=== PATIENT | male | born 1940 | race Caucasian/White ===

== ENCOUNTER 2019-10-23 18:20 | Emergency (ER) | payer MEDICARE, SELFPAY ==
--- NOTE | ~2019-10-23 | CT_ITS ---
EXAMINATION: CTA chest abdomen pelvis DATE: 10/23/2019 19:39 CDT INDICATION: Back pain. History of aortic graft. TECHNIQUE: Computed tomographic angiography (CTA) of the chest, abdomen, and pelvis was performed wit h 100 mL Omnipaque-350 intravenous contrast. The dose-length product was 916.64 mGy-cm. Maximum inten sity projection 3D-reconstructions of the aorta and other arteries were constructed by the [employer] on a separate workstation. Automated exposure control and iterative reconstruction technique were employed. COMPARISON: CT dated 10/16/2018. FINDINGS: CHEST CTA: There is a right subclavian bifemoral bypass graft. No thoracic lymphadenopathy. No significant pleur al or pericardial effusion. Heart size is normal. No evidence for aortic aneurysm or dissection. Ther e is stenosis of the distal abdominal aorta secondary to atherosclerosis. Calcified granuloma right u pper lobe. No focal airspace consolidation. No pneumothorax. No suspicious pulmonary nodules or arin s. No focal airspace consolidation. ABDOMEN AND PELVIS CTA: Status post cholecystectomy. The liver, spleen, pancreas, adrenal glands and left kidney are unremark able. No significant change to 3.4 cm septated cyst lower pole of the right kidney. Bowel pattern is nonobstructive. Normal appendix. Colonic diverticulosis without evidence for diverticulitis. No free air or free fluid. Severe osteoarthritis right hip. Mild lumbar spondylosis. IMPRESSION: 1. No evidence for aortic aneurysm or dissection. Moderate stenosis of the inferior abdominal aorta s econdary to atherosclerotic change. Right subclavian bifemoral bypass graft is patent. 2: No acute abnormality of the chest, abdomen or pelvis. Reviewed, dictated and finalized at location A. IMPRESSION: 1. No evidence for aortic aneurysm or dissection. Moderate stenosis of the infe rior abdominal aorta secondary to atherosclerotic change. Right subclavian bife moral bypass graft is patent. 2: No acute abnormality of the chest, abdomen or pelvis.
[2019-10-23 18:23] VITALS: BP 157/64; PULSE 102; RESP 22; O2SAT 100
--- NOTE | 2019-10-23 18:27 | ED.BACK ---
HPI - Back Pain/Injury General Chief Complaint: Back Pain/Injury Stated Complaint: lower back pain Time Seen by Provider: 10/23/19 18:26 Source: patient and RN notes reviewed Mode of arrival: EMS Limitations: no limitations History of Present Illness HPI Narrative: A 78 y/o male, with a hx of kidney stones, presents to the ED with severe, constant, rt lower back pain for the past 2 days. He states that he awoke with this pain 2 days ago and that when he was bending over to put his socks on his pain aggravated. He also states that walking and movement aggravates his pain. He reports that he has tried using ice, heat, and Biofreeze with no relief. He denies any radiation of the pain. He also denies any hematuria, dysuria, CP, SOB, N/V/D, urinary frequency, constipation, fevers, chills, sweats, rashes, weakness, or numbness. MD elicited complaint: back pain Pertinent past history: kidney stones and cancer Onset (ago): day(s) (2) Timing: constant Severity: severe Location: right lower back Radiation: none Exacerbating factors: movement, walking and other (bending over) Relieving factors: none Context: other (awoke with) Associated symptoms: denies other symptoms Treatments prior to arrival: cold therapy, heat therapy and other (Biofreeze) Related Data Home Medications Medication Instructions Recorded Confirmed apixaban 2.5 mg tablet 2.5 mg PO BID 07/24/19 finasteride 5 mg tablet 5 mg PO DAILY 07/24/19 levothyroxine 75 mcg tablet 75 mcg PO DAILY 07/24/19 spironolactone 25 mg tablet 25 mg PO DAILY 07/24/19 Allergies Allergy/AdvReac Type Severity Reaction Status Date / Time fish oil Allergy Mild RASH Verified 10/23/19 18:51 diazepam AdvReac Mild CONFUSION Verified 10/23/19 18:51 Review of Systems Review of Systems: All systems reviewed & are unremarkable except as noted in HPI and below Constitutional: Constitutional: Denies chills, Denies fever(s) and Denies other (sweats) Cardiovascular: Cardiovascular: Denies chest pain Respiratory: Respiratory: Denies dyspnea Gastrointestinal: Gastrointestinal: Denies constipation, Denies diarrhea, Denies nausea and Denies vomiting Genitourinary: Genitourinary: Denies hematuria, Denies dysuria and Denies urinary frequency Musculoskeletal: Musculoskeletal: Reports back pain (lower rt) Integumentary/Breasts: Skin/Breast: Denies rash Neurologic: Denies numbness and Denies weakness [facility] Past Medical History Medical History (Updated 10/23/19 @ 23:08 by Kelsey Husain MD) Anemia Arterial insufficiency of lower extremity Bradycardia Cardiomyopathy CVA (cerebral vascular accident) DM (diabetes mellitus) Essential (primary) hypertension H/O: HTN (hypertension) History of kidney stones HLD (hyperlipidemia) Hx of melanoma of skin Hypothyroidism Idiopathic gout of multiple sites Other hyperlipidemia Peptic ulcer disease Rheumatoid arthritis Superior mesenteric artery atherosclerosis Type 2 diabetes mellitus without complications Venous insufficiency (chronic) (peripheral) Surgical History Surgical History History of cholecystectomy History of permanent cardiac pacemaker placement Hx of melanoma excision Status post aortic bifurcation bypass graft Family History Family History Grandparent Hypertension Cerebrovascular accident Father Family history of malignant neoplasm Family history of coronary artery disease Mother Family history of malignant neoplasm Family history of coronary artery disease Sibling Family history of diabetes mellitus in first degree relative Social History Social History Smoking status: Former smoker Tobacco type: cigarettes Alcohol intake: current Gender identity (if verbalized by the patient): Male Exam Const: General: cooperative, no acute distress, alert and other (periodically wi
--- NOTE | 2019-10-23 18:38 | ECG_ITS ---
Measurements Intervals [place] Rate: 73 P: 2 MI: 212 QRS: 80 QRSD: 169 T: 107 QT: 426 QTc: 472 Interpretive Statements ELECTRONIC ATRIAL PACEMAKER ELECTRONIC VENTRICULAR PACEMAKER VENTRICULAR PREMATURE COMPLEX BASELINE ARTIFACT- I, II, AVR, AVF NO FURTHER INTERPRETATION IS POSSIBLE ATYPICAL ECG Electronically Signed On 10-24-2019 7:53:19 CDT by Layo Mcfarland D.O.
[2019-10-23 18:58] LABS: Basophils Percent Auto 0.6 % (0.2-1.2); Eosinophils Absolute Auto 0.1 K/mm3 (0-0.3); Hematocrit 45.7 % (42.0-52.0); Hemoglobin 14.8 g/dL (14.0-18.0); Immature Granulocyte Absolute 0.07 K/mm3 (0.00-0.031); Immature Granulocyte Percent A 1.4 % (0-0.5); Lymphocytes Absolute Auto 1.09 K/mm3 (0.9-3.2); Lymphocytes Percent Auto 22.3 % (18.3-44.2); Mean Corpuscular HGB Conc 32.4 g/dl (32-36); Mean Corpuscular Hemoglobin 30.8 pg (26-34); Mean Corpuscular Volume 95.2 fl (80-100); Mean Platelet Volume 9.2 fl (7.4-10.4); Monocytes Absolute Auto 0.7 K/mm3 (0.1-0.6); Monocytes Percent Auto 13.9 % (2.6-8.5); Neutrophils Percent Auto 60.8 % (45.5-73.1); Platelet Count Result 167 k/mm3 (150-375); Red Cell Distribution Width 13.5 % (11.5-14.5); White Blood Count 4.9 K/mm3 (4.5-10.0)
[2019-10-23 19:10] LABS: Alanine Aminotransferase 18 U/L (4-50); Albumin Level 4.6 g/dL (3.5-5.1); Alkaline Phosphatase 80 U/L (38-126); Aspartate Amino Transferase 24 U/L (17-59); Bilirubin,Total 0.7 mg/dL (0.2-1.3); Blood Urea Nitrogen 20 mg/dL (9-20); Calcium 10.6 mg/dL (8.4-10.2); Carbon Dioxide 25 mmol/L (22-30); Chloride 102 mmol/L (98-107); Estimated CRCL calculation 81 ml/min; Estimated Glomerular Filt Rate > 60; Glucose 135 mg/dL (75-110); Lipase 100 U/L (23-300); Potassium 4.7 mmol/L (3.4-5.0); Sodium 137 mmol/L (137-145)
[2019-10-23 19:12] LABS: INR 1.1; Prothrombin Time 13.7 Seconds (11.1-14.7)
[2019-10-23 19:13] LABS: Partial Thromboplastin Time 27.5 SECONDS (22.3-36.8)
[2019-10-23] MEDS: KETOROLAC 15 MG/ML VIAL (*BKC) IV PUSH (21:01)
[2019-10-23] MEDS: MORPHINE SULFATE 4 MG/ML INJ IV PUSH (21:01)
[2019-10-23 21:04] VITALS: BP 158/98; PULSE 71; RESP 18; O2SAT 97
[2019-10-23 21:46] LABS: Add Urine Microscopic? NO; Appearance Urine Clear (Clear); Bilirubin Urine Negative (Negative); Blood Urine Negative (Negative); Color Urine Straw (Yellow); Glucose Urine UA Negative (Negative); Ketones Urine Negative (Negative); Leukocyte Esterase Ur Negative LEU/UL (Negative); Nitrate Urine Negative (Negative); Protein Urine Negative (Negative); Urobilinogen Urine Negative mg/dL (<2.0)
[2019-10-23 22:03] LABS: Specific Grav Ur 1.038 (1.001-1.035)
[2019-10-23 23:46] VITALS: BP 149/88; PULSE 77; RESP 20; O2SAT 100
== END 2019-10-23 23:46 | disposition home or self-care (01) ==
PROVIDERS: Emergency Provider Emergency Medicine; PCP Family Medicine
DX: M54.5 Low back pain (principal); Z86.73 Personal history of transient ischemic attack (TIA), and cerebral infarction without residual deficits; E11.9 Type 2 diabetes mellitus without complications; I10 Essential (primary) hypertension; Z87.442 Personal history of urinary calculi; E78.5 Hyperlipidemia, unspecified; Z85.820 Personal history of malignant melanoma of skin; E03.9 Hypothyroidism, unspecified; M10.00 Idiopathic gout, unspecified site; Z87.11 Personal history of peptic ulcer disease; I87.2 Venous insufficiency (chronic) (peripheral); Z95.0 Presence of cardiac pacemaker; I49.3 Ventricular premature depolarization; I77.1 Stricture of artery; I35.0 Nonrheumatic aortic (valve) stenosis; Z79.01 Long term (current) use of anticoagulants
CPT/HCPCS: 36415; 71275; 74174; 80053; 81003; 83690; 85025; 85610; 85730; 93005; 96365; 96375; 99284; J0131; J1885; J2270; J3010; Q9967

== ENCOUNTER 2019-11-20 12:34 | Emergency (ER) | payer MEDICARE, SELFPAY ==
--- NOTE | ~2019-11-20 | XR_ITS ---
EXAMINATION: XR ribs RT 2V w CXR 2V DATE: 11/20/2019 13:47 INDICATION: Right lower rib pain. TECHNIQUE: Frontal and lateral views of the chest and 3 views of the right ribs were obtained. COMPARISON: Chest 2 views 12/06/2018 FINDINGS: CHEST TWO VIEWS: A calcified right lung nodule is consistent with old granulomatous disease. There is mild scarring at the lung apices. No pleural effusion or pneumothorax. The heart size is normal. The re is a left chest wall pacer with leads in the right atrium and right ventricle. There is an old hea led fracture of left fifth rib. Surgical clips in the right upper quadrant are likely from cholecyste ctomy. There is a right shoulder arthroplasty. RIGHT RIBS: There is no acute rib fracture. IMPRESSION: 1. No acute rib fracture. Reviewed, dictated and finalized at location A. IMPRESSION: 1. No acute rib fracture.
--- NOTE | ~2019-11-20 | CT_ITS ---
EXAMINATION: CT brain wo con DATE: 11/20/2019 13:40 INDICATION: Head injury. TECHNIQUE: Computed tomography (CT) of the head was performed without intravenous contrast. The mA wa s adjusted according to patient size. Iterative reconstruction technique was employed. The dose-lengt h product was 605.33 mGy-cm. COMPARISON: Head CT 12/06/2018 FINDINGS: There is an old infarct in posterior right frontal lobe. There are scattered areas of low a ttenuation in the cerebral white matter, which is within normal limits for the patient's age. There i s no intracranial hemorrhage, acute infarction, or abnormal intracranial mass lesion. The ventricles are normal in size. There are likely changes of ocular lens replacement surgeries. IMPRESSION: 1. Old infarct in posterior right frontal lobe. Reviewed, dictated and finalized at location A.
--- NOTE | ~2019-11-20 | XR_ITS ---
EXAMINATION: XR hand RT min 3V INDICATION: Right hand pain TECHNIQUE: Three views of the right hand are obtained. COMPARISON: 10/24/2012 FINDINGS: There is soft tissue swelling and laceration near the fifth metacarpal without underlying o sseous abnormality. There is advanced triscaphe and first carpometacarpal joint osteoarthritis. Moder ate osteoarthritis is seen in several interphalangeal joints. IMPRESSION: 1. No acute osseous abnormality. 2. Polyarticular osteoarthritis. Reviewed, dictated and finalized at location B.
[2019-11-20 12:37] VITALS: BP 122/55; PULSE 56; RESP 20; TEMP 36.7; O2SAT 99
--- NOTE | 2019-11-20 13:22 | ED.FALL ---
HPI - Fall General Chief Complaint: Fall <Nunu Roy PA-C - Last Filed: 11/20/19 15:30> Stated Complaint: fall down 8 stairs, everything hurts <AGUILAR Jarquin Last Filed: 11/20/19 15:30> Time Seen by Provider: 11/20/19 13:05 <AGUILAR Jarquin Last Filed: 11/20/19 15:30> Source: patient <AGUILAR Jarquin Last Filed: 11/20/19 15:30> Mode of arrival: ambulatory <AGUILAR Jarquin Last Filed: 11/20/19 15:30> Limitations: no limitations <AGUILRA Jarquin Last Filed: 11/20/19 15:30> History of Present Illness HPI Narrative: This is a 79 year old male that presents to the ER for a fall today with back pain. Reports he lost his balance and fell down about 8 stairs. Reports history of balance problems and that he uses a cane to ambulate. Reports he fell backwards onto his bottom. Does report hitting his head. Denies loss of consciousness. Reports pain in the right side of his mid back. Also reports a laceration to the right hand. Reports some skin tears to the right arm and forehead. Reports he went to the urgent care and was told to come here for further evaluation. Denies shortness of breath, abdominal pain, vision changes, vomiting, numbness or weakness. <AGUILAR Jarquin Last Filed: 11/20/19 15:30> Related Data Home Medications: Home Medications Medication Instructions Recorded Confirmed apixaban 2.5 mg tablet 2.5 mg PO BID 07/24/19 11/17/19 finasteride 5 mg tablet 5 mg PO DAILY 07/24/19 11/17/19 levothyroxine 75 mcg tablet 75 mcg PO DAILY 07/24/19 11/17/19 spironolactone 25 mg tablet 25 mg PO DAILY 07/24/19 11/17/19 carvedilol 11/20/19 clopidogrel 11/20/19 losartan 11/20/19 tizanidine mg 11/20/19 11/20/19 <Nunu Roy PA-C - Last Filed: 11/20/19 15:30> Allergies/Adverse Reactions: Allergies Allergy/AdvReac Type Severity Reaction Status Date / Time fish oil Allergy Mild RASH Verified 11/20/19 13:32 diazepam AdvReac Mild CONFUSION Verified 11/20/19 13:32 <Nunu Roy PA-C - Last Filed: 11/20/19 15:30> Review of Systems Review of Systems: Narrative: CONSTITUTIONAL: Denies fever EYES: Denies visual changes CARDIOVASCULAR: Reports chest pain RESPIRATORY: Denies cough or dyspnea. GASTROINTESTINAL: Denies abdominal pain, nausea, vomiting MUSCULOSKELETAL: Reports back pain, joint pain, and myalgia. NEUROLOGIC: Denies headache, numbness, or weakness. <Nunu Roy PA-C - Last Filed: 11/20/19 15:30> All systems reviewed & are unremarkable except as noted in HPI and below <Nunu Roy PA-C - Last Filed: 11/20/19 15:30> [facility] Social History Social History: Social History Smoking status: Former smoker Tobacco type: cigarettes Alcohol intake: current Gender identity (if verbalized by the patient): Male <Nunu Roy PA-C - Last Filed: 11/20/19 15:30> Exam Narrative: Exam Narrative: GENERAL: Elderly, well-nourished, and in no acute distress. HEAD: Normocephalic. Skin tears to the forehead EYES: PERRLA and EOMI. ENT: Nares clear, no rhinorrhea or epistaxis. Mucous membranes moist. Oropharynx without tonsillar hypertrophy exudate or other lesions. Bilateral TMs pearly arango non-bulging NECK: Supple. No adenopathy or masses. No midline spinal tenderness CHEST: Clear to auscultation. No respiratory distress. No wheezes rales or rhonchi HEART: Regular rate and rhythm. No murmur heard. Normal peripheral pulses. ABDOMEN: Soft, nontender, nondistended, normal active bowel sounds. BACK: No midline spinal tenderness EXTREMITIES: Normal range of motion. No edema. Strength equal in bilateral upper and lower extremities SKIN: Warm, dry, no rash. 3cm flap laceration to the right hand palmar surface into subcutaneous tissue over the thenar eminence. Superficial abrasions to the left and right upper extremities NEURO: No focal deficits. Alert and oriented x3.
[2019-11-20 14:15] VITALS: BP 111/59; PULSE 70; RESP 16; TEMP 36.1; O2SAT 100
[2019-11-20] MEDS: TETANUS,DIPHTHERIA,AC PERTUSSIS ADULT (0.5 ML) BOOSTRIX IM (15:36)
[2019-11-20 15:45] VITALS: BP 148/78; PULSE 78; RESP 18; O2SAT 100
== END 2019-11-20 15:46 | disposition home or self-care (01) ==
PROVIDERS: Emergency Provider Emergency Medicine; PCP Family Medicine
DX: S61.411A Laceration without foreign body of right hand, initial encounter (principal); R07.81 Pleurodynia; Z87.891 Personal history of nicotine dependence; Z23 Encounter for immunization; W10.8XXA Fall (on) (from) other stairs and steps, initial encounter
CPT/HCPCS: 12002; 70450; 71045; 71101; 73130; 90471; 90715; 99284; A9270

== ENCOUNTER 2019-11-25 10:29 | Outpatient (CLI) | payer MEDICARE, SELFPAY ==
--- NOTE | ~2019-11-25 | XR_ITS ---
EXAMINATION: XR forearm RT 2V DATE: 11/25/2019 11:26 INDICATION: Right wrist pain. Fall. TECHNIQUE: 2 views of right forearm on 3 radiographs were obtained. COMPARISON: Right hand radiographs 11/20/2019 FINDINGS: Bone alignment is normal. There is no fracture. There is severe osteoarthritis at the trisc aphe joint and first carpometacarpal joint. There are dystrophic calcifications in the wrist. No elbo w joint effusion. IMPRESSION: 1. Polyarticular osteoarthritis. Reviewed, dictated and finalized at location A.
== END 2019-11-25 10:30 | disposition home or self-care (01) ==
PROVIDERS: PCP Family Medicine; Visit Provider Nurse Practitioner Family
DX: I87.2 Venous insufficiency (chronic) (peripheral) (principal); M79.603 Pain in arm, unspecified; Z86.718 Personal history of other venous thrombosis and embolism; M19.031 Primary osteoarthritis, right wrist
CPT/HCPCS: 73090

== ENCOUNTER 2019-11-26 10:03 | Outpatient (CLI) | payer MEDICARE, SELFPAY ==
--- NOTE | ~2019-11-26 | US_ITS ---
EXAMINATION: US venous doppler UE RT DATE: 11/26/2019 10:56 INDICATION: Right upper limb pain. TECHNIQUE: Grayscale ultrasound images without and with compression and Doppler ultrasound images of the right upper extremity veins were obtained. COMPARISON: None. FINDINGS: The visualized portions of the right internal jugular vein, subclavian vein, axillary vein, brachial veins, basilic vein, cephalic vein, radial vein, and ulnar vein are patent. IMPRESSION: 1. No deep venous thrombosis. Reviewed, dictated and finalized at location A.
== END 2019-11-26 10:04 | disposition home or self-care (01) ==
LOC: ANHIMG 10:08
PROVIDERS: PCP Family Medicine; Visit Provider Nurse Practitioner Family
DX: I87.2 Venous insufficiency (chronic) (peripheral) (principal); Z86.718 Personal history of other venous thrombosis and embolism; M79.603 Pain in arm, unspecified
CPT/HCPCS: 93971

== ENCOUNTER 2020-04-29 10:02 | Inpatient (IN) | payer MEDICARE, SELFPAY ==
[2020-04-29] VITALS (8 sets, daily range): BP systolic 111–147; BP diastolic 39–85; PULSE 69–90; RESP 18–22; TEMP 36.4–37.3; O2SAT 90–96
--- NOTE | ~2020-04-29 | XR_ITS ---
XR chest 1V portable 04/29/2020 10:55 Indication: Shortness of breath Procedure: AP portable chest Comparison: Comparison to multiple prior studies sequentially, with oldest reviewed study dated 09/2014. Findings: Cardiomegaly. Pacemaker leads in expected position. Patchy left-sided airspace disease. No pleural effusion or pneumothorax. There is a right shoulder arthroplasty. Severe osteoarthritis of th e left shoulder. Impression: 1: Patchy left-sided airspace disease, suspicious for pneumonia. Reviewed, dictated and finalized at location B. Impression: 1: Patchy left-sided airspace disease, suspicious for pneumonia.
--- NOTE | 2020-04-29 10:17 | ECG_ITS ---
Measurements Intervals [place] Rate: 71 P: 187 CO: 223 QRS: 89 QRSD: 166 T: 70 QT: 407 QTc: 445 Interpretive Statements ELECTRONIC ATRIAL PACEMAKER ELECTRONIC VENTRICULAR PACEMAKER BASELINE ARTIFACT- I, II, III, AVR, AVL, AVF, V1-V6 NO FURTHER INTERPRETATION IS POSSIBLE ATYPICAL ECG Electronically Signed On 04-29-2020 10:47:27 CDT by Layo Mcfarland D.O.
[2020-04-29 10:45] LABS: Eosinophils Percent Auto 0.4 % (0-4.4); Hematocrit 37.6 % (42.0-52.0); Hemoglobin 12.3 g/dL (14.0-18.0); Immature Granulocyte Absolute 0.07 K/mm3 (0.00-0.031); Lymphocytes Absolute Auto 0.39 K/mm3 (0.9-3.2); Lymphocytes Percent Auto 16.5 % (18.3-44.2); Mean Corpuscular HGB Conc 32.7 g/dl (32-36); Mean Corpuscular Hemoglobin 29.9 pg (26-34); Mean Corpuscular Volume 91.5 fl (80-100); Mean Platelet Volume 9.2 fl (7.4-10.4); Monocytes Absolute Auto 0.4 K/mm3 (0.1-0.6); Neutrophils Absolute Auto 1.5 K/mm3 (1.3-6.7); Neutrophils Percent Auto 64.1 % (45.5-73.1); Platelet Count Result 189 k/mm3 (150-375); Red Blood Count 4.11 M/mm3 (4.6-6.20); Red Cell Distribution Width 14.6 % (11.5-14.5); White Blood Count 2.4 K/mm3 (4.5-10.0)
[2020-04-29] MEDS: SODIUM CHLORIDE 0.9% IV 1,000 ML 999 ML IV CONT (10:45)
[2020-04-29] MEDS: FAMOTIDINE 20 MG/2 ML VIAL IV PUSH ×2 (10:45→20:31)
--- NOTE | 2020-04-29 10:49 | PC.NURSE ---
PT ATTEMPT TO VOID X1, UNSUCCESSFUL. PT REFUSES CATH AT THIS TIME.
--- NOTE | 2020-04-29 10:51 | ED.GENADULT ---
HPI - General Adult General Chief complaint: Weakness Stated complaint: covid + weakness Time Seen by Provider: 04/29/20 10:07 Source: patient Mode of arrival: ambulatory Limitations: no limitations History of Present Illness HPI narrative: Patient is an 79-year-old male who presents to emergency department for evaluation of COVID positive associated symptoms with weakness fatigue dizziness unsteady gait and dyspnea with exertion patient is 1 week into his COVID symptoms was diagnosed +1-week ago. Patient with significant comorbidities. Patient notes his balance has been off but he has not fallen. Patient lives at home with his and presents per EMS. Patient was reportedly hypoxic on scene at 88 placed on oxygen resting in the emergency department with the oxygen off he is maintaining a saturation of 95 patient is also being accompanied by his who is a patient with similar symptoms Related Data Home Medications Medication Instructions Recorded Confirmed apixaban 2.5 mg tablet 2.5 mg PO BID 07/24/19 11/30/19 finasteride 5 mg tablet 5 mg PO DAILY 07/24/19 11/30/19 spironolactone 25 mg tablet 25 mg PO DAILY 07/24/19 11/30/19 carvedilol 11/20/19 11/30/19 losartan 11/20/19 11/30/19 clopidogrel 75 mg PO DAILY 04/29/20 04/29/20 Allergies Allergy/AdvReac Type Severity Reaction Status Date / Time fish oil Allergy Mild RASH Verified 04/29/20 10:22 diazepam AdvReac Mild CONFUSION Verified 04/29/20 10:22 Review of Systems Review of Systems: All systems reviewed & are unremarkable except as noted in HPI and below PMFSH Past Medical History Medical History Anemia Arterial insufficiency of lower extremity Bradycardia Cardiomyopathy CVA (cerebral vascular accident) DM (diabetes mellitus) Essential (primary) hypertension H/O: HTN (hypertension) History of kidney stones HLD (hyperlipidemia) Hx of melanoma of skin Hypothyroidism Idiopathic gout of multiple sites Other hyperlipidemia Peptic ulcer disease Rheumatoid arthritis Superior mesenteric artery atherosclerosis Type 2 diabetes mellitus without complications Venous insufficiency (chronic) (peripheral) Surgical History Surgical History History of cholecystectomy History of permanent cardiac pacemaker placement Hx of melanoma excision Status post aortic bifurcation bypass graft Family History Family History Grandparent Hypertension Cerebrovascular accident Father Family history of malignant neoplasm Family history of coronary artery disease Mother Family history of malignant neoplasm Family history of coronary artery disease Sibling Family history of diabetes mellitus in first degree relative Social History Social History Smoking status: Former smoker Tobacco type: cigarettes Alcohol intake: current Gender identity (if verbalized by the patient): Male Exam Narrative: Exam Narrative: GENERAL: Illl-appearing, well-nourished, and in no acute distress. HEAD: Normocephalic, atraumatic. EYES: PERRLA and EOMI. ENT: Nares clear, no rhinorrhea or epistaxis. Mucous membranes moist. Oropharynx without tonsillar hypertrophy exudate or other lesions. NECK: Supple. No adenopathy or masses. CHEST: Clear to auscultation. No respiratory distress. Crackles throughout the lung field HEART: Regular rate and rhythm. No murmur heard. Normal peripheral pulses. ABDOMEN: Soft, nontender, nondistended EXTREMITIES: Normal range of motion. No edema. SKIN: Warm, dry, no rash. NEURO: No focal deficits. Alert and oriented x3. Cranial nerves II through XII grossly intact other PSYCH: Normal mood and affect. Course Course Emergency Course: Patient in the room at this time resting comfortably patient has been hydrated will be placed i
[2020-04-29 10:54] LABS: INR 1.5; Prothrombin Time 18.1 Seconds (11.1-14.7)
[2020-04-29 10:55] LABS: Partial Thromboplastin Time 35.2 SECONDS (22.3-36.8)
[2020-04-29 10:56] LABS: Lactic Acid Reflex 2.5 mmol/L (0.7-2.1); Magnesium 1.7 mg/dL (1.6-2.3)
[2020-04-29 11:00] LABS: Alanine Aminotransferase 16 U/L (4-50); Albumin Level 3.7 g/dL (3.5-5.1); Alkaline Phosphatase 60 U/L (38-126); Anion Gap 9 mmol/L (8-16); Aspartate Amino Transferase 27 U/L (17-59); Bilirubin,Total 0.7 mg/dL (0.2-1.3); Blood Urea Nitrogen 26 mg/dL (9-20); Carbon Dioxide 23 mmol/L (22-30); Chloride 102 mmol/L (98-107); Estimated Glomerular Filt Rate > 60; Glucose 180 mg/dL (75-110); Sodium 134 mmol/L (137-145)
[2020-04-29 11:10] LABS: Troponin I < 0.012 ng/mL (0.000-0.034)
[2020-04-29 11:12] LABS: Alveolar/Arterial O2 Gradient 42.1 mmHg; Base Excess ABG -7.4 mEq/l (+/-2.0); Carboxyhemoglobin 0.3 % THb (0-2.0); Fractional Inspired Oxygen 21 %; HCO3 ABG 16.1 mEq/l (22.0-26.0); Methemoglobin ABG 0.2 %THb (0-1.5); Oxygen Content ABG 16.1 %vol (16.0-22.0); Oxygen Saturation ABG 95.3 % (95.0-100.0); Oxyhemoglobin 93.6 % THb (90.0-100.0); PCO2 ABG 27.1 mmHg (35.0-45.0); PO2 ABG 75.2 mmHg (80.0-100.0); PO2 FiO2 Ratio Arterial Blood 3.58 %; Reduced Hemoglobin 5.9 %THb (0-5.0); Total Hemoglobin 12.2 g/dL (12.0-18.0); pH ABG 7.391 (7.350-7.450)
[2020-04-29 11:13] LABS: Site Drawn LEFT BRACHIAL
[2020-04-29 11:14] LABS: Device ROOM AIR
[2020-04-29 11:56] LABS: Add Urine Microscopic? NO; Appearance Urine Clear (Clear); Bilirubin Urine Negative (Negative); Blood Urine Negative (Negative); Color Urine Yellow (Yellow); Glucose Urine UA Negative (Negative); Ketones Urine Negative (Negative); Leukocyte Esterase Ur Negative LEU/UL (Negative); Nitrate Urine Negative (Negative); Protein Urine Negative (Negative); Specific Grav Ur 1.025 (1.001-1.035); Urobilinogen Urine Negative mg/dL (<2.0)
[2020-04-29 13:43] LABS: Reflex Lactic Acid Yes or No Add Lactic
--- NOTE | 2020-04-29 13:47 | PM.IMHP ---
H&P: HPI History of Present Illness Date/Time: 04/29/20 13:47 Chief complaint: Pneumonia/Covid 19/dehydration/generalized weaknes Narrative: Zhang Alexis is a 79 year old male for the past medical history of no diabetes, arterial disease, and hypertension who presented to the emergency room for significant weakness. The patient states that he was diagnosed with COVID-19 on 04/21/20 after being tested due to his family members being positive. He did not have symptoms until 04/22/20 then he started having a dry cough and weakness. Three days ago, he started having diarrhea and nausea and did not have much of an appetite. He has not been able to eat and drink very much. He continues to have a dry cough but he does not think he has had any fevers at home. He has diabetes and his blood sugar usually runs around 110 and his A1c was 6.8. He recently had an excision in his left hand for squamous cell cancer that he thinks is infected but has not been back to the pricing associate. He has been putting peroxide on it but it keeps getting more red and having discharge. He has not been on any antibiotics recently. He says he feels lightheaded and dizzy when he 1st stands up which is chronic but worsened in the last few days. His main complaint is being weak and tired. He denies headache, chest pain, vomiting, rashes, falls, shortness of breath at rest or with movement, or shortness of breath laying flat. Review of Systems Review of Systems: All systems reviewed & are unremarkable except as noted in HPI and below PMFSH Past Medical History Medical History (Updated 04/29/20 @ 14:09 by Millie Griffith PA-C) Anemia Arterial insufficiency of lower extremity Bradycardia Status post pacemaker Cardiomyopathy CVA (cerebral vascular accident) And 2006, no deficits DM (diabetes mellitus) Essential (primary) hypertension FH: carotid endarterectomy H/O: HTN (hypertension) History of kidney stones History of squamous cell carcinoma of skin HLD (hyperlipidemia) Hx of melanoma of skin No recurrence. Hypothyroidism Other hyperlipidemia Superior mesenteric artery atherosclerosis Type 2 diabetes mellitus without complications Venous insufficiency (chronic) (peripheral) Surgical History Surgical History (Updated 04/29/20 @ 14:22 by Millie Griffith PA-C) History of cholecystectomy History of endarterectomy History of permanent cardiac pacemaker placement Hx of melanoma excision Status post aortic bifurcation bypass graft Family History Family History Grandparent Hypertension Cerebrovascular accident Father Family history of malignant neoplasm Family history of coronary artery disease Mother Family history of malignant neoplasm Family history of coronary artery disease Sibling Family history of diabetes mellitus in first degree relative Social History Social History (Updated 04/29/20 @ 14:21 by Millie Griffith PA-C) Social History: Patient quit smoking cigarettes 25 years ago but did smoke 3 packs per day at that time. He does not drink alcohol or do drugs. He lives with his Susannah at home and does not utilize any ambulatory device and has no falls. He would like to be a DNR. He designates his , Susannah, as his surrogate decision maker Smoking status: Former smoker Tobacco type: cigarettes Additional smoking assessment comments: Quit over 30 years ago Alcohol intake: never Substance use: never Substance use type: does not use Gender identity (if verbalized by the patient): Male Spiritual care concerns: No Meds Home Medications and Allergies Home Medications Medication Instructions Recorded Confirmed Type apixaban 2.5 mg tablet 2.5 mg PO BID 07/24/19 04/29/20 History finasteride 5 mg tablet 5 mg PO DAILY 07/24/19 04/29/20 History spironolactone 25 mg tablet 25 mg PO DAILY 07/24/19 04/29/20 History furosemide 20 mg tablet 20 mg PO QAM #9
[2020-04-29 14:26] LABS: Lactic Acid 3.2 mmol/L (0.7-2.1)
--- NOTE | 2020-04-29 14:33 | PC.NURSE ---
This patient, Zhang Alexis, was admitted to [facility] Room 328-01 on 04/29/20 @ 1325. Patient/family oriented to hospital policies and general routines including ID bracelet, bed and alarms, visiting hours, pain management, procedures, bathroom and other care routines, personal items, smoking policy, room service/diet, and visiting hours. Valuables list has been completed. Information on how to activate the Rapid Response Team has been discussed. Patient/Family are encouraged to report perceived risks to care and to ask questions if they do not understand what they are told or what they should do.
[2020-04-29] MEDS: LACTATED RINGERS 1,000 ML 100 ML IV CONT (15:02)
--- NOTE | 2020-04-29 15:08 | PCPTNOTE ---
Attempted PT evaluation this date. Pt fatigued and requesting to work with therapy tomorrow. Will try again tomorrow.
--- NOTE | 2020-04-29 15:09 | PCOTNOTE ---
OT evaluation attempted pt. fatigued and requesting therapy attempt tomorrow.
[2020-04-29] MEDS: ALBUTEROL SULFATE (*SP) AEROSOL 1 PUFF 2 PUFF INHALATION ×2 (16:54→21:15)
[2020-04-29] MEDS: APIXABAN 2.5 MG TABLET PO (17:03)
[2020-04-29 17:29] LABS: Glucose Point of Care 160 (65-105)
[2020-04-29 17:39] LABS: Lactic Acid Reflex 1.9 mmol/L (0.7-2.1)
[2020-04-29] MEDS: MUPIROCIN 2% OINT 22 GM TUBE 1 APPLIC TOPICAL (20:31)
[2020-04-29] MEDS: carvediloL 25 MG TABLET PO (20:37)
[2020-04-29 21:39] LABS: Glucose Point of Care 157 (65-105)
[2020-04-30] VITALS (9 sets, daily range): BP systolic 121–161; BP diastolic 51–67; PULSE 69–92; RESP 18–20; TEMP 36.7–37; O2SAT 90–94
[2020-04-30] MEDS: LEVOTHYROXINE SODIUM 75 MCG TABLET PO (06:08)
[2020-04-30 06:22] LABS: Hematocrit 35.8 % (42.0-52.0); Hemoglobin 11.8 g/dL (14.0-18.0); Mean Corpuscular Hemoglobin 29.9 pg (26-34); Mean Corpuscular Volume 90.9 fl (80-100); Platelet Count Result 186 k/mm3 (150-375); Red Blood Count 3.94 M/mm3 (4.6-6.20); Red Cell Distribution Width 14.2 % (11.5-14.5); White Blood Count 3.2 K/mm3 (4.5-10.0)
[2020-04-30] MEDS: ACETAMINOPHEN 325 MG TABLET 650 MG PO (06:40)
[2020-04-30 06:55] LABS: Alanine Aminotransferase 13 U/L (4-50); Albumin Level 3.2 g/dL (3.5-5.1); Alkaline Phosphatase 55 U/L (38-126); Anion Gap 7 mmol/L (8-16); Aspartate Amino Transferase 28 U/L (17-59); Bilirubin,Total 0.5 mg/dL (0.2-1.3); Blood Urea Nitrogen 15 mg/dL (9-20); CRP 14.2 mg/dL (<1.0); Calcium 9.2 mg/dL (8.4-10.2); Carbon Dioxide 23 mmol/L (22-30); Chloride 105 mmol/L (98-107); Estimated Glomerular Filt Rate > 60; Glucose 133 mg/dL (75-110); Magnesium 1.7 mg/dL (1.6-2.3); Potassium 4.1 mmol/L (3.4-5.0); Sodium 135 mmol/L (137-145)
[2020-04-30] MEDS: ALBUTEROL SULFATE (*SP) AEROSOL 1 PUFF 2 PUFF INHALATION ×4 (08:31→20:11)
[2020-04-30] MEDS: CLOPIDOGREL BISULFATE 75 MG TABLET PO (08:53)
[2020-04-30] MEDS: FINASTERIDE 5 MG TABLET PO (08:53)
[2020-04-30] MEDS: LOSARTAN POTASSIUM 100 MG TABLET PO (08:54)
[2020-04-30] MEDS: APIXABAN 2.5 MG TABLET PO ×2 (08:54→17:34)
[2020-04-30] MEDS: BENZONATATE 100 MG CAPSULE PO (08:54)
[2020-04-30] MEDS: carvediloL 25 MG TABLET PO ×2 (08:54→20:53)
[2020-04-30] MEDS: FAMOTIDINE 20 MG/2 ML VIAL IV PUSH ×2 (08:55→20:53)
[2020-04-30] MEDS: MUPIROCIN 2% OINT 22 GM TUBE 1 APPLIC TOPICAL ×2 (08:55→20:54)
[2020-04-30 09:45] LABS: Glucose Point of Care 187 (65-105)
[2020-04-30 12:42] LABS: Glucose Point of Care 164 (65-105)
--- NOTE | 2020-04-30 15:33 | PM.IMPN ---
Progress Note: A&P Assessment and Plan (1) COVID-19: Code(s): U07.1 - COVID-19 Status: Acute Assessment and Plan: -----patient was diagnosed with COVID-19 on 04/21/20 after family members were positive. He did not have symptoms until 04/22/20 and started having a cough and feeling run down. He has not required any oxygen. At this time we will continue with supportive treatment with his home Eliquis, oxygen as needed for sats less than 90, and acetaminophen for fevers. He does not qualify for Remdesivir or Decadron at this time. He was reportedly 80% on room air according to EMS but has been greater than 90 since here. I will do albuterol inhaler as well although he does not feel like this is helping. The patient states he would like to be a DNR and understands what this means since he worked at the fire department for 30 years (2) Pneumonia: Code(s): J18.9 - Pneumonia, unspecified organism Status: Acute Assessment and Plan: -----likely viral pneumonia, no signs of secondary bacterial infection. Monitor (3) Generalized weakness: Code(s): R53.1 - Weakness Status: Acute Assessment and Plan: -----likely due to acute dehydration and viral illness. Continue PT and OT (4) Acute dehydration: Code(s): E86.0 - Dehydration Status: Acute Assessment and Plan: -----patient has had nausea and diarrhea for the last 3 days and has not been eating very much. This has improved and his lactic acid has normalized. I will stop the fluids. Continue to advance diet (5) Type 2 diabetes mellitus without complications: Code(s): E11.9 - Type 2 diabetes mellitus without complications Status: Acute Assessment and Plan: -----last glucose 164. Will hold oral hypoglycemics and continue sliding scale insulin. He states his last A1c was 6.8 (6) Hypothyroidism: Code(s): E03.9 - Hypothyroidism, unspecified Status: Acute Assessment and Plan: -----continue levothyroxine, TSH within normal limits (7) Essential (primary) hypertension: Code(s): I10 - Essential (primary) hypertension Status: Acute Assessment and Plan: -----last blood pressure 135/51. Continue losartan and carvedilol. Due to dehydration I will hold spironolactone and Lasix but watch closely for fluid overload. These could be added back once he is more euvolemic. (8) Leukopenia: Code(s): D72.819 - Decreased white blood cell count, unspecified Status: Acute Assessment and Plan: -----likely due to viral infection. Monitor (9) Chronic anticoagulation: Code(s): Z79.01 - intermediate (current) use of anticoagulants Status: Acute Assessment and Plan: -----patient is on Eliquis and we will continue with that. He is on this since 2016 when it sounds like he had a bypass procedure for PA D. (10) History of squamous cell carcinoma of skin: Code(s): Z85.828 - Personal history of other malignant neoplasm of skin Status: Acute Assessment and Plan: -----patient had an excision and states that he was told it was infected and was prescribed some kind of cream that he hadn't picked up yet. I called his pharmacy and they have no record of this. I called his cis coordinator Dr. Mahajan [phone] and spoke to 1 her colleagues who recommended wound culture, doxycycline, and Bactroban. Wound culture showing Gram-positive cocci in clusters. Continue doxycycline at this time. Blood cultures were drawn and have no growth to date. I do not think this is the source of the fever or infection but since it has been 8 days since his COVID-19 test being positive, we will make sure this is not bacterial in nature. Time Spent With Patient Time with patient: 25 - 35 minutes Subjective Date/time seen: 04/30/20 15:33 Interval history: Pt is a 79-year-old male here for COVID-19. Patient was s
[2020-04-30 17:18] LABS: Glucose Point of Care 146 (65-105)
[2020-04-30 21:16] LABS: Glucose Point of Care 150 (65-105)
[2020-05-01] VITALS: BP 131/59; PULSE 69; PULSE 70; RESP 20; TEMP 37.3; O2SAT 90
[2020-05-01 04:00] VITALS: BP 137/60; PULSE 70; RESP 20; TEMP 37.1; O2SAT 90
[2020-05-01] MEDS: LEVOTHYROXINE SODIUM 75 MCG TABLET PO (05:40)
[2020-05-01 06:06] LABS: Hematocrit 38.3 % (42.0-52.0); Hemoglobin 12.7 g/dL (14.0-18.0); Mean Corpuscular HGB Conc 33.2 g/dl (32-36); Mean Corpuscular Hemoglobin 30.5 pg (26-34); Mean Corpuscular Volume 92.1 fl (80-100); Mean Platelet Volume 9.3 fl (7.4-10.4); Platelet Count Result 184 k/mm3 (150-375); Red Blood Count 4.16 M/mm3 (4.6-6.20); Red Cell Distribution Width 14.3 % (11.5-14.5)
[2020-05-01 06:55] LABS: CRP 13.8 mg/dL (<1.0)
[2020-05-01 08:00] VITALS: BP 126/52; PULSE 55; PULSE 70; RESP 18; TEMP 36.9; O2SAT 96
[2020-05-01 08:52] LABS: Glucose Point of Care 176 (65-105)
[2020-05-01] MEDS: BENZONATATE 100 MG CAPSULE PO (09:01)
[2020-05-01] MEDS: LOSARTAN POTASSIUM 100 MG TABLET PO (09:01)
[2020-05-01] MEDS: FAMOTIDINE 20 MG/2 ML VIAL IV PUSH (09:01)
[2020-05-01 09:02] VITALS: PULSE 70
[2020-05-01] MEDS: carvediloL 25 MG TABLET PO (09:02)
[2020-05-01] MEDS: APIXABAN 2.5 MG TABLET PO (09:02)
[2020-05-01] MEDS: MUPIROCIN 2% OINT 22 GM TUBE 1 APPLIC TOPICAL (09:02)
[2020-05-01] MEDS: FINASTERIDE 5 MG TABLET PO (09:02)
[2020-05-01] MEDS: ALBUTEROL SULFATE (*SP) AEROSOL 1 PUFF 2 PUFF INHALATION (09:53)
--- NOTE | 2020-05-01 11:48 | PM.DS ---
DS: Admitting Diagnosis Admitting Diagnosis Admitting Diagnosis: Pneumonia/Covid 19/dehydration/generalized weaknes DS: Discharge Diagnosis Discharge Diagnosis (1) COVID-19: Code(s): U07.1 - COVID-19 Status: Acute Assessment and Plan: -----patient was diagnosed with COVID-19 on 04/21/20 after family members were positive. He did not have symptoms until 04/22/20 and started having a cough and feeling run down. He did not require any oxygen throughout his stay therefore did not receive any Decadron or Remdesivir. He is educated on quarantine guidelines (2) Pneumonia: Code(s): J18.9 - Pneumonia, unspecified organism Status: Acute Assessment and Plan: -----likely viral pneumonia, no signs of secondary bacterial lung infection. (3) Generalized weakness: Code(s): R53.1 - Weakness Status: Acute Assessment and Plan: -----improved. He did well with PT and OT (4) Acute dehydration: Code(s): E86.0 - Dehydration Status: Acute Assessment and Plan: -----patient has had nausea and diarrhea for the last 3 days and has not been eating very much. This has improved and his lactic acid has normalized after fluids (5) Type 2 diabetes mellitus without complications: Code(s): E11.9 - Type 2 diabetes mellitus without complications Status: Acute Assessment and Plan: -----last glucose 163. Continue home diabetic regimen (6) Hypothyroidism: Code(s): E03.9 - Hypothyroidism, unspecified Status: Acute Assessment and Plan: -----continue levothyroxine, TSH within normal limits (7) Essential (primary) hypertension: Code(s): I10 - Essential (primary) hypertension Status: Acute Assessment and Plan: -----last blood pressure 137/61. Continue losartan and carvedilol. I have asked him to hold his diuretic therapy while he is undergoing this acute sickness since he is not eating and drinking very well. If he starts to have swelling, he can start taking the diuretics again. (8) Leukopenia: Code(s): D72.819 - Decreased white blood cell count, unspecified Status: Acute Assessment and Plan: -----likely due to viral infection. (9) Chronic anticoagulation: Code(s): Z79.01 - intermodal dispatcher (current) use of anticoagulants Status: Acute Assessment and Plan: -----patient is on Eliquis and we will continue with that. He is on this since 2016 when it sounds like he had a bypass procedure for OLESYA Kenny (10) History of squamous cell carcinoma of skin: Code(s): Z85.828 - Personal history of other malignant neoplasm of skin Status: Acute Assessment and Plan: -----patient had an excision and states that he was told it was infected and was prescribed some kind of cream that he hadn't picked up yet. I called his pharmacy and they have no record of this. I called his cigarette vendor Dr. Mahajan [phone] and spoke to 1 her colleagues who recommended wound culture, doxycycline, and Bactroban. Wound culture showing Staph aureus and I am awaiting sensitivities. I will change antibiotics as needed but the area seemed to be healing well with current therapy. Continue doxycycline at this time. Blood cultures were drawn and have no growth to date and will be monitored until finalized. I do not think this is the source of the fever and does not appear to be the etiology of the systemic response. DS: Summary Hospital Course Reason for hospitalization: COVID-19 Hospital Course: Patient is an 79-year-old male who has known COVID-19 who presented emergency room for dehydration, weakness, and cough. Reportedly the patient was 80% on room air in the field but did not require any oxygen during his stay. He did have a recent skin cancer removal which appeared infected and was given doxycycline and Bactroban. Please see above for further details. The da
[2020-05-01 12:00] VITALS: BP 137/61; PULSE 64; RESP 18; TEMP 36.8; O2SAT 93
[2020-05-01 13:07] LABS: Glucose Point of Care 163 (65-105)
--- NOTE | 2020-05-03 13:25 | PC.NURSE ---
wound cx sensitivities emailed to Edwin Griffith PA-C.
--- NOTE | 2020-05-09 15:08 | PC.NURSE ---
Blood cx are negative.
== END 2020-05-01 14:00 | disposition home or self-care (01) | DRG 177 ==
LOC: ANHED 12:12 → ANH3MEDSUR 12:36
PROVIDERS: Emergency Medicine Emergency Medical Services; Admitting Provider Internal Medicine; Emergency Provider Emergency Medicine; PCP Family Medicine; Visit Provider Physician Assistant
DX: U07.1 COVID-19 (principal); J12.89 Other viral pneumonia; E86.0 Dehydration; D64.9 Anemia, unspecified; E11.9 Type 2 diabetes mellitus without complications; I10 Essential (primary) hypertension; Z86.73 Personal history of transient ischemic attack (TIA), and cerebral infarction without residual deficits; Z66 Do not resuscitate; E03.9 Hypothyroidism, unspecified; Z79.01 Long term (current) use of anticoagulants
CPT/HCPCS: 36415; 36600; 71045; 80048; 80053; 80076; 81003; 82375; 82805; 83050; 83605; 83735; 84100; 84443; 84484; 85025; 85027; 85610; 85730; 86140; 87040; 87070; 87077; 87147; 87186; 87205; 93005; 94640; 96361; 96374; 97161; 97166; 99285; A9270; G0378; J7030; J7120

== ENCOUNTER 2020-06-01 10:39 | Outpatient (CLI) | payer MEDICARE, SELFPAY ==
--- NOTE | ~2020-06-01 | XR_ITS ---
XR chest 2V 06/01/2020 11:15 Indication: Pneumonia Procedure: PA and lateral views of the chest Comparison: Comparison to multiple prior studies sequentially, with oldest reviewed study dated 08/27. Findings: Heart size is normal. Pacemaker leads are in expected position. Bibasilar infiltrates, cons istent with emphysema. There are surgical changes in the right upper thorax. The lungs are hyperinfla george which is consistent with, but not diagnostic of chronic obstructive pulmonary disease. Impression: 1: Bibasilar infiltrates, consistent with pneumonia. Reviewed, dictated and finalized at location B. Impression: 1: Bibasilar infiltrates, consistent with pneumonia.
[2020-06-01 11:40] LABS: Basophils Percent Auto 0.4 % (0.2-1.2); Eosinophils Absolute Auto 0.1 K/mm3 (0-0.3); Eosinophils Percent Auto 1.1 % (0-4.4); Hematocrit 39.5 % (42.0-52.0); Hemoglobin 12.3 g/dL (14.0-18.0); Immature Granulocyte Absolute 0.07 K/mm3 (0.00-0.031); Immature Granulocyte Percent A 1.3 % (0-0.5); Lymphocytes Absolute Auto 0.91 K/mm3 (0.9-3.2); Lymphocytes Percent Auto 17.4 % (18.3-44.2); Mean Corpuscular HGB Conc 31.1 g/dl (32-36); Mean Corpuscular Hemoglobin 29.6 pg (26-34); Mean Platelet Volume 8.9 fl (7.4-10.4); Monocytes Absolute Auto 0.7 K/mm3 (0.1-0.6); Monocytes Percent Auto 12.8 % (2.6-8.5); Neutrophils Absolute Auto 3.5 K/mm3 (1.3-6.7); Platelet Count Result 268 k/mm3 (150-375); Red Blood Count 4.16 M/mm3 (4.6-6.20); Red Cell Distribution Width 15.3 % (11.5-14.5); White Blood Count 5.2 K/mm3 (4.5-10.0)
[2020-06-01 11:51] LABS: Anion Gap 8 mmol/L (8-16); Blood Urea Nitrogen 17 mg/dL (9-20); Calcium 10.3 mg/dL (8.4-10.2); Carbon Dioxide 28 mmol/L (22-30); Chloride 103 mmol/L (98-107); Estimated Glomerular Filt Rate > 60; Glucose 157 mg/dL (75-110); Potassium 4.9 mmol/L (3.4-5.0); Sodium 139 mmol/L (137-145)
== END 2020-06-01 10:40 | disposition home or self-care (01) ==
PROVIDERS: PCP Family Medicine; Visit Provider Physician Assistant Medical
DX: J18.9 Pneumonia, unspecified organism (principal); U07.1 COVID-19; D72.819 Decreased white blood cell count, unspecified; R91.8 Other nonspecific abnormal finding of lung field
CPT/HCPCS: 36415; 71046; 80048; 85025

== ENCOUNTER 2020-06-15 18:18 | Emergency (ER) | payer MEDICARE, SELFPAY ==
--- NOTE | ~2020-06-15 | CT_ITS ---
EXAMINATION: CT brain wo con DATE: 06/15/2020 19:07 INDICATION: Head injury. TECHNIQUE: Computed tomography (CT) of the head was performed without intravenous contrast. The mA wa s adjusted according to patient size. Iterative reconstruction technique was employed. The dose-lengt h product was 605.33 mGy-cm. COMPARISON: Head CT 11/20/19 FINDINGS: There is an old infarct in posterior right frontal lobe. There are scattered areas of low a ttenuation in the cerebral white matter, which is within normal limits for the patient's age. There i s no intracranial hemorrhage, acute infarction, or abnormal intracranial mass lesion. The ventricles are normal in size. There is mucosal thickening in the paranasal sinuses. The mastoid air cells are n ormal. There are likely changes of ocular lens replacement surgeries. There is a laceration of the le ft superior scalp. IMPRESSION: 1. Old infarct in posterior right frontal lobe. Reviewed, dictated and finalized at location A. ATIONAL ADMINISTRATION TEACHER
--- NOTE | ~2020-06-15 | XR_ITS ---
EXAMINATION: XR ribs RT 2V DATE: 06/15/2020 19:15 INDICATION: Right chest pain. Fall. TECHNIQUE: 3 views of the right ribs were obtained. COMPARISON: Chest 2 views 06/01/2020, right shoulder radiographs 12/22/2009, right rib radiographs 11/10 FINDINGS: Calcified right lung nodules are consistent with old granulomatous disease. There is mild a telectasis at right lung base. There is no right-sided pleural effusion or pneumothorax. The heart si ze is normal. There is a left chest wall pacer with leads in the right atrium and right ventricle. Th ere are old healed fractures of right ninth and 10th rib fractures. There is a total right shoulder a rthroplasty with failure and displacement of the glenoid component. Surgical clips in the right upper quadrant are likely from cholecystectomy. IMPRESSION: 1. No acute rib fracture. 2. 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 Reviewed, dictated and finalized at location A. MAKER IMPRESSION: 1. No acute rib fracture. 2. Total right shoulder arthroplasty with chronic failure and displacement of t he glenoid component.
[2020-06-15 18:28] VITALS: BP 115/92; PULSE 91; RESP 20; TEMP 36.9; O2SAT 97
--- NOTE | 2020-06-15 18:39 | ED.GENADULT ---
HPI - General Adult General Chief complaint: Fall Stated complaint: fall Time Seen by Provider: 06/15/20 18:38 Source: patient and family Mode of arrival: ambulatory Limitations: no limitations History of Present Illness HPI narrative: Patient was out shopping with his and walking to the car when he began to stumble. He fell onto his right arm and ribs and has an abrasion above his right eye. He denies any loss of consciousness or dizziness. He states that he did feel a little off just prior to falling and he has fallen several times in the last few months. He denies any pain in his arm and has full range of motion. He is complaining of pain in his right ribs. Onset (ago): hour(s) Severity: mild Quality: aching Pain Consistency: constant Treatments prior to arrival: none Related Data Home Medications Medication Instructions Recorded Confirmed apixaban 2.5 mg tablet 2.5 mg PO BID 07/24/19 04/29/20 finasteride 5 mg tablet 5 mg PO DAILY 07/24/19 04/29/20 spironolactone 25 mg tablet 25 mg PO DAILY 07/24/19 04/29/20 carvedilol 25 mg PO BID 11/20/19 04/29/20 losartan 100 mg PO DAILY 11/20/19 04/29/20 clopidogrel 75 mg PO DAILY 04/29/20 04/29/20 metformin 500 mg PO BID 04/29/20 04/29/20 tizanidine 4 mg PO HS 04/29/20 04/29/20 Allergies Allergy/AdvReac Type Severity Reaction Status Date / Time fish oil Allergy Mild RASH Verified 06/15/20 19:14 diazepam AdvReac Mild CONFUSION Verified 06/15/20 19:14 [facility] Past Medical History Medical History (Updated 06/15/20 @ 20:44 by Mounika Aaron PA-C) Anemia Arterial insufficiency of lower extremity Bradycardia Status post pacemaker Cardiomyopathy CVA (cerebral vascular accident) And 2007, no deficits DM (diabetes mellitus) Essential (primary) hypertension FH: carotid endarterectomy H/O: HTN (hypertension) History of kidney stones History of squamous cell carcinoma of skin HLD (hyperlipidemia) Hx of melanoma of skin No recurrence. Hypothyroidism Other hyperlipidemia Superior mesenteric artery atherosclerosis Type 2 diabetes mellitus without complications Venous insufficiency (chronic) (peripheral) Surgical History Surgical History History of cholecystectomy History of endarterectomy History of permanent cardiac pacemaker placement Hx of melanoma excision Status post aortic bifurcation bypass graft Family History Family History Grandparent Hypertension Cerebrovascular accident Father Family history of malignant neoplasm Family history of coronary artery disease Mother Family history of malignant neoplasm Family history of coronary artery disease Sibling Family history of diabetes mellitus in first degree relative Social History Social History Social History: Patient quit smoking cigarettes 25 years ago but did smoke 3 packs per day at that time. He does not drink alcohol or do drugs. He lives with his Susannah at home and does not utilize any ambulatory device and has no falls. He would like to be a DNR. He designates his , Susannah, as his surrogate decision maker Smoking status: Former smoker Tobacco type: cigarettes Additional smoking assessment comments: Quit over 30 years ago Alcohol intake: never Substance use: never Substance use type: does not use Gender identity (if verbalized by the patient): Male Spiritual care concerns: No Exam Const: General: no acute distress and alert Orientation/consciousness: patient oriented x3 HENMT: Head: abrasion right frontal (just above eyebrow, no crepitus) 2 cm Eyes: Pupils: Equal, round and reactive pupils present Chest: Chest palpation & inspection: normal inspection of the chest and tenderness rib (right ant,ribs4-5) Resp: Effort & Inspection: normal respiratory effort Auscultation: clear to auscultation b
== END 2020-06-15 21:15 | disposition home or self-care (01) ==
PROVIDERS: Emergency Provider Emergency Medicine; PCP Family Medicine
DX: S20.211A Contusion of right front wall of thorax, initial encounter (principal); S00.83XA Contusion of other part of head, initial encounter; Z86.2 Personal history of diseases of the blood and blood-forming organs and certain disorders involving the immune mechanism; I77.1 Stricture of artery; I10 Essential (primary) hypertension; Z87.442 Personal history of urinary calculi; E78.5 Hyperlipidemia, unspecified; I87.2 Venous insufficiency (chronic) (peripheral); Z85.820 Personal history of malignant melanoma of skin; Z86.73 Personal history of transient ischemic attack (TIA), and cerebral infarction without residual deficits; Z87.891 Personal history of nicotine dependence; Z66 Do not resuscitate; W10.1XXA Fall (on)(from) sidewalk curb, initial encounter
CPT/HCPCS: 70450; 71100; 99284

== ENCOUNTER 2020-06-22 10:36 | Outpatient (CLI) | payer MEDICARE, SELFPAY ==
--- NOTE | ~2020-06-22 | XR_ITS ---
EXAMINATION: XR chest 2V EXAM DATE: 06/22/2020 11:05 INDICATION: Pneumonia, unspec organism FOLLOW UP J18.9 - Pneumonia, unspecified organism. TECHNIQUE: Frontal and lateral projections of the chest obtained and reviewed. Comparison is made to prior examination from 06/15/2020. FINDINGS: Linear bibasilar opacities most likely regions of atelectasis or scarring. Several right l cyndi granulomata. No confluent consolidation, pneumothorax or pleural effusion suspected. Cardiomedias tinal silhouette is normal. There is a dual lead pacemaker/AICD seen with leads projecting over the e xpected locations of the right atrial appendage and right ventricle. There is aortic arteriosclerosis . Right shoulder replacement. Right axillary surgical clips. IMPRESSION: Some linear basilar opacities likely postinfectious residua. No confluent consolidation. Reviewed, dictated and finalized at location A. HYSICAL OBSERVER IMPRESSION: Some linear basilar opacities likely postinfectious residua. No co nfluent consolidation.
[2020-06-22 11:42] LABS: Anion Gap 8 mmol/L (8-16); Blood Urea Nitrogen 18 mg/dL (9-20); Carbon Dioxide 23 mmol/L (22-30); Chloride 107 mmol/L (98-107); Estimated Glomerular Filt Rate > 60; Glucose 158 mg/dL (75-110); Potassium 5.3 mmol/L (3.4-5.0); Sodium 138 mmol/L (137-145)
== END 2020-06-22 10:37 | disposition home or self-care (01) ==
PROVIDERS: PCP Family Medicine; Visit Provider Physician Assistant Medical
DX: E83.52 Hypercalcemia (principal); J18.9 Pneumonia, unspecified organism; R91.8 Other nonspecific abnormal finding of lung field
CPT/HCPCS: 36415; 71046; 80048

== ENCOUNTER 2020-07-01 09:55 | Outpatient (CLI) | payer MEDICARE, SELFPAY ==
--- NOTE | ~2020-07-01 | XR_ITS ---
EXAMINATION: XR shoulder RT min 2V EXAM DATE: 07/01/2020 10:23 INDICATION: M25.511 -chronic pain in right shoulder, also recent fall. Limited range of motion. TECHNIQUE: The following right shoulder projections obtained: frontal projection with internal rotati on, frontal projection with external rotation, Grashey, and scapular Y view (4+ views). Comparison is made to prior examination from 12/22/2009. FINDINGS: There is a dual lead pacemaker/AICD seen with leads projecting over the expected locations of the right atrial appendage and right ventricle. Right axillary surgical clips. Total right shoulder arthroplasty, with irregularity along the inferior aspect of the glenoid, could be chronic given the high riding humeral component, but difficult to exclude fracture along the infer ior aspect of the glenoid. CT scan would be limited by the hardware but might be able to evaluate t his. No other suspicious findings. IMPRESSION: As above. Reviewed, dictated and finalized at location A. NSED AND CERTIFIED MIDWIFE IMPRESSION: As above.
== END 2020-07-01 09:56 | disposition home or self-care (01) ==
LOC: ANHIMG 09:56
PROVIDERS: PCP Family Medicine; Visit Provider Physician Assistant Medical
DX: M25.511 Pain in right shoulder (principal)
CPT/HCPCS: 73030

== ENCOUNTER 2020-07-11 10:20 | Outpatient (CLI) | payer MEDICARE, SELFPAY ==
--- NOTE | ~2020-07-11 | CT_ITS ---
EXAMINATION: CT shoulder RT wo con DATE: 07/11/2020 10:48 INDICATION: Right shoulder pain. TECHNIQUE: Computed tomography (CT) of the right shoulder was performed without intravenous contrast. Automated exposure control and iterative reconstruction technique were employed. The dose-length pro duct was 247.29 mGy-cm. COMPARISON: Right shoulder radiographs 07/01/2020, 12/22/2009, chest two views 07/13/15, 12/06/18 FINDINGS: There is a right-sided axial-femoral bypass graft. A calcified right lung nodule and calcif ied right hilar lymph nodes are consistent with old granulomatous disease. There is mild scarring at right lung apex. There is a total right shoulder arthroplasty with chronic fracture and displacement of the glenoid component. The humeral component abuts the bone of the superior glenoid. There is credit card clerk hilda bone loss of proximal humerus medially adjacent to the head of the humeral component. No lucency along the more distal stem of the humeral component. There are changes of distal clavicle resection. IMPRESSION: 1. Failed total right shoulder arthroplasty. Reviewed, dictated and finalized at location A. INCT COMMANDING OFFICER
== END 2020-07-11 10:21 | disposition home or self-care (01) ==
LOC: ANHIMG 10:23
PROVIDERS: PCP Family Medicine; Visit Provider Physician Assistant Medical
DX: M25.511 Pain in right shoulder (principal); T85.9XXA Unspecified complication of internal prosthetic device, implant and graft, initial encounter; Z96.611 Presence of right artificial shoulder joint
CPT/HCPCS: 73200

== ENCOUNTER 2020-07-22 10:15 | Outpatient (CLI) | payer MEDICARE, SELFPAY ==
--- NOTE | ~2020-07-22 | XR_ITS ---
EXAMINATION: XR chest 2V DATE: 07/22/2020 10:45 INDICATION: Cough. COVID-19 positive on 04/21/2020. TECHNIQUE: Frontal and lateral views of the chest were obtained. COMPARISON: Chest 2 views 06/22/2020, 11/20/2019, 06/01/20 FINDINGS: Calcified right lung nodules are consistent with old granulomatous disease. There are perip heral reticular opacities in right lower lung zone and all left lung zones. No pleural effusion or pn eumothorax. The heart size is normal. There is a left chest wall pacer with leads in the right atrium and right ventricle. There is a total right shoulder arthroplasty with chronic failure of the glenoi d component. Surgical clips overlie right upper chest. There is a right-sided axial-femoral bypass gr aft. There is an old healed left rib fracture. IMPRESSION: 1. 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 Reviewed, dictated and finalized at location B. GRADER IMPRESSION: 1. 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
== END 2020-07-22 10:16 | disposition home or self-care (01) ==
LOC: ANHIMG 10:18
PROVIDERS: PCP Family Medicine; Visit Provider Nurse Practitioner Family
DX: Z09 Encounter for follow-up examination after completed treatment for conditions other than malignant neoplasm (principal); U07.1 COVID-19; J18.9 Pneumonia, unspecified organism
CPT/HCPCS: 71046

== ENCOUNTER 2020-09-02 11:40 | Outpatient (CLI) | payer MEDICARE, SELFPAY ==
--- NOTE | ~2020-09-02 | XR_ITS ---
EXAMINATION: XR chest 2V DATE: 09/02/2020 12:20 INDICATION: Cough. TECHNIQUE: Frontal and lateral views of the chest were obtained. COMPARISON: Chest 2 views 07/22/2020 FINDINGS: Calcified bilateral lung nodules are consistent with old granulomatous disease. There is mi ld scarring at the lung apices. There is stable mild scarring at the lung bases. No pleural effusion or pneumothorax. The heart size is normal. There is a left chest wall pacer with leads in the right a trium and right ventricle. There are old healed left rib fractures. Surgical clips overlie right ches t. There is a total right shoulder arthroplasty. IMPRESSION: 1. Stable mild scarring at the lung apices and lung bases. Reviewed, dictated and finalized at location B. FRINGE MACHINE OPERATOR
[2020-09-02 13:07] LABS: Hemoglobin A1C 7.1 % (<5.7)
== END 2020-09-02 11:41 | disposition home or self-care (01) ==
LOC: ANHIMG 11:46
PROVIDERS: Family Provider Family Medicine; PCP Family Medicine; Visit Provider Nurse Practitioner Family
DX: E11.9 Type 2 diabetes mellitus without complications (principal); E03.9 Hypothyroidism, unspecified; R05 Cough; J18.9 Pneumonia, unspecified organism; R91.8 Other nonspecific abnormal finding of lung field
CPT/HCPCS: 36415; 71046; 83036; 84436; 84443

== ENCOUNTER 2021-03-20 12:19 | Outpatient (CLI) | payer MEDICARE, SELFPAY ==
--- NOTE | ~2021-03-20 | US_ITS ---
EXAMINATION: US venous doppler UE DATE: 03/20/2021 13:12 INDICATION: Right upper limb pain. TECHNIQUE: Grayscale ultrasound images without and with compression and Doppler ultrasound images of the bilateral upper extremity veins were obtained. COMPARISON: Ultrasound 11/26/2019 FINDINGS: The visualized portions of the right internal jugular vein, subclavian vein, axillary vein, brachial veins, basilic vein, cephalic vein, radial vein, and ulnar vein are patent. The visualized portions of the left internal jugular vein, subclavian vein, axillary vein, brachial v eins, basilic vein, cephalic vein, radial vein, and ulnar vein are patent. IMPRESSION: 1. No deep venous thrombosis. Reviewed, dictated and finalized at location A.
== END 2021-03-20 12:20 | disposition home or self-care (01) ==
PROVIDERS: PCP Family Medicine; Visit Provider Physician Assistant Medical
DX: M79.601 Pain in right arm (principal); Z86.718 Personal history of other venous thrombosis and embolism
CPT/HCPCS: 93970

== ENCOUNTER 2021-05-11 10:34 | Outpatient (CLI) | payer MEDICARE, SELFPAY ==
--- NOTE | ~2021-05-11 | US_ITS ---
EXAMINATION: US venous doppler LE EXAM DATE: 05/11/2021 11:20 INDICATION: R60.0 - Localized edema. TECHNIQUE: Multiple grayscale, color flow and Doppler images of the lower extremity deep venous syste ms bilaterally were obtained and reviewed. There is no prior study for comparison. FINDINGS: Right side: The right common femoral, femoral and profunda veins demonstrate normal color flow, respi ratory variation, augmentation and compressibility. Compressibility, color flow confirmed within the right popliteal, posterior tibial, peroneal, and greater saphenous veins. Left side: The left common femoral, femoral and profunda veins demonstrate normal color flow, respira tory variation, augmentation and compressibility. Compressibility, color flow confirmed within the l eft popliteal, posterior tibial, peroneal, and greater saphenous veins. IMPRESSION: No lower extremity deep venous thrombosis bilaterally. Reviewed, dictated and finalized at location A.
--- NOTE | ~2021-05-11 | XR_ITS ---
XR foot RT 2V DATE: 05/11/2021 11:22 INDICATION: Localized edema. No injury. TECHNIQUE: AP and lateral views COMPARISON: None FINDINGS: There is soft tissue swelling of the foot, particularly along the dorsum of the forefoot. 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 There is hallux valgus and bunion deformity. There is diffuse osteopenia. Slight plantar calcaneal enthesopathy. No fracture or dislocation, periosteal reaction or bone destruction. Anterior and posterior tibial and dorsalis pedis artery calcification. IMPRESSION: Dorsal soft tissue swelling Hallux valgus and bunion deformity Severe osteophyte is at first metatarsophalangeal joint Slight plantar calcaneal enthesopathy Osteopenia Reviewed, dictated and finalized at location B.
[2021-05-11 12:12] LABS: Anion Gap 10 mmol/L (8-16); Blood Urea Nitrogen 21 mg/dL (9-20); Calcium 10.3 mg/dL (8.4-10.2); Carbon Dioxide 24 mmol/L (22-30); Chloride 104 mmol/L (98-107); Estimated Glomerular Filt Rate > 60; Glucose 176 mg/dL (65-110); Potassium 4.4 mmol/L (3.4-5.0); Sodium 138 mmol/L (137-145)
[2021-05-11 12:13] LABS: Uric Acid 7.7 mg/dL (3.5-8.5)
== END 2021-05-11 10:35 | disposition home or self-care (01) ==
LOC: ANHIMG 10:42
PROVIDERS: Physician Assistant Medical; PCP Family Medicine; Visit Provider Nurse Practitioner Family
DX: L53.9 Erythematous condition, unspecified (principal); R60.0 Localized edema; M79.673 Pain in unspecified foot; E78.5 Hyperlipidemia, unspecified; M79.89 Other specified soft tissue disorders; M20.11 Hallux valgus (acquired), right foot; M21.611 Bunion of right foot; M77.31 Calcaneal spur, right foot; M85.89 Other specified disorders of bone density and structure, multiple sites
CPT/HCPCS: 36415; 73620; 80048; 84550; 93970

== ENCOUNTER 2021-06-25 16:01 | Emergency (ER) | payer MEDICARE, SELFPAY ==
--- NOTE | 2021-06-25 16:39 | PC.NURSE ---
pt up to desk upset that 2 people have been taken in front of him. made aware that people are triaged according to severity pt states im not dealing with this shit and then left with
== END 2021-06-25 19:32 | disposition left against medical advice (07) ==
DX: R31.9 Hematuria, unspecified (principal)
CPT/HCPCS: 93005; 99199

== ENCOUNTER 2021-06-28 10:42 | Outpatient (CLI) | payer MEDICARE, SELFPAY ==
--- NOTE | ~2021-06-28 | XR_ITS ---
EXAMINATION: XR abdomen/kub 1V EXAM DATE: 06/28/2021 11:07 INDICATION: Kidney stone. TECHNIQUE: Frontal projection of the upper abdomen, frontal projection lower abdomen/pelvis for inter pretation. Comparison is made to prior examination from 10/10/2016. FINDINGS: There is moderate amount of colonic stool and gas. No small bowel dilation, nonobstructiv e bowel gas pattern. Renal contours are obscured by bowel gas, but no suspicious calcifications. Pel stacie left-sided phleboliths unchanged. Previously seen right proximal ureteral stone no longer present . There is no organomegaly suspected. Upper abdominal arterial stents, could be renal origin locati on. Mild lumbar levoscoliosis. Severe right-sided osteoarthritis with subchondral cyst formation and mild flattening of the femoral head. IMPRESSION: No suspicious calcifications. Reviewed, dictated and finalized at location B. CIL MAKER
== END 2021-06-28 10:43 | disposition home or self-care (01) ==
LOC: ANHIMG 10:48
PROVIDERS: PCP Family Medicine; Visit Provider Urology
DX: N20.0 Calculus of kidney (principal); M41.9 Scoliosis, unspecified; M19.09 Primary osteoarthritis, other specified site
CPT/HCPCS: 74018

== ENCOUNTER 2021-07-01 10:25 | Outpatient (CLI) | payer MEDICARE, SELFPAY ==
--- NOTE | ~2021-07-01 | XR_ITS ---
EXAMINATION: XR abdomen/kub 1V EXAM DATE: 07/01/2021 10:57 INDICATION: Left-sided kidney stone. TECHNIQUE: Frontal projection of the upper abdomen, frontal projection lower abdomen/pelvis for inter pretation. Comparison is made to prior examination from 06/28/2021. FINDINGS: Moderate amount of bowel gas and stool, no obstruction. There is severe right hip osteoart hritis, could be primary osteoarthritis or secondary to femoral head avascular necrosis. There is mil d to moderate lumbar levoscoliosis. Renal artery stents. Cholecystectomy clips. Pelvic calcifications consistent with phleboliths. Cardiac pacemaker leads. IMPRESSION: Chronic findings as above. Reviewed, dictated and finalized at location A. S BUFFER IMPRESSION: Chronic findings as above.
== END 2021-07-01 10:26 | disposition home or self-care (01) ==
LOC: ANHIMG 10:31
PROVIDERS: PCP Family Medicine; Visit Provider Urology
DX: N20.0 Calculus of kidney (principal)
CPT/HCPCS: 74018

== ENCOUNTER 2021-07-24 17:13 | Inpatient (IN) | payer MEDICARE, SELFPAY ==
--- NOTE | ~2021-07-24 | CT_ITS ---
EXAMINATION: CT abdomen pelvis wo con DATE: 07/26/2021 08:02 INDICATION: Left ureteral stone. TECHNIQUE: Computed tomography (CT) of the abdomen and pelvis was performed without intravenous contr ast. Automated exposure control and iterative reconstruction technique were employed. The dose-length product was 229.50 mGy-cm. COMPARISON: CT abdomen and pelvis 07/25/2021 FINDINGS: The visualized portions of the lung bases demonstrate mild atelectasis and mild chronic gracie g disease. There is a 4 mm nodule in right middle lobe, likely benign. No pleural effusion. The heart size is normal. There are pacer wires in right atrium and right ventricle. No pericardial effusion. There is diffuse hepatic steatosis. Calcifications in the spleen are consistent with old granulomatou s disease. There are changes of cholecystectomy. The pancreas and adrenal glands are normal. There is cortical thinning of the kidneys. There is a 3.8 cm cyst in right kidney with thin septa with thin c alcifications, likely benign. There is a left internal ureteral stent in expected position. There is a 10 mm stone in left renal pelvis. The bladder is decompressed by Agudelo catheter. There are scattere d diverticula in the colon. There is fat stranding in the left retroperitoneum with trace ascites. Th ere is a femorofemoral bypass graft. There is a right ax-fem bypass graft. There are no pathologicall y enlarged lymph nodes. There is no free intraperitoneal fluid. Prominent fat in left inguinal canal may be a hernia. There is lumbar levoscoliosis and severe lower lumbar spondylosis. There is severe o steoarthritis of the hips. IMPRESSION: 1. 10 mm stone in left renal pelvis. Left internal ureteral stent in expected position. Reviewed, dictated and finalized at location A. ER IMPRESSION: 1. 10 mm stone in left renal pelvis. Left internal ureteral stent in expected p osition.
--- NOTE | ~2021-07-24 | XR_ITS ---
EXAMINATION: XR retrograde pyelo w/stent LT EXAM DATE: 07/25/2021 15:19 INDICATION: Left-sided retrograde. TECHNIQUE: Fluoroscopy used during XR retrograde pyelo w/stent LT performed by Dr. Chinedu bradley MD, urologist. The radiologist Nahun Hendrix M.D. dictating this report of the image(s) availabl e was not present for the procedure. Total fluoroscopic time of 46 seconds. The DAP for this proced ure was 0.50 mGym2. A total of 12 images sent to PACS from the exam. FINDINGS: Difficult identify the sizable left proximal ureteral stone seen on CT. Left ureter was can nulated and injected. There is mild to moderate left-sided hydronephrosis. A double-J ureteral stent was positioned. Correlate with procedure note. IMPRESSION: Fluoroscopy used during XR retrograde pyelo w/stent LT. Reviewed, dictated and finalized at location B. ICAL LABORATORY AIDE
--- NOTE | ~2021-07-24 | XR_ITS ---
EXAMINATION: XR chest 1V portable INDICATION: Elevated white blood cell count. TECHNIQUE: Portable AP chest at 0608 hours COMPARISON: 09/02/2020 FINDINGS: The lungs are free of acute opacities. There is no pleural effusion or pneumothorax. The he art size is normal. A dual-lead cardiac pacemaker of the left chest wall ends with leads in expected locations. Surgical clips project near the right lung apex. There are changes of right total shoulder arthroplasty. There is advanced osteoarthritis of the left glenohumeral joint. IMPRESSION: 1. No acute cardiopulmonary abnormality. Reviewed, dictated and finalized at location A. ER DOOR ASSEMBLER
--- NOTE | ~2021-07-24 | XR_ITS ---
EXAMINATION: XR abdomen/kub 1V DATE: 07/26/2021 08:09 INDICATION: Left ureteral stone. TECHNIQUE: A supine view of the abdomen on 2 radiographs was obtained. COMPARISON: CT abdomen and pelvis 07/26/2021 FINDINGS: There are no dilated loops of bowel. There is a left internal ureteral stent in expected po sition. There is a 10 mm stone in left renal pelvis. There is a phlebolith in left pelvis. There are stents in the renal arteries. Surgical clips in the right upper quadrant are likely from cholecystect karla. A Agudelo catheter is noted. Surgical clips overlie the inguinal regions. IMPRESSION: 1. Faintly visible 10 mm stone in left renal pelvis with left internal ureteral stent in expected pos ition. Reviewed, dictated and finalized at location A. ER OFF BEARER IMPRESSION: 1. Faintly visible 10 mm stone in left renal pelvis with left internal ureteral stent in expected position.
--- NOTE | ~2021-07-24 | US_ITS ---
EXAMINATION:US venous doppler LE BI INDICATION:Leg swelling TECHNIQUE: Multiple grayscale, color flow and Doppler images of the right and left lower extremity de ep venous systems were obtained and reviewed. COMPARISON:05/11/2021 FINDINGS: The common femoral, superficial femoral and popliteal veins demonstrate normal respiratory variation, augmentation and compressibility. Color flow is also seen within the posterior tibial, pe roneal, greater saphenous and profunda veins. IMPRESSION: 1: No lower extremity deep venous thrombosis. Reviewed, dictated and finalized at location A. GATION SYSTEM INSTALLER
--- NOTE | ~2021-07-24 | CT_ITS ---
EXAMINATION: CT abdomen pelvis wo con EXAM DATE: 07/25/2021 03:06 INDICATION: Left stone with acute kidney insufficiency, N/V/D. TECHNIQUE: Spiral CT of the abdomen and pelvis was performed without contrast. Axial, coronal and sag ittal images were reviewed. The dose-length product (DLP) for this examination was 496.16 mGy-cm. T he exposure was tailored according to patient size (auto mA exposure control), and iterative reconstr uction (ASIR) was used as additional dose reduction technique. Comparison is made to prior examinatio n from 10/23/2019. FINDINGS: There is a 1 cm stone in the proximal aspect of the left ureter, mild to moderate left-side d obstructive nephropathy. No other ureteral stones. There is punctate right nephrolithiasis. There i s lesion at the lower pole of the right kidney measuring about 4 cm, with several septations. This wa s about 3 cm on prior study, likely a cyst. The prostate is unremarkable. Small left inguinal fat-con taining hernia. The bladder is unremarkable. There is hepatic steatosis without suspicious focal le nichelle identified. Spleen, adrenal glands, pancreas are unremarkable. There are cholecystectomy clips. There is no retroperitoneal or pelvic lymphadenopathy. Severe aortic arterial sclerotic disease a nd likely stenosis, severe arterial sclerosis at the origins of the renal arteries and superior mesen teric artery. There is a femoral-femoral bypass graft. The appendix is normal. There is moderate scattered colonic diverticulosis. There is no adjacent inf lammatory change to suggest diverticulitis. The stomach and small bowel are unremarkable. There is e xpected amount of colonic stool. No free intraperitoneal gas. The heart is normal in size. There are no pericardial or pleural effusions. The lung bases are unremarkable. Severe right hip osteoar thritis. Mild lumbar levoscoliosis. There are no osteoblastic or osteolytic lesions identified. IMPRESSION: 1. Left proximal ureteral 1 cm stone, mild to moderate obstructive nephropathy. 2. Moderate colonic diverticulosis. 3. Extensive arterial sclerosis. Reviewed, dictated and finalized at location D. ICIAN ANESTHESIOLOGIST IMPRESSION: 1. Left proximal ureteral 1 cm stone, mild to moderate obstructive nephropathy . 2. Moderate colonic diverticulosis. 3. Extensive arterial sclerosis.
[2021-07-24 17:49] VITALS: BP 132/53; PULSE 71; RESP 18; TEMP 36.1; O2SAT 100
[2021-07-24 20:09] VITALS: BP 150/63; PULSE 70; RESP 16; TEMP 36.9; O2SAT 99
[2021-07-24 23:02] VITALS: BP 135/52; PULSE 70; RESP 15; O2SAT 100
--- NOTE | 2021-07-24 23:05 | ED.GENADULT ---
HPI - General Adult General Chief complaint: Unspecified <Edin Waggoner MD - Last Filed: 07/26/21 00:30> Stated complaint: Body Pain x 1 week <Edin Waggoner MD - Last Filed: 07/26/21 00:30> Time Seen by Provider: 07/24/21 22:45 <Edin Waggoner MD - Last Filed: 07/26/21 00:30> History of Present Illness HPI narrative: 80-year-old male with a osteoarthritis and current kidney stone with scheduled lithotripsy on 08/01/2021 presents emerged department for evaluation of nausea vomiting and poorly controlled pain. Patient states that he does take oxycodone for pain control at home but due to his increased nausea vomiting secondary to his kidney stone pain he has had difficulty keeping foods down and has had difficulty taking his medications. Patient did have contact with his urologist and the patient was referred to the emergency department for evaluation. <Edin Waggoner MD - Last Filed: 07/26/21 00:30> Related Data Home medications: Home Medications Medication Instructions Recorded Confirmed finasteride 5 mg tablet 5 mg PO DAILY 07/24/19 07/25/21 carvedilol 25 mg PO BID 11/20/19 07/25/21 losartan 100 mg PO DAILY 11/20/19 07/25/21 acetaminophen 325 mg capsule 325 mg PO Q6H PRN 07/20/20 07/25/21 <Edin Waggoner MD - Last Filed: 07/26/21 00:30> Allergies/adverse reactions: Allergies Allergy/AdvReac Type Severity Reaction Status Date / Time fish oil Allergy Mild RASH Verified 07/24/21 17:53 diazepam AdvReac Mild CONFUSION Verified 07/24/21 17:53 <Edin Waggoner MD - Last Filed: 07/26/21 00:30> Review of Systems Review of Systems: CONSTITUTIONAL: Denies fever, chills, or sweats. CARDIOVASCULAR: Denies chest pain, palpitations, or edema. RESPIRATORY: Denies cough or dyspnea. GASTROINTESTINAL: Denies abdominal pain, nausea, vomiting, or diarrhea. GENITOURINARY: Denies dysuria or hematuria. SKIN: Denies rash or itching. MUSCULOSKELETAL: Uncontrolled chronic pain NEUROLOGIC: Denies headache, numbness, or weakness. PSYCHIATRIC: Denies anxiety or depression. <Edin Waggoner MD - Last Filed: 07/26/21 00:30> [facility] Past Medical History Medical History: Medical History Anemia Arterial insufficiency of lower extremity Arthritis of left knee BMI 23.0-23.9, adult Bradycardia Status post pacemaker Cardiomyopathy Cervical spine arthritis Chronic pain CVA (cerebral vascular accident) And 2007, no deficits DM (diabetes mellitus) Essential (primary) hypertension FH: carotid endarterectomy H/O: HTN (hypertension) History of kidney stones History of squamous cell carcinoma of skin HLD (hyperlipidemia) Hx of melanoma of skin No recurrence. Hypothyroidism Melanoma Osteoarthritis of right hip Other hyperlipidemia Right hip pain Right shoulder pain Superior mesenteric artery atherosclerosis Type 2 diabetes mellitus without complications Venous insufficiency (chronic) (peripheral) <Edin Waggoner MD - Last Filed: 07/26/21 00:30> Surgical History Surgical History: Surgical History H/O shoulder surgery 12/23/19, replacement 2004, shoulder manipulation, Dr John History of cholecystectomy History of endarterectomy History of permanent cardiac pacemaker placement History of renal stent Hx of melanoma excision Previous back surgery 1989 Spurs on spine Status post aortic bifurcation bypass graft <Edin Waggoner MD - Last Filed: 07/26/21 00:30> Family History Family History: Family History Grandparent Hypertension Cerebrovascular accident Father Family history of malignant neoplasm Family history of coronary artery disease Mother Family history of malignant neoplasm Family history of coronary artery disease Carcinoma of colon Sibling Family h
[2021-07-24 23:20] LABS: Basophils Percent Auto 0.3 % (0.2-1.2); Eosinophils Percent Auto 0.3 % (0-4.4); Hematocrit 38.9 % (42.0-52.0); Hemoglobin 12.5 g/dL (14.0-18.0); Immature Granulocyte Percent A 2.9 % (0-0.5); Lymphocytes Absolute Auto 0.92 K/mm3 (0.9-3.2); Lymphocytes Percent Auto 6.6 % (18.3-44.2); Mean Corpuscular HGB Conc 32.1 g/dl (32-36); Mean Corpuscular Hemoglobin 30.2 pg (26-34); Mean Platelet Volume 8.7 fl (7.4-10.4); Monocytes Absolute Auto 1.3 K/mm3 (0.1-0.6); Monocytes Percent Auto 9.6 % (2.6-8.5); Neutrophils Absolute Auto 11.2 K/mm3 (1.3-6.7); Neutrophils Percent Auto 80.3 % (45.5-73.1); Platelet Count Result 293 k/mm3 (150-375); Red Blood Count 4.14 M/mm3 (4.6-6.20)
[2021-07-24 23:31] LABS: Alanine Aminotransferase 24 U/L (4-50); Albumin Level 3.9 g/dL (3.5-5.1); Alkaline Phosphatase 73 U/L (38-126); Anion Gap 11 mmol/L (8-16); Aspartate Amino Transferase 30 U/L (17-59); Blood Urea Nitrogen 87 mg/dL (9-20); Calcium 10.6 mg/dL (8.4-10.2); Carbon Dioxide 25 mmol/L (22-30); Chloride 95 mmol/L (98-107); Estimated CRCL calculation 17 ml/min; Estimated Glomerular Filt Rate 19; Glucose 222 mg/dL (65-110); Potassium 5.8 mmol/L (3.4-5.0); Sodium 131 mmol/L (137-145)
[2021-07-24] MEDS: fentaNYL CITRATE INJ (*CRX) 100 MCG/2 ML VIAL 50 MCG IV PUSH (23:39)
[2021-07-24] MEDS: LACTATED RINGERS 1,000 ML 999 ML IV CONT (23:42)
[2021-07-24 23:43] VITALS: PULSE 84
[2021-07-24] MEDS: ONDANSETRON INJ 4 MG/2 ML VIAL IV PUSH (23:43)
[2021-07-24 23:46] VITALS: BP 138/49; PULSE 69; RESP 15; O2SAT 92
[2021-07-24 23:48] LABS: Add Urine Microscopic? YES; Appearance Urine Clear (Clear); Bilirubin Urine Negative (Negative); Blood Urine 1+ (Negative); Color Urine Yellow (Yellow); Glucose Urine UA Negative (Negative); Ketones Urine Negative (Negative); Leukocyte Esterase Ur Negative LEU/UL (Negative); Mucus Urine Rare /lpf; Nitrate Urine Negative (Negative); Protein Urine Negative (Negative); Specific Grav Ur 1.015 (1.001-1.035); Squamous Epithelial Cell Urine Rare /hpf (Few); Urobilinogen Urine Negative mg/dL (<2.0); WBC Urine 0-3 /hpf
[2021-07-25] VITALS (13 sets, daily range): BP systolic 111–157; BP diastolic 37–65; PULSE 70–81; RESP 10–20; TEMP 36.4–37.1; O2SAT 96–100; BMI 21.2
[2021-07-25] MEDS: LACTATED RINGERS 1,000 ML 999 ML IV CONT (00:26)
[2021-07-25] MEDS: HYDROcodone/acetaminophen (*CRX) 5-325 MG TABLET 1 TAB PO ×2 (00:26→20:42)
[2021-07-25] MEDS: fentaNYL CITRATE INJ (*CRX) 100 MCG/2 ML VIAL 50 MCG IV PUSH (02:13)
[2021-07-25 02:27] LABS: Anion Gap 10 mmol/L (8-16); Blood Urea Nitrogen 79 mg/dL (9-20); Calcium 10.1 mg/dL (8.4-10.2); Carbon Dioxide 26 mmol/L (22-30); Chloride 95 mmol/L (98-107); Estimated CRCL calculation 19 ml/min; Estimated Glomerular Filt Rate 22; Glucose 186 mg/dL (65-110); Potassium 5.6 mmol/L (3.4-5.0); Sodium 131 mmol/L (137-145)
--- NOTE | 2021-07-25 02:50 | PC.NURSE ---
Pt to CT at this time.
[2021-07-25] MEDS: SODIUM CHLORIDE 0.9% IV 1,000 ML 125 ML IV CONT ×2 (05:34→17:39)
[2021-07-25] MEDS: MORPHINE SULFATE (*CRX) 4 MG/ML INJ IV PUSH (08:03)
[2021-07-25 08:17] LABS: Glucose Point of Care 175 mg/dl (65-105)
--- NOTE | 2021-07-25 08:20 | PM.IMHP ---
H&P: HPI History of Present Illness Date/Time: 07/25/21 0820 Chief Complaint: Left flank pain Narrative: patient is a 80-year-old male with a past medical history of hypertension, CHF, hypothyroidism, diabetes who presented to the ED for severe left flank pain. Patient stated that he has had diarrhea for last couple days and he has had problems keeping food down. Patient stated that he has vomited multiple times over the last couple of days. Patient stated that in April he was diagnosed with a kidney stone and has been following Urology outpatient. Patient was supposed to have the procedure done later this month however the pain was bad and he could not handle it any further. Patient stated that his pain is 8/10 and that ice does help with relieving the pain. Patient denies drinking soda or Tums at this time. Patient's last bowel movement was on 07/23. Patient also stated that the right leg is always more swollen than left leg. He also stated that he has a right ulcer on his foot close to the big toe. He does state that he has trouble walking at home because of osteoarthritis which he stated he uses a walker or cane to get around. patient denies chest pain, shortness of breath, sweats, fevers, chills, constipation, dizziness, lightheadedness, urinary dysfunction, or falls. Patient is being admitted to our services in observation status for management of ROSA and wound control. Review of Systems Review of Systems: All systems reviewed & are unremarkable except as noted in HPI and below PMFSH Past Medical History Medical History Anemia Arterial insufficiency of lower extremity Arthritis of left knee BMI 23.0-23.9, adult Bradycardia Status post pacemaker Cardiomyopathy Cervical spine arthritis Chronic pain CVA (cerebral vascular accident) And 2006, no deficits DM (diabetes mellitus) Essential (primary) hypertension FH: carotid endarterectomy H/O: HTN (hypertension) History of kidney stones History of squamous cell carcinoma of skin HLD (hyperlipidemia) Hx of melanoma of skin No recurrence. Hypothyroidism Melanoma Osteoarthritis of right hip Other hyperlipidemia Right hip pain Right shoulder pain Superior mesenteric artery atherosclerosis Type 2 diabetes mellitus without complications Venous insufficiency (chronic) (peripheral) Surgical History Surgical History H/O shoulder surgery 12/23/19, replacement 2005, shoulder manipulation, Dr John History of cholecystectomy History of endarterectomy History of permanent cardiac pacemaker placement History of renal stent Hx of melanoma excision Previous back surgery 1989 Spurs on spine Status post aortic bifurcation bypass graft Family History Family History Grandparent Hypertension Cerebrovascular accident Father Family history of malignant neoplasm Family history of coronary artery disease Mother Family history of malignant neoplasm Family history of coronary artery disease Carcinoma of colon Sibling Family history of diabetes mellitus in first degree relative Heart disease Social History Social History Social History: Patient quit smoking cigarettes 25 years ago but did smoke 3 packs per day at that time. He does not drink alcohol or do drugs. He lives with his Susannah at home and uses a walker or cane to get around the house. He would like to be a full code at this time. He designates his , Susannah, as his surrogate decision maker Smoking packs per day: 3 Smoking cigarettes per day: 60.0 Years smoked: 40 Smoking pack-years: 120.00 Smoking status: Former smoker Tobacco type: cigarettes Second hand tobacco smoke exposure: Yes Smoking end date: 08/12/94 Additional tammy
[2021-07-25] MEDS: ONDANSETRON INJ 4 MG/2 ML VIAL IV PUSH (10:27)
[2021-07-25] MEDS: LEVOTHYROXINE SODIUM 75 MCG TABLET PO (11:36)
[2021-07-25] MEDS: LOSARTAN POTASSIUM 100 MG TABLET PO (11:37)
[2021-07-25] MEDS: carvediloL 25 MG TABLET PO ×2 (11:37→17:38)
[2021-07-25] MEDS: FINASTERIDE 5 MG TABLET PO (11:37)
--- NOTE | 2021-07-25 11:46 | WPDURCON ---
Assessment and Plan Assessment and plan (1) Calculus, ureteral: Code(s): N20.1 - Calculus of ureter Status: Acute Assessment and Plan: Plan to proceed with Cystoscopy, left ureteroscopy with stone extraction, possible left stent placement, holmium laser, left retrograde pyelogram today in the OR with Dr. Mauricio. Obtain consent. Keep NPO. (2) ROSA (acute kidney injury): Code(s): N17.9 - Acute kidney failure, unspecified Status: Acute Assessment and Plan: Secondary to obstructive stone, will improve s/p stent placement and stone removal, will continue to monitor to baseline. (3) Edema of right foot: Code(s): R60.0 - Localized edema Status: Acute Assessment and Plan: Patient has notable edema in the RLE. He was supposed to have a doppler US done yesterday ordered by his Biscuit Packer but he ended up here. I spoke with the hospitalist Ezra who will order one while he is in house. Urology Consult Note HPI Date Seen: 07/25/21 Requesting Physician: Linda Washburn MD Primary Care Provider: Noah Butts MD Consult Narrative Narrative: Zhang Alexis is a 80 year old male who is known to our practice and is a patient of Dr. Mauricio'. He was seen in the ER last night for uncontrolled pain, nausea and vomiting, secondary to his known left proximal ureteral stone. He was scheduled for a ureteroscopy next Saturday with Dr. Mauricio. A CT was done to confirm stone placement and resulted in a 1cm left proximal ureteral stone with mild to moderate obstructive nephropathy and right punctate stones. His UA is negative, showing only traces of blood but no signs of infection. He has an elevated creatinine of 2.80 today which is slightly better than in the ER when it was 3.10, his baseline is 0.93 on 07/12/2021. His WBC is slightly elevated at 14.0, he is afebrile at this time and NPO. He is in moderate to severe pain today with nausea and vomiting. Review of Systems Respiratory: Respiratory: Denies no additional respiratory complaints Gastrointestinal: Gastrointestinal: Reports abdominal pain, Reports nausea and Reports vomiting Genitourinary: Genitourinary: Denies hematuria, Denies genital pain, Denies dysuria, Denies flank pain, Denies urinary frequency, Denies urinary hesitancy and Denies urinary urgency [facility] Past Medical History Medical History Anemia Arterial insufficiency of lower extremity Arthritis of left knee BMI 23.0-23.9, adult Bradycardia Status post pacemaker Cardiomyopathy Cervical spine arthritis Chronic pain CVA (cerebral vascular accident) And 2007, no deficits DM (diabetes mellitus) Essential (primary) hypertension FH: carotid endarterectomy H/O: HTN (hypertension) History of kidney stones History of squamous cell carcinoma of skin HLD (hyperlipidemia) Hx of melanoma of skin No recurrence. Hypothyroidism Melanoma Osteoarthritis of right hip Other hyperlipidemia Right hip pain Right shoulder pain Superior mesenteric artery atherosclerosis Type 2 diabetes mellitus without complications Venous insufficiency (chronic) (peripheral) Surgical History Surgical History H/O shoulder surgery 12/23/19, replacement 2004, shoulder manipulation, Dr Jonh History of cholecystectomy History of endarterectomy History of permanent cardiac pacemaker placement History of renal stent Hx of melanoma excision Previous back surgery 1989 Spurs on spine Status post aortic bifurcation bypass graft Family History Family History Grandparent Hypertension Cerebrovascular accident Father Family history of malignant neoplasm Family history of coronary artery disease Mother Family history of malignant neoplasm Family history of coronary artery disease Carcinoma of colon S
[2021-07-25 12:07] LABS: Glucose Point of Care 180 mg/dl (65-105)
[2021-07-25] MEDS: LACTATED RINGERS 1,000 ML 30 ML IV CONT (13:00)
--- NOTE | 2021-07-25 13:30 | WPDHPUPDATE1 ---
History and Physical Update Update Date/Time: 07/25/21 13:30 History and Physical has been reviewed, including an updated exam of the patient. There are NO changes in the patient's condition. Risks, benefits, and alternatives have been discussed and questions answered. Patient agrees to proceed with procedure. Proceed with cysto, left retrograde, left ureteroscopy with stone extraction, laser, stent placement.
[2021-07-25] MEDS: MUPIROCIN 2% OINT 22 GM TUBE 1 APPLIC TOPICAL (13:43)
--- NOTE | 2021-07-25 13:54 | WPDANESEPPF ---
Anes - Initial Pre Proc Eval Procedure: Operation Date: 07/25/21 14:15 Proposed Procedures p Cystoscopy, Left Ureteral Stent Placement, Possible Left Retrograde Pyelogram, Possible Left Ureteroscopy, Possible Holmium Laser Lithotripsy - Chinedu Mauricio MD Date/Time: 07/25/21 13:55 Surgeon: Linda Washburn MD Pre Op Diagnosis: Body Pain x 1 week Patient Data Age: 80 Gender: M Height: 1.83 m Weight: 71.1 kg Last Vital Signs Temp 98.7 F 07/25/21 05:00 Pulse 80 07/25/21 11:37 Resp 14 07/25/21 05:00 BP 156/60 H 07/25/21 05:00 Pulse Ox 96 07/25/21 05:00 Allergies Allergy/AdvReac Type Severity Reaction Status Date / Time fish oil Allergy Mild RASH Verified 07/24/21 17:53 diazepam AdvReac Mild CONFUSION Verified 07/24/21 17:53 Home Medications Medication Instructions Recorded Confirmed Type finasteride 5 mg tablet 5 mg PO DAILY 07/24/19 07/25/21 History carvedilol 25 mg PO BID 11/20/19 07/25/21 History losartan 100 mg PO DAILY 11/20/19 07/25/21 History acetaminophen 325 mg capsule 325 mg PO Q6H PRN 07/20/20 07/25/21 History levothyroxine 75 mcg tablet 75 mcg PO DAILY #90 tablet 05/03/21 07/25/21 Rx tizanidine 4 mg capsule 4 mg PO HS #30 cap 05/30/21 07/25/21 Rx furosemide 20 mg tablet See Rx Instructions .ROUTE 07/05/21 07/25/21 Rx .COMPLEX #90 tablet metformin 500 mg tablet,extended 500 mg PO BID #60 tablet 07/11/21 07/25/21 Rx release 24 hr apixaban 5 mg tablet 5 mg PO BID #60 tablet 07/18/21 07/25/21 Rx hydrocodone 5 mg-acetaminophen 325 1 tablet PO Q6H PRN #30 tablet 07/21/21 07/25/21 Rx mg tablet Laboratory Tests 07/24/21 07/24/21 07/24/21 23:16 23:16 23:35 WBC 14.0 K/mm3 H K/mm3 (4.5-10.0) RBC 4.14 M/mm3 L M/mm3 (4.6-6.20) Hgb 12.5 g/dL L g/dL (14.0-18.0) Hct 38.9 % L % (42.0-52.0) MCV 94.0 fl fl (80-100) MCH 30.2 pg pg (26-34) MCHC 32.1 g/dl g/dl (32-36) RDW 15.0 % H % (11.5-14.5) Plt Count 293 k/mm3 k/mm3 (150-375) MPV 8.7 fl fl (7.4-10.4) Immature Gran % (Auto) 2.9 % H % (0-0.5) Neut % (Auto) 80.3 % H % (45.5-73.1) Lymph % (Auto) 6.6 % L % (18.3-44.2) [place] % (Auto) 9.6 % H % (2.6-8.5) Eos % (Auto) 0.3 % % (0-4.4) Baso % (Auto) 0.3 % % (0.2-1.2) Lymph # (Auto) 0.92 K/mm3 K/mm3 (0.9-3.2) [place] # (Auto) 1.3 K/mm3 H K/mm3 (0.1-0.6) Eos # (Auto) 0.0 K/mm3 K/mm3 (0-0.3) Baso # (Auto) 0.0 K/mm3 K/mm3 (0.0-0.1) Abs Immat Gran (auto) 0.40 K/mm3 H K/mm3 (0.00-0.031) Absolute Neuts (auto) 11.2 K/mm3 H K/mm3 (1.3-6.7) Absolute Nucleated RBC 0.0 K/mm3 K/mm3 (0.0-0.012) Nucleated RBC % 0.0 % % (0.0-0.2) Sodium 131 mmol/L L mmol/L (137-145) Potassium 5.8 mmol/L H mmol/L (3.4-5.0) Chloride 95 mmol/L L mmol/L (98-107) Carbon Dioxide 25 mmol/L mmol/L (22-30) Anion Gap 11 mmol/L mmol/L (8-16) BUN 87 mg/dL H D mg/dL (9-20) Creatinine 3.10 mg/dL H mg/dL (0.7-1.3) Estim Creat Clear Calc 17 ml/min ml/min Estimated GFR 19 L (59 - ) Glucose 222 mg/dL H mg/dL (65-110) POC Capillary Glucose Calcium 10.6 mg/dL H mg/dL (8.4-10.2) Total Bilirubin 1.0 mg/dL mg/dL (0.2-1.3) AST 30 U/L U/L (17-59) ALT 24 U/L U/L (4-50) Alkaline Phosphatase 73 U/L U/L (38-126) Total Protein 7.0 g/dL g/dL (6.3-8.2) Albumin 3.9 g/dL g/dL (3.5-5.1) Urine Color Yellow (Yellow) Urine Appearance Clear (Clear) Urine pH 5.0 (5.0-9.0) Ur Specific [place] 1.015 (1.001-1.035) Urine Protein Negative mg/dL mg/dL (Negative) Urine Glucose (UA) Negative mg/dL mg/dL
[2021-07-25] MEDS: diphenhydrAMINE HCl INJ 50 MG/ML VIAL 6.25 MG IV PUSH (14:02)
[2021-07-25] MEDS: ceFAZolin 2 GM/D5W 50 ML 2 GM/50 ML BAG IVPB (14:33)
[2021-07-25] MEDS: LIDOCAINE HCL 2% GEL UROJET 10 ML PKG MUCOUS MEM (14:56)
--- NOTE | 2021-07-25 15:14 | P.OP_ITS ---
Procedure Note - Detailed Date of Procedure 07/25/21 Pre-op Diagnosis Body Pain x 1 week Left ureteral calculus with hydronephrosis Post-op Diagnosis same Procedure Performed Cystoscopy, left retrograde pyelogram, left ureteroscopy, left ureteral stent placement 6 Algerian contour Surgeon Chinedu Mauricio MD Anesthesia general Description of Procedure Patient is taken the operative suite correctly identified. Once anesthesia was obtained was placed in the dorsal lithotomy position and prepped draped usual sterile fashion. Twenty-two Algerian scope was placed in the bladder there is no tumors noted. The left orifice was cannulated with a guidewire wire. It was noted that there was immediate return of some mild debris but very dark cola colored urine. We did place a ureteral access sheath gently and placed a mini flexible ureteral scope. We were unable to get any adequate visualization due to the dark blood. We did a pyelogram. Appears stone may have been pushed back to the kidney. At this point we decided to simply place a 6 Algerian contour stent with proximal end coiled in the renal pelvis and the distal bladder. Bladder was drained. 2% viscous lidocaine was inserted urethra to 16 Algerian coude was placed with 10 cc in the balloon. Patient will be 10 Sharon back to the floor. Will obtain a CT scan tomorrow morning. Will see how his renal function does. The stone is visible and in the kidney will make a decision regarding repeat ureteroscopy in a week's time once he is over his acute episode Drains Yes Packing No Pathology none sent Complications No immediate complications Condition stable Disposition PACU
[2021-07-25] MEDS: TIZANIDINE HCL 4 MG TABLET PO (20:40)
[2021-07-25 20:52] LABS: Glucose Point of Care 282 mg/dl (65-105)
[2021-07-26] VITALS (7 sets, daily range): BP systolic 116–152; BP diastolic 47–57; PULSE 69–76; RESP 14–18; TEMP 36.4–37; O2SAT 95–99
[2021-07-26] MEDS: SODIUM CHLORIDE 0.9% IV 1,000 ML 125 ML IV CONT ×2 (04:55→18:23)
[2021-07-26] MEDS: LEVOTHYROXINE SODIUM 75 MCG TABLET PO (04:55)
[2021-07-26] MEDS: carvediloL 25 MG TABLET PO ×2 (09:17→17:08)
[2021-07-26] MEDS: LOSARTAN POTASSIUM 100 MG TABLET PO (09:17)
[2021-07-26 09:18] LABS: Glucose Point of Care 250 mg/dl (65-105)
[2021-07-26] MEDS: FINASTERIDE 5 MG TABLET PO (09:18)
--- NOTE | 2021-07-26 09:30 | WPDUROPN2 ---
Progress Note: A&P Assessment and Plan (1) Calculus, ureteral: Code(s): N20.1 - Calculus of ureter Status: Acute Assessment and Plan: Stent will remain in place. He is scheduled for surgery with Dr. Mauricio to remove his stone next Saturday, the . We will plan to have him follow up then. He is doing much better today and tolerating his stent well. (2) ROSA (acute kidney injury): Code(s): N17.9 - Acute kidney failure, unspecified Status: Acute Assessment and Plan: Will get a CBC and BMP to check kidney function and WBC. Creatinine was elevated yesterday. (3) Gross hematuria: Code(s): R31.0 - Gross hematuria Status: Acute Assessment and Plan: Irrigate catheter, expected finding with stent in place. He understands that this will continue with stent in place. Subjective Subjective Date/Time Seen: 07/26/21 09:30 POD #1 cystoscopy left stent placement with left retrograde pyelogram. Patient is doing much better today, he is sitting up, tolerating his diet and has minimal to no pain. He is tolerating his stent well. Review of Systems Cardiovascular: Cardiovascular: Denies chest pain Respiratory: Respiratory: Reports no additional respiratory complaints Gastrointestinal: Gastrointestinal: Denies abdominal pain, Denies nausea and Denies vomiting Genitourinary: Genitourinary: Reports hematuria and Denies flank pain Exam Resp: Effort & Inspection: normal respiratory effort Cardio: Rate: regular rate GI: GI Palp: No Tenderness to palpation present (GI) : General: Yes no CVA tenderness Urinary Catheter: Urinary Catheter: patent and draining and urine red Extrem: General: no edema Objective Data Vital Signs Vital Signs: Vital Signs - 24 hr 07/25/21 11:37 07/25/21 14:17 07/25/21 15:18 Temperature 98.5 F 97.5 F L Pulse Rate 80 70 70 Respiratory Rate 10 L Blood Pressure 135/37 L 111/47 L Pulse Oximetry 98 100 07/25/21 15:30 07/25/21 15:45 07/25/21 16:00 Temperature Pulse Rate 70 70 70 Respiratory Rate 18 20 15 Blood Pressure 146/59 H 157/62 H 143/45 H Pulse Oximetry 100 100 97 07/25/21 16:06 07/25/21 17:38 07/25/21 20:00 Temperature Pulse Rate 70 72 72 Respiratory Rate 12 12 Blood Pressure 149/49 H Pulse Oximetry 98 98 07/26/21 00:00 07/26/21 00:15 07/26/21 05:00 Temperature 98.6 F 97.6 F Pulse Rate 70 70 Respiratory Rate 14 16 Blood Pressure 144/55 H 116/55 L Pulse Oximetry 99 98 95 07/26/21 09:17 Temperature Pulse Rate 76 Respiratory Rate Blood Pressure Pulse Oximetry Intake/Output Intake/Output: Intake & Output 07/23/21 07/24/21 07/25/21 07/26/21 23:59 23:59 23:59 23:59 Intake Total 3765 1660 Output Total 905 1500 Balance 2860 160 Meds/Results Medications: Active Medications Generic Name Dose Route Start Last Admin Trade Name Freq PRN Reason Stop Dose Admin Acetaminophen 650 mg 07/25/21 08:57 Acetaminophen 325 Mg Tablet PO Q6H PRN Mild Pain (1-3) or Fever Hydrocodone Bitart/Acetaminophen 1 tab 07/25/21 08:43 07/25/21 20:42 Hydrocodone/Acetaminophen (*Crx) 5-325 Mg Tablet PO 1 tab Q6H PRN Administration pain 4-6 Carvedilol 25 mg 07/25/21 09:00 07/26/21 09:17 Carvedilol 25 Mg Tablet PO 25 mg BID GARTH Administration Finasteride 5 mg 07/25/21 09:00 07/26/21 09:18 Finasteride 5 Mg Tablet PO 5 mg DAILY GARTH Administration Sodium Chloride 1,000 mls @ 125 mls/hr 07/25/21 03:35 07/26/21 04:55 Normal Saline Iv IV CONT 125 mls/hr .Q8H GARTH Administration Levothyroxine Sodium 75 mcg 07/25/21 08:55 07/26/21 04:55 Levothyroxine Sodium 75 Mcg Tablet PO 75 mcg DAILY@0630 GARTH Administration Losartan Potassium 100 mg 07/25/21 09:00 07/26/21 09:17 Losartan Potassium 100 Mg Tablet PO 100 mg DAILY GARTH Administration Morphine Sulfate 4 mg 07/25/21 03:34 07/25/21 08:03 Morphine Sulfate (*Crx
--- NOTE | 2021-07-26 10:24 | WPDANESPN ---
Anes - Prog Note Post-Op Date/Time: 07/26/21 10:24 Cardiovascular status: normal Respiratory status: normal Airway patency: baseline Mental status: baseline Post-Op hydration status: normal Vital Signs: Last Vital Signs Temp 36.4 C 07/26/21 05:00 Pulse 76 07/26/21 09:17 Resp 16 07/26/21 05:00 BP 116/55 L 07/26/21 05:00 Pulse Ox 95 07/26/21 05:00 Pain Score (VAS): 0 I/O: Intake & Output 07/25/21 07/26/21 07/26/21 23:59 07:59 15:59 Intake Total 765 1420 240 Output Total 825 1500 Balance -60 -80 240 Laboratory Tests 07/24/21 23:16 07/25/21 02:12 07/25/21 07/25/21 07/26/21 12:05 20:39 09:15 POC Capillary Glucose 180 H 282 H 250 H Post-procedural complaints: none Patient Feedback: Patient satisfied with anesthetic care.
[2021-07-26 10:40] LABS: Hematocrit 33.8 % (42.0-52.0); Hemoglobin 10.5 g/dL (14.0-18.0); Mean Corpuscular HGB Conc 31.1 g/dl (32-36); Mean Corpuscular Hemoglobin 30.4 pg (26-34); Platelet Count Result 267 k/mm3 (150-375); Red Blood Count 3.45 M/mm3 (4.6-6.20); Red Cell Distribution Width 15.2 % (11.5-14.5); White Blood Count 15.2 K/mm3 (4.5-10.0)
[2021-07-26 11:10] LABS: Anion Gap 11 mmol/L (8-16); Blood Urea Nitrogen 44 mg/dL (9-20); Calcium 9.1 mg/dL (8.4-10.2); Carbon Dioxide 23 mmol/L (22-30); Chloride 99 mmol/L (98-107); Estimated CRCL calculation 34 ml/min; Estimated Glomerular Filt Rate 45; Glucose 211 mg/dL (65-110); Potassium 4.6 mmol/L (3.4-5.0); Sodium 133 mmol/L (137-145)
--- NOTE | 2021-07-26 11:30 | P.PNIM_ITS ---
Progress Note: A&P Assessment and Plan (1) Calculus, ureteral: Code(s): N20.1 - Calculus of ureter Status: Acute Assessment and Plan: * Abdominal CT shows a 10 mm stone in the left renal pelvis. * Urology consulted * uroscopy With stent placement 07/25/2021 * IV fluids continued * regular diet * Morphine and norco for pain control * Zofran for nausea * Finasteride continued * Urinary catheter removed (2) ROSA (acute kidney injury): Code(s): N17.9 - Acute kidney failure, unspecified Status: Acute Assessment and Plan: * BUN/Cr trending down 44/1.50 * IV fluids for hydration * Trend labs * Probably from obstructive stone * urology consulted thank you (3) Hyperkalemia: Code(s): E87.5 - Hyperkalemia Status: Acute Assessment and Plan: * K 4.6 * Probably from retention * trend labs * Consider Kayexalate if continues to rise (4) Edema of right foot: Code(s): R60.0 - Localized edema Status: Acute Assessment and Plan: * Right foot and leg swelling * Highly unlikely to be a DVT * 3+ pitting edema * Venous doppler shows patent no DVT * Patient stated this is something that is normal for him (5) Chronic anticoagulation: Code(s): Z79.01 - [facility] (current) use of anticoagulants Status: Acute Assessment and Plan: * On eliquis at home * On hold for now * Restart when ok'd by Urology * Hx of stroke and could be from arrhythmia (6) Type 2 diabetes mellitus without complications: Code(s): E11.9 - Type 2 diabetes mellitus without complications Status: Acute Assessment and Plan: * A1c 6.8 back in May * Accu checks AC/HS * Recheck A1c * Hypoglycemia protocol * initiate sliding scale * Metformin on hold for now (7) Hypertension: Code(s): I10 - Essential (primary) hypertension Status: Acute Assessment and Plan: * BP is 138/47 * Continue carvedilol * Trend BP * adjust therapy as indicated Time Spent With Patient Time with patient: Greater than 35 minutes Subjective Date/time seen: 07/26/21 1130 Interval history: Date/Time: 07/25/21 0820 Narrative: patient is a 80-year-old male with a past medical history of hypertension, CHF, hypothyroidism, diabetes who presented to the ED for severe left flank pain. Patient stated that he has had diarrhea for last couple days and he has had problems keeping food down. Patient stated that he has vomited multiple times over the last couple of days. Patient stated that in April he was diagnosed with a kidney stone and has been following Urology outpatient. Patient was supposed to have the procedure done later this month however the pa in was bad and he could not handle it any further. Patient stated that his pain is 8/10 and that ice does help with relieving the pain. Patient denies drinking soda or Tums at this time. Patient's last bowel movement was on 07/23. Patient also stated that the right leg is always more swollen than left leg. He also stated that he has a right ulcer on his foot close to the big toe. He does state that he has trouble walking at home because of osteoarthritis which he stated he uses a walker or cane to get around. patient denies chest pain, shortness of breath, sweats, fevers, chills, constipation, dizziness, lightheadedness, urinary dysfunction, or falls. Da
--- NOTE | 2021-07-26 11:30 | PM.IMPN ---
Progress Note: A&P Assessment and Plan (1) Calculus, ureteral: Code(s): N20.1 - Calculus of ureter Status: Acute Assessment and Plan: Abdominal CT shows a 10 mm stone in the left renal pelvis. Urology consulted uroscopy With stent placement 07/25/2021 IV fluids continued regular diet Morphine and norco for pain control Zofran for nausea Finasteride continued Urinary catheter removed (2) ROSA (acute kidney injury): Code(s): N17.9 - Acute kidney failure, unspecified Status: Acute Assessment and Plan: BUN/Cr trending down 44/1.50 IV fluids for hydration Trend labs Probably from obstructive stone urology consulted thank you (3) Hyperkalemia: Code(s): E87.5 - Hyperkalemia Status: Acute Assessment and Plan: K 4.6 Probably from retention trend labs Consider Kayexalate if continues to rise (4) Edema of right foot: Code(s): R60.0 - Localized edema Status: Acute Assessment and Plan: Right foot and leg swelling Highly unlikely to be a DVT 3+ pitting edema Venous doppler shows patent no DVT Patient stated this is something that is normal for him (5) Chronic anticoagulation: Code(s): Z79.01 - group home (current) use of anticoagulants Status: Acute Assessment and Plan: On eliquis at home On hold for now Restart when ok'd by Urology Hx of stroke and could be from arrhythmia (6) Type 2 diabetes mellitus without complications: Code(s): E11.9 - Type 2 diabetes mellitus without complications Status: Acute Assessment and Plan: A1c 6.8 back in May Accu checks AC/HS Recheck A1c Hypoglycemia protocol initiate sliding scale Metformin on hold for now (7) Hypertension: Code(s): I10 - Essential (primary) hypertension Status: Acute Assessment and Plan: BP is 138/47 Continue carvedilol Trend BP adjust therapy as indicated Time Spent With Patient Time with patient: Greater than 35 minutes Subjective Date/time seen: 07/26/21 1130 Interval history: Date/Time: 07/25/2120 Narrative: patient is a 80-year-old male with a past medical history of hypertension, CHF, hypothyroidism, diabetes who presented to the ED for severe left flank pain. Patient stated that he has had diarrhea for last couple days and he has had problems keeping food down. Patient stated that he has vomited multiple times over the last couple of days. Patient stated that in April he was diagnosed with a kidney stone and has been following Urology outpatient. Patient was supposed to have the procedure done later this month however the pain was bad and he could not handle it any further. Patient stated that his pain is 8/10 and that ice does help with relieving the pain. Patient denies drinking soda or Tums at this time. Patient's last bowel movement was on 07/23. Patient also stated that the right leg is always more swollen than left leg. He also stated that he has a right ulcer on his foot close to the big toe. He does state that he has trouble walking at home because of osteoarthritis which he stated he uses a walker or cane to get around. patient denies chest pain, shortness of breath, sweats, fevers, chills, constipation, dizziness, lightheadedness, urinary dysfunction, or falls. Date/Time 07/26/21 1130 patient is lying in bed on his left side. Patient stated his whole lot better today and he feels we were comfortable. Patient states that his pain is a 2/10. He has also been out of bed x3. Patient denies chest pain shortness of breath. Patient has been having a few episodes of diarrhea. he is also eating okay however he does say that he has a soreness of mouth from his dentures. His oquendo has been draining a red cloty urine, but is now draining a yellow clear urine. Spoke to Ashley from Urology about [place]
[2021-07-26 11:58] LABS: Glucose Point of Care 175 mg/dl (65-105)
[2021-07-26] MEDS: MUPIROCIN 2% OINT 22 GM TUBE 1 APPLIC TOPICAL (13:09)
[2021-07-26 16:37] LABS: Glucose Point of Care 152 mg/dl (65-105)
[2021-07-26] MEDS: TIZANIDINE HCL 4 MG TABLET PO (20:10)
[2021-07-26] MEDS: ONDANSETRON INJ 4 MG/2 ML VIAL IV PUSH (20:10)
[2021-07-26 20:14] LABS: Glucose Point of Care 163 mg/dl (65-105)
[2021-07-26] MEDS: MORPHINE SULFATE (*CRX) 4 MG/ML INJ IV PUSH (23:23)
[2021-07-27 00:58] VITALS: O2SAT 98
[2021-07-27] MEDS: SODIUM CHLORIDE 0.9% IV 1,000 ML 125 ML IV CONT ×2 (02:49→09:03)
[2021-07-27 04:50] VITALS: BP 143/45; PULSE 70; RESP 18; TEMP 36.9; O2SAT 98
[2021-07-27] MEDS: LEVOTHYROXINE SODIUM 75 MCG TABLET PO (05:49)
[2021-07-27] MEDS: MORPHINE SULFATE (*CRX) 4 MG/ML INJ IV PUSH (05:51)
[2021-07-27 06:37] LABS: Basophils Percent Auto 0.3 % (0.2-1.2); Eosinophils Percent Auto 0.4 % (0-4.4); Hematocrit 28.7 % (42.0-52.0); Hemoglobin 9.2 g/dL (14.0-18.0); Immature Granulocyte Absolute 0.23 K/mm3 (0.00-0.031); Immature Granulocyte Percent A 2.5 % (0-0.5); Lymphocytes Percent Auto 10.9 % (18.3-44.2); Mean Corpuscular HGB Conc 32.1 g/dl (32-36); Mean Corpuscular Hemoglobin 30.6 pg (26-34); Mean Corpuscular Volume 95.3 fl (80-100); Mean Platelet Volume 9.1 fl (7.4-10.4); Monocytes Absolute Auto 0.7 K/mm3 (0.1-0.6); Monocytes Percent Auto 7.5 % (2.6-8.5); Neutrophils Absolute Auto 7.2 K/mm3 (1.3-6.7); Neutrophils Percent Auto 78.4 % (45.5-73.1); Platelet Count Result 227 k/mm3 (150-375); Red Blood Count 3.01 M/mm3 (4.6-6.20); Red Cell Distribution Width 15.2 % (11.5-14.5); White Blood Count 9.2 K/mm3 (4.5-10.0)
[2021-07-27 06:48] LABS: Alanine Aminotransferase 19 U/L (4-50); Albumin Level 2.8 g/dL (3.5-5.1); Alkaline Phosphatase 44 U/L (38-126); Anion Gap 3 mmol/L (8-16); Aspartate Amino Transferase 30 U/L (17-59); Bilirubin,Total 0.3 mg/dL (0.2-1.3); Blood Urea Nitrogen 26 mg/dL (9-20); Carbon Dioxide 24 mmol/L (22-30); Chloride 107 mmol/L (98-107); Estimated CRCL calculation 46 ml/min; Estimated Glomerular Filt Rate > 60; Glucose 144 mg/dL (65-110); Magnesium 1.4 mg/dL (1.6-2.3); Potassium 3.9 mmol/L (3.4-5.0); Sodium 134 mmol/L (137-145)
[2021-07-27 07:26] LABS: Hemoglobin A1C 7.4 % (<5.7)
[2021-07-27 08:06] LABS: Glucose Point of Care 111 mg/dl (65-105)
[2021-07-27 09:02] VITALS: PULSE 70
[2021-07-27] MEDS: carvediloL 25 MG TABLET PO (09:02)
[2021-07-27] MEDS: LOSARTAN POTASSIUM 100 MG TABLET PO (09:03)
[2021-07-27] MEDS: MAGNESIUM SULF 4 GM/WATER100ML 4 GM/100 ML BAG IVPB (09:03)
[2021-07-27] MEDS: FINASTERIDE 5 MG TABLET PO (09:03)
[2021-07-27] MEDS: HYDROcodone/acetaminophen (*CRX) 5-325 MG TABLET 1 TAB PO (09:03)
--- NOTE | 2021-07-27 10:15 | P.DS_ITS ---
DS: Admitting Diagnosis Discharge Date Date of service 07/27/2021 at 10:15 a.m. Admitting Diagnosis left ureteral stone DS: Discharge Diagnosis Discharge Diagnosis (1) Calculus, ureteral: Code(s): N20.1 - Calculus of ureter Status: Acute Assessment and Plan: * Abdominal CT shows a 10 mm stone in the left renal pelvis. * Urology consulted * uroscopy With stent placement 07/25/2021 * IV fluids continued * regular diet * Morphine and norco for pain control * Zofran for nausea * Finasteride continued * Urinary catheter removed (2) ROSA (acute kidney injury): Code(s): N17.9 - Acute kidney failure, unspecified Status: Acute Assessment and Plan: * BUN/Cr trending down 44/1.50 * IV fluids for hydration * Trend labs * Probably from obstructive stone * urology consulted thank you (3) Hyperkalemia: Code(s): E87.5 - Hyperkalemia Status: Acute Assessment and Plan: * K 4.6 * Probably from retention * trend labs * Consider Kayexalate if continues to rise (4) Edema of right foot: Code(s): R60.0 - Localized edema Status: Acute Assessment and Plan: * Right foot and leg swelling * Highly unlikely to be a DVT * 3+ pitting edema * Venous doppler shows patent no DVT * Patient stated this is something that is normal for him (5) Chronic anticoagulation: Code(s): Z79.01 - [facility] (current) use of anticoagulants Status: Acute Assessment and Plan: * On eliquis at home * On hold for now * Restart when ok'd by Urology * Hx of stroke and could be from arrhythmia (6) Type 2 diabetes mellitus without complications: Code(s): E11.9 - Type 2 diabetes mellitus without complications Status: Acute Assessment and Plan: * A1c 6.8 back in May * Accu checks AC/HS * Recheck A1c * Hypoglycemia protocol * initiate sliding scale * Metformin on hold for now (7) Hypertension: Code(s): I10 - Essential (primary) hypertension Status: Acute Assessment and Plan: * BP is 138/47 * Continue carvedilol * Trend BP * adjust therapy as indicated DS: Summary Hospital Course Hospital Course: patient is an 80-year-old male with past medical history BPH, hypertension, hypothyroidism, diabetes who presented to the ED with severe left flank pain. Patient was diagnosed with a kidney stone on left side last April and has been following Urology outpatient. Patient was scheduled for surgical procedure however the pain was so severe and uncontrolled the patient had to come to the ED for further management. Urology has been consulted and took the patient and put in a ureteral stent. Patient is scheduled in the next week to come back for surgical procedure to get the stent removed. Patient did have a Agudelo catheter postop however that was removed and he has passed a voiding trial at this time. Abdominal CT still shows a 10 mm stone in the left renal pelvis. Patient was also noted to have an acute kidney injury with a BUN creatinine of 87/3.10 which has been treated with IV fluids and is currently back to baseline 26/1.10. Patient was also experiencing hematuria postop however it is turned yellow clear urine at this time. Patient has been getting IV fluids which is making him urinate more.. PT and OT have been ordered and has been working with the patient. Patient will
--- NOTE | 2021-07-27 10:15 | PM.DS ---
DS: Admitting Diagnosis Discharge Date Date of service 07/27/2021 at 10:15 a.m. Admitting Diagnosis left ureteral stone DS: Discharge Diagnosis Discharge Diagnosis (1) Calculus, ureteral: Code(s): N20.1 - Calculus of ureter Status: Acute Assessment and Plan: Abdominal CT shows a 10 mm stone in the left renal pelvis. Urology consulted uroscopy With stent placement 07/25/2021 IV fluids continued regular diet Morphine and norco for pain control Zofran for nausea Finasteride continued Urinary catheter removed (2) ROSA (acute kidney injury): Code(s): N17.9 - Acute kidney failure, unspecified Status: Acute Assessment and Plan: BUN/Cr trending down 44/1.50 IV fluids for hydration Trend labs Probably from obstructive stone urology consulted thank you (3) Hyperkalemia: Code(s): E87.5 - Hyperkalemia Status: Acute Assessment and Plan: K 4.6 Probably from retention trend labs Consider Kayexalate if continues to rise (4) Edema of right foot: Code(s): R60.0 - Localized edema Status: Acute Assessment and Plan: Right foot and leg swelling Highly unlikely to be a DVT 3+ pitting edema Venous doppler shows patent no DVT Patient stated this is something that is normal for him (5) Chronic anticoagulation: Code(s): Z79.01 - assisted (current) use of anticoagulants Status: Acute Assessment and Plan: On eliquis at home On hold for now Restart when ok'd by Urology Hx of stroke and could be from arrhythmia (6) Type 2 diabetes mellitus without complications: Code(s): E11.9 - Type 2 diabetes mellitus without complications Status: Acute Assessment and Plan: A1c 6.8 back in May Accu checks AC/HS Recheck A1c Hypoglycemia protocol initiate sliding scale Metformin on hold for now (7) Hypertension: Code(s): I10 - Essential (primary) hypertension Status: Acute Assessment and Plan: BP is 138/47 Continue carvedilol Trend BP adjust therapy as indicated DS: Summary Hospital Course Hospital Course: patient is an 80-year-old male with past medical history BPH, hypertension, hypothyroidism, diabetes who presented to the ED with severe left flank pain. Patient was diagnosed with a kidney stone on left side last April and has been following Urology outpatient. Patient was scheduled for surgical procedure however the pain was so severe and uncontrolled the patient had to come to the ED for further management. Urology has been consulted and took the patient and put in a ureteral stent. Patient is scheduled in the next week to come back for surgical procedure to get the stent removed. Patient did have a Agudelo catheter postop however that was removed and he has passed a voiding trial at this time. Abdominal CT still shows a 10 mm stone in the left renal pelvis. Patient was also noted to have an acute kidney injury with a BUN creatinine of 87/3.10 which has been treated with IV fluids and is currently back to baseline 26/1.10. Patient was also experiencing hematuria postop however it is turned yellow clear urine at this time. Patient has been getting IV fluids which is making him urinate more.. PT and OT have been ordered and has been working with the patient. Patient will go home with outpatient PT OT. patient also had a venous Doppler performed on the right foot due to the edema that was present. Current labs are stable and vital signs were stable as well. Patient feels okay and is ready to go home. Patient denies chest pain, shortness of breath, nausea, vomiting, diarrhea, constipation, weakness, fatigue. Patient's is present through discharge instructions and both parties agree and understand discharge instructions this time however patient's was a little concerned that he has not had an
[2021-07-27] MEDS: MUPIROCIN 2% OINT 22 GM TUBE 1 APPLIC TOPICAL (11:26)
[2021-07-27 11:38] LABS: Glucose Point of Care 133 mg/dl (65-105)
--- NOTE | 2021-07-27 13:04 | WPDUROPN2 ---
Progress Note: A&P Assessment and Plan (1) Gross hematuria: Code(s): R31.0 - Gross hematuria Status: Acute Assessment and Plan: Improved s/p oquendo removal. He will have continued hematuria d/t stent placement. No further evaluation necessary. (2) Calculus, ureteral: Code(s): N20.1 - Calculus of ureter Status: Acute Assessment and Plan: Patient will f/u outpatient as planned next Saturday with Dr. Mauricio for definitive stone management. Creatinine has improved to baseline, ok to discharge from a urologic standpoint at any time. Subjective Subjective Date/Time Seen: 07/27/21 13:04 POD #2 cystoscopy left stent placement with left retrograde pyelogram. Patient is doing better, oquendo is out, he is experiencing urge incontinence, tolerating his diet and has minimal to no pain. He is tolerating his stent well. No discomfort with urination or difficulty. Review of Systems Respiratory: Respiratory: Denies no additional respiratory complaints Gastrointestinal: Gastrointestinal: Denies abdominal pain, Reports nausea and Denies vomiting Genitourinary: Genitourinary: Denies dysuria, Denies flank pain, Denies urinary frequency, Denies urinary hesitancy, Reports urinary incontinence and Reports urinary urgency Exam Resp: Effort & Inspection: normal respiratory effort Cardio: Rate: regular rate GI: GI Palp: Yes Soft to palpation and No Tenderness to palpation present (GI) : General: Yes no CVA tenderness Extrem: General: no edema Objective Data Vital Signs Vital Signs: Vital Signs - 24 hr 07/26/21 14:52 07/26/21 17:08 07/26/21 20:05 Temperature 97.8 F 98.6 F Pulse Rate 69 76 71 Respiratory Rate 16 18 Blood Pressure 138/47 L 152/57 H Pulse Oximetry 97 98 07/27/21 00:58 07/27/21 04:50 07/27/21 09:02 Temperature 98.5 F Pulse Rate 70 70 Respiratory Rate 18 Blood Pressure 143/45 H Pulse Oximetry 98 98 Intake/Output Intake/Output: Intake & Output 07/24/21 07/25/21 07/26/21 07/27/21 23:59 23:59 23:59 23:59 Intake Total 3765 3580 2580 Output Total 905 2150 750 Balance 2860 1430 1830 Meds/Results Medications: Active Medications Generic Name Dose Route Start Last Admin Trade Name Aide PRN Reason Stop Dose Admin Acetaminophen 650 mg 07/25/21 08:57 Acetaminophen 325 Mg Tablet PO Q6H PRN Mild Pain (1-3) or Fever Hydrocodone Bitart/Acetaminophen 1 tab 07/25/21 08:43 07/27/21 09:03 Hydrocodone/Acetaminophen (*Crx) 5-325 Mg Tablet PO 1 tab Q6H PRN Administration pain 4-6 Carvedilol 25 mg 07/25/21 09:00 07/27/21 09:02 Carvedilol 25 Mg Tablet PO 25 mg BID GARTH Administration Dextrose 12.5 gm 07/26/21 17:54 Dextrose 50% 25 Gm/50 Ml Syringe IV PUSH PRN PRN Hypoglycemia Protocol Finasteride 5 mg 07/25/21 09:00 07/27/21 09:03 Finasteride 5 Mg Tablet PO 5 mg DAILY GARTH Administration Glucagon 1 mg 07/26/21 17:54 Glucagon For Inj 1 Mg Vial IM PRN PRN Hypoglycemia Protocol Glucose 15 gm 07/26/21 17:54 Glucose Oral Gel 15 Gm Of Glucse In 37.5 Gm Tube PO PRN PRN Hypoglycemia Protocol Sodium Chloride 1,000 mls @ 125 mls/hr 07/25/21 03:35 07/27/21 09:03 Normal Saline Iv IV CONT 125 mls/hr .Q8H GARTH Administration Ceftriaxone Sodium/Dextrose 1 gm in 50 mls @ 100 mls/hr 07/26/21 16:00 07/26/21 17:08 Rocephin 1 Gm/D5w 50 Ml IVPB 100 mls/hr Q24H GARTH Administration Dextrose 1,000 mls @ 100 mls/hr 07/26/21 17:54 Dextrose 5% 1,000 Ml IVPB PRN PRN Hypoglycemia Protocol Insulin Aspart 3 - 6 units 07/27/21 08:00 07/27/21 11:43 Insulin Aspart (*Bkc) 100 Units/Ml SUB-Q Not Given TIDWM GARTH Protocol Levothyroxine Sodium 75 mcg 07/25/21 08:55 07/27/21 05:49 Levothyroxine Sodium 75 Mcg Tablet PO 75 mcg DAILY@0630 GARTH Administration Losartan Potassium 100 mg 07/25/21 09:00
[2021-07-27 14:18] VITALS: BP 132/56; PULSE 70; RESP 16; TEMP 36.8; O2SAT 97
--- NOTE | 2021-07-27 15:34 | PCOTNOTE ---
On 07/27/21, the student, Elizabeth Obrien, provided care and completed [facility] documentation on this patient. I have reviewed the student's documentation and agree with the findings.
== END 2021-07-27 15:46 | disposition home health service (06) | DRG 660 ==
LOC: ANHED 07-25 04:53 → ANH3MED 07-25 04:53
PROVIDERS: Emergency Medicine; Nurse Practitioner Adult Health; Urology; Admitting Provider Internal Medicine; Emergency Provider Emergency Medicine; PCP Family Medicine; Visit Provider Nurse Practitioner
PROC: 0T778DZ Dilation of Left Ureter with Intraluminal Device, Via Natural or Artificial Opening Endoscopic (ICD-10-PCS; CPT 52352; principal; 2021-07-25 14:15)
DX: N20.1 Calculus of ureter (principal); N17.9 Acute kidney failure, unspecified; N13.8 Other obstructive and reflux uropathy; R31.0 Gross hematuria; E87.5 Hyperkalemia; R60.0 Localized edema; E11.9 Type 2 diabetes mellitus without complications; I10 Essential (primary) hypertension; N40.0 Benign prostatic hyperplasia without lower urinary tract symptoms; E03.9 Hypothyroidism, unspecified; D64.9 Anemia, unspecified; E78.5 Hyperlipidemia, unspecified; M17.12 Unilateral primary osteoarthritis, left knee; M16.11 Unilateral primary osteoarthritis, right hip; I87.2 Venous insufficiency (chronic) (peripheral); Z79.01 Long term (current) use of anticoagulants; Z86.73 Personal history of transient ischemic attack (TIA), and cerebral infarction without residual deficits; Z85.820 Personal history of malignant melanoma of skin; Z85.828 Personal history of other malignant neoplasm of skin; Z90.49 Acquired absence of other specified parts of digestive tract; Z95.0 Presence of cardiac pacemaker; Z87.891 Personal history of nicotine dependence
CPT/HCPCS: 36415; 71045; 74018; 74176; 74420; 80048; 80053; 81001; 82948; 83036; 83735; 85025; 85027; 93970; 96361; 96374; 96375; 96376; 97110; 97161; 97165; 97530; 97535; 99285; A9270; C1758; C1769; C1894; C2617; G0378; J0690; J0696; J1100; J1200; J2270; J2405; J2704; J3010; J3475; J7030; J7120; Q9966

== ENCOUNTER 2021-08-15 00:38 | Day surgery (SDC) | payer MEDICARE, SELFPAY ==
[2021-07-24 13:27] VITALS: BMI 21.7
--- NOTE | 2021-07-24 13:36 | PC.NURSE ---
Report to the Outpatient Waiting Room, entrance under the green pavilion located off [facility], at time _0700 on date __08/01/21 . OR Time:09 . - You and your visitor will be asked a series of questions to screen for COVID 19 for your protection. - A mask is required within the hospital. - Only one visitor is allowed at this time. Patient visitors will be guided where to wait when not with patient. Preoperative COVID Testing Requirements: No COVID Test needed if: (proof is required; if not received patient will have Rapid Test prior to entry) - Patient has received COVID Vaccine at least 14 days prior to procedure date or - Patient has positive COVID test result within last 90 days of surgery date. COVID Test needed if above criteria is not met If not COVID vaccinated a COVID test must be conducted within 72 hours of surgery and patient is asked to isolate self from time of testing until procedure. You will go to the [facility] for your COVID testing. The [facility] site is located at the corner of [address] [facility]. You will only be called if COVID results are positive and your surgeon may reschedule your elective surgery date. Patients may have clear liquids (water, carbonated beverages, clear teas, apple juice) until 3 hours prior to surgery with a maximum of 20 ounces. - No food from midnight until time of surgery - Infants may have breast milk until 4 hours before surgery, infant formula 6 hours prior to surgery. - Children will be allowed to drink immediately following surgery. If applicable, please bring a bottle or sippy cup to assist with drinking. Juice, water, soda, and popsicles are readily available. For infants on formula, please bring formula the day of surgery. Pacifiers are allowed. Take the following medications with a SIP of water the morning of surgery: __CARVEDILOL,LEVOTHYROXINE,INHALER IF NEEDED Medications to discontinue per physician ELIQUIS PER DR SPAULDING Date to take last dose Please no make-up, nail ghanaian, hairspray, perfume, deodorant, or body powder the day of surgery. No jewelry (including any body piercings) or valuables the day of surgery, leave them at home. Please take a shower or bath the night before, or the morning of, surgery with an antibacterial soap. Wear comfortable, loose fitting clothing. Children are encouraged to wear pajamas. - Jewelry must be removed prior to entering the operating room. Rings and piercings that are not removed may be cut off. - The hospital will not accept responsibility for valuables. - Please leave all valuables, including medications, at home the day of surgery. If you are going home after surgery, a licensed lifter/driver must drive you home. - NO public transportation without another adult. - We recommend that an adult stay with you for 24 hours following discharge. - We also recommend that you do not drive, make important decision, drink alcoholic beverages, or take any drugs that were not prescribed by your health care provider for at least 24 hours after your discharge time. For Pediatric surgeries, we recommend two adults accompany the child home (only one inside the building at this time). Follow any additional instructions given to you from your surgeon. Telephone instructions given to _PATIENT AND JUVENTINO and asked if any additional questions and then verbalized understanding. Patient advised to call surgeon office or pre surgery nurse liaison [phone] if any additional questions.
--- NOTE | 2021-08-02 10:03 | PC.NURSE ---
Report to the Outpatient Waiting Room, entrance under the green pavilion located off [facility], at time __0915 on date ____08/15/21___. OR Time: __111 . - You and your visitor will be asked a series of questions to screen for COVID 19 for your protection. - A mask is required within the hospital. - Only one visitor is allowed at this time. Patient visitors will be guided where to wait when not with patient. Preoperative COVID Testing Requirements: No COVID Test needed if: (proof is required; if not received patient will have Rapid Test prior to entry) - Patient has received COVID Vaccine at least 14 days prior to procedure date or - Patient has positive COVID test result within last 90 days of surgery date. COVID Test needed if above criteria is not met If not COVID vaccinated a COVID test must be conducted within 72 hours of surgery and patient is asked to isolate self from time of testing until procedure. You will go to the [facility] for your COVID testing. The [facility] is located at the corner of [address] [facility]. You will only be called if COVID results are positive and your surgeon may reschedule your elective surgery date. Patients may have clear liquids (water, carbonated beverages, clear teas, apple juice) until 3 hours prior to surgery with a maximum of 20 ounces. - No food from midnight until time of surgery - Infants may have breast milk until 4 hours before surgery, infant formula 6 hours prior to surgery. - Children will be allowed to drink immediately following surgery. If applicable, please bring a bottle or sippy cup to assist with drinking. Juice, water, soda, and popsicles are readily available. For infants on formula, please bring formula the day of surgery. Pacifiers are allowed. Take the following medications with a SIP of water the morning of surgery: __CARVEDILOL, LEVOTHYROXINE, & INHALER IF NEEDED Medications to discontinue per physician ___PT STATES TO STOP ELIQUIS [address] DA[address] BEFORE PER DR[address] SPAULDING Date to take last dose__08/12/21 Please no make-up, nail ethiopian, hairspray, perfume, deodorant, or body powder the day of surgery. No jewelry (including any body piercings) or valuables the day of surgery, leave them at home. Please take a shower or bath the night before, or the morning of, surgery with an antibacterial soap. Wear comfortable, loose fitting clothing. Children are encouraged to wear pajamas. - Jewelry must be removed prior to entering the operating room. Rings and piercings that are not removed may be cut off. - The hospital will not accept responsibility for valuables. - Please leave all valuables, including medications, at home the day of surgery. If you are going home after surgery, a licensed entry driver operator must drive you home. - NO public transportation without another adult. - We recommend that an adult stay with you for 24 hours following discharge. - We also recommend that you do not drive, make important decision, drink alcoholic beverages, or take any drugs that were not prescribed by your health care provider for at least 24 hours after your discharge time. For Pediatric surgeries, we recommend two adults accompany the child home (only one inside the building at this time). Follow any additional instructions given to you from your surgeon. Telephone instructions given to ____PT and asked if any additional questions and then verbalized understanding. Patient advised to call surgeon office or pre surgery nurse liaison [phone] if any additional questions.
[2021-08-15] VITALS (8 sets, daily range): BP systolic 132–153; BP diastolic 54–76; PULSE 68–79; RESP 15–16; TEMP 36.3–36.8; O2SAT 97–100
--- NOTE | ~2021-08-15 | XR_ITS ---
EXAMINATION: XR retrograde pyelo w/stent LT DATE: 08/15/2021 11:23 INDICATION: Left renal stone. TECHNIQUE: 6 intraoperative fluoroscopic views of the abdomen and pelvis were obtained. I was not pre sent. Fluoroscopy exposure time was 32 seconds. COMPARISON: CT abdomen and pelvis 07/26/2021 FINDINGS: There is a left internal ureteral stent in expected position. Images demonstrate removal of the stent. The final images demonstrate a new left internal ureteral stent in expected position. IMPRESSION: 1. New left internal ureteral stent in expected position. Reviewed, dictated and finalized at location A. ATTACHING MACHINE TENDER
--- NOTE | 2021-08-15 07:13 | WPDANESEPPF ---
Anes - Initial Pre Proc Eval Procedure: Operation Date: 08/15/21 11:15 Proposed Procedures p Cystoscopy, Left Retrograde Pyelogram, Left Ureteroscopy, Stone Extraction, Possible Stent Placement, - Chinedu Mauricio MD s Possible Holmium Laser Procedure - Chinedu Mauricio MD Date/Time: 08/15/21 07:13 Surgeon: Chinedu Mauricio MD Pre Op Diagnosis: left ureteral kidney stone Patient Data Age: 80 Gender: M Height: 1.83 m Weight: 72.6 kg Allergies Allergy/AdvReac Type Severity Reaction Status Date / Time fish oil Allergy Mild RASH Verified 08/15/21 09:30 diazepam AdvReac Mild CONFUSION Verified 08/15/21 09:30 Home Medications Medication Instructions Recorded Confirmed Type finasteride 5 mg tablet 5 mg PO DAILY 07/24/19 08/15/21 History carvedilol 25 mg PO BID 11/20/19 08/15/21 History losartan 100 mg PO DAILY 11/20/19 08/15/21 History acetaminophen 325 mg capsule 325 mg PO Q6H PRN 07/20/20 08/15/21 History tizanidine 4 mg capsule 4 mg PO HS #30 cap 05/30/21 08/15/21 Rx furosemide 20 mg tablet See Rx Instructions .ROUTE 07/05/21 08/15/21 Rx .COMPLEX #90 tablet metformin 500 mg tablet,extended 500 mg PO BID #60 tablet 07/11/21 08/15/21 Rx release 24 hr apixaban 5 mg tablet 5 mg PO BID #60 tablet 07/18/21 08/15/21 Rx hydrocodone 5 mg-acetaminophen 325 1 tablet PO Q6H PRN #30 tablet 07/21/21 08/01/21 Rx mg tablet levothyroxine 75 mcg tablet 75 mcg PO DAILY #90 tablet 08/01/21 08/15/21 Rx ondansetron 4 mg disintegrating 4 mg PO Q6H PRN #14 tablet 08/01/21 08/01/21 Rx tablet spironolactone 25 mg tablet 25 mg PO DAILY 08/01/21 08/15/21 History Patient hx anesthesia problems: none Family hx anesthesia problems: none Results Review: All pre-operative results and documents have been reviewed as part of the pre-operative evaluation. [facility] Past Medical History Medical History Anemia Arterial insufficiency of lower extremity Arthritis of left knee BMI 23.0-23.9, adult Bradycardia Status post pacemaker Cardiomyopathy Cervical spine arthritis Chronic pain CVA (cerebral vascular accident) And 2006, no deficits DM (diabetes mellitus) Essential (primary) hypertension FH: carotid endarterectomy H/O: HTN (hypertension) History of kidney stones History of squamous cell carcinoma of skin HLD (hyperlipidemia) Hx of melanoma of skin No recurrence. Hypothyroidism Melanoma Osteoarthritis of right hip Other hyperlipidemia Right hip pain Right shoulder pain Superior mesenteric artery atherosclerosis Type 2 diabetes mellitus without complications Venous insufficiency (chronic) (peripheral) Surgical History Surgical History H/O shoulder surgery 12/23/19, replacement 2004, shoulder manipulation, Dr John History of cholecystectomy History of endarterectomy History of permanent cardiac pacemaker placement History of renal stent Hx of melanoma excision Previous back surgery 1989 Spurs on spine Status post aortic bifurcation bypass graft Family History Family History Grandparent Hypertension Cerebrovascular accident Father Family history of malignant neoplasm Family history of coronary artery disease Mother Family history of malignant neoplasm Family history of coronary artery disease Carcinoma of colon Sibling Family history of diabetes mellitus in first degree relative Heart disease Social History Social History Social History: Patient quit smoking cigarettes 25 years ago but did smoke 3 packs per day at that time. He does not drink alcohol or do drugs. He lives with his Susannah at home and uses a walker or cane to get around the house. He would like to be a full code at this time. He designates his , Susannah, as
--- NOTE | 2021-08-15 09:13 | WPDHPUPDATE1 ---
History and Physical Update Update Date/Time: 08/15/21 09:13 History and Physical has been reviewed, including an updated exam of the patient. There are NO changes in the patient's condition. Risks, benefits, and alternatives have been discussed and questions answered. Patient agrees to proceed with procedure. Proceed with cysto, left retrograde, left ureteroscopy with possible laser, stone extraction, stent exchange.
[2021-08-15 09:53] LABS: Add Urine Microscopic? YES; Appearance Urine Cloudy (Clear); Bilirubin Urine Negative (Negative); Blood Urine 3+ (Negative); Color Urine Yellow (Yellow); Glucose Urine UA Negative (Negative); Ketones Urine Negative (Negative); Leukocyte Esterase Ur 1+ LEU/UL (Negative); Mucus Urine Rare /lpf; Nitrate Urine Negative (Negative); Protein Urine 2+ mg/dL (Negative); RBC Urine >75 /hpf (0-2); Specific Grav Ur 1.021 (1.001-1.035); Squamous Epithelial Cell Urine Few /hpf (Few); Urobilinogen Urine Negative mg/dL (<2.0); WBC Urine 21-30 /hpf
[2021-08-15] MEDS: LACTATED RINGERS 1,000 ML 30 ML IV CONT (10:20)
[2021-08-15 10:21] LABS: Glucose Point of Care 129 mg/dl (65-105)
[2021-08-15] MEDS: ceFAZolin 2 GM/D5W 50 ML 2 GM/50 ML BAG IVPB (10:27)
[2021-08-15] MEDS: LIDOCAINE HCL 2% GEL UROJET 10 ML PKG MUCOUS MEM (10:42)
--- NOTE | 2021-08-15 11:18 | P.OP_ITS ---
Procedure Note - Detailed Date of Procedure 08/15/21 Pre-op Diagnosis left ureteral kidney stone Post-op Diagnosis same Procedure Performed Cystoscopy, left retrograde pyelogram, left ureteroscopy with holmium laser of 1 cm stone, left stent exchange 4.8 South African contour Surgeon Chinedu Mauricio MD Anesthesia general Description of Procedure Patient is taken to the operative suite and correctly identified. Once anesthesia was obtained was placed in dorsal lithotomy position and prepped and draped usual sterile fashion. Twenty-two South African scope inserted in the bladder. The prior stent was grasped brought out the meatus. A guidewire was placed alongside the stent. The ureteral access sheath was then placed. Mini flexible ureteroscope was inserted. The kidney was inspected its entirety. The stone was localized in the lower pole calyx. Using 273 micron fiber we dusted the stone to multiple small fragments. They were too small to retrieve at this time. Reinspection revealed no large fragments. Pyelogram was then performed of confirm placement of the stent. A 4.8 South African contour stent stent was then placed with the proximal end coiled in the renal pelvis and the distal end in the bladder. Bladder was drained. 2% viscous lidocaine was inserted urethra. Patient was taken recovery stable condition. Will follow up in a week's time for stent removal. Drains Yes Packing No Pathology yes Complications No immediate complications Condition stable Disposition PACU
[2021-08-15 11:59] LABS: Glucose Point of Care 144 mg/dl (65-105)
== END 2021-08-15 13:05 | disposition home or self-care (01) ==
PROVIDERS: PCP Family Medicine; Visit Provider Urology
PROC: (CPT 52352; principal; 2021-08-15 11:15)
PROC: (CPT 52356; 2021-08-15 11:15)
DX: N20.1 Calculus of ureter (principal); I42.9 Cardiomyopathy, unspecified; E78.5 Hyperlipidemia, unspecified; D64.9 Anemia, unspecified; Z86.73 Personal history of transient ischemic attack (TIA), and cerebral infarction without residual deficits; E11.9 Type 2 diabetes mellitus without complications; I10 Essential (primary) hypertension; E03.9 Hypothyroidism, unspecified; I87.2 Venous insufficiency (chronic) (peripheral); Z95.0 Presence of cardiac pacemaker; Z87.891 Personal history of nicotine dependence; Z79.01 Long term (current) use of anticoagulants; Z79.84 Long term (current) use of oral hypoglycemic drugs; Z79.891 Long term (current) use of opiate analgesic
CPT/HCPCS: 52356; 74420; 81001; 82948; 87086; 87088; C1769; C1894; C2617; J0690; J1100; J2405; J2704; J3010; J7120; Q9966

== ENCOUNTER 2021-08-29 15:20 | Inpatient (IN) | payer MEDICARE, SELFPAY ==
[2021-08-29] VITALS (7 sets, daily range): BP systolic 103–159; BP diastolic 48–73; PULSE 66–87; RESP 14–31; TEMP 36.6–36.7; O2SAT 99–100
--- NOTE | ~2021-08-29 | XR_ITS ---
EXAMINATION: XR chest 1V portable DATE: 08/29/2021 22:54 INDICATION: Productive cough. Sore throat. TECHNIQUE: A single frontal view of the chest was obtained on 2 radiographs. COMPARISON: Chest single view 07/27/2021 FINDINGS: Calcified right lung nodules and calcified right hilar lymph nodes are consistent with old granulomatous disease. No pleural effusion or pneumothorax. The heart size is normal. There is a left chest wall pacer with leads in the right atrium and right ventricle. Surgical clips in the right upp er quadrant are likely from cholecystectomy. There is a right shoulder arthroplasty. IMPRESSION: 1. No acute cardiopulmonary disease. Reviewed, dictated and finalized at location A. CTOR OF MARK[employer]ING [employer]
--- NOTE | ~2021-08-29 | US_ITS ---
EXAMINATION: US venous doppler [facility] DATE: 08/30/2021 16:14 INDICATION: Lower limb pain and swelling TECHNIQUE: Grayscale ultrasound images without and with compression and Doppler ultrasound images of the bilateral lower extremity veins were obtained. COMPARISON: None. FINDINGS: The visualized portions of right common femoral vein, profunda (deep) femoral vein, femoral vein, pop liteal vein, posterior tibial veins, peroneal veins, gastrocnemius vein and greater saphenous vein ou tflow are patent. The visualized portions of left common femoral vein, profunda femoral vein, femoral vein, popliteal v ein, posterior tibial veins, peroneal veins and greater saphenous vein outflow are patent. IMPRESSION: 1. No deep venous thrombosis in either lower limb. Reviewed, dictated and finalized at location A. ARCH GEOLOGIST
--- NOTE | 2021-08-29 21:42 | ED.GENADULT ---
HPI - General Adult General Chief complaint: Weakness Stated complaint: weakness Time Seen by Provider: 08/29/21 21:32 Source: patient and RN notes reviewed History of Present Illness HPI narrative: Patient is a 80 y/o female complaining of severe generalized weakness for 1 month. There is no alleviating or exacerbating factor. He has no fever, chills, chest pain or SOB. He has some cough, vomiting and diarrhea for 2 week. He has been vaccinated against COVID. Related Data Home Medications Medication Instructions Recorded Confirmed finasteride 5 mg tablet 5 mg PO DAILY 07/24/19 08/30/21 losartan 100 mg PO DAILY 11/20/19 08/30/21 acetaminophen [Tylenol Arthritis 650 mg PO Q12H 08/30/21 08/30/21 Pain] carvedilol 25 mg PO QAM 08/30/21 08/30/21 spironolactone 25 mg PO QAM 08/30/21 08/30/21 Allergies Allergy/AdvReac Type Severity Reaction Status Date / Time fish oil Allergy Mild RASH Verified 08/30/21 01:49 diazepam AdvReac Mild CONFUSION Verified 08/30/21 01:49 Review of Systems Constitutional: Constitutional: Denies chills, Denies fever(s), Denies headache(s) and Reports weakness Eyes: Eyes: Denies blurry vision ENT: Denies headache(s) and Denies neck pain Cardiovascular: Cardiovascular: Denies chest pain and Denies dyspnea Respiratory: Respiratory: Reports cough and Denies dyspnea Gastrointestinal: Gastrointestinal: Denies abdominal pain, Reports diarrhea, Reports nausea and Reports vomiting Genitourinary: Genitourinary: Denies hematuria and Denies dysuria Musculoskeletal: Musculoskeletal: Denies back pain and Denies neck pain Neurologic: Denies headache(s) and Reports weakness [facility] Past Medical History Medical History Anemia Arterial insufficiency of lower extremity Arthritis of left knee BMI 23.0-23.9, adult BMI between 19-24,adult Bradycardia Status post pacemaker Cardiomyopathy Cervical spine arthritis Chronic pain CVA (cerebral vascular accident) And 2006, no deficits DM (diabetes mellitus) Essential (primary) hypertension FH: carotid endarterectomy H/O: HTN (hypertension) History of kidney stones History of squamous cell carcinoma of skin HLD (hyperlipidemia) Hx of melanoma of skin No recurrence. Hypothyroidism Melanoma Osteoarthritis of right hip Other hyperlipidemia Right hip pain Right shoulder pain Superior mesenteric artery atherosclerosis Type 2 diabetes mellitus without complications Venous insufficiency (chronic) (peripheral) Surgical History Surgical History H/O shoulder surgery 12/23/19, replacement 2005, shoulder manipulation, Dr Jonh History of cholecystectomy History of endarterectomy History of permanent cardiac pacemaker placement History of renal stent History of renal stent Hx of melanoma excision Previous back surgery 1989 Spurs on spine Status post aortic bifurcation bypass graft Family History Family History Grandparent Hypertension Cerebrovascular accident Father Family history of malignant neoplasm Family history of coronary artery disease Mother Family history of malignant neoplasm Family history of coronary artery disease Carcinoma of colon Sibling Family history of diabetes mellitus in first degree relative Heart disease Social History Social History Social History: Patient quit smoking cigarettes 25 years ago but did smoke 3 packs per day at that time. He does not drink alcohol or do drugs. He lives with his Susannah at home and uses a walker or cane to get around the house. He would like to be a full code at this time. He designates his , Susannah, as his surrogate decision maker Tobacco type: cigarettes Second hand tobacco smoke exposure: Yes Additional smoking assessment comments:
[2021-08-29] MEDS: SODIUM CHLORIDE 0.9% IV 1,000 ML 999 ML IV CONT (22:59)
[2021-08-29 23:09] LABS: Basophils Percent Auto 0.1 % (0.2-1.2); Eosinophils Absolute Auto 0.1 K/mm3 (0-0.3); Eosinophils Percent Auto 0.4 % (0-4.4); Hematocrit 24.1 % (42.0-52.0); Hemoglobin 7.7 g/dL (14.0-18.0); Immature Granulocyte Absolute 0.27 K/mm3 (0.00-0.031); Immature Granulocyte Percent A 1.8 % (0-0.5); Lymphocytes Absolute Auto 1.18 K/mm3 (0.9-3.2); Mean Corpuscular Hemoglobin 29.1 pg (26-34); Mean Corpuscular Volume 90.9 fl (80-100); Mean Platelet Volume 9.6 fl (7.4-10.4); Monocytes Absolute Auto 1.2 K/mm3 (0.1-0.6); Monocytes Percent Auto 8.1 % (2.6-8.5); Neutrophils Percent Auto 81.6 % (45.5-73.1); Platelet Count Result 324 k/mm3 (150-375); Red Blood Count 2.65 M/mm3 (4.6-6.20); Red Cell Distribution Width 17.9 % (11.5-14.5); White Blood Count 14.7 K/mm3 (4.5-10.0)
[2021-08-29 23:18] LABS: Add Urine Microscopic? YES; Appearance Urine Clear (Clear); Bacteria Urine Trace /hpf; Bilirubin Urine Negative (Negative); Blood Urine Negative (Negative); Color Urine Yellow (Yellow); Glucose Urine UA Negative (Negative); Ketones Urine Negative (Negative); Leukocyte Esterase Ur 1+ LEU/UL (Negative); Mucus Urine Rare /lpf; Nitrate Urine Positive (Negative); Protein Urine Negative (Negative); RBC Urine 0-2 /hpf (0-2); Specific Grav Ur 1.013 (1.001-1.035); Squamous Epithelial Cell Urine Rare /hpf (Few); Urobilinogen Urine Negative mg/dL (<2.0); WBC Urine 16-20 /hpf
[2021-08-29 23:19] LABS: Alanine Aminotransferase 25 U/L (4-50); Alkaline Phosphatase 111 U/L (38-126); Anion Gap 9 mmol/L (8-16); Aspartate Amino Transferase 22 U/L (17-59); Bilirubin,Total 0.7 mg/dL (0.2-1.3); Blood Urea Nitrogen 29 mg/dL (9-20); Calcium 9.5 mg/dL (8.4-10.2); Carbon Dioxide 22 mmol/L (22-30); Chloride 100 mmol/L (98-107); Estimated CRCL calculation 48 ml/min; Estimated Glomerular Filt Rate > 60; Glucose 175 mg/dL (65-110); Sodium 131 mmol/L (137-145)
--- NOTE | 2021-08-29 23:41 | PM.IMHP ---
H&P: HPI History of Present Illness Date/Time: 08/29/21 23:41 Chief Complaint: Weakness. Narrative: This is an 80-year-old male with past medical history significant for hypertension, hypothyroidism, type 2 diabetes mellitus, congestive heart failure, cerebrovascular accident, melanoma, superior mesenteric artery atherosclerosis, osteoarthritis of the right hip. Patient had a recent surgical procedure performed by Urology for left-sided renal calculus patient underwent retrograde pyelogram cystoscopy stent exchange. According to patient had hematuria for several days after the procedure for for 4-5 days before it cleared. Patient presented to the emergency room due to generalized weakness according to patient this has been worsening over the last month or so, denies any fevers, rigors ,chills ,nausea, vomiting, diarrhea, no hematuria, no dysuria, no back pain, no cough, no sputum production. Preliminary workup was significant for a hemoglobin of 7.7, hematocrit of 24, WBC 14 cells,Urine was significant for wbc's present. Review of Systems Review of Systems: Generalized weakness, weight loss, hematuria. Constitutional: Constitutional: Denies chills, Reports fatigue, Denies fever(s), Denies malaise, Reports poor appetite, Reports weakness and Reports weight loss Comments: Roughly 20 lb weight loss Eyes: Eyes: Denies change in vision ENT: Denies dysphagia, Denies vertigo, Denies dizziness, Denies nasal congestion, Denies nasal discharge, Denies nasal obstruction and Denies odynophagia Cardiovascular: Cardiovascular: Denies syncope, Denies pedal edema, Denies leg edema, Denies radiating jaw, neck or arm pain, Denies palpitations, Denies dyspnea on exertion and Denies orthopnea Respiratory: Respiratory: Denies chest congestion, Denies cough, Denies excessive phlegm production, Denies dyspnea and Denies wheezing Gastrointestinal: Gastrointestinal: Denies abdominal pain, Denies melena, Denies hematochezia, Denies dyspepsia, Denies heartburn, Denies diarrhea, Denies nausea and Denies vomiting Genitourinary: Genitourinary: Reports hematuria, Denies dysuria and Denies flank pain Musculoskeletal: Musculoskeletal: Reports arthralgias (Right hip) Integumentary/Breasts: Skin/Breast: Denies rash Neurologic: Denies focal weakness and Denies Sensory deficit (Neuro) Psychiatric: Psychiatric: Reports no additional psychiatric complaints and Reports as per HPI Endocrine: Endocrine: Denies cold intolerance, Denies excessive sweating, Denies heat intolerance, Denies polyphagia, Denies polydipsia, Denies polyuria and Denies palpitations Hematologic/Lymphatic: Hematologic/Lymphatic: Reports no additional hematologic/lymphatic complaints and Reports as per HPI Allergic/Immunologic: Allergic/Immunologic: Reports no additional allergic/immunologic complaints and Reports as per HPI [facility] Past Medical History Medical History Anemia Arterial insufficiency of lower extremity Arthritis of left knee BMI 23.0-23.9, adult BMI between 19-24,adult Bradycardia Status post pacemaker Cardiomyopathy Cervical spine arthritis Chronic pain CVA (cerebral vascular accident) And 2006, no deficits DM (diabetes mellitus) Essential (primary) hypertension FH: carotid endarterectomy H/O: HTN (hypertension) History of kidney stones History of squamous cell carcinoma of skin HLD (hyperlipidemia) Hx of melanoma of skin No recurrence. Hypothyroidism Melanoma Osteoarthritis of right hip Other hyperlipidemia Right hip pain Right shoulder pain Superior mesenteric artery atherosclerosis Type 2 diabetes mellitus without complications Venous insufficiency (chronic) (peripheral) Surgical History Surgical History H/O shoulder surgery 12/23/19, replacement 2004, shoulder manipulation, Dr John History of cholecystectomy History of endarterectomy History of permanent card
[2021-08-30] VITALS (12 sets, daily range): BP systolic 131–164; BP diastolic 48–73; PULSE 70–110; RESP 14–20; TEMP 36.1–36.8; O2SAT 95–100
[2021-08-30 00:37] LABS: EDCOVIDSCREEN Negative (Negative)
--- NOTE | 2021-08-30 01:46 | ADMGEN ---
This patient, Zhang Alexis, was admitted to Medical Room 345-01. Patient/family oriented to hospital policies and general routines including ID bracelet, bed and alarms, visiting hours, pain management, procedures, bathroom and other care routines, personal items, smoking policy, room service/diet, and visiting hours. Information on how to activate the Rapid Response Team has been discussed. Patient/Family are encouraged to report perceived risks to care and to ask questions if they do not understand what they are told or what they should do.
[2021-08-30] MEDS: BENZOCAINE/MENTHOL (*BKC) 18 EA LOZENGE 1 LOZENGE PO (02:52)
[2021-08-30 05:14] LABS: Basophils Percent Auto 0.2 % (0.2-1.2); Eosinophils Absolute Auto 0.1 K/mm3 (0-0.3); Eosinophils Percent Auto 0.4 % (0-4.4); Hematocrit 24.5 % (42.0-52.0); Hemoglobin 7.8 g/dL (14.0-18.0); Immature Granulocyte Absolute 0.35 K/mm3 (0.00-0.031); Immature Granulocyte Percent A 2.6 % (0-0.5); Lymphocytes Absolute Auto 0.91 K/mm3 (0.9-3.2); Lymphocytes Percent Auto 6.7 % (18.3-44.2); Mean Corpuscular HGB Conc 31.8 g/dl (32-36); Mean Corpuscular Hemoglobin 28.8 pg (26-34); Mean Corpuscular Volume 90.4 fl (80-100); Mean Platelet Volume 9.4 fl (7.4-10.4); Monocytes Absolute Auto 1.2 K/mm3 (0.1-0.6); Monocytes Percent Auto 8.5 % (2.6-8.5); Neutrophils Absolute Auto 11.1 K/mm3 (1.3-6.7); Neutrophils Percent Auto 81.6 % (45.5-73.1); Platelet Count Result 355 k/mm3 (150-375); Red Blood Count 2.71 M/mm3 (4.6-6.20); White Blood Count 13.6 K/mm3 (4.5-10.0)
[2021-08-30] MEDS: LEVOTHYROXINE SODIUM 75 MCG TABLET PO (06:25)
[2021-08-30] MEDS: FINASTERIDE 5 MG TABLET PO (08:11)
[2021-08-30] MEDS: ACETAMINOPHEN 325 MG TABLET 650 MG PO ×2 (08:11→21:11)
[2021-08-30] MEDS: SODIUM CHLORIDE 0.9% IV 250 ML 30 ML IV CONT (08:14)
--- NOTE | 2021-08-30 08:45 | PCOTNOTE ---
Pt. currently unable to be evaluated, as he is receiving blood. Nurse requests return this afternoon for OT/PT evaluation
[2021-08-30 08:59] LABS: Anion Gap 5 mmol/L (8-16); Blood Urea Nitrogen 27 mg/dL (9-20); Calcium 9.2 mg/dL (8.4-10.2); Carbon Dioxide 26 mmol/L (22-30); Chloride 102 mmol/L (98-107); Estimated CRCL calculation 53 ml/min; Estimated Glomerular Filt Rate > 60; Glucose 205 mg/dL (65-110); Potassium 5.1 mmol/L (3.4-5.0); Sodium 133 mmol/L (137-145)
--- NOTE | 2021-08-30 11:19 | P.PNIM_ITS ---
Progress Note: A&P Assessment and Plan (1) Urinary tract infection: Code(s): N39.0 - Urinary tract infection, site not specified Status: Acute Assessment and Plan: UA was abnormal on presentation. * Abnormal UA could be related to presence of stent. He is currently asymptomatic * Started on IV vancomycin and Zosyn on presentation but I have switched him today to IV Rocephin while awaiting cultures. No history of prior MDR infections * He is afebrile. Mild leukocytosis is improving (2) Acute blood loss anemia: Code(s): D62 - Acute posthemorrhagic anemia Status: Acute Assessment and Plan: Baseline hemoglobin around 12.5. Patient presented with several days of gross hematuria secondary to ureteral stent exchange and hemoglobin decreased to 7.7 * He received 1 unit pRBC on admission * H&H remaining stable * Will check stool for occult blood * Check iron panel, B12, folate * Continue to monitor * Hematuria has resolved (3) Generalized weakness: Code(s): R53.1 - Weakness Status: Acute Assessment and Plan: Likely multifactorial related to anemia, possible acute urinary tract infection, poor appetite and oral intake, overall physical deconditioning * Appreciate PT/OT evals * Encourage appropriate p.o. intake. Dietary supplementation * Check TSH, B12, folate, vitamin-D (4) S/P ureteral stent placement: Code(s): Z96.0 - Presence of urogenital implants Status: Acute Assessment and Plan: 08/15/2021 patient underwent cystoscopy, left retrograde pyelogram, left ureteroscopy with holmium laser of 1 cm stone, and left stent exchange. * Patient developed subsequent gross hematuria which has resolved. * No acute issues at this time. * Proceed with Urology consultation if hematuria recurs or if any other issues (5) Essential (primary) hypertension: Code(s): I10 - Essential (primary) hypertension Status: Acute Assessment and Plan: Noted to be orthostatic on presentation, though I cannot find these results. * Repeat orthostatics. Initiate fall precautions * His last blood pressure was 154/66. I will resume his home carvedilol and losartan * Monitor blood pressure trends (6) Cardiomyopathy: Code(s): I42.9 - Cardiomyopathy, unspecified Status: Acute Assessment and Plan: He is clinically compensated. 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 Patient reports that since early July he has been feeling extremely fatigued and worn down. He has had very poor appetite and has eaten very little. He estimates he has lost 15 lb. He occasionally feels lightheaded with standing. He had a stent placed on July 23, 2021 and felt that after this he became even more weak. One week ago, he had a stent exchange and following that he developed hematuri
--- NOTE | 2021-08-30 11:19 | PM.IMPN ---
Progress Note: A&P Assessment and Plan (1) Urinary tract infection: Code(s): N39.0 - Urinary tract infection, site not specified Status: Acute Assessment and Plan: UA was abnormal on presentation. Abnormal UA could be related to presence of stent. He is currently asymptomatic Started on IV vancomycin and Zosyn on presentation but I have switched him today to IV Rocephin while awaiting cultures. No history of prior MDR infections He is afebrile. Mild leukocytosis is improving (2) Acute blood loss anemia: Code(s): D62 - Acute posthemorrhagic anemia Status: Acute Assessment and Plan: Baseline hemoglobin around 12.5. Patient presented with several days of gross hematuria secondary to ureteral stent exchange and hemoglobin decreased to 7.7 He received 1 unit pRBC on admission H&H remaining stable Will check stool for occult blood Check iron panel, B12, folate Continue to monitor Hematuria has resolved (3) Generalized weakness: Code(s): R53.1 - Weakness Status: Acute Assessment and Plan: Likely multifactorial related to anemia, possible acute urinary tract infection, poor appetite and oral intake, overall physical deconditioning Appreciate PT/OT evals Encourage appropriate p.o. intake. Dietary supplementation Check TSH, B12, folate, vitamin-D (4) S/P ureteral stent placement: Code(s): Z96.0 - Presence of urogenital implants Status: Acute Assessment and Plan: 08/15/2021 patient underwent cystoscopy, left retrograde pyelogram, left ureteroscopy with holmium laser of 1 cm stone, and left stent exchange. Patient developed subsequent gross hematuria which has resolved. No acute issues at this time. Proceed with Urology consultation if hematuria recurs or if any other issues (5) Essential (primary) hypertension: Code(s): I10 - Essential (primary) hypertension Status: Acute Assessment and Plan: Noted to be orthostatic on presentation, though I cannot find these results. Repeat orthostatics. Initiate fall precautions His last blood pressure was 154/66. I will resume his home carvedilol and losartan Monitor blood pressure trends (6) Cardiomyopathy: Code(s): I42.9 - Cardiomyopathy, unspecified Status: Acute Assessment and Plan: He is clinically compensated. 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 Patient reports that since early July he has been feeling extremely fatigued and worn down. He has had very poor appetite and has eaten very little. He estimates he has lost 15 lb. He occasionally feels lightheaded with standing. He had a stent placed on July 23, 2021 and felt that after this he became even more weak. One week ago, he had a stent exchange and following that he developed hematuria which he described as a small amount of blood with clots. States hematuria resolved 3 days ago and he has not had any further episodes. He has been having looser stools for couple of days but denies watery diarrhea and denies blood in his stools. Denies shortness of breath, palpitations, dizziness, lightheadedness. No nausea or vomiting. Denies fever or chills. He denies weakness in his extremities. He does endo
[2021-08-30 12:59] LABS: Glucose Point of Care 233 mg/dl (65-105)
[2021-08-30] MEDS: INSULIN ASPART (*BKC) 100 UNITS/ML SUB-Q (13:00)
[2021-08-30 16:48] LABS: Glucose Point of Care 195 mg/dl (65-105)
[2021-08-30] MEDS: ONDANSETRON INJ 4 MG/2 ML VIAL IV PUSH (18:19)
[2021-08-30 20:45] LABS: Glucose Point of Care 183 mg/dl (65-105)
[2021-08-30] MEDS: TIZANIDINE HCL 4 MG TABLET PO (21:07)
[2021-08-31] VITALS (9 sets, daily range): BP systolic 96–147; BP diastolic 51–82; PULSE 64–91; RESP 16–18; TEMP 36.6; O2SAT 83–100
[2021-08-31] MEDS: LEVOTHYROXINE SODIUM 75 MCG TABLET PO (06:33)
[2021-08-31 06:42] LABS: Hematocrit 27.9 % (42.0-52.0); Hemoglobin 9.1 g/dL (14.0-18.0); Mean Corpuscular HGB Conc 32.6 g/dl (32-36); Mean Corpuscular Hemoglobin 28.9 pg (26-34); Mean Corpuscular Volume 88.6 fl (80-100); Mean Platelet Volume 9.2 fl (7.4-10.4); Platelet Count Result 297 k/mm3 (150-375); Red Blood Count 3.15 M/mm3 (4.6-6.20); Red Cell Distribution Width 16.9 % (11.5-14.5); White Blood Count 12.2 K/mm3 (4.5-10.0)
[2021-08-31 07:01] LABS: Anion Gap 5 mmol/L (8-16); Blood Urea Nitrogen 22 mg/dL (9-20); Calcium 9.6 mg/dL (8.4-10.2); Carbon Dioxide 28 mmol/L (22-30); Chloride 103 mmol/L (98-107); Estimated CRCL calculation 53 ml/min; Estimated Glomerular Filt Rate > 60; Glucose 185 mg/dL (65-110); Magnesium 1.7 mg/dL (1.6-2.3); Potassium 4.7 mmol/L (3.4-5.0); Sodium 136 mmol/L (137-145)
[2021-08-31 07:12] LABS: Iron 15 ug/dL (49-181)
[2021-08-31 07:18] LABS: Vitamin D 25 Hydroxy 13.6 ng/mL
[2021-08-31 07:21] LABS: Percent Iron Saturation 9 % (20-50)
[2021-08-31 07:57] LABS: Folic Acid 4.7 ng/mL (2.76->20)
[2021-08-31 08:04] LABS: Glucose Point of Care 178 mg/dl (65-105)
[2021-08-31] MEDS: ACETAMINOPHEN 325 MG TABLET 650 MG PO ×2 (09:04→20:19)
[2021-08-31] MEDS: carvediloL 25 MG TABLET PO (09:05)
[2021-08-31] MEDS: LOSARTAN POTASSIUM 100 MG TABLET PO (09:05)
[2021-08-31] MEDS: SPIRONOLACTONE 25 MG TABLET PO (09:06)
[2021-08-31] MEDS: FINASTERIDE 5 MG TABLET PO (09:06)
[2021-08-31] MEDS: ONDANSETRON INJ 4 MG/2 ML VIAL IV PUSH (09:12)
[2021-08-31 11:29] LABS: Glucose Point of Care 294 mg/dl (65-105)
[2021-08-31] MEDS: INSULIN ASPART (*BKC) 100 UNITS/ML SUB-Q ×2 (12:09→18:27)
--- NOTE | 2021-08-31 13:20 | P.PNIM_ITS ---
Progress Note: A&P Assessment and Plan (1) Urinary tract infection: Code(s): N39.0 - Urinary tract infection, site not specified Status: Acute Assessment and Plan: UA was abnormal on presentation. * Preliminary urine culture with growth of >100k Klebsiella oxytoca * Continue IV Rocephin while awaiting susceptibility report * He is afebrile. Mild leukocytosis is improving (2) Acute blood loss anemia: Code(s): D62 - Acute posthemorrhagic anemia Status: Acute Assessment and Plan: Baseline hemoglobin around 12.5. Patient presented with several days of gross hematuria secondary to ureteral stent exchange and hemoglobin decreased to 7.7 * He received 1 unit pRBC on admission * H&H improved following transfusion and is remaining stable * Stool occult blood test is pending * Iron panel reviewed and is consistent with anemia of chronic disease. Iron supplementation initiated given severely decreased iron stores * Continue to monitor * Hematuria has resolved (3) Generalized weakness: Code(s): R53.1 - Weakness Status: Acute Assessment and Plan: Likely multifactorial related to anemia, acute urinary tract infection, poor appetite and oral intake, overall physical deconditioning * Appreciate PT/OT evals * Encourage appropriate p.o. intake. Dietary supplementation * C TSH, B12 and folate within normal limits. Vitamin-D deficient and will supplement (4) Orthostatic hypotension: Code(s): I95.1 - Orthostatic hypotension Status: Acute Assessment and Plan: Noted to have 38 point drop in systolic BP from supine to sitting position. * Fall precautions implemented * Initiate Rodri hose * IV fluid bolus. Encourage oral fluid intake * Hold losartan * Repeat orthostatics this evening (5) S/P ureteral stent placement: Code(s): Z96.0 - Presence of urogenital implants Status: Acute Assessment and Plan: 08/15/2021 patient underwent cystoscopy, left retrograde pyelogram, left ureteroscopy with holmium laser of 1 cm stone, and left stent exchange. * Patient developed subsequent gross hematuria which has resolved. * No acute issues at this time. * Proceed with Urology consultation if hematuria recurs or if any other issues (6) Essential (primary) hypertension: Code(s): I10 - Essential (primary) hypertension Status: Acute Assessment and Plan: Blood pressures have been reasonably controlled. Patient is orthostatic as above. * Continue carvedilol * Will hold losartan * Monitor blood pressure trends (7) Cardiomyopathy: Code(s): I42.9 - Cardiomyopathy, unspecified Status: Acute Assessment and Plan: He is clinically compensated. * Continue carvedilol and spironolactone * Caution with IV fluid rehydration. 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
--- NOTE | 2021-08-31 13:20 | PM.IMPN ---
Progress Note: A&P Assessment and Plan (1) Urinary tract infection: Code(s): N39.0 - Urinary tract infection, site not specified Status: Acute Assessment and Plan: UA was abnormal on presentation. Preliminary urine culture with growth of >100k Klebsiella oxytoca Continue IV Rocephin while awaiting susceptibility report He is afebrile. Mild leukocytosis is improving (2) Acute blood loss anemia: Code(s): D62 - Acute posthemorrhagic anemia Status: Acute Assessment and Plan: Baseline hemoglobin around 12.5. Patient presented with several days of gross hematuria secondary to ureteral stent exchange and hemoglobin decreased to 7.7 He received 1 unit pRBC on admission H&H improved following transfusion and is remaining stable Stool occult blood test is pending Iron panel reviewed and is consistent with anemia of chronic disease. Iron supplementation initiated given severely decreased iron stores Continue to monitor Hematuria has resolved (3) Generalized weakness: Code(s): R53.1 - Weakness Status: Acute Assessment and Plan: Likely multifactorial related to anemia, acute urinary tract infection, poor appetite and oral intake, overall physical deconditioning Appreciate PT/OT evals Encourage appropriate p.o. intake. Dietary supplementation C TSH, B12 and folate within normal limits. Vitamin-D deficient and will supplement (4) Orthostatic hypotension: Code(s): I95.1 - Orthostatic hypotension Status: Acute Assessment and Plan: Noted to have 38 point drop in systolic BP from supine to sitting position. Fall precautions implemented Initiate Rodri hose IV fluid bolus. Encourage oral fluid intake Hold losartan Repeat orthostatics this evening (5) S/P ureteral stent placement: Code(s): Z96.0 - Presence of urogenital implants Status: Acute Assessment and Plan: 08/15/2021 patient underwent cystoscopy, left retrograde pyelogram, left ureteroscopy with holmium laser of 1 cm stone, and left stent exchange. Patient developed subsequent gross hematuria which has resolved. No acute issues at this time. Proceed with Urology consultation if hematuria recurs or if any other issues (6) Essential (primary) hypertension: Code(s): I10 - Essential (primary) hypertension Status: Acute Assessment and Plan: Blood pressures have been reasonably controlled. Patient is orthostatic as above. Continue carvedilol Will hold losartan Monitor blood pressure trends (7) Cardiomyopathy: Code(s): I42.9 - Cardiomyopathy, unspecified Status: Acute Assessment and Plan: He is clinically compensated. Continue carvedilol and spironolactone Caution with IV fluid rehydration. 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 He is feeling a bit better today. She still endorses poor appetite but states he is trying to eat. He also endorses nausea but has not had any episodes of vomiting. He had a loose stool this morning. Denies any blood in his stool. He got out of bed walk to the bathroom and around his room today with therapy and is sitting up in a chair now. He stated that this activity did make him feel very worn out. He denies shortness
[2021-08-31 16:56] LABS: Glucose Point of Care 249 mg/dl (65-105)
[2021-08-31] MEDS: SODIUM CHLORIDE 0.9% IV 250 ML 100 ML IV CONT (18:24)
[2021-08-31] MEDS: FERROUS SULFATE 324 MG TABLET PO (18:25)
[2021-08-31 18:37] LABS: Glucose Point of Care 225 mg/dl (65-105)
[2021-08-31] MEDS: TIZANIDINE HCL 4 MG TABLET PO (20:19)
[2021-08-31 21:39] LABS: Glucose Point of Care 223 mg/dl (65-105)
[2021-09-01] VITALS (10 sets, daily range): BP systolic 122–154; BP diastolic 48–82; PULSE 69–78; RESP 18–20; TEMP 36–36.9; O2SAT 93–100
[2021-09-01 05:43] LABS: Hematocrit 24.7 % (42.0-52.0); Hemoglobin 8.2 g/dL (14.0-18.0); Mean Corpuscular HGB Conc 33.2 g/dl (32-36); Mean Corpuscular Volume 87.3 fl (80-100); Mean Platelet Volume 9.2 fl (7.4-10.4); Platelet Count Result 246 k/mm3 (150-375); Red Blood Count 2.83 M/mm3 (4.6-6.20); Red Cell Distribution Width 17.2 % (11.5-14.5); White Blood Count 7.9 K/mm3 (4.5-10.0)
[2021-09-01 05:54] LABS: Anion Gap 5 mmol/L (8-16); Blood Urea Nitrogen 20 mg/dL (9-20); Calcium 9.2 mg/dL (8.4-10.2); Carbon Dioxide 28 mmol/L (22-30); Chloride 101 mmol/L (98-107); Estimated CRCL calculation 53 ml/min; Estimated Glomerular Filt Rate > 60; Glucose 179 mg/dL (65-110); Potassium 4.8 mmol/L (3.4-5.0); Sodium 134 mmol/L (137-145)
[2021-09-01] MEDS: LEVOTHYROXINE SODIUM 75 MCG TABLET PO (06:09)
[2021-09-01 07:56] LABS: Glucose Point of Care 149 mg/dl (65-105)
[2021-09-01] MEDS: FINASTERIDE 5 MG TABLET PO (09:18)
[2021-09-01] MEDS: CHOLECALCIFEROL 1,000 UNITS TABLET 1000 UNITS PO (09:18)
[2021-09-01] MEDS: FERROUS SULFATE 324 MG TABLET PO ×2 (09:18→16:59)
[2021-09-01] MEDS: SPIRONOLACTONE 25 MG TABLET PO (09:18)
[2021-09-01] MEDS: ACETAMINOPHEN 325 MG TABLET 650 MG PO ×2 (09:18→21:01)
[2021-09-01] MEDS: carvediloL 25 MG TABLET PO (09:18)
[2021-09-01 12:16] LABS: Glucose Point of Care 240 mg/dl (65-105)
[2021-09-01] MEDS: ONDANSETRON INJ 4 MG/2 ML VIAL IV PUSH (12:16)
[2021-09-01] MEDS: INSULIN ASPART (*BKC) 100 UNITS/ML SUB-Q ×2 (12:19→17:00)
[2021-09-01] MEDS: ERTAPENEM 1 GM/NS 50 ML 1 GM/50 ML BAG IVPB (12:19)
--- NOTE | 2021-09-01 14:23 | P.CDI_ITS ---
CDI Query Clarification Request -UTI has been documented -There is documentation that patient has an indwelling left ureteral stent Please clarify if UTI is: * Due to/associated with indwelling ureteral stent * Not due to/associated with indwelling ureteral stent * Unable to determine
--- NOTE | 2021-09-01 14:23 | WPDCDIQUERY2 ---
CDI Query Clarification Request -UTI has been documented -There is documentation that patient has an indwelling left ureteral stent Please clarify if UTI is: Due to/associated with indwelling ureteral stent Not due to/associated with indwelling ureteral stent Unable to determine
--- NOTE | 2021-09-01 15:00 | P.PNIM_ITS ---
Progress Note: A&P Assessment and Plan (1) Urinary tract infection: Code(s): N39.0 - Urinary tract infection, site not specified Status: Acute Assessment and Plan: UA was abnormal on presentation. * Urine culture with growth of >100k Klebsiella oxytoca ESBL * IV Rocephin discontinued as this is resistant * Start on IV ertapenem. He will need 10 days of antibiotic therapy. * Discussed case with urology given his recent instrumentation. Agree with IV antibiotics. Recommend urine culture to be performed before next stent exchange and to consider pre treatment with ertapenem or other appropriate antibiotic. Discussed suppressant therapy with daily Macrobid but urology would like to hold off on this for now. Recommend outpatient follow-up regarding UTI in 1 week. * He is afebrile. Mild leukocytosis has resolved (2) Acute blood loss anemia: Code(s): D62 - Acute posthemorrhagic anemia Status: Acute Assessment and Plan: Baseline hemoglobin around 12.5. Patient presented with several days of gross hematuria secondary to ureteral stent exchange and hemoglobin decreased to 7.7 * He received 1 unit pRBC on admission * H&H improved following transfusion and has stable * Stool occult blood test was collected but not received. Will repeat * Iron panel reviewed and is consistent with anemia of chronic disease. Iron supplementation initiated given severely decreased iron stores * Continue to monitor * Hematuria has resolved (3) Generalized weakness: Code(s): R53.1 - Weakness Status: Acute Assessment and Plan: Likely multifactorial related to anemia, acute urinary tract infection, poor appetite and oral intake, overall physical deconditioning * Appreciate PT/OT evals * Encourage appropriate p.o. intake. Dietary supplementation * TSH, B12 and folate within normal limits. Vitamin-D deficient and will supplement (4) Orthostatic hypotension: Code(s): I95.1 - Orthostatic hypotension Status: Acute Assessment and Plan: Noted to have 38 point drop in systolic BP from supine to sitting position. * Fall precautions implemented * Harmony hose applied but patients stated per vascular surgery he is not to use compression stockings therefore removed. * Recieved IV fluid rehydration * Orthostatics negative today * Losartan on hold * Repeat orthostatics this evening without HARMONY hose. Continue to monitor (5) S/P ureteral stent placement: Code(s): Z96.0 - Presence of urogenital implants Status: Acute Assessment and Plan: 08/15/2021 patient underwent cystoscopy, left retrograde pyelogram, left ureteroscopy with holmium laser of 1 cm stone, and left stent exchange. * Patient developed subsequent gross hematuria which has resolved. * No acute issues at this time. * Discussed case with urology. Continue outpatient follow up. (6) Essential (primary) hypertension: Code(s): I10 - Essential (primary) hypertension Status: Acute Assessment and Plan: Blood pressures have been reasonably controlled. Patient was orthostatic as above. * Continue carvedilol * Will hold losartan * Monitor blood pressure trends (7) Cardiomyopathy: Code(s): I42.9 - Cardiomyopathy, unspecified Status: Acute Assessment and Plan: He is clinically compensated. * Continue carvedilol and spironolactone * Monitor volume status closely (8) Type 2 diabetes mellitus: Code(s): E11.9 - Type 2 diabetes mellitus without complications
--- NOTE | 2021-09-01 15:00 | PM.IMPN ---
Progress Note: A&P Assessment and Plan (1) Urinary tract infection: Code(s): N39.0 - Urinary tract infection, site not specified Status: Acute Assessment and Plan: UA was abnormal on presentation. Urine culture with growth of >100k Klebsiella oxytoca ESBL IV Rocephin discontinued as this is resistant Start on IV ertapenem. He will need 10 days of antibiotic therapy. Discussed case with urology given his recent instrumentation. Agree with IV antibiotics. Recommend urine culture to be performed before next stent exchange and to consider pre treatment with ertapenem or other appropriate antibiotic. Discussed suppressant therapy with daily Macrobid but urology would like to hold off on this for now. Recommend outpatient follow-up regarding UTI in 1 week. He is afebrile. Mild leukocytosis has resolved (2) Acute blood loss anemia: Code(s): D62 - Acute posthemorrhagic anemia Status: Acute Assessment and Plan: Baseline hemoglobin around 12.5. Patient presented with several days of gross hematuria secondary to ureteral stent exchange and hemoglobin decreased to 7.7 He received 1 unit pRBC on admission H&H improved following transfusion and has stable Stool occult blood test was collected but not received. Will repeat Iron panel reviewed and is consistent with anemia of chronic disease. Iron supplementation initiated given severely decreased iron stores Continue to monitor Hematuria has resolved (3) Generalized weakness: Code(s): R53.1 - Weakness Status: Acute Assessment and Plan: Likely multifactorial related to anemia, acute urinary tract infection, poor appetite and oral intake, overall physical deconditioning Appreciate PT/OT evals Encourage appropriate p.o. intake. Dietary supplementation TSH, B12 and folate within normal limits. Vitamin-D deficient and will supplement (4) Orthostatic hypotension: Code(s): I95.1 - Orthostatic hypotension Status: Acute Assessment and Plan: Noted to have 38 point drop in systolic BP from supine to sitting position. Fall precautions implemented Harmony hose applied but patients stated per vascular surgery he is not to use compression stockings therefore removed. Recieved IV fluid rehydration Orthostatics negative today Losartan on hold Repeat orthostatics this evening without HARMONY hose. Continue to monitor (5) S/P ureteral stent placement: Code(s): Z96.0 - Presence of urogenital implants Status: Acute Assessment and Plan: 08/15/2021 patient underwent cystoscopy, left retrograde pyelogram, left ureteroscopy with holmium laser of 1 cm stone, and left stent exchange. Patient developed subsequent gross hematuria which has resolved. No acute issues at this time. Discussed case with urology. Continue outpatient follow up. (6) Essential (primary) hypertension: Code(s): I10 - Essential (primary) hypertension Status: Acute Assessment and Plan: Blood pressures have been reasonably controlled. Patient was orthostatic as above. Continue carvedilol Will hold losartan Monitor blood pressure trends (7) Cardiomyopathy: Code(s): I42.9 - Cardiomyopathy, unspecified Status: Acute Assessment and Plan: He is clinically compensated. Continue carvedilol and spironolactone Monitor volume status closely (8) Type 2 diabetes mellitus: Code(s): E11.9 - Type 2 diabetes mellitus without complications Status: Acute Assessment and Plan: Last A1c July 2021 was 7.4. Blood sugars slightly elevated in 250s today Accu-Cheks, sliding scale insulin, hypoglycemic protocol Add novolog 3 units scheduled with meals Hold home metformin Monitor glucose trends and adjust medication regimen as needed Subjective Date/time seen: 09/01/21 15:00 Interval history: Date of service: 09/01/2021 Zhang Mcgill in 80-ye
[2021-09-01 16:46] LABS: Glucose Point of Care 155 mg/dl (65-105)
[2021-09-01] MEDS: SILVERGEL (ELTA) 45 ML 1 APPLIC TOPICAL (16:56)
[2021-09-01] MEDS: TIZANIDINE HCL 4 MG TABLET PO (21:02)
[2021-09-01 21:50] LABS: Glucose Point of Care 144 mg/dl (65-105)
[2021-09-02 05:18] VITALS: BP 146/72; PULSE 83; RESP 18; TEMP 36.6; O2SAT 97
[2021-09-02] MEDS: LEVOTHYROXINE SODIUM 75 MCG TABLET PO (06:09)
[2021-09-02 06:46] LABS: Hematocrit 29.3 % (42.0-52.0); Hemoglobin 9.5 g/dL (14.0-18.0); Mean Corpuscular HGB Conc 32.4 g/dl (32-36); Mean Corpuscular Hemoglobin 28.7 pg (26-34); Mean Corpuscular Volume 88.5 fl (80-100); Mean Platelet Volume 9.3 fl (7.4-10.4); Platelet Count Result 312 k/mm3 (150-375); Red Blood Count 3.31 M/mm3 (4.6-6.20); White Blood Count 12.2 K/mm3 (4.5-10.0)
[2021-09-02 07:27] LABS: Anion Gap 6 mmol/L (8-16); Blood Urea Nitrogen 14 mg/dL (9-20); Calcium 9.8 mg/dL (8.4-10.2); Carbon Dioxide 28 mmol/L (22-30); Chloride 100 mmol/L (98-107); Estimated CRCL calculation 59 ml/min; Estimated Glomerular Filt Rate > 60; Glucose 166 mg/dL (65-110); Potassium 4.7 mmol/L (3.4-5.0); Sodium 134 mmol/L (137-145)
[2021-09-02 08:05] LABS: Glucose Point of Care 204 mg/dl (65-105)
[2021-09-02 08:34] VITALS: O2SAT 98
[2021-09-02] MEDS: ACETAMINOPHEN 325 MG TABLET 650 MG PO ×2 (09:00→21:07)
[2021-09-02] MEDS: INSULIN ASPART (*BKC) 100 UNITS/ML SUB-Q ×3 (09:00→16:56)
[2021-09-02] MEDS: CHOLECALCIFEROL 1,000 UNITS TABLET 1000 UNITS PO (09:00)
[2021-09-02 09:01] VITALS: PULSE 84
[2021-09-02] MEDS: FINASTERIDE 5 MG TABLET PO (09:01)
[2021-09-02] MEDS: FERROUS SULFATE 324 MG TABLET PO ×2 (09:01→16:55)
[2021-09-02] MEDS: SPIRONOLACTONE 25 MG TABLET PO (09:01)
[2021-09-02] MEDS: carvediloL 25 MG TABLET PO (09:01)
[2021-09-02] MEDS: SILVERGEL (ELTA) 45 ML 1 APPLIC TOPICAL (09:04)
--- NOTE | 2021-09-02 12:09 | PCPTNOTE ---
pt refused physical therapy this afternoon- states he is sick and feeling nauseous. Will cont per poc next session
[2021-09-02 12:15] LABS: Glucose Point of Care 138 mg/dl (65-105)
--- NOTE | 2021-09-02 13:59 | P.PNIM_ITS ---
Progress Note: A&P Assessment and Plan (1) Urinary tract infection: Code(s): N39.0 - Urinary tract infection, site not specified Status: Acute Assessment and Plan: UA was abnormal on presentation. * Urine culture with growth of >100k Klebsiella oxytoca ESBL * Continue IV ertapenem. He will need 10 days of antibiotic therapy. Home health for outpatient infusions being arranged. He will need to get a midline catheter placed, possibly tomorrow. * Discussed case with urology 09/01 given his recent instrumentation. Agreed with IV antibiotics. Recommend urine culture to be performed before next stent exchange and to consider pre treatment with ertapenem or other appropriate antibiotic. Discussed suppressant therapy with daily Macrobid but urology would like to hold off on this for now. Recommend outpatient follow- up regarding UTI in 1 week. (2) Acute blood loss anemia: Code(s): D62 - Acute posthemorrhagic anemia Status: Acute Assessment and Plan: Baseline hemoglobin around 12.5. Patient presented with several days of gross hematuria secondary to ureteral stent exchange and hemoglobin decreased to 7.7 * He received 1 unit pRBC on admission * H&H improved following transfusion and has remained stable * Stool occult blood test was collected but not received. Will repeat * Iron panel reviewed and is consistent with anemia of chronic disease. Iron supplementation initiated given severely decreased iron stores * Continue to monitor * Hematuria has resolved (3) Generalized weakness: Code(s): R53.1 - Weakness Status: Acute Assessment and Plan: Likely multifactorial related to anemia, acute urinary tract infection, poor appetite and oral intake, overall physical deconditioning * Appreciate PT/OT evals * Encourage appropriate p.o. intake. Dietary supplementation * TSH, B12 and folate within normal limits. Vitamin-D deficient and will supplement (4) Orthostatic hypotension: Code(s): I95.1 - Orthostatic hypotension Status: Acute Assessment and Plan: Noted to have 38 point drop in systolic BP from supine to sitting position. * Fall precautions implemented * Rodri hose applied but patients stated per vascular surgery he is not to use compression stockings therefore removed. * Recieved IV fluid rehydration * Subsequent orthostatics negative * Losartan on hold (5) S/P ureteral stent placement: Code(s): Z96.0 - Presence of urogenital implants Status: Acute Assessment and Plan: 08/15/2021 patient underwent cystoscopy, left retrograde pyelogram, left ureteroscopy with holmium laser of 1 cm stone, and left stent exchange. * Patient developed subsequent gross hematuria which has resolved. * No acute issues at this time. * Discussed case with urology. Continue outpatient follow up. (6) Essential (primary) hypertension: Code(s): I10 - Essential (primary) hypertension Status: Acute Assessment and Plan: Blood pressures have been reasonably controlled. Patient was orthostatic as above. Last BP 146/72 * Continue carvedilol * Holding losartan due to orthostasis * Monitor blood pressure trends (7) Cardiomyopathy: Code(s): I42.9 - Cardiomyopathy, unspecified Status: Acute Assessment and Plan: He is clinically compensated. * Continue carvedilol and spironolactone * Monitor volume status closely (8) Type 2 diabetes mellitus: Code(s): E11.9 - Type 2 diabetes mellitus without complications
--- NOTE | 2021-09-02 13:59 | PM.IMPN ---
Progress Note: A&P Assessment and Plan (1) Urinary tract infection: Code(s): N39.0 - Urinary tract infection, site not specified Status: Acute Assessment and Plan: UA was abnormal on presentation. Urine culture with growth of >100k Klebsiella oxytoca ESBL Continue IV ertapenem. He will need 10 days of antibiotic therapy. Home health for outpatient infusions being arranged. He will need to get a midline catheter placed, possibly tomorrow. Discussed case with urology 09/01 given his recent instrumentation. Agreed with IV antibiotics. Recommend urine culture to be performed before next stent exchange and to consider pre treatment with ertapenem or other appropriate antibiotic. Discussed suppressant therapy with daily Macrobid but urology would like to hold off on this for now. Recommend outpatient follow-up regarding UTI in 1 week. (2) Acute blood loss anemia: Code(s): D62 - Acute posthemorrhagic anemia Status: Acute Assessment and Plan: Baseline hemoglobin around 12.5. Patient presented with several days of gross hematuria secondary to ureteral stent exchange and hemoglobin decreased to 7.7 He received 1 unit pRBC on admission H&H improved following transfusion and has remained stable Stool occult blood test was collected but not received. Will repeat Iron panel reviewed and is consistent with anemia of chronic disease. Iron supplementation initiated given severely decreased iron stores Continue to monitor Hematuria has resolved (3) Generalized weakness: Code(s): R53.1 - Weakness Status: Acute Assessment and Plan: Likely multifactorial related to anemia, acute urinary tract infection, poor appetite and oral intake, overall physical deconditioning Appreciate PT/OT evals Encourage appropriate p.o. intake. Dietary supplementation TSH, B12 and folate within normal limits. Vitamin-D deficient and will supplement (4) Orthostatic hypotension: Code(s): I95.1 - Orthostatic hypotension Status: Acute Assessment and Plan: Noted to have 38 point drop in systolic BP from supine to sitting position. Fall precautions implemented Rodri hose applied but patients stated per vascular surgery he is not to use compression stockings therefore removed. Recieved IV fluid rehydration Subsequent orthostatics negative Losartan on hold (5) S/P ureteral stent placement: Code(s): Z96.0 - Presence of urogenital implants Status: Acute Assessment and Plan: 08/15/2021 patient underwent cystoscopy, left retrograde pyelogram, left ureteroscopy with holmium laser of 1 cm stone, and left stent exchange. Patient developed subsequent gross hematuria which has resolved. No acute issues at this time. Discussed case with urology. Continue outpatient follow up. (6) Essential (primary) hypertension: Code(s): I10 - Essential (primary) hypertension Status: Acute Assessment and Plan: Blood pressures have been reasonably controlled. Patient was orthostatic as above. Last BP 146/72 Continue carvedilol Holding losartan due to orthostasis Monitor blood pressure trends (7) Cardiomyopathy: Code(s): I42.9 - Cardiomyopathy, unspecified Status: Acute Assessment and Plan: He is clinically compensated. Continue carvedilol and spironolactone Monitor volume status closely (8) Type 2 diabetes mellitus: Code(s): E11.9 - Type 2 diabetes mellitus without complications Status: Acute Assessment and Plan: Last A1c July 2021 was 7.4. Fasting glucose 166 today Accu-Cheks, sliding scale insulin, hypoglycemic protocol Novolog 3 units scheduled with meals Hold home metformin Monitor glucose trends and adjust medication regimen as needed (9) Nausea vomiting and diarrhea: Code(s): R11.2 - Nausea with vomiting, unspecified; R19.7 - Diarrhea, unspecified Status: Acute
[2021-09-02 14:00] VITALS: BP 163/76; PULSE 82; RESP 18; TEMP 36.3; O2SAT 99
[2021-09-02 15:07] LABS: Lipase 73 U/L (23-300)
[2021-09-02] MEDS: ERTAPENEM 1 GM/NS 50 ML 1 GM/50 ML BAG IVPB (15:59)
[2021-09-02] MEDS: METOCLOPRAMIDE HCL 10 MG/10 ML SOLN UDC PO ×2 (15:59→21:07)
[2021-09-02 16:52] LABS: Glucose Point of Care 194 mg/dl (65-105)
[2021-09-02 20:00] VITALS: BP 163/76; PULSE 82; RESP 18; TEMP 36.3; O2SAT 99
[2021-09-02] MEDS: TIZANIDINE HCL 4 MG TABLET PO (21:07)
[2021-09-02] MEDS: MELATONIN 3 MG TABLET PO (21:07)
[2021-09-02 22:00] VITALS: BP 137/62; PULSE 86; RESP 16; TEMP 36.9; O2SAT 97
[2021-09-02 22:00] LABS: Glucose Point of Care 192 mg/dl (65-105)
[2021-09-03] MEDS: LEVOTHYROXINE SODIUM 75 MCG TABLET PO (05:27)
[2021-09-03] MEDS: METOCLOPRAMIDE HCL 10 MG/10 ML SOLN UDC PO ×4 (05:27→21:55)
[2021-09-03 07:07] LABS: Hematocrit 30.2 % (42.0-52.0); Hemoglobin 9.7 g/dL (14.0-18.0); Mean Corpuscular HGB Conc 32.1 g/dl (32-36); Mean Corpuscular Volume 90.4 fl (80-100); Mean Platelet Volume 9.5 fl (7.4-10.4); Platelet Count Result 290 k/mm3 (150-375); Red Blood Count 3.34 M/mm3 (4.6-6.20); Red Cell Distribution Width 17.1 % (11.5-14.5); White Blood Count 12.5 K/mm3 (4.5-10.0)
[2021-09-03 07:19] LABS: Anion Gap 11 mmol/L (8-16); Blood Urea Nitrogen 22 mg/dL (9-20); Calcium 9.6 mg/dL (8.4-10.2); Carbon Dioxide 28 mmol/L (22-30); Chloride 98 mmol/L (98-107); Estimated CRCL calculation 40 ml/min; Estimated Glomerular Filt Rate 58; Glucose 203 mg/dL (65-110); Potassium 5.2 mmol/L (3.4-5.0); Sodium 137 mmol/L (137-145)
[2021-09-03 08:11] LABS: Glucose Point of Care 186 mg/dl (65-105)
[2021-09-03] MEDS: FINASTERIDE 5 MG TABLET PO (10:01)
[2021-09-03] MEDS: CHOLECALCIFEROL 1,000 UNITS TABLET 1000 UNITS PO (10:01)
[2021-09-03] MEDS: FERROUS SULFATE 324 MG TABLET PO (10:01)
[2021-09-03] MEDS: SPIRONOLACTONE 25 MG TABLET PO (10:01)
[2021-09-03] MEDS: ACETAMINOPHEN 325 MG TABLET 650 MG PO ×2 (10:01→21:54)
[2021-09-03] MEDS: carvediloL 25 MG TABLET PO (10:01)
[2021-09-03] MEDS: SILVERGEL (ELTA) 45 ML 1 APPLIC TOPICAL (10:02)
[2021-09-03] MEDS: INSULIN ASPART (*BKC) 100 UNITS/ML SUB-Q ×3 (10:03→12:26)
[2021-09-03] MEDS: ERTAPENEM 1 GM/NS 50 ML 1 GM/50 ML BAG IVPB (11:35)
[2021-09-03 12:09] LABS: Glucose Point of Care 236 mg/dl (65-105)
[2021-09-03 12:28] LABS: IFOB Positive Control Positive; Immunochemical Fecal Occult Bl Positive (N)
[2021-09-03 12:44] LABS: Toxigenic C. Diff NEGATIVE (NEGATIVE)
[2021-09-03 14:00] VITALS: BP 145/55; PULSE 70; RESP 18; TEMP 36.7; O2SAT 100
--- NOTE | 2021-09-03 14:25 | P.PNIM_ITS ---
Progress Note: A&P Assessment and Plan (1) Urinary tract infection: Code(s): N39.0 - Urinary tract infection, site not specified Status: Acute Assessment and Plan: UA was abnormal on presentation. * Urine culture with growth of >100k Klebsiella oxytoca ESBL * Continue IV ertapenem. He will need 10 days of antibiotic therapy. Home health for outpatient infusions being arranged. He will need to get a midline catheter placed which will hopefully be accomplished on Saturday * Discussed case with urology 09/01 given his recent instrumentation. Agreed with IV antibiotics. Recommend urine culture to be performed before next stent exchange and to consider pre treatment with ertapenem or other appropriate antibiotic. Discussed suppressant therapy with daily Macrobid but urology would like to hold off on this for now. Recommend outpatient follow- up regarding UTI in 1 week. (2) Acute blood loss anemia: Code(s): D62 - Acute posthemorrhagic anemia Status: Acute Assessment and Plan: Baseline hemoglobin around 12.5. Patient presented with several days of gross hematuria secondary to ureteral stent exchange. * He received 1 unit pRBC on admission * H&H improved following transfusion and has remained stable. Hemoglobin 9.7 today * Stool occult blood test is positive. No obvious GI bleeding (patient endorsed dark emesis 09/02, though not appreciated by RN). Initiate Protonix and proceed with GI consultation given acute anemia. * Discussed case with Dr. Obrien who will see the patient tomorrow. Will make NPO at midnight in case decides to proceed with EGD * Iron panel reviewed and is consistent with anemia of chronic disease. Iron supplementation initiated given severely decreased iron stores * Continue to monitor * Hematuria has resolved (3) Generalized weakness: Code(s): R53.1 - Weakness Status: Acute Assessment and Plan: Likely multifactorial related to anemia, acute urinary tract infection, poor appetite and oral intake, overall physical deconditioning * Appreciate PT/OT evals * Encourage appropriate p.o. intake. Dietary supplementation * TSH, B12 and folate within normal limits. Vitamin-D deficient and will supplement (4) Orthostatic hypotension: Code(s): I95.1 - Orthostatic hypotension Status: Acute Assessment and Plan: Noted to have 38 point drop in systolic BP from supine to sitting position. * Fall precautions implemented * Rodri hose applied but patients stated per vascular surgery he is not to use compression stockings therefore removed. * Recieved IV fluid rehydration * Subsequent orthostatics negative. Continue to monitor * Losartan on hold (5) S/P ureteral stent placement: Code(s): Z96.0 - Presence of urogenital implants Status: Acute Assessment and Plan: 08/15/2021 patient underwent cystoscopy, left retrograde pyelogram, left ureteroscopy with holmium laser of 1 cm stone, and left stent exchange. * Patient developed subsequent gross hematuria which has resolved. * No acute issues at this time. * Discussed case with urology. Continue outpatient follow up. (6) Essential (primary) hypertension: Code(s): I10 - Essential (primary) hypertension Status: Acute Assessment and Plan: Blood pressures have been reasonably controlled. Patient was orthostatic as above. Last BP 137/62 * Continue carvedilol * Holding losartan due to orthostasis * Monitor blood pressure trends (7) Cardiomyopathy: Code(s): I42.9 - Cardiom
--- NOTE | 2021-09-03 14:25 | PM.IMPN ---
Progress Note: A&P Assessment and Plan (1) Urinary tract infection: Code(s): N39.0 - Urinary tract infection, site not specified Status: Acute Assessment and Plan: UA was abnormal on presentation. Urine culture with growth of >100k Klebsiella oxytoca ESBL Continue IV ertapenem. He will need 10 days of antibiotic therapy. Home health for outpatient infusions being arranged. He will need to get a midline catheter placed which will hopefully be accomplished on Saturday Discussed case with urology 09/01 given his recent instrumentation. Agreed with IV antibiotics. Recommend urine culture to be performed before next stent exchange and to consider pre treatment with ertapenem or other appropriate antibiotic. Discussed suppressant therapy with daily Macrobid but urology would like to hold off on this for now. Recommend outpatient follow-up regarding UTI in 1 week. (2) Acute blood loss anemia: Code(s): D62 - Acute posthemorrhagic anemia Status: Acute Assessment and Plan: Baseline hemoglobin around 12.5. Patient presented with several days of gross hematuria secondary to ureteral stent exchange. He received 1 unit pRBC on admission H&H improved following transfusion and has remained stable. Hemoglobin 9.7 today Stool occult blood test is positive. No obvious GI bleeding (patient endorsed dark emesis 09/02, though not appreciated by RN). Initiate Protonix and proceed with GI consultation given acute anemia. Discussed case with Dr. Obrien who will see the patient tomorrow. Will make NPO at midnight in case decides to proceed with EGD Iron panel reviewed and is consistent with anemia of chronic disease. Iron supplementation initiated given severely decreased iron stores Continue to monitor Hematuria has resolved (3) Generalized weakness: Code(s): R53.1 - Weakness Status: Acute Assessment and Plan: Likely multifactorial related to anemia, acute urinary tract infection, poor appetite and oral intake, overall physical deconditioning Appreciate PT/OT evals Encourage appropriate p.o. intake. Dietary supplementation TSH, B12 and folate within normal limits. Vitamin-D deficient and will supplement (4) Orthostatic hypotension: Code(s): I95.1 - Orthostatic hypotension Status: Acute Assessment and Plan: Noted to have 38 point drop in systolic BP from supine to sitting position. Fall precautions implemented Rodri hose applied but patients stated per vascular surgery he is not to use compression stockings therefore removed. Recieved IV fluid rehydration Subsequent orthostatics negative. Continue to monitor Losartan on hold (5) S/P ureteral stent placement: Code(s): Z96.0 - Presence of urogenital implants Status: Acute Assessment and Plan: 08/15/2021 patient underwent cystoscopy, left retrograde pyelogram, left ureteroscopy with holmium laser of 1 cm stone, and left stent exchange. Patient developed subsequent gross hematuria which has resolved. No acute issues at this time. Discussed case with urology. Continue outpatient follow up. (6) Essential (primary) hypertension: Code(s): I10 - Essential (primary) hypertension Status: Acute Assessment and Plan: Blood pressures have been reasonably controlled. Patient was orthostatic as above. Last BP 137/62 Continue carvedilol Holding losartan due to orthostasis Monitor blood pressure trends (7) Cardiomyopathy: Code(s): I42.9 - Cardiomyopathy, unspecified Status: Acute Assessment and Plan: He is clinically compensated. Continue carvedilol and spironolactone Monitor volume status closely (8) Type 2 diabetes mellitus: Code(s): E11.9 - Type 2 diabetes mellitus without complications Status: Acute Assessment and Plan: Last A1c July 2021 was 7.4. Fasting glucose 203 today Accu-Cheks, sliding scale ins
[2021-09-03 16:30] LABS: Glucose Point of Care 149 mg/dl (65-105)
[2021-09-03] MEDS: MELATONIN 3 MG TABLET PO (21:54)
[2021-09-03 21:55] VITALS: BP 136/55; PULSE 73; RESP 20; TEMP 36.2; O2SAT 100; O2SAT 98
[2021-09-03] MEDS: PANTOPRAZOLE 40 MG TABLET PO (21:55)
[2021-09-03] MEDS: TIZANIDINE HCL 4 MG TABLET PO (21:55)
[2021-09-03 22:12] LABS: Glucose Point of Care 175 mg/dl (65-105)
[2021-09-04] VITALS (13 sets, daily range): BP systolic 110–159; BP diastolic 52–82; PULSE 68–78; RESP 18–20; TEMP 36.1–36.5; O2SAT 99–100
[2021-09-04] MEDS: LEVOTHYROXINE SODIUM 75 MCG TABLET PO (06:11)
[2021-09-04 06:43] LABS: Mean Corpuscular HGB Conc 32.1 g/dl (32-36); Mean Corpuscular Hemoglobin 28.8 pg (26-34); Mean Corpuscular Volume 89.7 fl (80-100); Mean Platelet Volume 8.8 fl (7.4-10.4); Platelet Count Result 223 k/mm3 (150-375); Red Blood Count 3.12 M/mm3 (4.6-6.20); Red Cell Distribution Width 16.9 % (11.5-14.5); White Blood Count 9.9 K/mm3 (4.5-10.0)
[2021-09-04 07:07] LABS: Anion Gap 7 mmol/L (8-16); Blood Urea Nitrogen 22 mg/dL (9-20); Calcium 9.2 mg/dL (8.4-10.2); Carbon Dioxide 29 mmol/L (22-30); Chloride 98 mmol/L (98-107); Estimated CRCL calculation 48 ml/min; Estimated Glomerular Filt Rate > 60; Glucose 181 mg/dL (65-110); Potassium 4.3 mmol/L (3.4-5.0); Sodium 134 mmol/L (137-145)
[2021-09-04 08:01] LABS: Glucose Point of Care 178 mg/dl (65-105)
[2021-09-04] MEDS: PANTOPRAZOLE 40 MG TABLET PO (09:10)
[2021-09-04] MEDS: SPIRONOLACTONE 25 MG TABLET PO (09:10)
[2021-09-04] MEDS: carvediloL 25 MG TABLET PO (09:10)
[2021-09-04] MEDS: FERROUS SULFATE 324 MG TABLET PO ×2 (09:10→17:43)
[2021-09-04] MEDS: ACETAMINOPHEN 325 MG TABLET 650 MG PO ×2 (09:11→20:15)
[2021-09-04] MEDS: FINASTERIDE 5 MG TABLET PO (09:11)
[2021-09-04] MEDS: CHOLECALCIFEROL 1,000 UNITS TABLET 1000 UNITS PO (09:11)
[2021-09-04] MEDS: INSULIN ASPART (*BKC) 100 UNITS/ML SUB-Q ×3 (09:11→17:43)
[2021-09-04] MEDS: SILVERGEL (ELTA) 45 ML 1 APPLIC TOPICAL (09:12)
--- NOTE | 2021-09-04 10:45 | WPDGICN ---
Assessment and Plan Assessment and plan (1) Coffee ground emesis: Code(s): K92.0 - Hematemesis Status: Acute Assessment and Plan: he was already started on protonix and is npo will proceed with urgent EGD later today assess if esophagitis, ulcer, etc more recommendations after egd (2) Acute on chronic blood loss anemia: Code(s): D62 - Acute posthemorrhagic anemia Status: Acute Assessment and Plan: could be multifactorial (chronic medical disease, also UTI with recent hematuria after stent placement) but noted FOBT + will proceed with egd hb responded to blood transfusion (3) Urinary tract infection: Code(s): N39.0 - Urinary tract infection, site not specified Status: Acute Assessment and Plan: already on abx (4) S/P ureteral stent placement: Code(s): Z96.0 - Presence of urogenital implants Status: Acute (5) Type 2 diabetes mellitus: Code(s): E11.9 - Type 2 diabetes mellitus without complications Status: Acute (6) Occult blood in stools: Code(s): R19.5 - Other fecal abnormalities Status: Acute GI Consult Note Consult date/time: 09/04/21 10:45 Reason for consult: acute on chronic anemia, occult blood in stool HPI: Zhang Alexis is a 80 year old male with past medical history significant for hypertension, type 2 diabetes mellitus, congestive heart failure, cerebrovascular accident, melanoma, superior mesenteric artery atherosclerosis, osteoarthritis of the right hip with previous urological procedure on 08/15/21 as outpatient for left-sided renal calculus, he underwent retrograde pyelogram cystoscopy stent exchange and was admitted to the hospital few days ago on 08/29 after complaining of more generalized weakness and fatigue for last several days, says that he had hematuria following the procedure. ER evaluation showed anemia with hemoglobin of 7.7 (given one unit prbc)- baseline 10-12, WBC 14 cells, urine was significant for wbc's present and started on antibiotics. He reported that had one episode of emesis with dark material 2 days ago, occult blood in stool positive but no melena. He says that last colonoscopy many years ago. Review of Systems Constitutional: Constitutional: Reports weakness Eyes: Eyes: Denies blurry vision ENT: Reports Normal hearing present Cardiovascular: Cardiovascular: Denies chest pain Respiratory: Respiratory: Denies cough Gastrointestinal: Gastrointestinal: Denies abdominal pain Genitourinary: Comments: recent kidney stone Musculoskeletal: Musculoskeletal: Denies neck pain Integumentary/Breasts: Skin/Breast: Denies dry skin Neurologic: Denies numbness Psychiatric: Psychiatric: Denies behavioral changes [facility] Past Medical History Medical History (Updated 09/04/21 @ 13:59 by Ivan Yoo MD) Acute on chronic blood loss anemia Anemia Arterial insufficiency of lower extremity Arthritis of left knee BMI 23.0-23.9, adult BMI between 19-24,adult Bradycardia Status post pacemaker Cardiomyopathy Cervical spine arthritis Chronic pain Coffee ground emesis CVA (cerebral vascular accident) And 2007, no deficits DM (diabetes mellitus) Essential (primary) hypertension FH: carotid endarterectomy H/O: HTN (hypertension) History of kidney stones History of squamous cell carcinoma of skin HLD (hyperlipidemia) Hx of melanoma of skin No recurrence. Hypothyroidism Melanoma Occult blood in stools Osteoarthritis of right hip Other hyperlipidemia Right hip pain Right shoulder pain Superior mesenteric artery atherosclerosis Type 2 diabetes mellitus without complications Venous insufficiency (chronic) (peripheral) Surgical History Surgical History (Updated 08/30/21 @ 11:31 by Miriam Wilkerson PA-C) H/O shoulder surgery 12/23/19, replacement 2004, shoulder manipulation, Dr John History of cholecystectomy History of endarterectomy History of permanent cardiac pace
--- NOTE | 2021-09-04 11:11 | PCNFU ---
Nutrition Follow-Up Complete: Unintended weight loss as related to poor po intake as evidenced by 15 ibs down in the past 1.5 months. Goal: Adequate Intake of at least 75% of meals/supplements Patient is progressing towards goal. We will continue current goal. Pt current nutrition is NPO. Last recorded weight is 67 kg, no new weight to report. Recommend new weight. Bowel Motility:+Bm reported 09/03 Labs Reviewed:Glu 181, Na 134, Hct 28.0,Hgb 9.0 Meds Noted:Aldactone, Coreg, Vit D, Ferrous Sulfate, Protonix, NovoLog, Synthroid Skin: WNL Additional Notes: Patient currently NPO for EGD today. Plans for PICC line to be placed. Patient had been on a regular diet with Ensure compact BID. Oral Intake 0-50% of meals. He does like his ensure supplements providing an additional 220 kcals and 9 gms protein. Agree with diet orders. Monitoring: RD will monitor every 5 days.
[2021-09-04] MEDS: ERTAPENEM 1 GM/NS 50 ML 1 GM/50 ML BAG IVPB (11:51)
[2021-09-04] MEDS: METOCLOPRAMIDE HCL 10 MG/10 ML SOLN UDC PO ×3 (11:51→20:15)
[2021-09-04 11:55] LABS: Glucose Point of Care 140 mg/dl (65-105)
--- NOTE | 2021-09-04 12:25 | WPDANESEPPF ---
Anes - Initial Pre Proc Eval Procedure: Operation Date: 09/04/21 14:30 Proposed Procedures p Esophagogastroduodenoscopy - Ivan Yoo MD Date/Time: 09/04/21 12:25 Pre Op Diagnosis: weakness, anemia Patient Data Age: 80 Gender: M Height: 1.83 m Weight: 67 kg Last Vital Signs Temp 36.4 C L 09/04/21 06:11 Pulse 76 09/04/21 09:10 Resp 20 09/04/21 06:11 BP 115/58 L 09/04/21 09:39 Pulse Ox 99 09/04/21 06:11 Allergies Allergy/AdvReac Type Severity Reaction Status Date / Time diazepam AdvReac Mild CONFUSION Verified 08/30/21 01:49 omega-3 acid ethyl esters AdvReac Mild Rash Verified 09/03/21 12:23 Home Medications Medication Instructions Recorded Confirmed Type finasteride 5 mg tablet 5 mg PO DAILY 07/24/19 08/30/21 History losartan 100 mg PO DAILY 11/20/19 08/30/21 History tizanidine 4 mg capsule 4 mg PO HS #30 cap 05/30/21 08/30/21 Rx metformin 500 mg tablet,extended 500 mg PO BID #60 tablet 07/11/21 08/30/21 Rx release 24 hr levothyroxine 75 mcg tablet 75 mcg PO DAILY #90 tablet 08/01/21 08/30/21 Rx acetaminophen [Tylenol Arthritis 650 mg PO Q12H 08/30/21 08/30/21 History Pain] carvedilol 25 mg PO QAM 08/30/21 08/30/21 History spironolactone 25 mg PO QAM 08/30/21 08/30/21 History Laboratory Tests 09/03/21 09/03/21 09/03/21 10:10 10:10 16:26 WBC RBC Hgb Hct MCV MCH MCHC RDW Plt Count MPV Sodium Potassium Chloride Carbon Dioxide Anion Gap BUN Creatinine Estim Creat Clear Calc Estimated GFR Glucose POC Capillary Glucose 149 mg/dl H mg/dl (65-105) Calcium Stl Occult Blood (IFOB) Positive H (N) C. difficile (PCR) Negative (NEGATIVE) 09/03/21 09/04/21 09/04/21 22:09 06:37 06:37 WBC 9.9 K/mm3 K/mm3 (4.5-10.0) RBC 3.12 M/mm3 L M/mm3 (4.6-6.20) Hgb 9.0 g/dL L g/dL (14.0-18.0) Hct 28.0 % L % (42.0-52.0) MCV 89.7 fl fl (80-100) MCH 28.8 pg pg (26-34) MCHC 32.1 g/dl g/dl (32-36) RDW 16.9 % H % (11.5-14.5) Plt Count 223 k/mm3 k/mm3 (150-375) MPV 8.8 fl fl (7.4-10.4) Sodium 134 mmol/L L mmol/L (137-145) Potassium 4.3 mmol/L mmol/L (3.4-5.0) Chloride 98 mmol/L mmol/L (98-107) Carbon Dioxide 29 mmol/L mmol/L (22-30) Anion Gap 7 mmol/L L mmol/L (8-16) BUN 22 mg/dL H mg/dL (9-20) Creatinine 1.00 mg/dL mg/dL (0.7-1.3) Estim Creat Clear Calc 48 ml/min ml/min Estimated GFR > 60 (59 - ) Glucose 181 mg/dL H mg/dL (65-110) POC Capillary Glucose 175 mg/dl H mg/dl (65-105) Calcium 9.2 mg/dL mg/dL (8.4-10.2) Stl Occult Blood (IFOB) C. difficile (PCR) 09/04/21 09/04/21 07:59 11:42 WBC RBC Hgb Hct MCV MCH MCHC RDW Plt Count MPV Sodium Potassium Chloride Carbon Dioxide Anion Gap BUN Creatinine Estim Creat Clear Calc Estimated GFR Glucose POC Capillary Glucose 178 mg/dl H mg/dl 140 mg/dl H mg/dl (65-105) (65-105) Calcium Stl Occult Blood (IFOB) C. difficile (PCR) Patient hx anesthesia problems: none Family hx anesthesia problems: none Results Review: All pre-operative results and documents have been reviewed as part of the pre-operative evaluation. [facility] Past Medical History Medical History Anemia Arterial insufficienc
[2021-09-04] MEDS: LACTATED RINGERS 1,000 ML 150 ML IV CONT (13:30)
[2021-09-04 14:41] LABS: Glucose Point of Care 119 mg/dl (65-105)
[2021-09-04 16:29] LABS: Glucose Point of Care 134 mg/dl (65-105)
--- NOTE | 2021-09-04 17:55 | P.PNIM_ITS ---
Progress Note: A&P Assessment and Plan (1) Urinary tract infection: Code(s): N39.0 - Urinary tract infection, site not specified Status: Acute Assessment and Plan: UA was abnormal on presentation. * Urine culture with growth of >100k Klebsiella oxytoca ESBL * Continue IV ertapenem #4. He will need 10 total days of antibiotic therapy. Home health for outpatient infusions being arranged. Midline catheter ordered, hopefully will be placed today. Will need infusion here tomorrow then hopeful discharge to continue outpatient IV antibiotic infusions. * Discussed case with urology 09/01 given his recent instrumentation. Agreed with IV antibiotics. Recommend urine culture to be performed before next stent exchange and to consider pre treatment with ertapenem or other appropriate antibiotic. Discussed suppressant therapy with daily Macrobid but urology would like to hold off on this for now. Recommend outpatient follow- up regarding UTI in 1 week. (2) Acute blood loss anemia: Code(s): D62 - Acute posthemorrhagic anemia Status: Acute Assessment and Plan: Baseline hemoglobin around 12.5. Patient presented with several days of gross hematuria secondary to ureteral stent exchange. * He received 1 unit pRBC on admission * H&H improved following transfusion and has remained stable. Hemoglobin 9.0 today * Stool occult blood test positive. Underwent EGD today. See below. Continue Protonix * Iron panel reviewed and is consistent with anemia of chronic disease. Iron supplementation initiated given severely decreased iron stores * Continue to monitor * Hematuria has resolved (3) Generalized weakness: Code(s): R53.1 - Weakness Status: Acute Assessment and Plan: Likely multifactorial related to anemia, acute urinary tract infection, poor appetite and oral intake, overall physical deconditioning * Appreciate PT/OT evals * Encourage appropriate p.o. intake. Dietary supplementation * TSH, B12 and folate within normal limits. Vitamin-D deficient and will supplement (4) Orthostatic hypotension: Code(s): I95.1 - Orthostatic hypotension Status: Acute Assessment and Plan: Noted to have 38 point drop in systolic BP from supine to sitting position. * Fall precautions implemented * Rodri hose applied but patients stated per vascular surgery he is not to use compression stockings therefore removed. * Recieved IV fluid rehydration * Continue to monitor orthostatics * Losartan on hold (5) S/P ureteral stent placement: Code(s): Z96.0 - Presence of urogenital implants Status: Acute Assessment and Plan: 08/15/2021 patient underwent cystoscopy, left retrograde pyelogram, left ureteroscopy with holmium laser of 1 cm stone, and left stent exchange. * Patient developed subsequent gross hematuria which has resolved. * No acute issues at this time. * Discussed case with urology. Continue outpatient follow up. (6) Essential (primary) hypertension: Code(s): I10 - Essential (primary) hypertension Status: Acute Assessment and Plan: Blood pressures have been reasonably controlled. Patient was orthostatic as above. Last BP 149/65 * Continue carvedilol * Holding losartan due to orthostasis * Monitor blood pressure trends (7) Cardiomyopathy: Code(s): I42.9 - Cardiomyopathy, unspecified Status: Acute Assessment and Plan: He is clinically compensated. * Continue carvedilol and spironolactone * Monitor volume status closely
--- NOTE | 2021-09-04 17:55 | PM.IMPN ---
Progress Note: A&P Assessment and Plan (1) Urinary tract infection: Code(s): N39.0 - Urinary tract infection, site not specified Status: Acute Assessment and Plan: UA was abnormal on presentation. Urine culture with growth of >100k Klebsiella oxytoca ESBL Continue IV ertapenem #4. He will need 10 total days of antibiotic therapy. Home health for outpatient infusions being arranged. Midline catheter ordered, hopefully will be placed today. Will need infusion here tomorrow then hopeful discharge to continue outpatient IV antibiotic infusions. Discussed case with urology 09/01 given his recent instrumentation. Agreed with IV antibiotics. Recommend urine culture to be performed before next stent exchange and to consider pre treatment with ertapenem or other appropriate antibiotic. Discussed suppressant therapy with daily Macrobid but urology would like to hold off on this for now. Recommend outpatient follow-up regarding UTI in 1 week. (2) Acute blood loss anemia: Code(s): D62 - Acute posthemorrhagic anemia Status: Acute Assessment and Plan: Baseline hemoglobin around 12.5. Patient presented with several days of gross hematuria secondary to ureteral stent exchange. He received 1 unit pRBC on admission H&H improved following transfusion and has remained stable. Hemoglobin 9.0 today Stool occult blood test positive. Underwent EGD today. See below. Continue Protonix Iron panel reviewed and is consistent with anemia of chronic disease. Iron supplementation initiated given severely decreased iron stores Continue to monitor Hematuria has resolved (3) Generalized weakness: Code(s): R53.1 - Weakness Status: Acute Assessment and Plan: Likely multifactorial related to anemia, acute urinary tract infection, poor appetite and oral intake, overall physical deconditioning Appreciate PT/OT evals Encourage appropriate p.o. intake. Dietary supplementation TSH, B12 and folate within normal limits. Vitamin-D deficient and will supplement (4) Orthostatic hypotension: Code(s): I95.1 - Orthostatic hypotension Status: Acute Assessment and Plan: Noted to have 38 point drop in systolic BP from supine to sitting position. Fall precautions implemented Rodri hose applied but patients stated per vascular surgery he is not to use compression stockings therefore removed. Recieved IV fluid rehydration Continue to monitor orthostatics Losartan on hold (5) S/P ureteral stent placement: Code(s): Z96.0 - Presence of urogenital implants Status: Acute Assessment and Plan: 08/15/2021 patient underwent cystoscopy, left retrograde pyelogram, left ureteroscopy with holmium laser of 1 cm stone, and left stent exchange. Patient developed subsequent gross hematuria which has resolved. No acute issues at this time. Discussed case with urology. Continue outpatient follow up. (6) Essential (primary) hypertension: Code(s): I10 - Essential (primary) hypertension Status: Acute Assessment and Plan: Blood pressures have been reasonably controlled. Patient was orthostatic as above. Last BP 149/65 Continue carvedilol Holding losartan due to orthostasis Monitor blood pressure trends (7) Cardiomyopathy: Code(s): I42.9 - Cardiomyopathy, unspecified Status: Acute Assessment and Plan: He is clinically compensated. Continue carvedilol and spironolactone Monitor volume status closely (8) Type 2 diabetes mellitus: Code(s): E11.9 - Type 2 diabetes mellitus without complications Status: Acute Assessment and Plan: Last A1c July 2021 was 7.4. Accu-Cheks, sliding scale insulin, hypoglycemic protocol Novolog 3 units scheduled with meals Hold home metformin Monitor glucose trends and adjust medication regimen as needed (9) Nausea vomiting and diarrhea: Code(s): R11
[2021-09-04] MEDS: LIDOCAINE HCL 1% LOCAL INJ 2 ML AMPUL 5 ML INFILTRATE (19:25)
[2021-09-04] MEDS: MELATONIN 3 MG TABLET PO (20:15)
[2021-09-04] MEDS: TIZANIDINE HCL 4 MG TABLET PO (20:15)
[2021-09-04] MEDS: PANTOPRAZOLE SODIUM IV 40 MG VIAL IV PUSH (20:15)
[2021-09-04 21:31] LABS: Glucose Point of Care 159 mg/dl (65-105)
[2021-09-05] VITALS (7 sets, daily range): BP systolic 100–149; BP diastolic 48–68; PULSE 68–87; RESP 16–17; TEMP 36.3–36.6; O2SAT 98–99
[2021-09-05] MEDS: LEVOTHYROXINE SODIUM 75 MCG TABLET PO (05:46)
[2021-09-05] MEDS: METOCLOPRAMIDE HCL 10 MG/10 ML SOLN UDC PO ×2 (05:46→11:08)
[2021-09-05 06:17] LABS: Hematocrit 26.8 % (42.0-52.0); Hemoglobin 8.5 g/dL (14.0-18.0); Mean Corpuscular HGB Conc 31.7 g/dl (32-36); Mean Corpuscular Hemoglobin 28.4 pg (26-34); Mean Corpuscular Volume 89.6 fl (80-100); Mean Platelet Volume 9.3 fl (7.4-10.4); Platelet Count Result 246 k/mm3 (150-375); Red Blood Count 2.99 M/mm3 (4.6-6.20); Red Cell Distribution Width 17.2 % (11.5-14.5); White Blood Count 7.5 K/mm3 (4.5-10.0)
[2021-09-05 06:32] LABS: Anion Gap 6 mmol/L (8-16); Blood Urea Nitrogen 20 mg/dL (9-20); Calcium 9.1 mg/dL (8.4-10.2); Carbon Dioxide 28 mmol/L (22-30); Chloride 100 mmol/L (98-107); Estimated CRCL calculation 48 ml/min; Estimated Glomerular Filt Rate > 60; Glucose 166 mg/dL (65-110); Potassium 4.2 mmol/L (3.4-5.0); Sodium 134 mmol/L (137-145)
[2021-09-05 07:40] LABS: Glucose Point of Care 169 mg/dl (65-105)
[2021-09-05] MEDS: carvediloL 25 MG TABLET PO (08:03)
[2021-09-05] MEDS: ACETAMINOPHEN 325 MG TABLET 650 MG PO (08:03)
[2021-09-05] MEDS: FERROUS SULFATE 324 MG TABLET PO (08:03)
[2021-09-05] MEDS: SPIRONOLACTONE 25 MG TABLET PO (08:03)
[2021-09-05] MEDS: PANTOPRAZOLE SODIUM IV 40 MG VIAL IV PUSH (08:04)
[2021-09-05] MEDS: FINASTERIDE 5 MG TABLET PO (08:04)
[2021-09-05] MEDS: SILVERGEL (ELTA) 45 ML 1 APPLIC TOPICAL (08:05)
[2021-09-05] MEDS: CHOLECALCIFEROL 1,000 UNITS TABLET 1000 UNITS PO (08:05)
[2021-09-05] MEDS: INSULIN ASPART (*BKC) 100 UNITS/ML SUB-Q ×3 (08:11→11:22)
--- NOTE | 2021-09-05 09:30 | WPDANESPN ---
Anes - Prog Note Post-Op Date/Time: 09/05/21 09:30 Cardiovascular status: normal Respiratory status: normal Airway patency: baseline Mental status: baseline Post-Op hydration status: normal Vital Signs: Last Vital Signs Temp 36.6 C 09/05/21 08:31 Pulse 70 09/05/21 08:31 Resp 16 09/05/21 08:31 BP 109/48 L 09/05/21 09:17 Pulse Ox 99 09/05/21 08:31 Pain Score (VAS): 0 I/O: Intake & Output 09/04/21 09/05/21 09/05/21 23:59 07:59 15:59 Intake Total 100 250 120 Output Total 200 400 Balance -100 -150 120 Laboratory Tests 09/05/21 06:07 09/05/21 06:07 09/04/21 09/04/21 09/04/21 11:42 14:09 16:21 WBC RBC Hgb Hct MCV MCH MCHC RDW Plt Count MPV Sodium Potassium Chloride Carbon Dioxide Anion Gap BUN Creatinine Estim Creat Clear Calc Estimated GFR Glucose POC Capillary Glucose 140 H 119 H 134 H Calcium 09/04/21 09/05/21 09/05/21 20:22 06:07 06:07 WBC 7.5 RBC 2.99 L Hgb 8.5 L Hct 26.8 L MCV 89.6 MCH 28.4 MCHC 31.7 L RDW 17.2 H Plt Count 246 MPV 9.3 Sodium 134 L Potassium 4.2 Chloride 100 Carbon Dioxide 28 Anion Gap 6 L BUN 20 Creatinine 1.00 Estim Creat Clear Calc 48 Estimated GFR > 60 Glucose 166 H POC Capillary Glucose 159 H Calcium 9.1 09/05/21 07:34 WBC RBC Hgb Hct MCV MCH MCHC RDW Plt Count MPV Sodium Potassium Chloride Carbon Dioxide Anion Gap BUN Creatinine Estim Creat Clear Calc Estimated GFR Glucose POC Capillary Glucose 169 H Calcium Post-procedural complaints: none Patient Feedback: Patient satisfied with anesthetic care.
[2021-09-05] MEDS: ERTAPENEM 1 GM/NS 50 ML 1 GM/50 ML BAG IVPB (11:08)
[2021-09-05 11:27] LABS: Glucose Point of Care 229 mg/dl (65-105)
--- NOTE | 2021-09-05 11:29 | P.DS_ITS ---
DS: Admitting Diagnosis Discharge Date 09/05/21 Admitting Diagnosis UTI DS: Discharge Diagnosis Discharge Diagnosis (1) Urinary tract infection: Code(s): N39.0 - Urinary tract infection, site not specified Status: Acute Assessment and Plan: UA was abnormal on presentation. * Urine culture with growth of >100k Klebsiella oxytoca ESBL * Continue IV ertapenem #5. He will need 10 total days of antibiotic therapy. Home health for outpatient infusions arranged. Midline catheter placed ye sterday. * Discussed case with urology 09/01 given his recent instrumentation. Agreed with IV antibiotics. Recommend urine culture to be performed before next stent exchange and to consider pre treatment with ertapenem or other appropriate antibiotic. Discussed suppressant therapy with daily Macrobid but urology would like to hold off on this for now. Recommend outpatient follow- up regarding UTI in 1 week. (2) Acute blood loss anemia: Code(s): D62 - Acute posthemorrhagic anemia Status: Acute Assessment and Plan: Baseline hemoglobin around 12.5. Patient presented with several days of gross hematuria secondary to ureteral stent exchange. * He received 1 unit pRBC on admission * H&H improved following transfusion and has remained stable. Hemoglobin 8.5 today * Stool occult blood test positive. Underwent EGD yesterday. See below. Con tinue Protonix * Iron panel reviewed and is consistent with anemia of chronic disease. Iron supplementation initiated given severely decreased iron stores * Hematuria has resolved (3) Generalized weakness: Code(s): R53.1 - Weakness Status: Acute Assessment and Plan: Likely multifactorial related to anemia, acute urinary tract infection, poor appetite and oral intake, overall physical deconditioning * Appreciate PT/OT evals * Encouraged appropriate p.o. intake. Dietary supplementation * TSH, B12 and folate within normal limits. Vitamin-D deficient and was supplemented (4) Orthostatic hypotension: Code(s): I95.1 - Orthostatic hypotension Status: Acute Assessment and Plan: Noted to have 38 point drop in systolic BP from supine to sitting position. * Fall precautions implemented * Rodri hose applied but patients stated per vascular surgery he is not to use compression stockings therefore removed. * Received IV fluid rehydration * Losartan held. Will have him continue monitoring and restart when appropriate per PCP. (5) S/P ureteral stent placement: Code(s): Z96.0 - Presence of urogenital implants Status: Acute Assessment and Plan: 08/15/2021 patient underwent cystoscopy, left retrograde pyelogram, left ureteroscopy with holmium laser of 1 cm stone, and left stent exchange. * Patient developed subsequent gross hematuria which has resolved. * No acute issues at this time. * Discussed case with urology. Continue outpatient follow up. (6) Essential (primary) hypertension: Code(s): I10 - Essential (primary) hypertension Status: Acute Assessment and Plan: Blood pressures have been reasonably controlled. Patient was orthostatic as above. Last BP 149/65 * Continue carvedilol * Holding losartan due to orthostasis * Monitor blood pressure trends * Follow up with PCP in 1 week (7) Cardiomyopathy: Code(s): I42.9 - Cardiomyopathy, unspecified Status: Acute Assessment and Plan: He is clinically compensated. * Continue carvedilol and spironolactone * Monitor
--- NOTE | 2021-09-05 11:29 | PM.DS ---
DS: Admitting Diagnosis Discharge Date 09/05/21 Admitting Diagnosis UTI DS: Discharge Diagnosis Discharge Diagnosis (1) Urinary tract infection: Code(s): N39.0 - Urinary tract infection, site not specified Status: Acute Assessment and Plan: UA was abnormal on presentation. Urine culture with growth of >100k Klebsiella oxytoca ESBL Continue IV ertapenem #5. He will need 10 total days of antibiotic therapy. Home health for outpatient infusions arranged. Midline catheter placed yesterday. Discussed case with urology 09/01 given his recent instrumentation. Agreed with IV antibiotics. Recommend urine culture to be performed before next stent exchange and to consider pre treatment with ertapenem or other appropriate antibiotic. Discussed suppressant therapy with daily Macrobid but urology would like to hold off on this for now. Recommend outpatient follow-up regarding UTI in 1 week. (2) Acute blood loss anemia: Code(s): D62 - Acute posthemorrhagic anemia Status: Acute Assessment and Plan: Baseline hemoglobin around 12.5. Patient presented with several days of gross hematuria secondary to ureteral stent exchange. He received 1 unit pRBC on admission H&H improved following transfusion and has remained stable. Hemoglobin 8.5 today Stool occult blood test positive. Underwent EGD yesterday. See below. Continue Protonix Iron panel reviewed and is consistent with anemia of chronic disease. Iron supplementation initiated given severely decreased iron stores Hematuria has resolved (3) Generalized weakness: Code(s): R53.1 - Weakness Status: Acute Assessment and Plan: Likely multifactorial related to anemia, acute urinary tract infection, poor appetite and oral intake, overall physical deconditioning Appreciate PT/OT evals Encouraged appropriate p.o. intake. Dietary supplementation TSH, B12 and folate within normal limits. Vitamin-D deficient and was supplemented (4) Orthostatic hypotension: Code(s): I95.1 - Orthostatic hypotension Status: Acute Assessment and Plan: Noted to have 38 point drop in systolic BP from supine to sitting position. Fall precautions implemented Rodri hose applied but patients stated per vascular surgery he is not to use compression stockings therefore removed. Received IV fluid rehydration Losartan held. Will have him continue monitoring and restart when appropriate per PCP. (5) S/P ureteral stent placement: Code(s): Z96.0 - Presence of urogenital implants Status: Acute Assessment and Plan: 08/15/2021 patient underwent cystoscopy, left retrograde pyelogram, left ureteroscopy with holmium laser of 1 cm stone, and left stent exchange. Patient developed subsequent gross hematuria which has resolved. No acute issues at this time. Discussed case with urology. Continue outpatient follow up. (6) Essential (primary) hypertension: Code(s): I10 - Essential (primary) hypertension Status: Acute Assessment and Plan: Blood pressures have been reasonably controlled. Patient was orthostatic as above. Last BP 149/65 Continue carvedilol Holding losartan due to orthostasis Monitor blood pressure trends Follow up with PCP in 1 week (7) Cardiomyopathy: Code(s): I42.9 - Cardiomyopathy, unspecified Status: Acute Assessment and Plan: He is clinically compensated. Continue carvedilol and spironolactone Monitor volume status closely (8) Type 2 diabetes mellitus: Code(s): E11.9 - Type 2 diabetes mellitus without complications Status: Acute Assessment and Plan: Last A1c July 2021 was 7.4. Accu-Cheks, sliding scale insulin, hypoglycemic protocol Novolog 3 units scheduled with meals while hospitalized Restart Metformin on discharge Repeat labs in 1 week (9) Nausea vomiting and diarrhea: Code(s): R11.2 - Na
--- NOTE | 2021-09-05 12:18 | WPDGIPROGNO ---
Progress Note: A&P Assessment and Plan (1) Gastric ulcer: Code(s): K25.9 - Gastric ulcer, unspecified as acute or chronic, without hemorrhage or perforation Status: Acute Assessment and Plan: caused of coffee ground emesis, no more bleeding and hb stable he is being discharged and will need termination clerk use of protonix daily egd in 3 months to assess for healing (2) Gastritis: Code(s): K29.70 - Gastritis, unspecified, without bleeding Status: Acute Assessment and Plan: on ppi now no nsaid's eating (3) Acute on chronic blood loss anemia: Code(s): D62 - Acute posthemorrhagic anemia Status: Acute (4) Occult blood in stools: Code(s): R19.5 - Other fecal abnormalities Status: Acute (5) Urinary tract infection: Code(s): N39.0 - Urinary tract infection, site not specified Status: Acute Assessment and Plan: he will continue using abx by primary team Subjective Date/time seen: 09/05/21 12:18 Interval history: egd yesterday revealed erosive gastritis with large non-bleeding ulcer, he is doing better and tolerating diet Review of Systems Review of Systems: All systems reviewed & are unremarkable except as noted in HPI and below Exam Const: General: comfortable and no acute distress Other: pleasant elderly, thin HENMT: General nose exam: Normal nares present Eyes: General: appearance normal, both eyes and all related structures Neck: Neck: no JVD Resp: Auscultation: clear to auscultation bilaterally Other: pacemaker Cardio: Rate: regular rate Rhythm: regular rhythm GI: Inspection: non-distended GI Palp: Yes Soft to palpation and No Guarding due to palpation present (GI) Auscultation: normal bowel sounds Skin: General skin exam: normal color Neuro: Speech: normal speech Motor exam (neuro): Normal motor muscle tone present throughout Extrem: General: normal to inspection Psych: Mental Status: mental status grossly normal Objective Data Vital Signs Vital Signs: Vital Signs - 24 hr 09/04/21 13:20 09/04/21 13:52 09/04/21 14:02 Temperature 96.9 F L Pulse Rate 70 78 70 Respiratory Rate 18 18 18 Blood Pressure 131/62 129/63 118/53 L Pulse Oximetry 100 100 100 09/04/21 14:12 09/04/21 16:06 09/04/21 20:00 Temperature 96.9 F L Pulse Rate 70 70 68 Respiratory Rate 20 20 18 Blood Pressure 129/65 149/65 H Pulse Oximetry 100 100 99 09/04/21 21:10 09/04/21 21:13 09/04/21 21:16 Temperature 97.7 F Pulse Rate 68 Respiratory Rate 18 Blood Pressure 159/65 H 111/52 L 122/82 Pulse Oximetry 99 09/05/21 02:18 09/05/21 05:09 09/05/21 08:03 Temperature 97.8 F Pulse Rate 68 72 Respiratory Rate 17 Blood Pressure 149/58 H Pulse Oximetry 98 98 09/05/21 08:31 09/05/21 09:16 09/05/21 09:17 Temperature 97.8 F Pulse Rate 70 Respiratory Rate 16 Blood Pressure 131/68 136/52 L 109/48 L Pulse Oximetry 99 09/05/21 11:31 Temperature 97.4 F L Pulse Rate 87 Respiratory Rate 17 Blood Pressure 112/54 L Pulse Oximetry 99 Intake/Output Intake/Output: Intake & Output 09/02/21 09/03/21 09/04/21 09/05/21 23:59 23:59 23:59 23:59 Intake Total 150 510 320 370 Output Total 1500 400 800 400 Balance -1350 110 -480 -30 Meds/Results Medications: Active Medications Generic Name Dose Route Start Last Admin Trade Name Freq PRN Reason Stop Dose Admin Acetaminophen 650 mg 08/30/21 09:00 09/05/21 08:03 Acetaminophen 325 Mg Tablet PO 650 mg Q12HR GARTH Administration Benzocaine 1 lozenge 08/30/21 02:33 08/30/21 02:52 Benzocaine/Menthol (*Bkc) 18 Ea Lozenge PO 1 lozenge PRN PRN Administration Sore Throat Carvedilol 25 mg 08/31/21 09:00 09/05/21 08:03 Carvedilol 25 Mg Tablet PO 25 mg QAM GARTH Administration Dextrose 12.5 gm 08/30/21 08:29 Dextrose 50% 25 Gm/50 Ml Syringe IV PUSH PRN PRN Hypoglycemia Protocol Ferrous Sulfate 324 mg
== END 2021-09-05 13:15 | disposition home health service (06) | DRG 689 ==
LOC: ANHED 21:53 → ANH3MED 08-30 00:57
PROVIDERS: Internal Medicine Gastroenterology; Physician Assistant; Admitting Provider Internal Medicine; Emergency Provider Emergency Medicine; PCP Family Medicine; Visit Provider Physician Assistant
PROC: 0DJ08ZZ Inspection of Upper Intestinal Tract, Via Natural or Artificial Opening Endoscopic (ICD-10-PCS; CPT 43235; principal; 2021-09-04 14:30)
DX: K29.61 Other gastritis with bleeding (principal); N39.0 Urinary tract infection, site not specified; K25.4 Chronic or unspecified gastric ulcer with hemorrhage; D62 Acute posthemorrhagic anemia; N20.1 Calculus of ureter; I42.9 Cardiomyopathy, unspecified; K55.1 Chronic vascular disorders of intestine; Z16.12 Extended spectrum beta lactamase (ESBL) resistance; K21.00 Gastro-esophageal reflux disease with esophagitis, without bleeding; R19.7 Diarrhea, unspecified; R31.0 Gross hematuria; Z96.0 Presence of urogenital implants; B96.89 Other specified bacterial agents as the cause of diseases classified elsewhere; Z20.822 Contact with and (suspected) exposure to COVID-19; I95.1 Orthostatic hypotension; R53.1 Weakness; E11.9 Type 2 diabetes mellitus without complications; I11.0 Hypertensive heart disease with heart failure; I50.9 Heart failure, unspecified; E03.9 Hypothyroidism, unspecified; E78.49 Other hyperlipidemia; E87.5 Hyperkalemia; M16.11 Unilateral primary osteoarthritis, right hip; Z79.84 Long term (current) use of oral hypoglycemic drugs; Z79.899 Other long term (current) drug therapy; Z85.820 Personal history of malignant melanoma of skin; Z85.828 Personal history of other malignant neoplasm of skin; Z86.73 Personal history of transient ischemic attack (TIA), and cerebral infarction without residual deficits; Z87.891 Personal history of nicotine dependence; Z95.0 Presence of cardiac pacemaker; Z95.828 Presence of other vascular implants and grafts
CPT/HCPCS: 36415; 36430; 36569; 71045; 80048; 80053; 81001; 82274; 82306; 82607; 82728; 82746; 82948; 83540; 83550; 83690; 83735; 84443; 85025; 85027; 86850; 86900; 86901; 86920; 87045; 87077; 87081; 87086; 87088; 87186; 87269; 87272; 87426; 87427; 87493; 88305; 88342; 93970; 96361; 96365; 96366; 96367; 96368; 96375; 97110; 97116; 97163; 97166; 97535; 99285; A9270; C1751; C9113; C9803; G0378; J0696; J1335; J1815; J2405; J2543; J2704; J3370; J7030; J7050; J7120; P9016

== ENCOUNTER → 2021-10-04 11:24 | Outpatient (CLI) | payer MEDICARE, SELFPAY ==
--- NOTE | ~2021-10-04 | XR_ITS ---
XR chest 2V 10/04/2021 12:02 Indication: Chronic cough Procedure: 2 view chest Comparison: Comparison to multiple prior studies sequentially, with oldest reviewed study dated 07/12. Findings: Pacemaker leads in expected position. Heart size normal. There is atherosclerosis. There ar e surgical changes overlying the right upper thorax. No focal air space disease, pulmonary edema, ple ural effusion or suspected pneumothorax. Impression: 1: No acute cardiopulmonary disease. Reviewed, dictated and finalized at location B. ANOLOGY PROFESSOR Impression: 1: No acute cardiopulmonary disease.
--- NOTE | ~2021-10-04 | XR_ITS ---
EXAMINATION: XR foot RT 2V INDICATION: Right foot swelling TECHNIQUE: Two views of the right foot are obtained. COMPARISON: 05/11/2021 FINDINGS: There is an apparent soft tissue ulceration of the medial foot adjacent to the first metata rsal. No definite underlying osseous abnormality is identified. There is soft tissue swelling of the foot overlying the metatarsals. 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 Moderate osteoarthritis is noted in multiple interphalangeal joints. There is calcified atherosclerosis. No fracture is identified. IMPRESSION: 1. Apparent soft tissue ulceration of the medial foot adjacent to the first metatarsal without defini te underlying osseous abnormality. Reviewed, dictated and finalized at location A. OUT CLERK IMPRESSION: 1. Apparent soft tissue ulceration of the medial foot adjacent to the first met atarsal without definite underlying osseous abnormality.
== END ==
PROVIDERS: PCP Family Medicine; Visit Provider Physician Assistant Medical
DX: L03.115 Cellulitis of right lower limb (principal); R05.3 Chronic cough; L97.519 Non-pressure chronic ulcer of other part of right foot with unspecified severity
CPT/HCPCS: 71046; 73620

== ENCOUNTER 2021-10-06 08:57 | Inpatient (IN) | payer MEDICARE, SELFPAY ==
[2021-10-06] VITALS (13 sets, daily range): BP systolic 109–146; BP diastolic 43–63; PULSE 77–101; RESP 16–23; TEMP 36.6–37.4; O2SAT 93–100; BMI 17.2
--- NOTE | ~2021-10-06 | US_ITS ---
EXAMINATION: US venous doppler [facility] DATE: 10/14/2021 10:50 INDICATION: Lower limb edema. TECHNIQUE: Grayscale ultrasound images without and with compression and Doppler ultrasound images of the bilateral lower extremity veins were obtained. COMPARISON: Ultrasound 10/09/2021 FINDINGS: The visualized portions of right common femoral vein, profunda (deep) femoral vein, femoral vein, pop liteal vein, peroneal veins, posterior tibial veins, and greater saphenous vein outflow are patent. The visualized portions of left common femoral vein, profunda femoral vein, femoral vein, popliteal v ein, peroneal veins, posterior tibial veins, and greater saphenous vein outflow are patent. IMPRESSION: 1. No deep venous thrombosis. Reviewed, dictated and finalized at location A. HOIST OPERATOR
--- NOTE | ~2021-10-06 | US_ITS ---
EXAMINATION: US venous doppler [facility] DATE: 10/09/2021 10:23 INDICATION: Lower limb edema. TECHNIQUE: Grayscale ultrasound images without and with compression and Doppler ultrasound images of the bilateral lower extremity veins were obtained. COMPARISON: Ultrasound 08/30/2021 FINDINGS: The visualized portions of right common femoral vein, profunda (deep) femoral vein, femoral vein, pop liteal vein, peroneal veins, posterior tibial veins, and greater saphenous vein outflow are patent. The visualized portions of left common femoral vein, profunda femoral vein, femoral vein, popliteal v ein, peroneal veins, posterior tibial veins, and greater saphenous vein outflow are patent. IMPRESSION: 1. No deep venous thrombosis. Reviewed, dictated and finalized at location A. TICAL SCIENCE CHAIR
--- NOTE | ~2021-10-06 | XR_ITS ---
XR abdomen NG/feed tube insert INDICATION: Evaluate NG tube position. TECHNIQUE: Limited KUB perform for evaluating NG tube . COMPARISON: The Comparison to multiple prior studies sequentially, with oldest reviewed study dated 10/10/2016. FINDINGS: NG tube tip in the stomach. Visualized bowel gas pattern is nonspecific. IMPRESSION: 1: NG tube tip in the stomach. Reviewed, dictated and finalized at location B. TOLOGY TECHNICIAN
--- NOTE | ~2021-10-06 | XR_ITS ---
XR chest 1V 10/06/2021 10:04 Indication: Dyspnea. Weakness. Procedure: AP portable chest Comparison: Comparison to multiple prior studies sequentially, with oldest reviewed study dated 09/02. Findings: Borderline heart size. Pacemaker leads in expected position. Patchy left-sided airspace dis ease, consistent with pneumonia. There is sequela of chronic granulomatous disease. Surgical changes overlie the right apex. Impression: 1: Developing patchy left-sided airspace with pneumonia. Reviewed, dictated and finalized at location B. EXPERIENCE TEAM LEAD Impression: 1: Developing patchy left-sided airspace with pneumonia.
--- NOTE | ~2021-10-06 | CT_ITS ---
EXAMINATION: CT abdomen pelvis w con DATE: 10/06/2021 10:36 INDICATION: Diffuse abdominal pain. Vomiting. TECHNIQUE: Computed tomography (CT) of the abdomen and pelvis was performed with 100 cc Omnipaque 350 intravenous contrast. The dose-length product was 536.58 mGy-cm. Automated exposure control and iter ative reconstruction technique were employed. COMPARISON: CT dated 07/26/2021. FINDINGS: Borderline heart size. There is atherosclerosis. No evidence for aneurysm. No significant p leural or pericardial effusion. No lymphadenopathy. Stable 4 mm right middle lobe nodule. Stable pace maker leads. There is a femoral-femoral bypass graft. There is a right axillary femoral bypass graft. There is fat ty infiltration of the liver. The spleen, pancreas, adrenal glands are unremarkable. There is a right renal cyst. There is free intraperitoneal air in fluid/stranding in the left upper abdomen adjacent to the stomac h and descending colon, consistent with perforation. There is dilated small bowel with mucosal enhanc ement in the upper abdomen, consistent with obstruction. The lateral wall of the gastric wall is thic kened and heterogeneous with mottled gas intraluminally. Cannot exclude perforated gastric ulcer. Col onic diverticulosis without definite diverticulitis. IMPRESSION: 1. Free intraperitoneal air and fluid left upper abdomen, suspicious for bowel perforation, possibly perforated gastric ulcer. 2: Small bowel obstruction. 3: Hepatic steatosis. Dr. Zhang Holliday discussed with Dr. Fannie Galloway MD at 10/06/2021 10:48 MEDICAL DETAIL REPRESENTATIVE. Reviewed, dictated and finalized at location B. CAL DETAIL REPRESENTATIVE
--- NOTE | ~2021-10-06 | XR_ITS ---
XR abdomen/kub 1V 10/10/2021 12:47 Indication: Bowel perforation Procedure: KUB Comparison: 10/10/2021 Findings: NG tube in the stomach. No residual contrast identified. There is extensive atherosclerosis . There are bilateral renal artery stents. Bowel pattern nonobstructive. Moderate colonic fecal loadi ng. Moderate lumbar spondylosis with levoscoliosis. Impression: 1: Nonobstructive bowel gas pattern. No residual contrast identified. Reviewed, dictated and finalized at location A. DISTRIBUTOR TENDER Impression: 1: Nonobstructive bowel gas pattern. No residual contrast identified.
--- NOTE | ~2021-10-06 | XR_ITS ---
XR abdomen NG/feed tube insert INDICATION: Evaluate NG tube position. TECHNIQUE: Limited KUB perform for evaluating NG tube . COMPARISON: Comparison to multiple prior studies sequentially, with oldest reviewed study dated 06/13. FINDINGS: NG tube tip in the stomach. Visualized bowel gas pattern is nonspecific.There are cholecys tectomy clips. IMPRESSION: 1: NG tube tip in the stomach. Reviewed, dictated and finalized at location A. NG ROW BOSS
--- NOTE | ~2021-10-06 | XR_ITS ---
EXAMINATION: XR abdomen obstructive series EXAM DATE: 10/08/2021 05:31 INDICATION: Check on ileus that was seen on CT 10/06. TECHNIQUE: Frontal upright projection of the upper abdomen, frontal projection of the lower abdomen f or interpretation. Comparison is made to prior examination from 10/06/2021. FINDINGS: Feeding tube is in position. Pacemaker/AICD leads. Several loops of mildly distended air-f illed small bowel, improvement in quantity compared to 2 days ago. No free intraperitoneal gas suspec george. Expected amount of colonic stool and gas. Mild to moderate lumbar levoscoliosis. Severe right hi p osteoarthritis. Probable Agudelo catheter. There is no organomegaly. IMPRESSION: Several mildly dilated small bowel loops probably mild ileus. Nonobstructive bowel gas p attern. Reviewed, dictated and finalized at location A. L TOP INSTALLER IMPRESSION: Several mildly dilated small bowel loops probably mild ileus. Nono bstructive bowel gas pattern.
--- NOTE | ~2021-10-06 | XR_ITS ---
EXAMINATION: XR chest PICC line INDICATION: PICC insertion TECHNIQUE: Portable AP chest at 1522 hours COMPARISON: 10/06/2021 FINDINGS: A right upper extremity PICC has been inserted which ends with its tip in the midsuperior v jay cava. Surgical clips project over the right lung apex. The lungs are free of acute opacities. The re is no pleural effusion or pneumothorax. The cardiomediastinal silhouette is stable. A nasogastric tube is in the stomach. A dual-lead cardiac pacemaker of the left chest wall ends with leads in expec george locations. There is advanced osteoarthritis of the left glenohumeral joint. Changes of right tota l shoulder arthroplasty are noted. IMPRESSION: 1. Right upper extremity PICC ending with its tip in the midsuperior vena cava. Reviewed, dictated and finalized at location F. SOFTWARE ARCHITECT
--- NOTE | ~2021-10-06 | XR_ITS ---
XR abdomen/kub 1V DATE: 10/13/2021 06:00 INDICATION: Adynamic ileus. Assess NG tube position. TECHNIQUE: 2 portable supine AP views on 10/13/2021 at 0 5:30 and 0531 hours COMPARISON: 10/11/2021 KUB FINDINGS: NG tube is present in the gastric fundus, the proximal side-port more than 10 cm distal to the diaphragmatic hiatus. Surgical clips, right upper quadrant, consistent with cholecystectomy. There are scattered gas-distended small bowel segments which may be consistent with adynamic ileus. T here is a prominent of fecal material in the rectum. Left lower lobe infiltrate and/atelectasis. Right atrial and right ventricular pacemaker leads. Bilateral renal artery stents. Clips overlie both inguinal areas. Severe right hip osteoarthritis. IMPRESSION: No significant change since 10/11/2021 Reviewed, dictated and finalized at [facility]. Reviewed, dictated and finalized at location [facility]. [employer]
--- NOTE | ~2021-10-06 | XR_ITS ---
EXAMINATION: XR abdomen/kub 1V DATE: 10/11/2021 09:21 INDICATION: Adynamic ileus. TECHNIQUE: A supine view of the abdomen on 2 radiographs was obtained. COMPARISON: Abdomen radiograph 10/10/2021, CT 10/10/2021 FINDINGS: Stool distends the rectum. The small bowel is normal in caliber. There is a Agudelo catheter in expected position. Surgical clips overlie the inguinal regions. There are stents in the renal arlin donovan. The nasogastric tube tip is in the stomach. There are pacer wires in right atrium and right alessandra tricle. There are airspace opacities at left lung base. There is a small left pleural effusion. IMPRESSION: 1. Stool distends the rectum. 2. Airspace opacities at left lung base, consistent with atelectasis versus pneumonia. 3. Small left pleural effusion. Reviewed, dictated and finalized at [facility]. MACHINE OPERATOR IMPRESSION: 1. Stool distends the rectum. 2. Airspace opacities at left lung base, consistent with atelectasis versus pne umonia. 3. Small left pleural effusion.
--- NOTE | ~2021-10-06 | CT_ITS ---
EXAMINATION: CT guide absc cath placement DATE: 10/12/2021 10:35 INDICATION: Left upper quadrant abdominal abscess. TECHNIQUE: The procedure including the risks, benefits, and alternatives was discussed with the patie nt. Risks discussed included bleeding and infection. The patient understood the risks and benefits an d agreed to proceed. The skin overlying the abdomen was prepped and draped in usual sterile fashion. Anesthetic was administered with 1% lidocaine subcutaneously. An 18 gauge trochar needle was inserte d into the left upper quadrant abdominal abscess with CT guidance. The needle was exchanged over a wi re for 6 Algerian and 8 Algerian dilators and then for an 8.5 Algerian pigtail catheter. The catheter was s titched to the skin, and a sterile dressing was applied. The mA was adjusted according to patient siz e. Iterative reconstruction technique was employed. The dose-length product was 132.88 mGy-cm. There were no immediate complications. FINDINGS: CT images demonstrate the catheter within the left upper quadrant abdominal abscess. 3 mL f luid was aspirated for testing. IMPRESSION: 1. Successful CT-guided left upper quadrant abscess drainage. 2. 3 mL clear, yellow fluid was sent for aerobic and anaerobic cultures. Reviewed, dictated and finalized at location [facility]. NNA RIGGER
--- NOTE | ~2021-10-06 | CT_ITS ---
EXAMINATION: CT brain wo con DATE: 10/06/2021 10:00 INDICATION: Head injury. Increased weakness. TECHNIQUE: Computed tomography (CT) of the head was performed without intravenous contrast. The mA wa s adjusted according to patient size. Iterative reconstruction technique was employed. The dose-lengt h product was 605.33 mGy-cm. 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 There are scattered areas of low attenuation in the cerebral white matter, which is within normal limits for the patient's age. There is no intrac ranial hemorrhage, acute infarction, or abnormal intracranial mass lesion. The ventricles are normal in size. There is mucosal thickening in the paranasal sinuses. The mastoid air cells are normal. Ther e are likely changes of ocular lens replacement surgeries. There are changes of right parotid resecti on. IMPRESSION: 1. 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 Reviewed, dictated and finalized at location [facility]. TIONAL EVALUATOR
--- NOTE | ~2021-10-06 | CT_ITS ---
EXAMINATION: XR UGI water soluble wo kub, CT abdomen pelvis wo con DATE: 10/10/2021 09:38 (accession [id number]), 10/10/2021 09:46 (accession [id number]) INDICATION: Previous bowel perforation. Evaluate for persistent leak. TECHNIQUE: Water-soluble contrast administered via NG tube. Fluoroscopic images were obtained. Comput ed tomography (CT) of the abdomen and pelvis was performed without intravenous contrast. The dose-juvenal gth product was 452.42 mGy-cm. Automated exposure control and iterative reconstruction technique were employed. COMPARISON: CT dated 10/06/2021. FINDINGS: Initial images demonstrate contrast administration into the stomach. There is an amorphous appearance to the contrast along the position of the NG tube at the lesser curvature. Cannot exclude extravasation based on fluoroscopic images. CT abdomen/pelvis: Cardiomegaly. Small pericardial effusion. Small bilateral pleural effusions, left greater than right. There is left basilar compressive atelectasis. There is a 5.7 mm right middle lob e nodule, image 10. Contrast within the gastric lumen creates significant streak artifact. No definit e extravasation of contrast is identified. There is increase fat stranding and fluid surrounding the stomach compared with prior examination. There is a small amount of free intraperitoneal air, althoug h free air appears diminished in volume compared with prior examination allowing for differences of t echnique. There is a new elliptical fluid collection in the left mid abdomen anteriorly measuring 3.7 x 2.3 cm, possibly in developing abscess. Small amount of free fluid in the pelvis. Agudelo catheter p resent in the bladder. Bypass grafts reidentified. Air-fluid levels are present in the small bowel wh ich most likely represents ileus. Colonic diverticulosis without diverticulitis. IMPRESSION: 1. No definite extravasation of water-soluble contrast is identified. There is evidence for previous leak with fluid/stranding surrounding the gastric wall extending into the left paracolic gutter. New elliptical fluid collection left mid abdomen measuring up to 3.7 cm, suspicious for abscess. There is persistent trace free air in the left mid abdomen adjacent to the stomach. 2: Small pleural effusions, left greater than right with underlying left basilar compressive atelect asis. 3: Small pericardial effusion with cardiomegaly. 4: Right middle lobe nodule measuring 5.7 mm, likely benign. Follow-up low dose CT chest in 12 months recommended. 5: Air-fluid levels in nondilated small bowel left mid abdomen, likely ileus. Dr. Zhang Holliday discussed with Dr. Arnaldo Perkins MD at 10/10/2021 10:02 WATERPROOF BAG CUTTING MACHINE OPERATOR. Reviewed, dictated and finalized at location [facility]. RPROOF BAG CUTTING MACHINE OPERATOR IMPRESSION: 1. No definite extravasation of water-soluble contrast is identified. There is evidence for previous leak with fluid/stranding surrounding the gastric wall ex tending into the left paracolic gutter. New elliptical fluid collection left mi d abdomen measuring up to 3.7 cm, suspicious for abscess. There is persistent t race free air in the left mid abdomen adjacent to the stomach. 2: Small pleural effusions, left greater than right with underlying left basil ar compressive atelectasis. 3: Small pericardial effusion with cardiomegaly. 4: Right middle lobe nodule measuring 5.7 mm, likely benign. Follow-up low dose CT chest in 12 months recommended. 5: Air-fluid levels in nondilated small bowel left mid abdomen, likely ileus. Dr. Zhang Holliday discussed with Dr. Arnaldo Perkins MD at 10/10/2021 10:02 WATERPROOF BAG CUTTING MACHINE OPERATOR.
--- NOTE | 2021-10-06 09:05 | ECG_ITS ---
Measurements Intervals [place] Rate: 72 P: 83 [place]: 212 QRS: 95 QRSD: 169 T: 76 QT: 425 QTc: 468 Interpretive Statements ELECTRONIC ATRIAL PACEMAKER WITH INHIBITION ELECTRONIC VENTRICULAR PACEMAKER BASELINE ARTIFACT- I, AVR, AVL, AVF, V1-V2 NO FURTHER INTERPRETATION IS POSSIBLE ATYPICAL ECG Electronically Signed On 10-06-2021 9:53:00 SALES AUDIT CLERK by Laoy Mcfarland D.O.
[2021-10-06 09:31] LABS: Basophils Absolute Auto 0.2 K/mm3 (0.0-0.1); Basophils Percent Auto 0.3 % (0.2-1.2); Hemoglobin 9.6 g/dL (14.0-18.0); Immature Granulocyte Percent A 4.3 % (0-0.5); Lymphocytes Percent Auto 2.8 % (18.3-44.2); Mean Corpuscular Hemoglobin 26.3 pg (26-34); Mean Corpuscular Volume 84.9 fl (80-100); Mean Platelet Volume 9.8 fl (7.4-10.4); Monocytes Absolute Auto 1.8 K/mm3 (0.1-0.6); Monocytes Percent Auto 3.9 % (2.6-8.5); Neutrophils Absolute Auto 40.8 K/mm3 (1.3-6.7); Neutrophils Percent Auto 88.7 % (45.5-73.1); Nucleated Red Blood Cells Perc 0.1 % (0.0-0.2); Platelet Count Result 360 k/mm3 (150-375); Red Blood Count 3.65 M/mm3 (4.6-6.20); Red Cell Distribution Width 17.9 % (11.5-14.5); White Blood Count 46.1 K/mm3 (4.5-10.0)
[2021-10-06 09:33] LABS: Base Excess ABG -1.2 mEq/l (+/-2.0); Carboxyhemoglobin 0.2 % THb (0-2.0); Device NASAL CANNULA; Fractional Inspired Oxygen 36 %; HCO3 ABG 21.6 mEq/l (22.0-26.0); Methemoglobin ABG 0.2 %THb (0-1.5); Modified Allen's Test Pass; Oxygen Content ABG 14.4 %vol (16.0-22.0); Oxygen Saturation ABG 98.8 % (95.0-100.0); Oxyhemoglobin 97.9 % THb (90.0-100.0); PCO2 ABG 29.8 mmHg (35.0-45.0); PO2 ABG 131.1 mmHg (80.0-100.0); PO2 FiO2 Ratio Arterial Blood 3.64 %; Reduced Hemoglobin 1.7 %THb (0-5.0); Site Drawn LEFT RADIAL; Total Hemoglobin 10.3 g/dL (12.0-18.0); pH ABG 7.478 (7.350-7.450)
[2021-10-06] MEDS: SODIUM CHLORIDE 0.9% IV 1,000 ML 999 ML IV CONT ×2 (09:35→11:14)
[2021-10-06] MEDS: ONDANSETRON INJ 4 MG/2 ML VIAL IV PUSH (09:35)
[2021-10-06] MEDS: PANTOPRAZOLE SODIUM IV 40 MG VIAL 80 MG IV PUSH (09:37)
[2021-10-06 09:41] LABS: Partial Thromboplastin Time 47.8 SECONDS (22.3-36.8); Platelet Estimate Adequate (Adequate)
[2021-10-06 09:42] LABS: Anisocytosis 2+ (NORMAL); Ovalocytes 1+ (NORMAL); Target Cells 1+ (NORMAL)
[2021-10-06 09:56] LABS: Lactic Acid Reflex 4.6 mmol/L (0.7-2.1); Potassium 6.6 mmol/L (3.4-5.0)
[2021-10-06 09:57] LABS: Alanine Aminotransferase 51 U/L (4-50); Albumin Level 2.7 g/dL (3.5-5.1); Alkaline Phosphatase 132 U/L (38-126); Anion Gap 10 mmol/L (8-16); Aspartate Amino Transferase 46 U/L (17-59); Bilirubin,Total 0.8 mg/dL (0.2-1.3); Blood Urea Nitrogen 55 mg/dL (9-20); Calcium 10.1 mg/dL (8.4-10.2); Carbon Dioxide 22 mmol/L (22-30); Chloride 100 mmol/L (98-107); Estimated CRCL calculation 38 ml/min; Estimated Glomerular Filt Rate > 60; Glucose 174 mg/dL (65-110); Lipase 305 U/L (23-300); Magnesium 1.8 mg/dL (1.6-2.3); Sodium 132 mmol/L (137-145)
[2021-10-06 10:00] LABS: Beta-Hydroxybutyrate/Acetoacetate 0.29 mmol/L (0.02-0.27)
[2021-10-06 10:08] LABS: Troponin I 0.629 ng/mL (0.000-0.034)
[2021-10-06] MEDS: DEXTROSE 50% 25 GM/50 ML SYRINGE IV PUSH (10:47)
[2021-10-06] MEDS: SODIUM BICARBONATE 8.4% 50 MEQ/50 ML SYRINGE IV PUSH (10:47)
[2021-10-06] MEDS: CALCIUM GLUC 1,000 MG/NS 50 ML 1,000 MG/50 ML BAG 100 MG IVPB (10:49)
[2021-10-06] MEDS: INSULIN HUMAN REGULAR (*BKC) 100 UNITS/ML 10 UNITS IV PUSH (11:12)
[2021-10-06 11:29] LABS: Add Urine Microscopic? YES; Appearance Urine Clear (Clear); Bacteria Urine 4+ /hpf; Bilirubin Urine Negative (Negative); Blood Urine Negative (Negative); Color Urine Yellow (Yellow); Glucose Urine UA 1+ mg/dL (Negative); Ketones Urine Negative (Negative); Leukocyte Esterase Ur 3+ LEU/UL (Negative); Mucus Urine Moderate /lpf; Nitrate Urine Positive (Negative); Protein Urine Negative (Negative); Specific Grav Ur 1.028 (1.001-1.035); Squamous Epithelial Cell Urine Rare /hpf (Few); Urobilinogen Urine Negative mg/dL (<2.0); WBC Clumps Urine Present /HPF; WBC Urine >75 /hpf
--- NOTE | 2021-10-06 11:45 | ED.WEAKNESS ---
HPI - Weakness General Chief complaint: Weakness Stated complaint: weakness Source: patient, family, RN notes reviewed and old records reviewed Mode of arrival: EMS Limitations: clinical condition History of Present Illness HPI Narrative: This is an 80 year old male with history of PUD, pacemaker, chronic anticoagulation who presents for evaluation of nausea, vomiting and weakness. Patient is being evaluated as an outpatient for weakness and bleeding ulcer. His told EMS patient had abnormal labs 2 days ago and he has been having worsening weakness. EMS reported patient had systolic BP 100 in route and his oxygen saturation 70% so he was placed on NRB. Patient is 100% on 4 L in ER and he denies shortness of breath or chest pain. He does reports nausea, vomiting and dark stool since yesterday. He also told nursing that he hit his head yesterday after a fall. He takes Eliquis. Related Data Home Medications Medication Instructions Recorded Confirmed finasteride 5 mg tablet 5 mg PO DAILY 07/24/19 10/05/21 losartan 100 mg PO DAILY 11/20/19 10/05/21 acetaminophen [Tylenol Arthritis 650 mg PO Q12H 08/30/21 10/05/21 Pain] carvedilol 25 mg PO QAM 08/30/21 10/05/21 spironolactone 25 mg PO QAM 08/30/21 10/05/21 Allergies Allergy/AdvReac Type Severity Reaction Status Date / Time diazepam AdvReac Mild CONFUSION Verified 10/06/21 09:09 omega-3 acid ethyl esters AdvReac Mild Rash Verified 10/06/21 09:09 Review of Systems Review of Systems: All systems reviewed & are unremarkable except as noted in HPI and below Constitutional: Constitutional: Denies chills and Reports weakness ENT: Denies nasal congestion Cardiovascular: Cardiovascular: Denies chest pain Respiratory: Respiratory: Denies cough and Denies dyspnea Gastrointestinal: Gastrointestinal: Reports abdominal pain, Reports nausea and Reports vomiting [facility] Past Medical History Medical History Acute on chronic blood loss anemia Anemia Arterial insufficiency of lower extremity Arthritis of left knee BMI 23.0-23.9, adult BMI between 19-24,adult Body mass index (BMI) less than 16.5 Bradycardia Status post pacemaker Cardiomyopathy Cervical spine arthritis Chronic pain Coffee ground emesis CVA (cerebral vascular accident) And 2007, no deficits DM (diabetes mellitus) Essential (primary) hypertension FH: carotid endarterectomy Gastric ulcer H/O: HTN (hypertension) History of kidney stones History of squamous cell carcinoma of skin HLD (hyperlipidemia) Hx of melanoma of skin No recurrence. Hypothyroidism Melanoma Occult blood in stools Osteoarthritis of right hip Other hyperlipidemia Right hip pain Right shoulder pain Superior mesenteric artery atherosclerosis Type 2 diabetes mellitus without complications Venous insufficiency (chronic) (peripheral) Weight loss Surgical History Surgical History H/O shoulder surgery 12/23/19, replacement 2004, shoulder manipulation, Dr John History of cholecystectomy History of endarterectomy History of permanent cardiac pacemaker placement History of renal stent History of renal stent Hx of melanoma excision Previous back surgery 1989 Spurs on spine Status post aortic bifurcation bypass graft Family History Family History Grandparent Hypertension Cerebrovascular accident Father Family history of malignant neoplasm Family history of coronary artery disease Mother Family history of malignant neoplasm Family history of coronary artery disease Carcinoma of colon Sibling Family history of diabetes mellitus in first degree relative Heart disease Social History Social History Social History: Patient quit smoking cigarettes 25 yea
[2021-10-06] MEDS: PIPERACILLIN/TAZOBACTAM SOD 4.5 GM in SODIUM CHLORIDE 0.9% IV 100 ML 200 ML IVPB ×2 (12:08→17:44)
[2021-10-06 12:29] LABS: Reflex Lactic Acid Yes or No Add Lactic
--- NOTE | 2021-10-06 12:42 | PM.CNGS ---
Assessment and Plan Assessment and plan (1) Acute gastric ulcer with perforation: Onset Date: ~10/06/21 Code(s): K25.1 - Acute gastric ulcer with perforation Status: Acute Assessment and Plan: The patient presented to the ED today after abnormal labs as an outpatient. However, once here the ER physician was told that he had some abdominal discomfort and also had nausea and vomiting. Because of his recent history of a gastric ulcer discovered at the time of recent admission in August, a CT scan of the abdomen and pelvis was done. This revealed a gastric ulcer on the greater curvature with small bubbles of air in the gastric wall and also free into the perigastric area between it and the transverse colon. ( there was not a massive amount of extraluminal gas at this time). (This was reviewed with Dr. Snider in Radiology). Patient is wide awake alert and not complaining of a lot of pain. Therefore, I had a discussion with the patient and his and explained the situation. I let them know that typically in this situation he would be is taken to surgery and we would mobilize the stomach and biospy and repair the hole in the stomach and patch it or excise some of the area of abnormality and repair the hole in the stomach. However, the patient is on chronic Eliquis and last took this medication at 8:30 p.m. last evening. Therefore with his high PTT drawn here today and on known anticoagulation he could have significant bleeding problems if we took him to surgery. Also he has significant cardiomyopathy with bradycardia and a pacemaker in place so there is high risk of cardiac issues at the time of surgery. There is also some evidence of a left-sided pneumonia at this time byr CXR. Patient may have aspirated. Right now patient's states that he has not been having a cough or other signs of pneumonia and states that he had an outpatient chest x-ray on about Saturday or so earlier this week which did not show pneumonia. Therefore, after a thorough discussion the patient has decided that he did not want to undergo surgery if he could be treated in a different manner. Therefore, we will not plan to do surgery right away knowing that we can change our mind if needed. For now will treat with NG decompression and antibiotics. Will work with our menhaden fishing crew member to try to help care for this urgent problem in a patient with severe comorbidities and high risk for surgical intervention. (2) Nausea and vomiting: Onset Date: ~10/03/21 Qualifiers: Vomiting type: unspecified Qualified Code(s): R11.2 - Nausea with vomiting, unspecified Code(s): R11.2 - Nausea with vomiting, unspecified Status: Acute Assessment and Plan: Possibly related to his known gastric ulcer disease. (3) Anemia: Onset Date: Unknown Code(s): D64.9 - Anemia, unspecified Status: Acute Assessment and Plan: This needs to be followed especially since we know he has 1 if not 2 ulcerations in the stomach which is probably the source of this. ( I believe ED also did a type and screen). I agree with this. (4) Bradycardia: Onset Date: Unknown Code(s): R00.1 - Bradycardia, unspecified Status: Acute Assessment and Plan: This is probably the reason for his pacemaker, however and patient could not tell me the reason that it was placed although was placed several years ago at [place] by someone associated with [facility] [place] vascular practice. Patient's knows the name of his quick mixer operator there but I am sure she does not come to this hospital. From surgical perspective would recommend that we get a cardiology consult and evaluation in view of his elevated troponin which may be on the basis of some smooth muscle injury in the area of the ulcer versus cardiac issues related to stress from the current medical situation. Also will they were helpful be invaluable if the patien
[2021-10-06 13:02] LABS: Alanine Aminotransferase 46 U/L (4-50); Albumin Level 2.1 g/dL (3.5-5.1); Alkaline Phosphatase 102 U/L (38-126); Anion Gap 11 mmol/L (8-16); Aspartate Amino Transferase 38 U/L (17-59); Bilirubin,Total 0.4 mg/dL (0.2-1.3); Blood Urea Nitrogen 46 mg/dL (9-20); Calcium 9.2 mg/dL (8.4-10.2); Carbon Dioxide 22 mmol/L (22-30); Chloride 105 mmol/L (98-107); Estimated CRCL calculation 45 ml/min; Estimated Glomerular Filt Rate > 60; Glucose 134 mg/dL (65-110); Potassium 4.7 mmol/L (3.4-5.0); Sodium 138 mmol/L (137-145)
[2021-10-06 13:49] LABS: Lactic Acid 4.9 mmol/L (0.7-2.1)
--- NOTE | 2021-10-06 13:49 | WPDCNINT ---
Assessment and Plan Assessment and plan (1) Severe sepsis: Code(s): A41.9 - Sepsis, unspecified organism; R65.20 - Severe sepsis without septic shock Status: Acute Assessment and Plan: Significant leukocytosis of 46.1, generalized weakness, hyperkalemia, perforated gastric ulcer -likely source could be acute gastric ulcer perforation, UTI. Patient had ESBL Klebsiella in 08/2021. -patient given 2 L IV fluid bolus in the ER for blood pressures -patient seems to be significantly dehydrated and intravascularly dry, will give additional 500 mL IV fluid bolus and 1 bag of Hespan. -Initial lactic acid was 4.6, repeat lactic acid is 4.9, will continue to trend after giving additional IV fluids as above -creatinine is 0.9 and BUN is 46, will continue to monitor -repeat potassium after treatment is 4.7 -patient has been started on Zosyn -blood and urine cultures have been obtained and pending - 02/2021 echocardiogram showed an EF of 60%, abnormal septal motion consistent with pacemaker, E to A wave reversal consistent with impaired LV relaxation (2) Acute gastric ulcer with perforation: Onset Date: ~10/06/21 Code(s): K25.1 - Acute gastric ulcer with perforation Status: Acute Assessment and Plan: Acute gastric ulcer perforation as seen on CT scan of the abdomen with free intraperitoneal air -surgery has been consulted and Dr. Perkins did discuss with the patient and his and did not want to undergo this surgery as he is high risk given that he is on Eliquis, multiple cardiac issues, elevated PTT, UTI, has a pacemaker -surgery following the patient -NG tube was inserted and patient started on Zosyn -will manage medically for now (3) Nausea and vomiting: Onset Date: ~10/03/21 Qualifiers: Vomiting type: unspecified Qualified Code(s): R11.2 - Nausea with vomiting, unspecified Code(s): R11.2 - Nausea with vomiting, unspecified Status: Acute Assessment and Plan: Nausea and vomiting have resolved -will continue Zofran p.r.n. (4) Hyperkalemia: Code(s): E87.5 - Hyperkalemia Status: Acute Assessment and Plan: Could be related to hemoconcentration as patient seems to be significantly volume depleted and dehydrated -was treated with calcium gluconate, insulin and D50, bicarbonate with repeat potassium level of 4.7 (6.6 on admission) (5) Weakness: Code(s): R53.1 - Weakness Status: Acute Assessment and Plan: Multifactorial could be related to infections, acute gastric ulcer perforation, severe sepsis, dehydration (6) Type 2 diabetes mellitus: Code(s): E11.9 - Type 2 diabetes mellitus without complications Status: Acute Assessment and Plan: Continue Accu-Cheks and sliding scale insulin (7) DVT prophylaxis: Code(s): Z29.9 - Encounter for prophylactic measures, unspecified Status: Acute Assessment and Plan: SCDs Additional Plan Nutrition: NPO Stress ulcer prophylaxis: Protonix Discussed with patient and his and updated them with patient's condition and plan of care. I did tell them that he has severe sepsis and his condition can worsen and require blood pressure support medications. I also discussed regarding code status to which both patient and his requested that he be a full code Code status: Full code Critical care time spent: 47 minutes This dictation may have been done utilizing a voice recognition system. Attempts have been made to correct errors. However, there may be uncorrected grammatical, spelling, and recognition errors present. Due to a high probability of clinically significant, life threatening deterioration, the patient required my highest level of preparedness to intervene emergently and I personally spent this critical care time directly and personally managing the patient. This critical care time included obtaining a history; examining the patient; pulse oxime
[2021-10-06 14:26] LABS: Glucose Point of Care 94 mg/dl (65-105)
[2021-10-06] MEDS: hetaSTARCH 6%/NACL 500 ML 250 ML IV CONT (14:40)
--- NOTE | 2021-10-06 14:44 | PM.IMHP ---
H&P: HPI History of Present Illness Date/Time: Patient requires inpatient monitoring with expected length of stay to exceed 2 midnights for management of care. 10/06/21 14:44 Chief Complaint: Weakness Narrative: Mr. Alexis is an 80-year-old gentleman who presented to the emergency room with complaints of weakness and abnormal laboratories.. Patient's spouse is at bedside and states the patient has extensive history of peptic ulcer disease, pacemaker, peripheral arterial disease, diabetes mellitus, CVA, hypertension, dyslipidemia, and hypothyroidism. Patient states that he is having left upper quadrant pain upon palpation. Patient denies any chest pain or shortness breath. Patient denies any lightheadedness dizziness syncopal or near syncopal episodes. Patient denies any dysuria, hematuria, frequency, or urgency. Upon evaluation in emergency patient was noted to have a perforated gastric ulcer that had initially been discovered in August on CT the abdomen pelvis. Patient underwent CT today that revealed a gastric ulcer in the greater curvature with small bubbles of air in the gastric wall and also free into the epigastric area between it and the transverse colon. Patient had NG tube placed and general surgery was notified. Surgery consult on the patient and after discussion it was decided to try medical management 1st to see if patient could improve with NG tube and antibiotics secondary to patient being on Eliquis and a very high risk for surgery. I am unsure why patient is on Eliquis we are attempting to get records from patient's television antenna installer who placed patient on the medication. Patient does have pacemaker, unsure if there was any history of atrial fibrillation, but his states he has no history of blood clots. Review of Systems Review of Systems: A 12 point review of systems was completed patient all pertinent positive and negative per HPI the remainder are unremarkable. [facility] Past Medical History Medical History Acute on chronic blood loss anemia Anemia Arterial insufficiency of lower extremity Arthritis of left knee BMI 23.0-23.9, adult BMI between 19-24,adult Body mass index (BMI) less than 16.5 Bradycardia Status post pacemaker Cardiomyopathy Cervical spine arthritis Chronic pain Coffee ground emesis CVA (cerebral vascular accident) And 2007, no deficits DM (diabetes mellitus) Essential (primary) hypertension FH: carotid endarterectomy Gastric ulcer H/O: HTN (hypertension) History of kidney stones History of squamous cell carcinoma of skin HLD (hyperlipidemia) Hx of melanoma of skin No recurrence. Hypothyroidism Melanoma Occult blood in stools Osteoarthritis of right hip Other hyperlipidemia Right hip pain Right shoulder pain Superior mesenteric artery atherosclerosis Type 2 diabetes mellitus without complications Venous insufficiency (chronic) (peripheral) Weight loss Surgical History Surgical History H/O shoulder surgery 12/23/19, replacement 2004, shoulder manipulation, Dr John History of cholecystectomy History of endarterectomy History of permanent cardiac pacemaker placement History of renal stent History of renal stent Hx of melanoma excision Previous back surgery 1989 Spurs on spine Status post aortic bifurcation bypass graft Family History Family History Grandparent Hypertension Cerebrovascular accident Father Family history of malignant neoplasm Family history of coronary artery disease Mother Family history of malignant neoplasm Family history of coronary artery disease Carcinoma of colon Sibling Family history of diabetes mellitus in first degree relative Heart disease Social History Social History Social His
[2021-10-06] MEDS: LIDOCAINE HCL 1% PF INJ 5 ML VIAL INFILTRATE (15:05)
[2021-10-06] MEDS: SODIUM CHLORIDE 0.9% IV 1,000 ML 75 ML IV CONT (15:35)
[2021-10-06] MEDS: LACTATED RINGERS 500 ML IV CONT (15:35)
[2021-10-06 18:04] LABS: Hematocrit 23.4 % (42.0-52.0); Hemoglobin 7.4 g/dL (14.0-18.0); Mean Corpuscular HGB Conc 31.6 g/dl (32-36); Mean Corpuscular Hemoglobin 26.8 pg (26-34); Mean Corpuscular Volume 84.8 fl (80-100); Mean Platelet Volume 9.6 fl (7.4-10.4); Platelet Count Result 258 k/mm3 (150-375); Red Blood Count 2.76 M/mm3 (4.6-6.20); Red Cell Distribution Width 18.1 % (11.5-14.5); White Blood Count 41.8 K/mm3 (4.5-10.0)
[2021-10-06 18:13] LABS: Lactic Acid Reflex 3.2 mmol/L (0.7-2.1)
[2021-10-06 18:14] LABS: Anion Gap 4 mmol/L (8-16); Blood Urea Nitrogen 42 mg/dL (9-20); Calcium 8.9 mg/dL (8.4-10.2); Carbon Dioxide 24 mmol/L (22-30); Chloride 106 mmol/L (98-107); Estimated CRCL calculation 51 ml/min; Estimated Glomerular Filt Rate > 60; Glucose 116 mg/dL (65-110); Potassium 5.1 mmol/L (3.4-5.0); Sodium 134 mmol/L (137-145)
[2021-10-06] MEDS: SILVERGEL (ELTA) 45 ML 1 APPLIC TOPICAL (19:22)
--- NOTE | 2021-10-06 19:25 | ADMGEN ---
This patient, Zhang Alexis, was admitted to Intensive Care Unit-3. Patient/family oriented to hospital policies and general routines including ID bracelet, bed and alarms, visiting hours, pain management, procedures, bathroom and other care routines, personal items, smoking policy, room service/diet, and visiting hours. Information on how to activate the Rapid Response Team has been discussed. Patient/Family are encouraged to report perceived risks to care and to ask questions if they do not understand what they are told or what they should do.
[2021-10-06] MEDS: CENTRAL LINE FLUSH 10 ML IV PUSH (21:37)
[2021-10-07] VITALS (16 sets, daily range): BP systolic 114–156; BP diastolic 45–64; PULSE 75–98; RESP 15–20; TEMP 37–37.4; O2SAT 97–100
[2021-10-07] MEDS: PIPERACILLIN/TAZOBACTAM SOD 4.5 GM in SODIUM CHLORIDE 0.9% IV 100 ML 200 ML IVPB ×2 (00:27→05:35)
[2021-10-07 00:32] LABS: Glucose Point of Care 132 mg/dl (65-105)
[2021-10-07 00:45] LABS: Hematocrit 21.4 % (42.0-52.0)
[2021-10-07 00:49] LABS: Hemoglobin 6.8 g/dL (14.0-18.0)
[2021-10-07] MEDS: CENTRAL LINE FLUSH 10 ML IV PUSH ×2 (05:35→15:20)
[2021-10-07] MEDS: ONDANSETRON INJ 4 MG/2 ML VIAL IV PUSH (05:43)
[2021-10-07 06:38] LABS: Basophils Absolute Auto 0.1 K/mm3 (0.0-0.1); Basophils Percent Auto 0.4 % (0.2-1.2); Hematocrit 24.6 % (42.0-52.0); Hemoglobin 7.9 g/dL (14.0-18.0); Immature Granulocyte Absolute 1.34 K/mm3 (0.00-0.031); Lymphocytes Absolute Auto 1.04 K/mm3 (0.9-3.2); Lymphocytes Percent Auto 3.1 % (18.3-44.2); Mean Corpuscular HGB Conc 32.1 g/dl (32-36); Mean Corpuscular Hemoglobin 27.3 pg (26-34); Mean Corpuscular Volume 85.1 fl (80-100); Mean Platelet Volume 9.7 fl (7.4-10.4); Monocytes Absolute Auto 1.3 K/mm3 (0.1-0.6); Monocytes Percent Auto 3.9 % (2.6-8.5); Neutrophils Absolute Auto 29.9 K/mm3 (1.3-6.7); Neutrophils Percent Auto 88.6 % (45.5-73.1); Nucleated Red Blood Cells Perc 0.1 % (0.0-0.2); Platelet Count Result 241 k/mm3 (150-375); Red Blood Count 2.89 M/mm3 (4.6-6.20); Red Cell Distribution Width 17.4 % (11.5-14.5); White Blood Count 33.8 K/mm3 (4.5-10.0)
[2021-10-07 06:48] LABS: Lactic Acid Reflex 2.5 mmol/L (0.7-2.1)
[2021-10-07 07:07] LABS: INR 2.5; Prothrombin Time 25.8 Seconds (11.1-14.7)
[2021-10-07 07:08] LABS: Alanine Aminotransferase 41 U/L (4-50); Albumin Level 1.9 g/dL (3.5-5.1); Alkaline Phosphatase 72 U/L (38-126); Anion Gap 5 mmol/L (8-16); Aspartate Amino Transferase 53 U/L (17-59); Bilirubin,Total 0.6 mg/dL (0.2-1.3); Blood Urea Nitrogen 29 mg/dL (9-20); CRP 25.3 mg/dL (<1.0); Calcium 8.1 mg/dL (8.4-10.2); Carbon Dioxide 23 mmol/L (22-30); Chloride 103 mmol/L (98-107); Estimated CRCL calculation 45 ml/min; Estimated Glomerular Filt Rate > 60; Glucose 334 mg/dL (65-110); Lipase 75 U/L (23-300); Magnesium 1.4 mg/dL (1.6-2.3); Partial Thromboplastin Time 55.4 SECONDS (22.3-36.8); Phosphorus 3.3 mg/dL (2.5-4.5); Potassium 3.9 mmol/L (3.4-5.0); Sodium 131 mmol/L (137-145)
[2021-10-07 07:22] LABS: Glucose Point of Care 153 mg/dl (65-105)
[2021-10-07 08:03] LABS: Anisocytosis 1+ (NORMAL); Hypochromasia 1+ (NORMAL); Platelet Estimate Adequate (Adequate)
[2021-10-07 08:04] LABS: Microcytosis 1+ (NORMAL); Target Cells 1+ (NORMAL)
--- NOTE | 2021-10-07 08:15 | PM.PNGS ---
Progress Note: A&P Assessment and Plan (1) Acute gastric ulcer with perforation: Onset Date: ~10/06/21 Code(s): K25.1 - Acute gastric ulcer with perforation Status: Acute Assessment and Plan: at this time will continue with current plan. I suspected this is walled off with omentum or other fat. His pain is limited to the left upper quadrant and his sepsis seems to be controlled with antibiotics. ( may also have ESBL urinary tract infection which was asymptomatic). Since patient is decided against putting him through the risks of surgery in view of his frail state and multiple comorbidities will continue with conservative management using NG tube in antibiotics. If doing well tomorrow may start placing some sucralfate down the NG tube q.6 hours to coat the stomach. Continue IV continuous drip Protonix for now. Have discussed starting TPN to support his nutrition through the PICC line. Appreciate crystallizer operator help. We discussed antibiotics if he has to switch to Ertapenem for his urinary tract infection this should also cover anything that came out of his stomach. Can just stop the Zosyn at that point and continue single coverage with the Ertapenem. I will get three view/obstructive series of the abdomen in a.m. tomorrow to check on the ileus that was probably secondary to his total state of health/sepsis & if this is improving may be able to then consider enteral feeding a day or 2 later. (2) Severe sepsis: Onset Date: ~09/2021 Code(s): A41.9 - Sepsis, unspecified organism; R65.20 - Severe sepsis without septic shock Status: Acute Assessment and Plan: white count down to 36,000 the day but still had lactic acidosis last night. (3) Acute hyperkalemia: Onset Date: ~09/2021 Code(s): E87.5 - Hyperkalemia Status: Acute Assessment and Plan: Improved with treatment (4) Acidosis, lactic: Onset Date: ~09/2021 Code(s): E87.2 - Acidosis Status: Acute Assessment and Plan: gradually decreasing with treatment of sepsis. (5) Acute dehydration: Onset Date: ~09/2021 Code(s): E86.0 - Dehydration Status: Acute Assessment and Plan: now resolved with IV fluids. (6) Type 2 diabetes mellitus: Onset Date: Unknown Code(s): E11.9 - Type 2 diabetes mellitus without complications Status: Acute Assessment and Plan: quite high sugar this morning. Enrichment Assistant addressing. Discussed with crystallizer operator and patient is malnourished. Has been losing weight over the last 6 months due to his frail state and illnesses. Will start TPN through a PICC line today and patient will have to be monitored closely with regard to his blood sugars. (7) Wound of right foot: Onset Date: Unknown Code(s): S91.301A - Unspecified open wound, right foot, initial encounter Status: Acute Assessment and Plan: This is chronic and stable. No signs of infection surrounding it. It is a dark eschar on the medial side of his 1st metatarsal area. (8) Cardiomyopathy: Onset Date: Unknown Code(s): I42.9 - Cardiomyopathy, unspecified Status: Acute Assessment and Plan: apparently had a echocardiogram mid last year which showed a reasonable ejection fraction. (9) Arterial insufficiency of lower extremity: Onset Date: Unknown Code(s): I73.9 - Peripheral vascular disease, unspecified Status: Acute Assessment and Plan: Has seen teacher of the handicapped who also treats peripheral vascular disease. Has a aortobifemoral bypass but probably still small vessel disease to the lower extremity leading to the easy breakdown of skin and current wounds on the left hip which probably related to pressure and the right 1st metatarsal area. (10) Type 2 diabetes mellitus without complications: Code(s): E11.9 - Type 2 diabetes mellitus without complications Status: Acute
--- NOTE | 2021-10-07 08:44 | WPDINTPN ---
Progress Note: A&P Assessment and Plan (1) Severe sepsis: Onset Date: ~09/2021 Code(s): A41.9 - Sepsis, unspecified organism; R65.20 - Severe sepsis without septic shock Status: Acute Assessment and Plan: Significant leukocytosis of 46.1 on admission, generalized weakness, hyperkalemia, perforated gastric ulcer -likely source could be acute gastric ulcer perforation, UTI. Patient had ESBL Klebsiella in 08/2021. -patient given 2 L IV fluid bolus in the ER for blood pressures -patient seems to be significantly dehydrated and intravascularly dry, will give additional 500 mL IV fluid bolus and 1 bag of Hespan. -Initial lactic acid was 4.6, repeat lactic acid is 4.9, lactic acid on 10/07 is down to 2.5 -creatinine is 0.8 and BUN is 29, will continue to monitor -potassium levels are 3.9 this morning -will discontinue Zosyn and start patient on ertapenem as he had ESBL Klebsiella in August 2021. -blood and urine cultures have been obtained and pending - 02/2021 echocardiogram showed an EF of 60%, abnormal septal motion consistent with pacemaker, E to A wave reversal consistent with impaired LV relaxation (2) Acute gastric ulcer with perforation: Onset Date: ~10/06/21 Code(s): K25.1 - Acute gastric ulcer with perforation Status: Acute Assessment and Plan: Acute gastric ulcer perforation as seen on CT scan of the abdomen with free intraperitoneal air -surgery has been consulted and Dr. Perkins did discuss with the patient and his and did not want to undergo this surgery as he is high risk given that he is on Eliquis, multiple cardiac issues, elevated PTT, UTI, has a pacemaker -perforation may have walled off with omentum or other fat per surgery -continue Protonix infusion for another 24 hours per surgery -will start TPN for nutrition support, surgery okay with that -continue NG tube to suction antibiotics as above -will manage medically for now (3) Nausea and vomiting: Onset Date: ~10/03/21 Qualifiers: Vomiting type: unspecified Qualified Code(s): R11.2 - Nausea with vomiting, unspecified Code(s): R11.2 - Nausea with vomiting, unspecified Status: Resolved Assessment and Plan: Nausea and vomiting have resolved -will continue Zofran p.r.n. (4) Hyperkalemia: Code(s): E87.5 - Hyperkalemia Status: Inactive Assessment and Plan: Resolved Could be related to hemoconcentration as patient seems to be significantly volume depleted and dehydrated -was treated with calcium gluconate, insulin and D50, bicarbonate with repeat potassium level of 4.7 (6.6 on admission) (5) Weakness: Code(s): R53.1 - Weakness Status: Acute Assessment and Plan: Multifactorial could be related to infections, acute gastric ulcer perforation, severe sepsis, dehydration (6) Type 2 diabetes mellitus: Onset Date: Unknown Code(s): E11.9 - Type 2 diabetes mellitus without complications Status: Acute Assessment and Plan: Continue Accu-Cheks and sliding scale insulin (7) DVT prophylaxis: Code(s): Z29.9 - Encounter for prophylactic measures, unspecified Status: Acute Assessment and Plan: SCDs (8) Anemia: Qualifiers: Anemia type: unspecified type Qualified Code(s): D64.9 - Anemia, unspecified Code(s): D64.9 - Anemia, unspecified Status: Acute Assessment and Plan: Patient does have a history of anemia -he dropped his hemoglobin to 6.8 overnight and required 1 unit of packed RBCs -patient does take Eliquis at home -INR is 2.5 this morning which could be related to Eliquis and or severe sepsis -no active bleeding noted -continue to monitor hemoglobin and transfuse to maintain hemoglobin level > 7.0 Additional Plan Nutrition: Will start TPN Stress ulcer prophylaxis: Protonix DVT prophylaxis: SCDs, given the anemia Discussed with patient and his and updated them with
[2021-10-07] MEDS: MAGNESIUM SULF 2 GM/WATER 50ML 2 GM/50 ML BAG IVPB (09:19)
[2021-10-07] MEDS: SILVERGEL (ELTA) 45 ML 1 APPLIC TOPICAL (09:19)
[2021-10-07] MEDS: BENZOCAINE/MENTHOL (*BKC) 18 EA LOZENGE 1 LOZENGE PO (09:32)
[2021-10-07 09:35] LABS: Reflex Lactic Acid Yes or No Add Lactic
[2021-10-07 09:36] LABS: Basophils Absolute Auto 0.1 K/mm3 (0.0-0.1); Basophils Percent Auto 0.3 % (0.2-1.2); Hematocrit 24.5 % (42.0-52.0); Hemoglobin 7.8 g/dL (14.0-18.0); Immature Granulocyte Percent A 3.7 % (0-0.5); Lymphocytes Absolute Auto 1.14 K/mm3 (0.9-3.2); Lymphocytes Percent Auto 3.5 % (18.3-44.2); Mean Corpuscular HGB Conc 31.8 g/dl (32-36); Mean Corpuscular Hemoglobin 26.9 pg (26-34); Mean Corpuscular Volume 84.5 fl (80-100); Mean Platelet Volume 9.9 fl (7.4-10.4); Monocytes Absolute Auto 1.2 K/mm3 (0.1-0.6); Monocytes Percent Auto 3.6 % (2.6-8.5); Neutrophils Percent Auto 88.9 % (45.5-73.1); Platelet Count Result 234 k/mm3 (150-375); Red Cell Distribution Width 17.5 % (11.5-14.5); White Blood Count 32.6 K/mm3 (4.5-10.0)
[2021-10-07 09:45] LABS: Alanine Aminotransferase 40 U/L (4-50); Albumin Level 1.9 g/dL (3.5-5.1); Alkaline Phosphatase 68 U/L (38-126); Anion Gap 3 mmol/L (8-16); Aspartate Amino Transferase 51 U/L (17-59); Bilirubin,Total 0.7 mg/dL (0.2-1.3); Blood Urea Nitrogen 27 mg/dL (9-20); Calcium 7.9 mg/dL (8.4-10.2); Carbon Dioxide 23 mmol/L (22-30); Chloride 100 mmol/L (98-107); Estimated CRCL calculation 51 ml/min; Estimated Glomerular Filt Rate > 60; Glucose 440 mg/dL (65-110); Magnesium 1.4 mg/dL (1.6-2.3); Potassium 3.9 mmol/L (3.4-5.0); Sodium 126 mmol/L (137-145)
[2021-10-07 09:47] LABS: Partial Thromboplastin Time 56.4 SECONDS (22.3-36.8)
--- NOTE | 2021-10-07 09:53 | PM.CNCAR ---
Assessment and Plan Additional Plan This is an 80-year-old man presenting with perforated gastric ulcer picture of septic shock he has a background of significant vascular disease including a remote history of anteroseptal infarction and a chronically implanted pacemaker. For reasons that are not clear to me a troponin level was done in the emergency room and it was moderately elevated prompting this consultation. The clinical picture here is not at all suggestive of an acute coronary syndrome and there is certainly no reason to initiate a ischemia workup at this time. Patient's prognosis is very poor in my opinion. Boby Murphy MD [facility] History of Present Illness History of Present Illness Consult date/time: 10/07/21 09:53 Consult reason: Other (Troponinemia) Reason For Visit: Septic shock/perforate viscus/dehydration/hyperkal Narrative: This is an 80-year-old man I am seeing at the request of the emergency room staff who placed a consult because of a elevated troponin level. The patient is unknown to me prior to this admission. He is a critically ill 80-year-old man hospitalized with sepsis, shock and a ruptured gastric ulcer. He is being treated conservatively but as the patient and his did not wish to consider surgical treatment of this. He has a history of heart disease with coronary artery disease, previous anteroapical myocardial infarction history of chronically implanted pacemaker device. He receives his cardiology care from [facility]. Apparently he also has an extensive history of peripheral vascular disease with a repair of a abdominal aortic aneurysm in the past and surgical revascularization of the lower extremities including right axillo fem bypass and fem-fem bypass. He has been in the hospital here at [facility] a number of times recently. He comes into the hospital now in this situation he is in the ICU room 3. With significant anemia because of this and lactic acidosis. He does not have any chest pain complaints he looks remarkably comfortable upon entering the room to see him. He had a troponin level in the emergency room that was elevated at 0.6. Electrocardiogram shows electronically paced rhythm. Review of Systems Constitutional: Constitutional: Reports fatigue Comments: 50 lb weight loss over the last year Eyes: Eyes: Reports no additional eye complaints ENT: Reports system reviewed and no additional complaints, except as documented Cardiovascular: Cardiovascular: Reports no additional cardiovascular complaints Respiratory: Respiratory: Reports no additional respiratory complaints Gastrointestinal: Gastrointestinal: Reports as per HPI Musculoskeletal: Musculoskeletal: Reports no additional musculoskeletal complaints Integumentary/Breasts: Skin/Breast: Reports system reviewed and no additional complaints, except as docu Endocrine: Endocrine: Reports no additional endocrine complaints Hematologic/Lymphatic: Hematologic/Lymphatic: Reports as per HPI Allergic/Immunologic: Allergic/Immunologic: Reports no additional allergic/immunologic complaints [facility] Past Medical History Medical History (Updated 10/07/21 @ 08:34 by Arnaldo Perkins MD) Acute dehydration Acute on chronic blood loss anemia Anemia Arterial insufficiency of lower extremity (Unknown) Arthritis of left knee BMI 23.0-23.9, adult BMI between 19-24,adult Body mass index (BMI) less than 16.5 Bradycardia (Unknown) Status post pacemaker Cardiomyopathy (Unknown) Cervical spine arthritis Chronic pain Coffee ground emesis CVA (cerebral vascular accident) And 2006, no deficits DM (diabetes mellitus) Essential (primary) hypertension FH: carotid endarterectomy Gastric ulcer H/O: HTN (hypertension) History of kidney stones History of squamous cell carcinoma of skin HLD (hyperlipidemia) Hx of melanoma of skin No recurrence. Hyperkalemia Hypothyroidism Melanoma Occult blood in stools Open wound of left h
[2021-10-07] MEDS: AMINO ACIDS 5%/DEXTROSE 15% 2,000 ML with MULTIVITAMINS-12 INJ VIAL 1 2.5 ML, MULTIVITA... 40 ML IV CONT (09:55)
[2021-10-07] MEDS: FAT EMULSIONS IV 20% 250 ML 20.83 ML IVPB (09:57)
[2021-10-07 10:35] LABS: Transferrin < 80 mg/dL (206-381)
[2021-10-07] MEDS: ERTAPENEM 1 GM/NS 50 ML 1 GM/50 ML BAG IVPB ×2 (12:29→12:32)
[2021-10-07 12:35] LABS: Glucose Point of Care 214 mg/dl (65-105)
--- NOTE | 2021-10-07 13:21 | P.PNIM_ITS ---
Progress Note: A&P Assessment and Plan (1) Severe sepsis: Onset Date: ~09/2021 Code(s): A41.9 - Sepsis, unspecified organism; R65.20 - Severe sepsis without septic shock Status: Acute Assessment and Plan: Significant leukocytosis of 46.1 on admission, generalized weakness, hyperkalemia, perforated gastric ulcer -likely source could be acute gastric ulcer perforation, UTI. Patient had ESBL Klebsiella in 08/2021. -patient given 2 L IV fluid bolus in the ER for blood pressures -patient seems to be significantly dehydrated and intravascularly dry, will give additional 500 mL IV fluid bolus and 1 bag of Hespan. -Initial lactic acid was 4.6, repeat lactic acid is 4.9, lactic acid on 10/07 is down to 2.5 -creatinine is 0.8 and BUN is 29, will continue to monitor -potassium levels are 3.9 this morning -will discontinue Zosyn and start patient on ertapenem as he had ESBL Klebsiella in August 2021. -blood and urine cultures have been obtained and pending - 02/2021 echocardiogram showed an EF of 60%, abnormal septal motion consistent with pacemaker, E to A wave reversal consistent with impaired LV relaxation (2) Acute gastric ulcer with perforation: Onset Date: ~10/06/21 Code(s): K25.1 - Acute gastric ulcer with perforation Status: Acute Assessment and Plan: Acute gastric ulcer perforation as seen on CT scan of the abdomen with free i ntraperitoneal air -surgery has been consulted and Dr. Perkins did discuss with the patient and his and did not want to undergo this surgery as he is high risk given that he is on Eliquis, multiple cardiac issues, elevated PTT, UTI, has a pacemaker -perforation may have walled off with omentum or other fat per surgery -continue Protonix infusion for another 24 hours per surgery -will start TPN for nutrition support, surgery okay with that -continue NG tube to suction antibiotics as above -will manage medically for now (3) Nausea and vomiting: Onset Date: ~10/03/21 Qualifiers: Vomiting type: unspecified Qualified Code(s): R11.2 - Nausea with vomiting, unspecified Code(s): R11.2 - Nausea with vomiting, unspecified Status: Resolved Assessment and Plan: Nausea and vomiting have resolved -will continue Zofran p.r.n. (4) Hyperkalemia: Code(s): E87.5 - Hyperkalemia Status: Inactive Assessment and Plan: Resolved Could be related to hemoconcentration as patient seems to be significantly volume depleted and dehydrated -was treated with calcium gluconate, insulin and D50, bicarbonate with repeat potassium level of 4.7 (6.6 on admission) (5) Weakness: Code(s): R53.1 - Weakness Status: Acute Assessment and Plan: Multifactorial could be related to infections, acute gastric ulcer perforation, severe sepsis, dehydration (6) Type 2 diabetes mellitus: Onset Date: Unknown Code(s): E11.9 - Type 2 diabetes mellitus without complications Status: Acute Assessment and Plan: Continue Accu-Cheks and sliding scale insulin (7) DVT prophylaxis: Code(s): Z29.9 - Encounter for prophylactic measures, unspecified Status: Acute Assessment and Plan: SCDs (8) Anemia: Qualifiers: Anemia type: unspecified type Qualified Code(s): D64.9 - Anemia, unspecified Code(s): D64.9 - Anemia, unspecified Status: Acute Assessment and Plan: Patient does have a history of anemia -he dropped his hemoglobin to 6.8 overnight and required 1 unit of packed RBCs -patient does take Eliquis at
[2021-10-07 18:06] LABS: Glucose Point of Care 235 mg/dl (65-105)
[2021-10-07] MEDS: INSULIN ASPART (*BKC) 100 UNITS/ML SUB-Q (18:22)
[2021-10-07 20:05] LABS: Hematocrit 26.4 % (42.0-52.0); Hemoglobin 8.6 g/dL (14.0-18.0); Mean Corpuscular HGB Conc 32.6 g/dl (32-36); Mean Corpuscular Hemoglobin 27.5 pg (26-34); Mean Corpuscular Volume 84.3 fl (80-100); Mean Platelet Volume 9.8 fl (7.4-10.4); Platelet Count Result 252 k/mm3 (150-375); Red Blood Count 3.13 M/mm3 (4.6-6.20); Red Cell Distribution Width 17.6 % (11.5-14.5); White Blood Count 33.6 K/mm3 (4.5-10.0)
[2021-10-08] VITALS (13 sets, daily range): BP systolic 104–152; BP diastolic 49–82; PULSE 69–89; RESP 12–20; TEMP 35.7–37.1; O2SAT 96–100
[2021-10-08 00:27] LABS: Glucose Point of Care 234 mg/dl (65-105)
[2021-10-08] MEDS: INSULIN ASPART (*BKC) 100 UNITS/ML SUB-Q ×3 (00:27→18:16)
[2021-10-08] MEDS: CENTRAL LINE FLUSH 10 ML IV PUSH ×3 (00:27→15:05)
[2021-10-08 05:28] LABS: Basophils Absolute Auto 0.1 K/mm3 (0.0-0.1); Basophils Percent Auto 0.2 % (0.2-1.2); Eosinophils Absolute Auto 0.1 K/mm3 (0-0.3); Eosinophils Percent Auto 0.3 % (0-4.4); Hematocrit 26.4 % (42.0-52.0); Hemoglobin 8.4 g/dL (14.0-18.0); Immature Granulocyte Absolute 0.79 K/mm3 (0.00-0.031); Immature Granulocyte Percent A 2.9 % (0-0.5); Lymphocytes Absolute Auto 1.21 K/mm3 (0.9-3.2); Lymphocytes Percent Auto 4.5 % (18.3-44.2); Mean Corpuscular HGB Conc 31.8 g/dl (32-36); Mean Corpuscular Hemoglobin 26.9 pg (26-34); Mean Corpuscular Volume 84.6 fl (80-100); Mean Platelet Volume 9.8 fl (7.4-10.4); Monocytes Percent Auto 3.6 % (2.6-8.5); Neutrophils Absolute Auto 24.1 K/mm3 (1.3-6.7); Neutrophils Percent Auto 88.5 % (45.5-73.1); Platelet Count Result 227 k/mm3 (150-375); Red Blood Count 3.12 M/mm3 (4.6-6.20); Red Cell Distribution Width 17.8 % (11.5-14.5); White Blood Count 27.2 K/mm3 (4.5-10.0)
[2021-10-08 05:39] LABS: INR 1.7; Prothrombin Time 19.1 Seconds (11.1-14.7)
[2021-10-08 05:40] LABS: Lactic Acid Reflex 1.8 mmol/L (0.7-2.1); Partial Thromboplastin Time 48.3 SECONDS (22.3-36.8)
[2021-10-08 05:41] LABS: Alanine Aminotransferase 34 U/L (4-50); Alkaline Phosphatase 73 U/L (38-126); Anion Gap 2 mmol/L (8-16); Aspartate Amino Transferase 34 U/L (17-59); Bilirubin,Total 0.5 mg/dL (0.2-1.3); Blood Urea Nitrogen 20 mg/dL (9-20); Calcium 8.5 mg/dL (8.4-10.2); Carbon Dioxide 26 mmol/L (22-30); Chloride 105 mmol/L (98-107); Estimated CRCL calculation 80 ml/min; Estimated Glomerular Filt Rate > 60; Glucose 195 mg/dL (65-110); Lipase 83 U/L (23-300); Magnesium 1.6 mg/dL (1.6-2.3); Phosphorus 1.5 mg/dL (2.5-4.5); Potassium 3.6 mmol/L (3.4-5.0); Sodium 133 mmol/L (137-145)
[2021-10-08 05:44] LABS: Triglycerides 209 mg/dL (<150)
[2021-10-08] MEDS: FAT EMULSIONS IV 20% 250 ML 20.83 ML IVPB (08:39)
[2021-10-08] MEDS: AMINO ACIDS 5%/DEXTROSE 15% 2,000 ML with MULTIVITAMINS-12 INJ VIAL 1 2.5 ML, MULTIVITA... 40 ML IV CONT (08:39)
[2021-10-08] MEDS: SILVERGEL (ELTA) 45 ML 1 APPLIC TOPICAL (08:47)
--- NOTE | 2021-10-08 09:30 | PC.NURSE ---
Report received at 0922 by BIJAL Baker with the ICU department. Patient to go to IMU room 202.
--- NOTE | 2021-10-08 10:14 | P.PNIM_ITS ---
Progress Note: A&P Assessment and Plan (1) Severe sepsis: Onset Date: ~09/2021 Code(s): A41.9 - Sepsis, unspecified organism; R65.20 - Severe sepsis without septic shock Status: Acute Assessment and Plan: Significant leukocytosis of 46.1 on admission, generalized weakness, hyperkalemia, perforated gastric ulcer -likely source could be acute gastric ulcer perforation, UTI. Patient had ESBL Klebsiella in 08/2021. -patient given 2 L IV fluid bolus in the ER for blood pressures on 10/06/2021 -lactic acid has normalized to 1.3 (Initial lactic acid was 4.6) -creatinine is 0.5and BUN is 20, will continue to monitor -10/07/2021: Zosyn was switched to ertapenem, ( As he had ESBL Klebsiella in August 2021.) -10/06/2021: Urine cultures growing ESBL Klebsiella -10/06/2021 blood cultures growing gram-positive bacilli - 02/2021 echocardiogram showed an EF of 60%, abnormal septal motion consistent with pacemaker, E to A wave reversal consistent with impaired LV relaxation (2) Acute gastric ulcer with perforation: Onset Date: ~10/06/21 Code(s): K25.1 - Acute gastric ulcer with perforation Status: Acute Assessment and Plan: Acute gastric ulcer perforation as seen on CT scan of the abdomen with free intraperitoneal air -surgery has been consulted and Dr. Perkins did discuss with the patient and his and did not want to undergo this surgery as he is high risk given that he is on Eliquis, multiple cardiac issues, elevated PTT, UTI, has a pacemaker -perforation may have walled off with omentum or other fat per surgery -continue Protonix infusion for another 24 hours per surgery -TPN started on 10/07, surgery okay with that -continue NG tube to suction - antibiotics as above -will manage medically for now -discuss with surgery, Dr. Perkins be adding some Carafate and will obtain a Gastrografin study in 1-2 days to evaluate any leakage (3) Nausea and vomiting: Onset Date: ~10/03/21 Qualifiers: Vomiting type: unspecified Qualified Code(s): R11.2 - Nausea with vomiting, unspecified Code(s): R11.2 - Nausea with vomiting, unspecified Status: Resolved Assessment and Plan: Nausea and vomiting have resolved -will continue Zofran p.r.n. (4) Hyperkalemia: Code(s): E87.5 - Hyperkalemia Status: Inactive Assessment and Plan: Resolved Could be related to hemoconcentration as patient seems to be significantly volume depleted and dehydrated -was treated with calcium gluconate, insulin and D50, bicarbonate with repeat potassium level of 4.7 (6.6 on admission) (5) Weakness: Code(s): R53.1 - Weakness Status: Acute Assessment and Plan: Multifactorial could be related to infections, acute gastric ulcer perforation, severe sepsis, dehydration (6) Type 2 diabetes mellitus: Onset Date: Unknown Code(s): E11.9 - Type 2 diabetes mellitus without complications Status: Acute Assessment and Plan: Continue Accu-Cheks and sliding scale insulin (7) DVT prophylaxis: Code(s): Z29.9 - Encounter for prophylactic measures, unspecified Status: Acute Assessment and Plan: SCDs (8) Anemia: Qualifiers: Anemia type: unspecified type Qualified Code(s): D64.9 - Anemia, unspecified Code(s): D64.9 - Anemia, unspecified Status: Acute Assessment and Plan: Patient does have a history of anemia -he dropped his hemoglobin to 6.8 overnight and required 1 unit of packed RBCs -patient does take Eliquis at home which is curr
--- NOTE | 2021-10-08 10:15 | PC.NURSE ---
Patient arrived to IMU department by bed at 0955. Patient transported by bed. All belongings brought with patient to receiving unit.
--- NOTE | 2021-10-08 10:48 | WPDINTPN ---
Progress Note: A&P Assessment and Plan (1) Severe sepsis: Onset Date: ~09/2021 Code(s): A41.9 - Sepsis, unspecified organism; R65.20 - Severe sepsis without septic shock Status: Acute Assessment and Plan: Significant leukocytosis of 46.1 on admission, generalized weakness, hyperkalemia, perforated gastric ulcer -likely source could be acute gastric ulcer perforation, UTI. Patient had ESBL Klebsiella in 08/2021. -patient given 2 L IV fluid bolus in the ER for blood pressures on 10/06/2021 -lactic acid has normalized to 1.3 (Initial lactic acid was 4.6) -creatinine is 0.5and BUN is 20, will continue to monitor -10/07/2021: Zosyn was switched to ertapenem, ( As he had ESBL Klebsiella in August 2021.) -10/06/2021: Urine cultures growing ESBL Klebsiella -10/06/2021 blood cultures growing gram-positive bacilli - 02/2021 echocardiogram showed an EF of 60%, abnormal septal motion consistent with pacemaker, E to A wave reversal consistent with impaired LV relaxation (2) Acute gastric ulcer with perforation: Onset Date: ~10/06/21 Code(s): K25.1 - Acute gastric ulcer with perforation Status: Acute Assessment and Plan: Acute gastric ulcer perforation as seen on CT scan of the abdomen with free intraperitoneal air -surgery has been consulted and Dr. Perkins did discuss with the patient and his and did not want to undergo this surgery as he is high risk given that he is on Eliquis, multiple cardiac issues, elevated PTT, UTI, has a pacemaker -perforation may have walled off with omentum or other fat per surgery -continue Protonix infusion for another 24 hours per surgery -TPN started on 10/07, surgery okay with that -continue NG tube to suction - antibiotics as above -will manage medically for now -discuss with surgery, Dr. Perkins be adding some Carafate and will obtain a Gastrografin study in 1-2 days to evaluate any leakage (3) Nausea and vomiting: Onset Date: ~10/03/21 Qualifiers: Vomiting type: unspecified Qualified Code(s): R11.2 - Nausea with vomiting, unspecified Code(s): R11.2 - Nausea with vomiting, unspecified Status: Resolved Assessment and Plan: Nausea and vomiting have resolved -will continue Zofran p.r.n. (4) Hyperkalemia: Code(s): E87.5 - Hyperkalemia Status: Inactive Assessment and Plan: Resolved Could be related to hemoconcentration as patient seems to be significantly volume depleted and dehydrated -was treated with calcium gluconate, insulin and D50, bicarbonate with repeat potassium level of 4.7 (6.6 on admission) (5) Weakness: Code(s): R53.1 - Weakness Status: Acute Assessment and Plan: Multifactorial could be related to infections, acute gastric ulcer perforation, severe sepsis, dehydration (6) Type 2 diabetes mellitus: Onset Date: Unknown Code(s): E11.9 - Type 2 diabetes mellitus without complications Status: Acute Assessment and Plan: Continue Accu-Cheks and sliding scale insulin (7) DVT prophylaxis: Code(s): Z29.9 - Encounter for prophylactic measures, unspecified Status: Acute Assessment and Plan: SCDs (8) Anemia: Qualifiers: Anemia type: unspecified type Qualified Code(s): D64.9 - Anemia, unspecified Code(s): D64.9 - Anemia, unspecified Status: Acute Assessment and Plan: Patient does have a history of anemia -he dropped his hemoglobin to 6.8 overnight and required 1 unit of packed RBCs -patient does take Eliquis at home which is currently on hold -INR is 1.7 this morning which could be related to Eliquis and or severe sepsis -no active bleeding noted, - hemoglobin stable -continue to monitor hemoglobin and transfuse to maintain hemoglobin level > 7.0 Additional Plan Nutrition: Tolerating TPN Stress ulcer prophylaxis: Protonix DVT prophylaxis: SCDs, given the anemia Discussed with patient and his
[2021-10-08] MEDS: BISACODYL 10 MG SUPPOSITORY RECTAL (12:09)
--- NOTE | 2021-10-08 12:32 | PM.PNGS ---
Progress Note: A&P Assessment and Plan (1) Acute gastric ulcer with perforation: Onset Date: ~10/06/21 Code(s): K25.1 - Acute gastric ulcer with perforation Status: Acute Assessment and Plan: At this time will continue with current plan. I suspected this is walled off with omentum or other fat. His pain is limited to the left upper quadrant and his sepsis seems to be controlled with antibiotics. ( may also have ESBL urinary tract infection which was asymptomatic). Since patient and decided against putting him through the risks of surgery in view of his frail state and multiple comorbidities will continue with conservative management using NG tube and antibiotics. Wiil start placing some sucralfate down the NG tube q.8 hours to coat the stomach. Continue IV continuous drip Protonix for now. Have discussed starting TPN to support his nutrition through the PICC line. ( this continues) Appreciate post graduate internship help. Transferring to IMU today. We discussed antibiotics if he has to switch to Ertapenem for his urinary tract infection this should also cover anything that came out of his stomach other than yeast. Can just stop the Zosyn at that point and continue single coverage with the Ertapenem. The three view/obstructive series of the abdomen this a.m. Shows just to dilated loops of small bowel and an improving ileus pattern. No mention is made of free air. Also noted is what appears to be a stool ball and some rectal gas around it. ( Will order a suppository and then a fleets enema if that does not do anything. ). (2) Severe sepsis: Onset Date: ~09/2021 Code(s): A41.9 - Sepsis, unspecified organism; R65.20 - Severe sepsis without septic shock Status: Acute Assessment and Plan: white count down to 27,000 today And patient has not required circulatory support with pressors. One blood culture however has been called back positive with Gram-negative bacilli. Also urinalysis is growing a Gram-positive bacilli identified as Klebsiella oxytoca with EBSL.. sensitivities do show that it is sensitive to ertapenem.. Plan to continue this antibiotic therapy for 10-14 days then. (3) Acute hyperkalemia: Onset Date: ~09/2021 Code(s): E87.5 - Hyperkalemia Status: Acute Assessment and Plan: Improved with treatment (4) Acidosis, lactic: Onset Date: ~09/2021 Code(s): E87.2 - Acidosis Status: Acute Assessment and Plan: gradually decreasing with treatment of sepsis. Now resolved (5) Acute dehydration: Onset Date: ~09/2021 Code(s): E86.0 - Dehydration Status: Acute Assessment and Plan: now resolved with IV fluids. (6) Type 2 diabetes mellitus: Onset Date: Unknown Code(s): E11.9 - Type 2 diabetes mellitus without complications Status: Acute Assessment and Plan: still elevated sugar this morning. Paint Booth Operator addressing. Discussed with post graduate internship and patient is malnourished. Has been losing weight over the last 6 months due to his frail state and illnesses. Will continyuue TPN through a PICC line today and patient will have to be monitored closely with regard to his blood sugars. (7) Wound of right foot: Onset Date: Unknown Code(s): S91.301A - Unspecified open wound, right foot, initial encounter Status: Acute Assessment and Plan: This is chronic and stable. No signs of infection surrounding it. It is a dark eschar on the medial side of his 1st metatarsal area. (8) Cardiomyopathy: Onset Date: Unknown Code(s): I42.9 - Cardiomyopathy, unspecified Status: Acute Assessment and Plan: apparently had a echocardiogram mid last year which showed a reasonable ejection fraction. cardiology consult appreciated. (9) Arterial insufficiency of lower extremity: Onset Date: Unknown Code(s): I73.9 - Peripheral v
[2021-10-08 16:22] LABS: Glucose Point of Care 232 mg/dl (65-105)
[2021-10-08] MEDS: SUCRALFATE SUSP 100 MG/ML 10 ML UDC 1000 MG FEED TUBE (18:21)
[2021-10-08 18:37] LABS: Glucose Point of Care 234 mg/dl (65-105)
[2021-10-08 23:53] LABS: Glucose Point of Care 223 mg/dl (65-105)
[2021-10-09] VITALS (14 sets, daily range): BP systolic 129–149; BP diastolic 49–61; PULSE 57–90; RESP 16–22; TEMP 35.7–36.9; O2SAT 97–100
[2021-10-09] MEDS: CENTRAL LINE FLUSH 10 ML IV PUSH ×4 (00:08→21:23)
[2021-10-09] MEDS: INSULIN ASPART (*BKC) 100 UNITS/ML SUB-Q ×3 (00:08→18:23)
[2021-10-09] MEDS: SUCRALFATE SUSP 100 MG/ML 10 ML UDC 1000 MG FEED TUBE ×3 (04:56→21:23)
[2021-10-09 05:00] LABS: Basophils Absolute Auto 0.1 K/mm3 (0.0-0.1); Basophils Percent Auto 0.2 % (0.2-1.2); Eosinophils Absolute Auto 0.1 K/mm3 (0-0.3); Eosinophils Percent Auto 0.3 % (0-4.4); Hematocrit 24.7 % (42.0-52.0); Hemoglobin 7.9 g/dL (14.0-18.0); Immature Granulocyte Absolute 0.57 K/mm3 (0.00-0.031); Immature Granulocyte Percent A 2.8 % (0-0.5); Lymphocytes Absolute Auto 1.31 K/mm3 (0.9-3.2); Lymphocytes Percent Auto 6.5 % (18.3-44.2); Mean Corpuscular Hemoglobin 26.6 pg (26-34); Mean Corpuscular Volume 83.2 fl (80-100); Mean Platelet Volume 10.1 fl (7.4-10.4); Monocytes Absolute Auto 1.2 K/mm3 (0.1-0.6); Neutrophils Absolute Auto 17.1 K/mm3 (1.3-6.7); Neutrophils Percent Auto 84.2 % (45.5-73.1); Platelet Count Result 186 k/mm3 (150-375); Red Blood Count 2.97 M/mm3 (4.6-6.20); Red Cell Distribution Width 17.4 % (11.5-14.5); White Blood Count 20.3 K/mm3 (4.5-10.0)
[2021-10-09 05:09] LABS: Alanine Aminotransferase 31 U/L (4-50); Alkaline Phosphatase 75 U/L (38-126); Anion Gap 3 mmol/L (8-16); Aspartate Amino Transferase 33 U/L (17-59); Bilirubin,Total 0.8 mg/dL (0.2-1.3); Blood Urea Nitrogen 16 mg/dL (9-20); Calcium 8.4 mg/dL (8.4-10.2); Carbon Dioxide 25 mmol/L (22-30); Chloride 101 mmol/L (98-107); Estimated CRCL calculation 80 ml/min; Estimated Glomerular Filt Rate > 60; Glucose 179 mg/dL (65-110); Lactic Acid Reflex 1.7 mmol/L (0.7-2.1); Lipase 137 U/L (23-300); Magnesium 1.5 mg/dL (1.6-2.3); Phosphorus 1.2 mg/dL (2.5-4.5); Potassium 3.7 mmol/L (3.4-5.0); Sodium 129 mmol/L (137-145)
[2021-10-09 05:15] LABS: INR 1.5; Prothrombin Time 17.5 Seconds (11.1-14.7)
[2021-10-09 05:16] LABS: Partial Thromboplastin Time 44.2 SECONDS (22.3-36.8); Transferrin 85 mg/dL (206-381)
[2021-10-09 05:44] LABS: Anisocytosis 1+ (NORMAL); Hypochromasia 1+ (NORMAL); Platelet Estimate Adequate (Adequate); Target Cells 1+ (NORMAL)
[2021-10-09 08:10] LABS: Troponin I 0.185 ng/mL (0.000-0.034)
[2021-10-09] MEDS: SODIUM PHOSPHATE 20 MM in DEXTROSE 5% IN WATER 250 ML 50 MM IVPB (08:17)
[2021-10-09] MEDS: MAGNESIUM SULF 2 GM/WATER 50ML 2 GM/50 ML BAG IVPB (08:20)
--- NOTE | 2021-10-09 09:09 | PM.IMPN ---
Progress Note: A&P Assessment and Plan (1) Severe sepsis: Onset Date: ~09/2021 Code(s): A41.9 - Sepsis, unspecified organism; R65.20 - Severe sepsis without septic shock Status: Acute Assessment and Plan: Sepsis present on admission with leukocytosis, elevated CRP and lactic acid. Significant leukocytosis of 46.1 with lactic acid 4.9. Likely source could be acute gastric ulcer perforation, UTI. UCx growing Klebsiellla oxytoca ESBL. BCx growing gram positive bacilli from anaerobic bottle only. Patient was given 2 L IV fluid bolus in the ED for blood pressures on 10/06/21. Lactic acid has normalized to 1.7 and WBC 20K. Started on Zosyn but switched to ertapenem 10/07/21. No Fevers. Continue to monitor. (2) Acute gastric ulcer with perforation: Onset Date: ~10/06/21 Code(s): K25.1 - Acute gastric ulcer with perforation Status: Acute Assessment and Plan: EGD 09/04/21 showing reflux esophagitis, gastritis and gastric ulcer. CT Abd/pelvis 10/06 showing free intraperitoneal air and fluid left upper abdomen, suspicious for bowel perforation, possibly perforated gastric ulcer. -surgery has been consulted and Dr. Perkins did discuss with the patient and his and did not want to undergo this surgery as he is high risk given that he is on Eliquis, multiple cardiac issues, elevated PTT, UTI. -perforation may have walled off with omentum or other fat per surgery -continue Protonix infusion -Continue TPN started on 10/07; Potassium and Mag low so will replace -continue NG tube to suction -antibiotics as above -will manage medically for now -Dr. Perkins added Carafate and will obtain a Gastrografin study in 1-2 days to evaluate any leakage -keep NPO for now (3) Nausea and vomiting: Onset Date: ~10/03/21 Qualifiers: Vomiting type: unspecified Qualified Code(s): R11.2 - Nausea with vomiting, unspecified Code(s): R11.2 - Nausea with vomiting, unspecified Status: Resolved Assessment and Plan: Nausea and vomiting have resolved. Related to above. Continue Zofran p.r.n. (4) Hyperkalemia: Code(s): E87.5 - Hyperkalemia Status: Inactive Assessment and Plan: Potassium 6.6 on admission. Could be relate to bowel ischemia. He was treated appropriately with repeat potassium level of 3.7 today. Resolved. Follow (5) Anemia: Qualifiers: Anemia type: unspecified type Qualified Code(s): D64.9 - Anemia, unspecified Code(s): D64.9 - Anemia, unspecified Status: Acute Assessment and Plan: Patient does have a history of anemia. He was He left last admission around 8-9 range. He was noted to have anemia of chronic disease last admission. His Hgb 10.4 on admission but dropped to 6.8 on 10/07 requiring 1 unit of packed RBCs. -patient does take Eliquis at home which is currently on hold -INR was 2.5 but better at 1.5 today; could be related to Eliquis and/or severe sepsis -no active bleeding noted, - hemoglobin climbed to 8.6 but now down to7.9. -continue to monitor hemoglobin and transfuse to maintain hemoglobin level > 7.0 (6) Weakness: Code(s): R53.1 - Weakness Status: Acute Assessment and Plan: Multifactorial related to UTI, acute gastric ulcer perforation, severe sepsis, and dehydration. Start PT/OT when able (7) Elevated troponin: Code(s): R77.8 - Other specified abnormalities of plasma proteins Status: Acute Assessment and Plan: Troponin elevated at 0.63. EKG shwioing paced rhythm. Repeat Trop trending down. [place] elevated Trop related to sepsis. (8) Type 2 diabetes mellitus: Onset Date: Unknown Code(s): E11.9 - Type 2 diabetes mellitus without complications Status: Acute Assessment and Plan: The patient's blood glucose was reviewed on 10/09 Glucose remains poorly controlled. Continue AccuCheks covering with sliding scale. Hypoglycemia ashley
[2021-10-09] MEDS: AMINO ACIDS 5%/DEXTROSE 15% 2,000 ML with MULTIVITAMINS-12 INJ VIAL 1 2.5 ML, MULTIVITA... 40 ML IV CONT (09:17)
[2021-10-09] MEDS: SILVERGEL (ELTA) 45 ML 1 APPLIC TOPICAL (09:23)
[2021-10-09] MEDS: FAT EMULSIONS IV 20% 250 ML 20.83 ML IVPB (10:09)
--- NOTE | 2021-10-09 12:26 | PCNFU ---
Addendum entered by Elena Hernandez RD, BREONNAN 10/09/21 12:36: RD will monitor every T/F Original Note: Nutrition Follow-Up Complete: Unintended weight loss as related to poor po intake as evidenced by weight loss of greater than 7.5% in the past 3 months. Goal: Adequate Intake of at least 75% of meals/supplements Pt is slowly progressing towards goal. No new goal at this time. Pt current nutrition is NPO Last recorded weight is 59.9 kg, up 8.5kg from last reported weight on 10/07/21. Recommend re-weighing prior to D/C. Bowel Motility: +BM reported 10/08/21 Labs Reviewed: Hgb 7.9, Hct 24.7, Alb 2.0, Na 129, Triglycerides 209, Transferrin 85, Mg 1.5, Cr 0.50, Glu 179, PO4 1.2, Troponin I 0.185 Meds Noted: Clinimix 5%/15%, Lipids 20%, Pantoprazole, Sodium Phosphate, Carafate Skin: Right medial food ulcer - arterial, left lateral hip pressure ulcer - unstageable Additional Notes: Pt currently NPO. TPN started on 10/07/21 and running at a rate of 40mL/hr with 20% lipids. NG tube in place. TPN is providing 1182kcal and 48g of protein meeting 65% of estimated kcal needs and 83% of estimated protein needs. Recommend increasing TPN rate by 10mL each day until a goal rate of 50mL/hr is met to provide 1352kcal and 60g of protein to meet 74% of estimated kcal needs and 100% of estimated protein needs. Recommend rechecking triglycerides and holding lipids if they remain >150. Agree with diet orders at this time. Will continue to follow. RD will monitor every 3 days.
[2021-10-09 12:27] LABS: Glucose Point of Care 240 mg/dl (65-105)
[2021-10-09] MEDS: ERTAPENEM 1 GM/NS 50 ML 1 GM/50 ML BAG IVPB (13:18)
--- NOTE | 2021-10-09 14:23 | PM.PNGS ---
Progress Note: A&P Assessment and Plan (1) Acute gastric ulcer with perforation: Onset Date: ~10/06/21 Code(s): K25.1 - Acute gastric ulcer with perforation Status: Acute Assessment and Plan: Presented with gastric ulcer with perforation noted on CT scan, which showed a small amount of air between the greater curvature of the stomach and transverse colon, as well as some gas in the wall of the stomach. Continue conservative treatment with IV Ertapenem, NG tube decompression, and bowel rest. Continue TPN again today. Continue IV Protonix drip and carafate (increase frequency). Will plan Gastrografin upper GI tomorrow to re-evaluate the gastric ulcer perforation. (2) Severe sepsis: Onset Date: ~09/2021 Code(s): A41.9 - Sepsis, unspecified organism; R65.20 - Severe sepsis without septic shock Status: Acute Assessment and Plan: [place] secondary to gastric ulcer with perforation versus urinary source. WBC trending down, at 20K today. Lactic acid normalized. Urine cx growing Klebsiellla oxytoca ESBL. Blood cx growing gram positive bacilli from anaerobic bottle only. Continue IV Ertapenem. Continue to trend labs and monitor. See plan above. (3) Acidosis, lactic: Onset Date: ~09/2021 Code(s): E87.2 - Acidosis Status: Acute Assessment and Plan: Resolved with treatment as mentioned above. Lactic 1.7 today. (4) Cardiomyopathy: Onset Date: Unknown Code(s): I42.9 - Cardiomyopathy, unspecified Status: Acute Assessment and Plan: Cardiology was consulted for elevated troponin, recommendations noted. No plan for ischemic workup. (5) Type 2 diabetes mellitus without complications: Code(s): E11.9 - Type 2 diabetes mellitus without complications Status: Acute (6) Arterial insufficiency of lower extremity: Onset Date: Unknown Code(s): I73.9 - Peripheral vascular disease, unspecified Status: Acute (7) Open wound of left hip: Onset Date: Unknown Code(s): S71.002A - Unspecified open wound, left hip, initial encounter Status: Acute Assessment and Plan: Continue local wound care. Will try to look at all of his wounds with Dr. Perkins tomorrow. (8) Wound of right foot: Onset Date: Unknown Code(s): S91.301A - Unspecified open wound, right foot, initial encounter Status: Acute Assessment and Plan: Continue local wound care. Additional Plan I have discussed the patient's case and plan of care with Dr. Perkins. Also to note, Triglycerides were 209 yesterday. Tray Checker recommending to hold lipids if they remain > 150, will recheck labs tomorrow. Subjective Subjective Date/Time Seen: 10/09/21 12:23 Patient reports: no new complaints, flatus, bowel movement and afebrile Interval history: Patient seen and examined today with his at the bedside. He denies any abdominal pain when questioned today. He reports having one BM this morning. He had a dulcolax suppository and enema yesterday evening. He has not gotten out of bed yet today, but had gotten up to the chair yesterday. He has no other specific complaints at this time. Review of Systems Review of Systems: All systems reviewed & are unremarkable except as noted in HPI and below Exam Const: General: comfortable, no acute distress and alert Nutritional Appearance: underweight Orientation/consciousness: patient oriented x3 GI: Inspection: non-distended GI Palp: Yes Soft to palpation, Yes Tenderness to palpation present (GI) (mildly tender throughout the entire abdomen), No Guarding due to palpation present (GI), No Rigid due to palpation, No Rebound tenderness present and Yes Other GI palpation findings present (no peritoneal signs but more tender today) Auscultation: Hypoactive bowel sounds present Other: NG with bilious-appearing output in tubing Neuro: General: moves all extremities and no focal motor defici
[2021-10-09] MEDS: INSULIN GLARGINE (*BKC) 100 UNITS/ML 8 UNITS SUB-Q (21:23)
[2021-10-10] VITALS (13 sets, daily range): BP systolic 135–151; BP diastolic 48–62; PULSE 64–84; RESP 14–20; TEMP 35.6–37.1; O2SAT 97–100
[2021-10-10 03:18] LABS: Glucose Point of Care 258 mg/dl (65-105)
[2021-10-10 05:51] LABS: Basophils Percent Auto 0.1 % (0.2-1.2); Eosinophils Percent Auto 0.2 % (0-4.4); Hematocrit 24.2 % (42.0-52.0); Hemoglobin 7.8 g/dL (14.0-18.0); Immature Granulocyte Absolute 0.44 K/mm3 (0.00-0.031); Immature Granulocyte Percent A 2.1 % (0-0.5); Lymphocytes Absolute Auto 1.15 K/mm3 (0.9-3.2); Lymphocytes Percent Auto 5.4 % (18.3-44.2); Mean Corpuscular HGB Conc 32.2 g/dl (32-36); Mean Corpuscular Hemoglobin 25.8 pg (26-34); Mean Corpuscular Volume 80.1 fl (80-100); Mean Platelet Volume 10.6 fl (7.4-10.4); Monocytes Absolute Auto 1.3 K/mm3 (0.1-0.6); Monocytes Percent Auto 5.9 % (2.6-8.5); Neutrophils Absolute Auto 18.4 K/mm3 (1.3-6.7); Neutrophils Percent Auto 86.3 % (45.5-73.1); Platelet Count Result 199 k/mm3 (150-375); Red Blood Count 3.02 M/mm3 (4.6-6.20); Red Cell Distribution Width 17.4 % (11.5-14.5); White Blood Count 21.3 K/mm3 (4.5-10.0)
[2021-10-10 06:07] LABS: INR 1.6; Prothrombin Time 18.1 Seconds (11.1-14.7)
[2021-10-10 06:08] LABS: Partial Thromboplastin Time 43.9 SECONDS (22.3-36.8)
[2021-10-10] MEDS: SUCRALFATE SUSP 100 MG/ML 10 ML UDC 1000 MG FEED TUBE ×2 (06:30→20:36)
[2021-10-10] MEDS: CENTRAL LINE FLUSH 10 ML IV PUSH ×3 (06:30→20:38)
[2021-10-10 06:50] LABS: Glucose Point of Care 192 mg/dl (65-105)
[2021-10-10 07:59] LABS: Alanine Aminotransferase 30 U/L (4-50); Albumin Level 2.1 g/dL (3.5-5.1); Alkaline Phosphatase 105 U/L (38-126); Anion Gap 5 mmol/L (8-16); Aspartate Amino Transferase 34 U/L (17-59); Bilirubin,Total 1.2 mg/dL (0.2-1.3); Blood Urea Nitrogen 11 mg/dL (9-20); Calcium 8.3 mg/dL (8.4-10.2); Carbon Dioxide 26 mmol/L (22-30); Chloride 99 mmol/L (98-107); Estimated CRCL calculation 68 ml/min; Estimated Glomerular Filt Rate > 60; Glucose 201 mg/dL (65-110); Magnesium 1.8 mg/dL (1.6-2.3); Phosphorus 1.6 mg/dL (2.5-4.5); Potassium 3.1 mmol/L (3.4-5.0); Sodium 130 mmol/L (137-145)
--- NOTE | 2021-10-10 08:06 | PM.PNGS ---
Progress Note: A&P Assessment and Plan (1) Acute gastric ulcer with perforation: Onset Date: ~10/06/21 Code(s): K25.1 - Acute gastric ulcer with perforation Status: Acute Assessment and Plan: Presented with gastric ulcer with perforation noted on CT scan, which showed a small amount of air between the greater curvature of the stomach and transverse colon, as well as some gas in the wall of the stomach. Continue conservative treatment with IV Ertapenem, NG tube decompression, and bowel rest. Continue TPN again today. Have ordered Gastrografin upper GI and if no leak small-bowel follow-through to be sure there is not small-bowel obstruction ( see comment on CT close come ). The patient also had ileus which was not surprising with the intra-abdominal changes on the original CT last Saturday. Continue IV Protonix drip and carafate down NG . small dose Gastrografin study of the stomach and subsequent CT scan of the abdomen reviewed with Dr. Burns. No definite extravasation from the stomach noted however a possible new 3 x 2 cm intra-abdominal abscess associated with 1 area of the anterior wall of stomach is present. May need to consider percutaneous drainage but for now as long as the patient is stable consider continuing IV antibiotics as he will need 10-14 days of this anyway because of his sepsis. (Continue ertapenem Q 24 hours for now as this is strongly effective against the Klebsiella ESBL since plain film shows significant fecal loading will give patient 1 dose of milk of magnesia down the NG tube this afternoon. ( mid day dose of Carafate was held around the time of his radiology procedures) resume Carafate with this evening's dose around 8:10 p.m.. Since patient has has not had a documented bowel movement for 2 days will give Dulcolax suppository again. (2) Severe sepsis: Onset Date: ~09/2021 Code(s): A41.9 - Sepsis, unspecified organism; R65.20 - Severe sepsis without septic shock Status: Acute Assessment and Plan: [place] secondary to gastric ulcer with perforation versus urinary source. WBC trending down, at 20K today. Lactic acid normalized. Urine cx growing Klebsiellla oxytoca ESBL. Blood cx growing gram positive bacilli from anaerobic bottle only. Continue IV Ertapenem. Continue to trend labs and monitor. See plan above. (3) Acidosis, lactic: Onset Date: ~09/2021 Code(s): E87.2 - Acidosis Status: Acute Assessment and Plan: Resolved with treatment as mentioned above. Lactic 1.7 today. (4) Cardiomyopathy: Onset Date: Unknown Code(s): I42.9 - Cardiomyopathy, unspecified Status: Acute Assessment and Plan: Cardiology was consulted for elevated troponin, recommendations noted. No plan for ischemic workup. (5) Type 2 diabetes mellitus without complications: Code(s): E11.9 - Type 2 diabetes mellitus without complications Status: Acute (6) Arterial insufficiency of lower extremity: Onset Date: Unknown Code(s): I73.9 - Peripheral vascular disease, unspecified Status: Acute (7) Open wound of left hip: Onset Date: Unknown Code(s): S71.002A - Unspecified open wound, left hip, initial encounter Status: Acute Assessment and Plan: Continue local wound care. Will try to look at all of his wounds with Dr. Perkins tomorrow. (8) Wound of right foot: Onset Date: Unknown Code(s): S91.301A - Unspecified open wound, right foot, initial encounter Status: Acute Assessment and Plan: Continue local wound care. Additional Plan I have discussed the patient's case and plan of care with Dr. Gomez. Triglycerides were 209 on 10/08, but down to 166 today. Patient Service Specialist recommending to possibly hold lipids if they remain > 150. Dietary notes however today reflect okay to continue daily lipids and I agree in view of his malnutrition and will await further triglyceride check
[2021-10-10] MEDS: AMINO ACIDS 5%/DEXTROSE 15% 2,000 ML with MULTIVITAMINS-12 INJ VIAL 1 2.5 ML, MULTIVITA... 40 ML IV CONT (08:28)
[2021-10-10 08:53] LABS: Triglycerides 166 mg/dL (<150)
--- NOTE | 2021-10-10 08:55 | PCOTNOTE ---
Attempted to see patient this am, however patient is going off floor for testing at this time.
[2021-10-10] MEDS: SILVERGEL (ELTA) 45 ML 1 APPLIC TOPICAL (10:03)
[2021-10-10] MEDS: POTASSIUM CHLORIDE INJ 40 MEQ in SODIUM CHLORIDE 0.9% IV 500 ML 130 MEQ IVPB (10:03)
[2021-10-10] MEDS: SODIUM PHOSPHATE 20 MM in DEXTROSE 5% IN WATER 250 ML 50 MM IVPB (10:04)
[2021-10-10] MEDS: FAT EMULSIONS IV 20% 250 ML 20.83 ML IVPB (10:12)
--- NOTE | 2021-10-10 11:20 | PCNFU ---
Nutrition Follow-Up Complete: Unintended weight loss as related to poor po intake as evidenced by weight loss of greater than 7.5% in the past 3 months. goal: Adequate Intake of at least 75% of meals/supplements Patient will continue with current goal. Pt current nutrition is TPN. Last recorded weight is 63 kg, up from 57.8 kg on admit. Bowel Motility:+BM reported 10/08 Labs Reviewed:TG 166,K 3.1,Na 130, Hct 24.2,Hgb 7.8 Meds Noted:Clinimix 5%/15%, Lipids 20%, Pantoprazole, Sodium Phosphate, Carafate Skin: left lateral hip pressure ulcer - unstageable Additional Notes: Nutrition follow up. Plans for upper GI series and CT scan. TPN continues at this time providing 1182 kcals and 48 gms protein. Spoke with OLESYA Hobson today. Nutrition Recommendations for trickle tube feedings: Glucerna 1.2 at 10 ml/hr over 22 hours providing 264 kcals/13.2 gms protein/177 ml water. TG 166 trending down from 209. RD will monitor every Saturday and Saturday.
[2021-10-10] MEDS: INSULIN ASPART (*BKC) 100 UNITS/ML SUB-Q ×3 (12:47→23:49)
[2021-10-10 12:48] LABS: Glucose Point of Care 251 mg/dl (65-105)
[2021-10-10] MEDS: ERTAPENEM 1 GM/NS 50 ML 1 GM/50 ML BAG IVPB (12:53)
--- NOTE | 2021-10-10 12:59 | PM.IMPN ---
Progress Note: A&P Assessment and Plan (1) Severe sepsis: Onset Date: ~09/2021 Code(s): A41.9 - Sepsis, unspecified organism; R65.20 - Severe sepsis without septic shock Status: Acute Assessment and Plan: Sepsis present on admission with leukocytosis, elevated CRP and lactic acid. Significant leukocytosis of 46.1 with lactic acid 4.9. Likely source felt related to acute gastric ulcer perforation +/- UTI. UCx growing Klebsiellla oxytoca ESBL. BCx growing Lactobacillius felt to be a contaminant. Patient was given 2 L IV fluid bolus in the ED for blood pressures on 10/06/21. Started on Zosyn but switched to ertapenem 10/07/21. Lactic acid has normalized and WBC 21K. No Fevers. Continue to monitor. Continue current antibiotics. (2) Acute gastric ulcer with perforation: Onset Date: ~10/06/21 Code(s): K25.1 - Acute gastric ulcer with perforation Status: Acute Assessment and Plan: EGD 09/04/21 showing reflux esophagitis, gastritis and gastric ulcer. CT Abd/pelvis 10/06 showing free intraperitoneal air and fluid left upper abdomen, suspicious for bowel perforation, possibly perforated gastric ulcer. -surgery has been consulted and Dr. Perkins did discuss with the patient and his and did not want to undergo this surgery as he is high risk given that he is on Eliquis, multiple cardiac issues, elevated PTT, UTI. CT A/P today showing no definitive extravasation of contrast but there is increased fat stranding and fluid surrounding the stomach with a small amount of free intraperitoneal air which has decreased. There is a new fluid collection left mid abdomen measuring 3.7 cm possibly a developing abscess. Also of note is air-fluid levels in the small bowel most likely ileus. -continue Protonix infusion -Continue TPN started on 10/07 -continue NG tube to suction -antibiotics as above -will manage medically for now -Continue Carafate -keep NPO for now (3) Abdominal abscess: Status: Acute Assessment and Plan: CT scan shows a 3.7 cm fluid collection. This is most likely abscess from recent perforation. Will discuss with Radiology if a drain can be placed. (4) Ileus: Code(s): K56.7 - Ileus, unspecified Status: Acute Assessment and Plan: CT scan shows dilated small bowel consistent with ileus which is not unexpected. Hold on tube feedings. Continue NG tube to suction. (5) Nausea and vomiting: Onset Date: ~10/03/21 Qualifiers: Vomiting type: unspecified Qualified Code(s): R11.2 - Nausea with vomiting, unspecified Code(s): R11.2 - Nausea with vomiting, unspecified Status: Resolved Assessment and Plan: Nausea and vomiting have resolved. Related to above. Continue Zofran p.r.n. (6) Hyperkalemia: Code(s): E87.5 - Hyperkalemia Status: Inactive Assessment and Plan: Potassium 6.6 on admission. Could be relate to bowel ischemia. He was treated appropriately with resolution. Follow (7) Anemia: Qualifiers: Anemia type: unspecified type Qualified Code(s): D64.9 - Anemia, unspecified Code(s): D64.9 - Anemia, unspecified Status: Acute Assessment and Plan: Patient does have a history of anemia with w/u showing anemia of chronic disease last admission. His Hgb 10.4 on admission but dropped to 6.8 on 10/07 requiring 1 unit of packed RBCs. -patient does take Eliquis at home which is currently on hold -INR was 2.5 but better at 1.6; could be related to Eliquis and/or severe sepsis -no active bleeding noted, -hemoglobin climbed to 8.6 but now down to7.8 -continue to monitor hemoglobin and transfuse to maintain hemoglobin level > 7.0 (8) Weakness: Code(s): R53.1 - Weakness Status: Acute Assessment and Plan: Multifactorial related to UTI, acute gastric ulcer perforation, severe sepsis, and dehydration. Start PT/OT when able (9) Elevated troponin:
--- NOTE | 2021-10-10 13:28 | WPDCDIQUERY2 ---
CDI Query Clarification Request -10/09 Anemia, unspecified -Documented: Patient does have a history of anemia with w/u showing anemia of chronic disease last admission. His Hgb 10.4 on admission but dropped to 6.8 on 10/07 requiring 1 unit of packed RBCs. -patient does take Eliquis at home which is currently on hold -INR was 2.5 but better at 1.6; could be related to Eliquis and/or severe sepsis -no active bleeding noted, -hemoglobin climbed to 8.6 but now down to7.8 Please clarify if there is possibly a more specific diagnosis for above findings
[2021-10-10] MEDS: MAGNESIUM HYDROXIDE SUSP 30 ML UDC FEED TUBE (15:04)
[2021-10-10] MEDS: BISACODYL 10 MG SUPPOSITORY RECTAL (16:56)
[2021-10-10 17:49] LABS: Glucose Point of Care 246 mg/dl (65-105)
[2021-10-10] MEDS: INSULIN GLARGINE (*BKC) 100 UNITS/ML 12 UNITS SUB-Q (20:37)
[2021-10-10] MEDS: NEOMYCIN/POLYMYXIN/BACITRACIN OINTMENT 15 GM TUBE 1 APPLIC TOPICAL (20:37)
[2021-10-10] MEDS: MORPHINE SULFATE (*CRX) 2 MG/ML INJ 1 MG IV PUSH (22:22)
[2021-10-10 23:23] LABS: Glucose Point of Care 257 mg/dl (65-105)
[2021-10-11] VITALS (15 sets, daily range): BP systolic 132–153; BP diastolic 45–58; PULSE 64–86; RESP 15–20; TEMP 36.4–36.8; O2SAT 95–99
[2021-10-11] MEDS: SUCRALFATE SUSP 100 MG/ML 10 ML UDC 1000 MG FEED TUBE ×3 (05:38→20:41)
[2021-10-11] MEDS: CENTRAL LINE FLUSH 10 ML IV PUSH ×3 (05:38→20:41)
[2021-10-11 05:54] LABS: Basophils Percent Auto 0.2 % (0.2-1.2); Eosinophils Absolute Auto 0.1 K/mm3 (0-0.3); Eosinophils Percent Auto 0.3 % (0-4.4); Hematocrit 23.1 % (42.0-52.0); Hemoglobin 7.3 g/dL (14.0-18.0); Immature Granulocyte Absolute 0.42 K/mm3 (0.00-0.031); Immature Granulocyte Percent A 2.1 % (0-0.5); Lymphocytes Absolute Auto 1.03 K/mm3 (0.9-3.2); Lymphocytes Percent Auto 5.1 % (18.3-44.2); Mean Corpuscular HGB Conc 31.6 g/dl (32-36); Mean Corpuscular Hemoglobin 26.4 pg (26-34); Mean Corpuscular Volume 83.4 fl (80-100); Monocytes Absolute Auto 1.3 K/mm3 (0.1-0.6); Monocytes Percent Auto 6.5 % (2.6-8.5); Neutrophils Absolute Auto 17.5 K/mm3 (1.3-6.7); Neutrophils Percent Auto 85.8 % (45.5-73.1); Nucleated Red Blood Cells Perc 0.1 % (0.0-0.2); Platelet Count Result 199 k/mm3 (150-375); Red Blood Count 2.77 M/mm3 (4.6-6.20); Red Cell Distribution Width 17.3 % (11.5-14.5); White Blood Count 20.4 K/mm3 (4.5-10.0)
[2021-10-11 05:56] LABS: INR 1.5; Prothrombin Time 17.6 Seconds (11.1-14.7)
[2021-10-11 05:57] LABS: Partial Thromboplastin Time 39.4 SECONDS (22.3-36.8)
[2021-10-11 06:05] LABS: Alanine Aminotransferase 47 U/L (4-50); Alkaline Phosphatase 130 U/L (38-126); Anion Gap 5 mmol/L (8-16); Aspartate Amino Transferase 76 U/L (17-59); Bilirubin,Total 1.6 mg/dL (0.2-1.3); Blood Urea Nitrogen 9 mg/dL (9-20); Calcium 7.6 mg/dL (8.4-10.2); Carbon Dioxide 26 mmol/L (22-30); Chloride 101 mmol/L (98-107); Estimated CRCL calculation 103 ml/min; Estimated Glomerular Filt Rate > 60; Glucose 141 mg/dL (65-110); Magnesium 1.6 mg/dL (1.6-2.3); Phosphorus 1.7 mg/dL (2.5-4.5); Potassium 3.3 mmol/L (3.4-5.0); Sodium 132 mmol/L (137-145)
[2021-10-11 06:06] LABS: Lactic Acid Reflex 1.6 mmol/L (0.7-2.1)
[2021-10-11] MEDS: KCL 20 MEQ/SW 100 ML 100 ML 50 MEQ IVPB (08:33)
[2021-10-11] MEDS: NEOMYCIN/POLYMYXIN/BACITRACIN OINTMENT 15 GM TUBE 1 APPLIC TOPICAL ×3 (08:36→17:09)
[2021-10-11] MEDS: SILVERGEL (ELTA) 45 ML 1 APPLIC TOPICAL (08:36)
--- NOTE | 2021-10-11 10:02 | PM.IMPN ---
Progress Note: A&P Assessment and Plan (1) Severe sepsis: Onset Date: ~09/2021 Code(s): A41.9 - Sepsis, unspecified organism; R65.20 - Severe sepsis without septic shock Status: Acute Assessment and Plan: Sepsis present on admission with leukocytosis, elevated CRP and lactic acid. Significant leukocytosis of 46.1 with lactic acid 4.9. Likely source felt related to acute gastric ulcer perforation +/- UTI. UCx growing Klebsiellla oxytoca ESBL. BCx growing Lactobacillius felt to be a contaminant. Patient was given 2 L IV fluid bolus in the ED for blood pressures on 10/06/21. Started on Zosyn but switched to ertapenem 10/07/21 (Day 5). Lactic acid has normalized and WBC dropped to 20K but now hovering in this area. Has probable abscess noted by last CT. No Fevers. Continue to monitor. Continue current antibiotics. Needs drain placement with culture. Can then tailor abx accordingly. (2) Acute gastric ulcer with perforation: Onset Date: ~10/06/21 Code(s): K25.1 - Acute gastric ulcer with perforation Status: Acute Assessment and Plan: Presents to the Ed with complaints of abdominal pain. He has known peptic ulcer disease with EGD 09/04/21 showing reflux esophagitis, gastritis and gastric ulcer. CT Abd/pelvis 10/06 showing free intraperitoneal air and fluid left upper abdomen, suspicious for bowel perforation, possibly perforated gastric ulcer. Surgery was consulted and felt patient was too high risk given that he is on Eliquis, multiple cardiac issues, sepsis. he is being trteated conservatively. CT A/P 10/10 showing no definitive extravasation of contrast but there is increased fat stranding and fluid surrounding the stomach with a small amount of free intraperitoneal air which has decreased. There is a new fluid collection left mid abdomen measuring 3.7 cm. Most likely abscess. Continue Protonix infusion. Continue bowel rest and TPN (started on 10/07). Continue NG tube to suction. Abx as mentioned above. (3) Abdominal abscess: Status: Acute Assessment and Plan: CT scan shows a 3.7 cm fluid collection. This is most likely abscess from recent perforation. Discussed with surgery yesterday. WBC unchanged and patient with persistent pain. Will need drain placed. Will discuss with surgery. (4) Ileus: Code(s): K56.7 - Ileus, unspecified Status: Acute Assessment and Plan: CT scan shows dilated small bowel consistent with ileus which is not unexpected. Continue to hold on tube feedings. Also noted to have stool distening the rectum. Continue NG tube to suction. Repeat dulcolax (5) Electrolyte abnormality: Code(s): E87.8 - Other disorders of electrolyte and fluid balance, not elsewhere classified Status: Acute Assessment and Plan: Potassium was 6.6 on admission. Could be relate to bowel ischemia. He was treated appropriately with resolution. Potassium now low at times so will replace again today. mag 1.6 but will replace as well Phosphorus low again today. Will replace. Recommend TPN adjustment (6) Anemia: Qualifiers: Anemia type: unspecified type Qualified Code(s): D64.9 - Anemia, unspecified Code(s): D64.9 - Anemia, unspecified Status: Acute Assessment and Plan: Patient does have a history of anemia with w/u showing anemia of chronic disease last admission. His Hgb 10.4 on admission but dropped to 6.8 on 10/07 requiring 1 unit of packed RBCs. No evidence of acute blood loss. Etiology of the acute anemia unclear. Patient does take Eliquis at home which is currently on hold. INR was 2.5 but better at 1.6 felt related to Eliquis and/or severe sepsis. Hemoglobin climbed to 8.6 after transfusion but now down to 7.3. Continue to monitor hemoglobin and transfuse to maintain hemoglobin level > 7.0 (7) Elevated troponin: Code(s): R77.8 - Other specified abnormalities of plasma proteins Status: Acute As
[2021-10-11] MEDS: AMINO ACIDS 5%/DEXTROSE 15% 2,000 ML with MULTIVITAMINS-12 INJ VIAL 1 2.5 ML, MULTIVITA... 40 ML IV CONT (10:12)
[2021-10-11] MEDS: FAT EMULSIONS IV 20% 250 ML 20.83 ML IVPB (10:13)
[2021-10-11] MEDS: ERTAPENEM 1 GM/NS 50 ML 1 GM/50 ML BAG IVPB (12:06)
[2021-10-11] MEDS: MAGNESIUM SULF 2 GM/WATER 50ML 2 GM/50 ML BAG IVPB (12:07)
--- NOTE | 2021-10-11 12:11 | PM.PNGS ---
Progress Note: A&P Assessment and Plan (1) Acute gastric ulcer with perforation: Onset Date: ~10/06/21 Code(s): K25.1 - Acute gastric ulcer with perforation Status: Acute Assessment and Plan: Presented with gastric ulcer with perforation noted on CT scan, which showed a small amount of air between the greater curvature of the stomach and transverse colon, as well as some gas in the wall of the stomach. Continue conservative treatment with IV Ertapenem, NG tube decompression, and bowel rest. Will switch Clinimix to PPN solution today (due to low supply of central solution in pharmacy). Will switch Protonix drip to IV push Protonix Q12H starting tonight. Continue carafate down NG. Gastrografin UGI/SBFT and CT scan suggested no definitive extravasation from the stomach, but a new small possible abscess in an area anterior to the wall of the stomach, also noted was an ileus. Will talk to the Radiologist today and see if they would be able to percutaneously drain the fluid collection tomorrow. Will plan accordingly. Continue IV Ertapenem for now and would plan to have cultures sent if this is drained in Radiology tomorrow. Plain films again showed a fair amount of stool in the rectum today. Will give another enema and he has dulcolax suppository ordered for today. (2) Severe sepsis: Onset Date: ~09/2021 Code(s): A41.9 - Sepsis, unspecified organism; R65.20 - Severe sepsis without septic shock Status: Acute Assessment and Plan: [place] secondary to gastric ulcer with perforation versus urinary source. WBC slowly trending down, at 20K today. Lactic acid normalized. Urine cx growing Klebsiellla oxytoca ESBL. Blood cx growing Lactobacillus casei from anaerobic bottle only. See plan above. (3) Acidosis, lactic: Onset Date: ~09/2021 Code(s): E87.2 - Acidosis Status: Acute Assessment and Plan: Resolved (4) Cardiomyopathy: Onset Date: Unknown Code(s): I42.9 - Cardiomyopathy, unspecified Status: Acute Assessment and Plan: Cardiology was consulted for elevated troponin, recommendations noted. No plan for ischemic workup. (5) Type 2 diabetes mellitus without complications: Code(s): E11.9 - Type 2 diabetes mellitus without complications Status: Acute (6) Arterial insufficiency of lower extremity: Onset Date: Unknown Code(s): I73.9 - Peripheral vascular disease, unspecified Status: Acute (7) Open wound of left hip: Onset Date: Unknown Code(s): S71.002A - Unspecified open wound, left hip, initial encounter Status: Acute Assessment and Plan: Continue local wound care. (8) Wound of right foot: Onset Date: Unknown Code(s): S91.301A - Unspecified open wound, right foot, initial encounter Status: Acute Assessment and Plan: Continue local wound care. Additional Plan I have discussed the patient's case and plan of care with Dr. Perkins. Subjective Subjective Date/Time Seen: 10/11/21 12:11 Patient reports: no new complaints, still having pain, bowel movement (small soft BM this morning) and afebrile Interval history: Patient seen and examined. He still reports upper abdominal pain that is mild, unchanged from yesterday. Denies bloating or nausea. He did get up to sit on the side of the bed with PT today. He also reports a small BM this morning. No other complaints at this time. Exam Const: General: comfortable, no acute distress and alert Nutritional Appearance: malnourished Orientation/consciousness: patient oriented x3 Resp: Effort & Inspection: normal respiratory effort Auscultation: clear to auscultation bilaterally Cardio: Rate: regular rate Bruits: Abdominal aortic bruit present GI: Inspection: non-distended GI Palp: Yes Soft to palpation, Yes Tenderness to palpation present (GI) (mild TTP throughout) and No Guarding due to palpation present (GI) Ausc
[2021-10-11 12:35] LABS: Glucose Point of Care 182 mg/dl (65-105)
[2021-10-11] MEDS: SODIUM PHOSPHATE 20 MM in DEXTROSE 5% IN WATER 250 ML 50 MM IVPB (12:48)
[2021-10-11 17:40] LABS: Glucose Point of Care 253 mg/dl (65-105)
[2021-10-11] MEDS: INSULIN ASPART (*BKC) 100 UNITS/ML SUB-Q (17:41)
[2021-10-11] MEDS: PANTOPRAZOLE SODIUM IV 40 MG VIAL IV PUSH (20:41)
[2021-10-11] MEDS: INSULIN GLARGINE (*BKC) 100 UNITS/ML 12 UNITS SUB-Q (20:41)
[2021-10-12] VITALS (17 sets, daily range): BP systolic 125–160; BP diastolic 44–64; PULSE 66–91; RESP 16–22; TEMP 35.8–36.8; O2SAT 96–100
[2021-10-12 00:05] LABS: Glucose Point of Care 197 mg/dl (65-105)
[2021-10-12 05:38] LABS: Basophils Percent Auto 0.2 % (0.2-1.2); Eosinophils Absolute Auto 0.1 K/mm3 (0-0.3); Eosinophils Percent Auto 0.3 % (0-4.4); Hemoglobin 7.2 g/dL (14.0-18.0); Immature Granulocyte Absolute 0.62 K/mm3 (0.00-0.031); Immature Granulocyte Percent A 3.5 % (0-0.5); Lymphocytes Absolute Auto 0.97 K/mm3 (0.9-3.2); Lymphocytes Percent Auto 5.5 % (18.3-44.2); Mean Corpuscular HGB Conc 32.7 g/dl (32-36); Mean Corpuscular Hemoglobin 26.2 pg (26-34); Mean Platelet Volume 10.9 fl (7.4-10.4); Monocytes Absolute Auto 1.2 K/mm3 (0.1-0.6); Monocytes Percent Auto 6.7 % (2.6-8.5); Neutrophils Absolute Auto 14.7 K/mm3 (1.3-6.7); Neutrophils Percent Auto 83.8 % (45.5-73.1); Platelet Count Result 244 k/mm3 (150-375); Red Blood Count 2.75 M/mm3 (4.6-6.20); Red Cell Distribution Width 17.5 % (11.5-14.5); White Blood Count 17.6 K/mm3 (4.5-10.0)
[2021-10-12] MEDS: SUCRALFATE SUSP 100 MG/ML 10 ML UDC 1000 MG FEED TUBE ×3 (05:39→20:17)
[2021-10-12] MEDS: CENTRAL LINE FLUSH 10 ML IV PUSH ×3 (05:39→20:16)
[2021-10-12 05:46] LABS: INR 1.5; Prothrombin Time 17.5 Seconds (11.1-14.7)
[2021-10-12 05:47] LABS: Partial Thromboplastin Time 37.8 SECONDS (22.3-36.8)
[2021-10-12 06:03] LABS: Alanine Aminotransferase 56 U/L (4-50); Albumin Level 2.1 g/dL (3.5-5.1); Alkaline Phosphatase 157 U/L (38-126); Anion Gap 4 mmol/L (8-16); Aspartate Amino Transferase 80 U/L (17-59); Bilirubin,Total 1.1 mg/dL (0.2-1.3); Blood Urea Nitrogen 11 mg/dL (9-20); Calcium 7.9 mg/dL (8.4-10.2); Carbon Dioxide 26 mmol/L (22-30); Chloride 98 mmol/L (98-107); Estimated CRCL calculation 103 ml/min; Estimated Glomerular Filt Rate > 60; Glucose 224 mg/dL (65-110); Phosphorus 2.4 mg/dL (2.5-4.5); Potassium 3.6 mmol/L (3.4-5.0); Sodium 128 mmol/L (137-145); Triglycerides 267 mg/dL (<150)
[2021-10-12] MEDS: INSULIN ASPART (*BKC) 100 UNITS/ML SUB-Q ×2 (06:13→13:12)
--- NOTE | 2021-10-12 09:27 | PM.PNGS ---
Progress Note: A&P Assessment and Plan (1) Acute gastric ulcer with perforation: Onset Date: ~10/06/21 Code(s): K25.1 - Acute gastric ulcer with perforation Status: Acute Assessment and Plan: Presented with gastric ulcer with perforation noted on CT scan, which showed a small amount of air between the greater curvature of the stomach and transverse colon, as well as some gas in the wall of the stomach. Continue conservative treatment with IV Ertapenem, NG tube decompression, and bowel rest. The Clinimix was switched on 10/11 to PPN solution (due to low supply of central solution in pharmacy). Also, on 10/12 discussed his low sodium and phosphorus with the pharmacist and he was able to add 1 vial of 60 mEq of sodium phosphate to the new planned Clinimix bag for this afternoon. We will continue this until the patient's sodium comes up into the normal range. On dale of 10/11 switched Protonix drip to IV push Protonix Q12H. Continue carafate down NG q 8 hr. . Gastrografin UGI/SBFT and CT scan suggested no definitive extravasation from the stomach, but a new small possible abscess in an area anterior to the wall of the stomach, also noted was an ileus. Radiologist agreed to drain the small LUQ abscess today by percutaneous drain ans send fluid for standard C& S. Will plan accordingly. Continue IV Ertapenem for now. Nurse reported to me yesterday that patient had a reasonable stool after the fleets enema. After he gets done with his drainage procedure today if he still has not had a bowel movement in the afternoon he has dulcolax suppository ordered for p.r.n. today. (2) Severe sepsis: Onset Date: ~09/2021 Code(s): A41.9 - Sepsis, unspecified organism; R65.20 - Severe sepsis without septic shock Status: Acute Assessment and Plan: [place] secondary to gastric ulcer with perforation versus urinary source. WBC slowly trending down, at 20K today. Lactic acid normalized. Urine cx growing Klebsiellla oxytoca ESBL. Blood cx growing Lactobacillus casei from anaerobic bottle only. Letter felt to be possible contaminant. See plan above. (3) Acidosis, lactic: Onset Date: ~09/2021 Code(s): E87.2 - Acidosis Status: Acute Assessment and Plan: Resolved (4) Cardiomyopathy: Onset Date: Unknown Code(s): I42.9 - Cardiomyopathy, unspecified Status: Acute Assessment and Plan: Cardiology was consulted for elevated troponin, recommendations noted. No plan for ischemic workup. (5) Type 2 diabetes mellitus without complications: Code(s): E11.9 - Type 2 diabetes mellitus without complications Status: Acute Assessment and Plan: Continue subcu insulin as needed. As per sliding scale. (With the Clinimix switch not sure if pharmacy put in the IV insulin). (6) Arterial insufficiency of lower extremity: Onset Date: Unknown Code(s): I73.9 - Peripheral vascular disease, unspecified Status: Acute (7) Open wound of left hip: Onset Date: Unknown Code(s): S71.002A - Unspecified open wound, left hip, initial encounter Status: Acute Assessment and Plan: Continue local wound care. (8) Wound of right foot: Onset Date: Unknown Code(s): S91.301A - Unspecified open wound, right foot, initial encounter Status: Acute Assessment and Plan: Continue local wound care. Additional Plan May consider starting some nutrition down NG tube depending on the findings at the time of the CT-guided drainage. For now continue only putting the Carafate down the NG and clamping it for 1 or 2 hours otherwise keeping it on low intermittent suction. I discussed with pharmacy and they are adding 1 vial of sodium phosphate to the Clinimix to increase the sodium that he will get with his IV nutrition. Patient's situation and care discussed with Dr. Gomez. He will continue to carefully watch electrolytes and insulin r
[2021-10-12] MEDS: SILVERGEL (ELTA) 45 ML 1 APPLIC TOPICAL (09:48)
[2021-10-12] MEDS: PANTOPRAZOLE SODIUM IV 40 MG VIAL IV PUSH ×2 (09:48→20:16)
[2021-10-12] MEDS: NEOMYCIN/POLYMYXIN/BACITRACIN OINTMENT 15 GM TUBE 1 APPLIC TOPICAL ×3 (09:49→17:46)
[2021-10-12] MEDS: BISACODYL 10 MG SUPPOSITORY RECTAL (09:50)
--- NOTE | 2021-10-12 10:02 | PC.NURSE ---
Received report from Dory, reported bowel movement last night, no information on consistency or amount.
--- NOTE | 2021-10-12 11:49 | PCPTNOTE ---
Patient refused treatment this session due to patient wanting to rest at this time.
--- NOTE | 2021-10-12 12:06 | PM.IMPN ---
Progress Note: A&P Assessment and Plan (1) Severe sepsis: Onset Date: ~09/2021 Code(s): A41.9 - Sepsis, unspecified organism; R65.20 - Severe sepsis without septic shock Status: Acute Assessment and Plan: Sepsis present on admission with leukocytosis, elevated CRP and lactic acid. Significant leukocytosis of 46K with lactic acid 4.9. Likely source felt related to acute gastric ulcer perforation +/- UTI. UCx growing Klebsiellla oxytoca ESBL. BCx growing Lactobacillius felt to be a contaminant. Patient was given 2 L IV fluid bolus in the ED for blood pressures on 10/06/21. Started on Zosyn but switched to ertapenem 10/07/21 (Day 6). Lactic acid has normalized and WBC dropped to 17K but now hovering possibly related to the fluid collection. No Fevers. Drain placed today. Continue to monitor. Continue current antibiotics. Follow-up on abscess culture results. (2) Acute gastric ulcer with perforation: Onset Date: ~10/06/21 Code(s): K25.1 - Acute gastric ulcer with perforation Status: Acute Assessment and Plan: Presents to the ED with complaints of abdominal pain. He has known peptic ulcer disease with EGD 09/04/21 showing reflux esophagitis, gastritis and gastric ulcer. CT Abd/pelvis on admission (10/06) showing free intraperitoneal air and fluid left upper abdomen, suspicious for bowel perforation, possibly perforated gastric ulcer. Surgery was consulted and felt patient was too high risk given that he is on Eliquis, multiple cardiac issues, sepsis. Patient is being treated conservatively. CT Abd/Pelvis 10/10 showing no definitive extravasation of contrast but there is increased fat stranding and fluid surrounding the stomach with a small amount of free intraperitoneal air which has decreased. There is a new fluid collection left mid abdomen measuring 3.7 cm. Most likely abscess. Drain placed today. Continue Protonix infusion. Continue bowel rest and TPN (started on 10/07). Continue NG tube to suction. Abx as mentioned above. (3) Abdominal abscess: Status: Acute Assessment and Plan: CT scan shows a 3.7 cm fluid collection. This is most likely abscess from recent perforation. Discussed with surgery today. WBC slightly better and pain better. Drain placed today. Follow up with culture results. (4) Ileus: Code(s): K56.7 - Ileus, unspecified Status: Acute Assessment and Plan: CT scan shows dilated small bowel consistent with ileus which is not unexpected. Continue to hold on tube feedings. Also noted to have stool distending the rectum. Positive bowel movement. Continue NG tube to suction. Continue Dulcolax. (5) Electrolyte abnormality: Code(s): E87.8 - Other disorders of electrolyte and fluid balance, not elsewhere classified Status: Acute Assessment and Plan: Potassium was 6.6 on admission. Could be relate to bowel ischemia. He was treated appropriately with resolution. Potassium now normal today. Mag normal. Phosphorus slightly low again today. Replacement ordered. Continue TPN (6) Anemia: Qualifiers: Anemia type: unspecified type Qualified Code(s): D64.9 - Anemia, unspecified Code(s): D64.9 - Anemia, unspecified Status: Acute Assessment and Plan: Patient does have a history of anemia with w/u showing anemia of chronic disease last admission. His Hgb 10.4 on admission but dropped to 6.8 on 10/07 requiring 1 unit of packed RBCs. No evidence of acute blood loss. Patient does take Eliquis at home which is currently on hold. INR was 2.5 but better at 1.5 felt related to Eliquis and/or severe sepsis. Hemoglobin climbed to 8.6 after transfusion but now down to 7.2 Continue to monitor hemoglobin and transfuse to maintain hemoglobin level > 7.0 (7) Elevated troponin: Code(s): R77.8 - Other specified abnormalities of plasma proteins Status: Acute Assessment and Plan: Troponin elevated at 0.
[2021-10-12] MEDS: ERTAPENEM 1 GM/NS 50 ML 1 GM/50 ML BAG IVPB (13:06)
[2021-10-12 13:11] LABS: Glucose Point of Care 212 mg/dl (65-105)
--- NOTE | 2021-10-12 13:48 | PCSTNOTE ---
Please refer to the Bedside Swallow Evaluation in the EMR. Please note, silent aspiration cannot be ruled out at bedside.
[2021-10-12 17:56] LABS: Glucose Point of Care 157 mg/dl (65-105)
[2021-10-12] MEDS: INSULIN GLARGINE (*BKC) 100 UNITS/ML 16 UNITS SUB-Q (20:16)
[2021-10-12 20:32] LABS: Glucose Point of Care 198 mg/dl (65-105)
[2021-10-12 23:46] LABS: Glucose Point of Care 208 mg/dl (65-105)
[2021-10-13] VITALS (13 sets, daily range): BP systolic 130–163; BP diastolic 49–59; PULSE 69–75; RESP 12–20; TEMP 36.3–36.9; O2SAT 96–100
[2021-10-13] MEDS: INSULIN ASPART (*BKC) 100 UNITS/ML SUB-Q (00:15)
[2021-10-13 04:22] LABS: Basophils Percent Auto 0.2 % (0.2-1.2); Eosinophils Percent Auto 0.3 % (0-4.4); Hematocrit 22.5 % (42.0-52.0); Hemoglobin 7.1 g/dL (14.0-18.0); Immature Granulocyte Absolute 0.36 K/mm3 (0.00-0.031); Immature Granulocyte Percent A 2.8 % (0-0.5); Lymphocytes Absolute Auto 1.17 K/mm3 (0.9-3.2); Lymphocytes Percent Auto 9.1 % (18.3-44.2); Mean Corpuscular HGB Conc 31.6 g/dl (32-36); Mean Corpuscular Hemoglobin 25.9 pg (26-34); Mean Corpuscular Volume 82.1 fl (80-100); Mean Platelet Volume 10.8 fl (7.4-10.4); Monocytes Percent Auto 7.9 % (2.6-8.5); Neutrophils Absolute Auto 10.3 K/mm3 (1.3-6.7); Neutrophils Percent Auto 79.7 % (45.5-73.1); Platelet Count Result 287 k/mm3 (150-375); Red Blood Count 2.74 M/mm3 (4.6-6.20); Red Cell Distribution Width 17.7 % (11.5-14.5); White Blood Count 12.9 K/mm3 (4.5-10.0)
[2021-10-13 04:34] LABS: Anion Gap 4 mmol/L (8-16); Blood Urea Nitrogen 17 mg/dL (9-20); Calcium 8.3 mg/dL (8.4-10.2); Carbon Dioxide 26 mmol/L (22-30); Chloride 101 mmol/L (98-107); Estimated CRCL calculation 103 ml/min; Estimated Glomerular Filt Rate > 60; Glucose 138 mg/dL (65-110); Lipase 225 U/L (23-300); Sodium 131 mmol/L (137-145)
[2021-10-13] MEDS: CENTRAL LINE FLUSH 10 ML IV PUSH ×3 (05:53→20:38)
[2021-10-13] MEDS: SUCRALFATE SUSP 100 MG/ML 10 ML UDC 1000 MG FEED TUBE ×3 (05:53→20:37)
[2021-10-13] MEDS: NEOMYCIN/POLYMYXIN/BACITRACIN OINTMENT 15 GM TUBE 1 APPLIC TOPICAL ×3 (09:46→18:38)
[2021-10-13] MEDS: PANTOPRAZOLE SODIUM IV 40 MG VIAL IV PUSH ×2 (09:47→20:38)
[2021-10-13] MEDS: BISACODYL 10 MG SUPPOSITORY RECTAL (09:48)
[2021-10-13] MEDS: SILVERGEL (ELTA) 45 ML 1 APPLIC TOPICAL (09:48)
--- NOTE | 2021-10-13 11:25 | PM.PNGS ---
Progress Note: A&P Assessment and Plan (1) Acute gastric ulcer with perforation: Onset Date: ~10/06/21 Code(s): K25.1 - Acute gastric ulcer with perforation Status: Acute Assessment and Plan: Presented with gastric ulcer with perforation noted on CT scan, which showed a small amount of air between the greater curvature of the stomach and transverse colon, as well as some gas in the wall of the stomach. Continue conservative treatment with IV Ertapenem, NG still in place and since no signs of gastric contents in left upper quadrant drain will start trickle tube feedings today with the plan to go up by 10 cc/hour each day as long as patient is tolerating this with minimal residuals. And perhaps on Saturday consider either going up to goal rate on the tube feedings or pulling the NG tube & having the patient do A modified barium swallow confirmatory study for ruling out aspiration the then proceed to oral feeding. The Clinimix was switched on 10/11 to PPN solution (due to low supply of central solution in pharmacy). Also, on 10/12 discussed his low sodium and phosphorus with the pharmacist and he was able to add 1 vial of 60 mEq of sodium phosphate to a 250 cc bag pf NS and ru over the last 16 hrs (there was still some hanging -- going in when I saw the pt today. We will continue this until the patient's sodium comes up into the normal range.(D/W Dr. Gomez and will repeat this rider today). On dale of 10/11 switched Protonix drip to IV push Protonix Q12H. Continue carafate down NG q 8 hr. Gastrografin UGI/SBFT and CT scan suggested no definitive extravasation from the stomach, but a new small possible abscess in an area anterior to the wall of the stomach, also noted was an ileus. Radiologist placed percutaneous drain fluid was sent for standard C& S. --- So far gram stain shows WBCs but no organisms and there is no growth. ---- Will plan accordingly. Continue IV Ertapenem for now. Patient now getting up in the chair with help from PT and OT start low volume trickle tube feedings today and watch for any signs of change in the character or color of the drainage from the percutaneous drain left upper quadrant. (2) Severe sepsis: Onset Date: ~09/2021 Code(s): A41.9 - Sepsis, unspecified organism; R65.20 - Severe sepsis without septic shock Status: Acute Assessment and Plan: [place] secondary to gastric ulcer with perforation versus urinary source. WBC slowly trending down, at 20K today. Lactic acid normalized. Urine cx growing Klebsiellla oxytoca ESBL. Blood cx growing Lactobacillus casei from anaerobic bottle only. Letter felt to be possible contaminant. See plan above. (3) Acidosis, lactic: Onset Date: ~09/2021 Code(s): E87.2 - Acidosis Status: Acute Assessment and Plan: Resolved (4) Cardiomyopathy: Onset Date: Unknown Code(s): I42.9 - Cardiomyopathy, unspecified Status: Acute Assessment and Plan: Cardiology was consulted for elevated troponin, recommendations noted. No plan for ischemic workup. this consult was mainly so they would be aware of the patient if surgical intervention would be necessary since he is at high risk. (5) Type 2 diabetes mellitus without complications: Code(s): E11.9 - Type 2 diabetes mellitus without complications Status: Acute Assessment and Plan: Continue subcu insulin as needed. As per sliding scale. Will now be starting trickle tube feedings and Dr. Gomez aware. (6) Arterial insufficiency of lower extremity: Onset Date: Unknown Code(s): I73.9 - Peripheral vascular disease, unspecified Status: Acute Assessment and Plan: Also has arterial based wound on the right heel which is dry and being protected with a Mepilex. (7) Open wound of left hip: Onset Date: Unknown Code(s): S71.002A - Unspecified open wound, left hip, initial encounter Status: Acut
[2021-10-13 12:46] LABS: Glucose Point of Care 176 mg/dl (65-105)
--- NOTE | 2021-10-13 12:56 | PCNFU ---
Nutrition Follow-Up Complete: Unintended weight loss as related to poor po intake as evidenced by weight loss of greater than 7.5% in the past 3 months. Goal: Adequate Intake of at least 75% of meals/supplements Pt is slowly making progress towards goal Pt current nutrition is PPN running at 80mL/hr over 24 hours and tube feeding of Glucerna 1.2 Last recorded weight is 60.6 kg, up 2.8kg from admit weight reported on 10/06/21. Bowel Motility: +BM reported 10/12/21 Labs Reviewed: Hgb 7.1, Hct 22.5, Alb 2.1, Na 131, Ca 8.3, AST 80, ALT 56, Cr 0.4, Glu 138, TG 267, ALP 157 Meds Noted: Clinimix E 4.25%/5%, protonix Skin: frontal head scab, right medial arterial foot ulcer, left lateral hip pressure ulcer - unstageable Additional Notes: TPN was switched to PPN solution on 10/11/21 due to low supply of central solution in pharmacy. Sodium phosphate was added to clinimix on 10/12/21 to help with low sodium and phosphorus. 20% Lipid emulsion has been held due to elevated triglycerides. Recommend continuing to hold lipid emulsion until TG trend down. PPN running at a rate of 80mL/hr without lipids will providing 653kcal and 82g of protein. Spoke with Dr. Perkins today (10/13/21), who reports plan is to initiated tube feeding at a trickle rate of 10mL/hr and continue PPN until pt is tolerating tube feedings or oral diet. Tube feeding of Glucerna 1.2 running at 10mL/hr over 22 hours will provide 264kcal and 13g of protein. PPN running at rate of 80mL/hr without lipids and tube feeding running at trickle rate will provide a total of 917kcal and 95g of protein, meeting 50% of estimated kcal needs and 146% of estimated protein needs. Plan is to continue increasing tube feeding rate by 10mL/hr each day, as long as pt continues to tolerate feedings until Saturday (10/16/21). If pt is tolerating tube feedings by Saturday, recommend increasing tube feeding rate by 10mL/hr every Q6 hours until a goal rate of 55mL/hr is met. Tube feeding of Glucerna 1.2 running at goal rate without PPN will provide 1452kcal and 73g of protein to meet 80% of estimated kcal needs and 106% of estimated protein needs. Possible Modified Barium Swallow study to be completed on Saturday (10/16/21) to consider oral feedings. Agree with diet orders at this time. Will continue to follow. RD will monitor every 3 days.
--- NOTE | 2021-10-13 14:27 | PM.IMPN ---
Progress Note: A&P Assessment and Plan (1) Severe sepsis: Onset Date: ~09/2021 Code(s): A41.9 - Sepsis, unspecified organism; R65.20 - Severe sepsis without septic shock Status: Acute Assessment and Plan: Sepsis present on admission with leukocytosis, elevated CRP and lactic acid. Significant leukocytosis of 46K with lactic acid 4.9. Likely source felt related to acute gastric ulcer perforation +/- UTI. UCx growing Klebsiellla oxytoca ESBL. BCx growing Lactobacillius felt to be a contaminant. Patient was given 2 L IV fluid bolus in the ED for blood pressures on 10/06/21. Started on Zosyn but switched to ertapenem 10/07/21 (Day 7). Lactic acid has normalized and WBC dropped to 13K. No Fevers. Follow up on drain culture. Continue to monitor. Continue current antibiotics. Monitor closely as TF are started. (2) Acute gastric ulcer with perforation: Onset Date: ~10/06/21 Code(s): K25.1 - Acute gastric ulcer with perforation Status: Acute Assessment and Plan: Presents to the ED with complaints of abdominal pain. He has known peptic ulcer disease with EGD 09/04/21 showing reflux esophagitis, gastritis and gastric ulcer. CT Abd/pelvis on admission (10/06) showing free intraperitoneal air and fluid left upper abdomen, suspicious for bowel perforation, possibly perforated gastric ulcer. Surgery was consulted and felt patient was too high risk given that he is on Eliquis, multiple cardiac issues, sepsis. Patient is being treated conservatively. CT Abd/Pelvis 10/10 showing no definitive extravasation of contrast but there is increased fat stranding and fluid surrounding the stomach with a small amount of free intraperitoneal air which has decreased. There is a new fluid collection left mid abdomen measuring 3.7 cm and drain placed. Continue Protonix. Continue TPN. NG tube clamped. Abx as mentioned above. TF to start at a trickle. Resume some home if able to tolerate TF. (3) Abdominal abscess: Status: Acute Assessment and Plan: CT scan shows a 3.7 cm fluid collection. This is most likely abscess vs seroma from recent perforation. Drain placed 10/12/21. Grape juice given; no purple output into the drain. WBC much better. Discussed with surgery today. Follow up with culture results. (4) Ileus: Code(s): K56.7 - Ileus, unspecified Status: Acute Assessment and Plan: CT scan did show dilated small bowel consistent with ileus which is not unexpected. Now having BMs. Plan to start trickle tube feedings. Consider miralax daily if he does well with the feedings. (5) Electrolyte abnormality: Code(s): E87.8 - Other disorders of electrolyte and fluid balance, not elsewhere classified Status: Acute Assessment and Plan: Potassium was 6.6 on admission. Could be relate to bowel ischemia. He was treated appropriately with resolution. Potassium now normal today. Mag and Phos normal as well. Continue TPN (6) Urinary tract infection: Code(s): N39.0 - Urinary tract infection, site not specified Status: Acute Assessment and Plan: UCx growing ESBL Klebsiella. Currently on Invanz. As above (7) Anemia: Qualifiers: Anemia type: unspecified type Qualified Code(s): D64.9 - Anemia, unspecified Code(s): D64.9 - Anemia, unspecified Status: Acute Assessment and Plan: Patient does have a history of anemia with w/u showing anemia of chronic disease last admission. His Hgb 10.4 on admission but dropped to 6.8 on 10/07 requiring 1 unit of packed RBCs. No evidence of acute blood loss. Patient does take Eliquis at home which is currently on hold. INR was 2.5 but better at 1.5 felt related to Eliquis and/or severe sepsis. Hemoglobin climbed to 8.6 after transfusion but now down to 7.1 Continue to monitor hemoglobin and transfuse to maintain hemoglobin level > 7.0 (8) Elevated troponin: Code(s): R77.8 - Other specified abn
[2021-10-13] MEDS: ERTAPENEM 1 GM/NS 50 ML 1 GM/50 ML BAG IVPB (18:41)
[2021-10-13 20:01] LABS: Glucose Point of Care 181 mg/dl (65-105)
[2021-10-13] MEDS: INSULIN GLARGINE (*BKC) 100 UNITS/ML 16 UNITS SUB-Q (20:37)
[2021-10-14] VITALS (25 sets, daily range): BP systolic 100–152; BP diastolic 45–58; PULSE 69–97; RESP 16–24; TEMP 36.1–36.8; O2SAT 95–98
[2021-10-14] LABS: Glucose Point of Care 159 mg/dl (65-105)
[2021-10-14 04:51] LABS: Basophils Percent Auto 0.1 % (0.2-1.2); Eosinophils Percent Auto 0.3 % (0-4.4); Hematocrit 21.8 % (42.0-52.0); Immature Granulocyte Absolute 0.25 K/mm3 (0.00-0.031); Immature Granulocyte Percent A 2.5 % (0-0.5); Lymphocytes Absolute Auto 1.06 K/mm3 (0.9-3.2); Lymphocytes Percent Auto 10.4 % (18.3-44.2); Mean Corpuscular HGB Conc 31.2 g/dl (32-36); Mean Corpuscular Volume 83.2 fl (80-100); Mean Platelet Volume 10.7 fl (7.4-10.4); Monocytes Absolute Auto 0.8 K/mm3 (0.1-0.6); Monocytes Percent Auto 7.6 % (2.6-8.5); Neutrophils Absolute Auto 8.1 K/mm3 (1.3-6.7); Neutrophils Percent Auto 79.1 % (45.5-73.1); Platelet Count Result 297 k/mm3 (150-375); Red Blood Count 2.62 M/mm3 (4.6-6.20); Red Cell Distribution Width 17.7 % (11.5-14.5); White Blood Count 10.2 K/mm3 (4.5-10.0)
[2021-10-14 04:58] LABS: Hemoglobin 6.8 g/dL (14.0-18.0)
[2021-10-14 05:01] LABS: Anion Gap 3 mmol/L (8-16); Blood Urea Nitrogen 19 mg/dL (9-20); Calcium 7.9 mg/dL (8.4-10.2); Carbon Dioxide 28 mmol/L (22-30); Chloride 101 mmol/L (98-107); Estimated CRCL calculation 104 ml/min; Estimated Glomerular Filt Rate > 60; Glucose 143 mg/dL (65-110); Phosphorus 3.4 mg/dL (2.5-4.5); Potassium 3.9 mmol/L (3.4-5.0); Sodium 132 mmol/L (137-145); Triglycerides 191 mg/dL (<150)
[2021-10-14] MEDS: CENTRAL LINE FLUSH 10 ML IV PUSH ×3 (06:30→20:25)
[2021-10-14] MEDS: SUCRALFATE SUSP 100 MG/ML 10 ML UDC 1000 MG FEED TUBE ×3 (06:30→20:24)
[2021-10-14] MEDS: ACETAMINOPHEN ELIXIR 325 MG/10.15 ML UDC PO (08:53)
[2021-10-14] MEDS: SILVERGEL (ELTA) 45 ML 1 APPLIC TOPICAL (08:56)
[2021-10-14] MEDS: NEOMYCIN/POLYMYXIN/BACITRACIN OINTMENT 15 GM TUBE 1 APPLIC TOPICAL ×3 (08:56→17:26)
[2021-10-14] MEDS: PANTOPRAZOLE SODIUM IV 40 MG VIAL IV PUSH ×2 (08:56→20:25)
[2021-10-14] MEDS: SODIUM CHLORIDE 0.9% IV 250 ML 30 ML IV CONT (08:58)
[2021-10-14] MEDS: diphenhydrAMINE HCL ELIXIR 12.5 MG/5 ML UDC PO (09:22)
--- NOTE | 2021-10-14 09:41 | PM.IMPN ---
Progress Note: A&P Assessment and Plan (1) Severe sepsis: Onset Date: ~09/2021 Code(s): A41.9 - Sepsis, unspecified organism; R65.20 - Severe sepsis without septic shock Status: Acute Assessment and Plan: Sepsis present on admission with leukocytosis, elevated CRP and lactic acid. Significant leukocytosis of 46K with lactic acid 4.9. Likely source felt related to acute gastric ulcer perforation +/- UTI. UCx growing Klebsiella oxytoca ESBL. BCx growing Lactobacillus felt to be a contaminant. Patient was given 2 L IV fluid bolus in the ED for blood pressures on 10/06/21. Started on Zosyn but switched to ertapenem 10/07/21 (Day 8). Lactic acid has normalized and WBC dropped to 10K. No Fevers. Abd drain culture NGTD. Agudelo out. Continue to monitor. Continue current antibiotics. (2) Acute gastric ulcer with perforation: Onset Date: ~10/06/21 Code(s): K25.1 - Acute gastric ulcer with perforation Status: Acute Assessment and Plan: Presents to the ED with complaints of abdominal pain. He has known peptic ulcer disease with EGD 09/04/21 showing reflux esophagitis, gastritis and gastric ulcer. CT Abd/pelvis on admission (10/06) showing free intraperitoneal air and fluid left upper abdomen, suspicious for bowel perforation, possibly perforated gastric ulcer. Surgery was consulted and felt patient was too high risk given that he is on Eliquis, multiple cardiac issues, sepsis. Patient is being treated conservatively. CT Abd/Pelvis 10/10 showing no definitive extravasation of contrast but there is increased fat stranding and fluid surrounding the stomach with a small amount of free intraperitoneal air which has decreased. There is a new fluid collection left mid abdomen measuring 3.7 cm and drain placed 10/12. NGT clamped which he toelrated and now on trickle TF. Continue Protonix. Continue TPN. Abx as mentioned above. Resume some home if able to tolerate TF. Tube feeding advance per GenSurg. (3) Anemia: Qualifiers: Anemia type: unspecified type Qualified Code(s): D64.9 - Anemia, unspecified Code(s): D64.9 - Anemia, unspecified Status: Acute Assessment and Plan: Patient does have a history of anemia with w/u showing anemia of chronic disease last admission. His Hgb 10.4 on admission but dropped to 6.8 on 10/07 requiring 1 unit of packed RBCs. No evidence of acute blood loss. Patient does take Eliquis at home which is currently on hold. INR was 2.5 but better at 1.5 felt related to Eliquis and/or severe sepsis. Hemoglobin climbed to 8.6 after transfusion but now down to 6.8. Will transfuse. Continue to monitor hemoglobin and transfuse to maintain hemoglobin level > 7.0 (4) Abdominal abscess: Status: Acute Assessment and Plan: CT scan shows a 3.7 cm fluid collection. This is most likely abscess vs seroma from recent perforation. Drain placed 10/12/21. Grape juice given; no purple output into the drain. WBC much better. Culture results NGTD. Follow. (5) Ileus: Code(s): K56.7 - Ileus, unspecified Status: Acute Assessment and Plan: CT scan did show dilated small bowel consistent with ileus which is not unexpected. Now having BMs. Tolerating trickle tube feedings. Consider miralax daily if he does well with the feedings. (6) Electrolyte abnormality: Code(s): E87.8 - Other disorders of electrolyte and fluid balance, not elsewhere classified Status: Acute Assessment and Plan: Potassium was 6.6 on admission. Could be relate to bowel ischemia. He was treated appropriately with resolution. Electrolytes remaining normal now. Continue TPN (7) Urinary tract infection: Code(s): N39.0 - Urinary tract infection, site not specified Status: Acute Assessment and Plan: UCx growing ESBL Klebsiella. Currently on Invanz. As above (8) Elevated troponin: Code(s): R77.8 - Other specified abnormalities of plasma prote
--- NOTE | 2021-10-14 10:09 | PM.PNGS ---
Progress Note: A&P Assessment and Plan (1) Acute gastric ulcer with perforation: Onset Date: ~10/06/21 Code(s): K25.1 - Acute gastric ulcer with perforation Status: Acute Assessment and Plan: lily trickle TF s issue, will increase to 20ml/hr, exam benign, watch drainage from PJ, cont PPN for now, cx still negative, TGs still high cont to hold (2) Anemia: Qualifiers: Anemia type: unspecified type Qualified Code(s): D64.9 - Anemia, unspecified Code(s): D64.9 - Anemia, unspecified Status: Acute Assessment and Plan: getting a unit of PRBC this am, no evidence of acute bleeding Subjective Subjective Date/Time Seen: 10/14/21 10:09 feels ok, no abd pain, no issues c trophic tube feeds Review of Systems Review of Systems: All systems reviewed & are unremarkable except as noted in HPI and below Exam Const: General: cooperative, comfortable, no acute distress and ill appearing Nutritional Appearance: cachectic and malnourished Orientation/consciousness: patient oriented x3 Resp: Auscultation: clear to auscultation bilaterally Cardio: Rate: regular rate Rhythm: regular rhythm GI: Inspection: normal to inspection and non-distended GI Palp: Yes Soft to palpation, No Tenderness to palpation present (GI), No Guarding due to palpation present (GI) and No Rigid due to palpation Other: PJ - serous output (scant) Objective Data Vital Signs Vital Signs: Vital Signs - 24 hr 10/13/21 12:00 10/13/21 14:00 10/13/21 16:00 Temperature 36.3 C L 36.8 C Pulse Rate 74 74 72 Respiratory Rate 12 20 Blood Pressure 163/59 H 153/54 H Pulse Oximetry 100 97 10/13/21 18:00 10/13/21 20:00 10/13/21 21:57 Temperature 36.9 C Pulse Rate 73 74 72 Respiratory Rate 16 Blood Pressure 130/54 L Pulse Oximetry 96 10/14/21 00:00 10/14/21 02:00 10/14/21 04:00 Temperature 36.3 C L Pulse Rate 71 74 73 Respiratory Rate 18 Blood Pressure 143/56 H Pulse Oximetry 96 10/14/21 05:02 10/14/21 06:00 10/14/21 08:00 Temperature 36.3 C L 36.3 C L Pulse Rate 69 69 72 Respiratory Rate 18 24 H Blood Pressure 150/52 H 137/57 L Pulse Oximetry 96 98 10/14/21 08:53 10/14/21 09:05 10/14/21 09:25 Temperature 36.3 C L 36.3 C L 36.3 C L Pulse Rate 74 72 Respiratory Rate 16 16 Blood Pressure 129/45 L 131/46 L Pulse Oximetry 97 97 Intake/Output Intake/Output: Intake & Output 10/11/21 10/12/21 10/13/21 10/14/21 23:59 23:59 23:59 23:59 Intake Total 3411.66 560 2004 223 Output Total 2095 700 10 25 Balance 1316.66 -140 1994 198 Meds/Results Medications: Active Medications Generic Name Dose Route Start Last Admin Trade Name Freq PRN Reason Stop Dose Admin Benzocaine 1 lozenge 10/07/21 09:09 10/07/21 09:32 Benzocaine/Menthol (*Bkc) 18 Ea Lozenge PO 1 lozenge PRN PRN Administration Sore Throat Dextrose 12.5 gm 10/07/21 13:27 Dextrose 50% 25 Gm/50 Ml Syringe IV PUSH PRN PRN Hypoglycemia Protocol Glucagon 1 mg 10/07/21 13:27 Glucagon For Inj 1 Mg Vial IM PRN PRN Hypoglycemia Protocol Glucose 15 gm 10/07/21 13:27 Glucose Oral Gel 15 Gm Of Glucse In 37.5 Gm Tube PO PRN PRN Hypoglycemia Protocol Ertapenem 1 gm in 50 mls @ 100 mls/hr 10/07/21 12:00 10/13/21 18:41 Invanz 1 Gm/Ns 50 Ml IVPB 100 mls/hr Q24H GARTH Administration Dextrose 1,000 mls @ 50 mls/hr 10/07/21 08:54 Dextrose 10% IV CONT .Q20H PRN if PN is interrupted Fat Emulsion Intravenous 250 mls @ 20.833 mls/hr 10/07/21 08:55 10/12/21 09:47 Lipids 20% IVPB Not Given Q24H GATRH Dextrose 1,000 mls @ 100 mls/hr 10/07/21 13:27 Dextrose 5% 1,000 Ml IVPB PRN PRN Hypoglycemia Protocol Multivitamins 2.5 ml/ 2,005 mls @ 83.542 mls/hr 10/12/21 12:00 10/13/21 13:01 Multivitamins 2.5 ml/ Amino IV CONT 83.54 mls/hr Acids/Electrolytes/Dextrose .Q24H GARTH Administration
[2021-10-14] MEDS: FUROSEMIDE INJ 40 MG/4 ML VIAL 20 MG IV PUSH (12:21)
[2021-10-14 13:13] LABS: Glucose Point of Care 151 mg/dl (65-105)
[2021-10-14] MEDS: ERTAPENEM 1 GM/NS 50 ML 1 GM/50 ML BAG IVPB (14:58)
[2021-10-14] MEDS: ACETAMINOPHEN 325 MG TABLET 650 MG PO (17:23)
[2021-10-14 17:44] LABS: Glucose Point of Care 183 mg/dl (65-105)
[2021-10-14 20:08] LABS: Hematocrit 27.3 % (42.0-52.0); Hemoglobin 8.9 g/dL (14.0-18.0)
[2021-10-14] MEDS: INSULIN GLARGINE (*BKC) 100 UNITS/ML 16 UNITS SUB-Q (20:24)
--- NOTE | 2021-10-14 21:22 | PC.NURSE ---
Patient noted to have 40cc of pink/red residual from NG tube. Hgb 8.9 today post 2 units of PRBC. Radha Campo notified and states to continue to monitor closely.
[2021-10-14 23:32] LABS: Glucose Point of Care 212 mg/dl (65-105)
--- NOTE | 2021-10-14 23:36 | PC.NURSE ---
Nurse went into room as patient was yelling to find him spitting up bright red blood. Tube feeding paused and NG put to suction, no blood coming out of tube. Patient's mouth suctioned and inspected. Hard ulcerative lesion noted on tongue which appears to be bleeding. Mouth swabbed and cleaned, dentures removed. Zofran given for nausea. Dr. Washburn informed of event and patient's increased generalized pain. Orders received to give 1mg morphine, do an EKG, and to discuss with pharmacy regarding medications for the tongue. Will continue monitor patient closely.
--- NOTE | 2021-10-14 23:42 | ECG_ITS ---
Measurements Intervals [place] Rate: 89 P: [place]: 0 QRS: 84 QRSD: 154 T: -77 QT: 394 QTc: 482 Interpretive Statements UNCERTAIN REGULAR RHYTHM NONSPECIFIC INTRAVENTRICULAR CONDUCTION DELAY [130+ ms QRS DURATION] POSSIBLE RIGHT VENTRICULAR HYPERTROPHY [SOME/ALL OF: PROMINENT R IN V1, LATE TRANSITION, RAD, CLIF, SSS] BASELINE ARTIFACT ABNORMAL ECG COMPARED TO ECG 10/06/2021 09:15:36 INTRAVENTRICULAR CONDUCTION DELAY NOW PRESENT AND VENTRICULAR PACING IS NOT APPRECIATED Electronically Signed On 10-18-2021 13:07:12 MEDICAL ATTENDANT by Dustin Catherine M.D.
[2021-10-14] MEDS: MORPHINE SULFATE (*CRX) 2 MG/ML INJ 1 MG IV PUSH (23:56)
[2021-10-15 00:02] VITALS: PULSE 98
--- NOTE | 2021-10-15 00:17 | PC.NURSE ---
In discussion with Nurses Con Campoverde and Jenny Lambert pt states he doesn't want to do this anymore . Pt is extremely frail, complains of pain all over, vomiting red clots from what appears to be ulceration on tongue, and having runs of ectopy. and daughter called and pt wishes explained. spoke with Zhang and family on board with change in code status to DNR and hospice consult. Patient and family would like him to be at home and comfortable when he passes. Dr Washburn called and notified of request for code change and hospice consult. Orders received.
[2021-10-15] MEDS: INSULIN ASPART (*BKC) 100 UNITS/ML SUB-Q (00:30)
--- NOTE | 2021-10-15 01:08 | PC.NURSE ---
Patient given 1mg of morphine at 2356. Nurse walked into room at 0030 to give patient his insulin. Patient found to have no respirations, faint pulses and paced in the 70's on the monitor. called to be informed of change in condition and told she and another family member could come up to see him. Charge and perennial house manager called to bedside. Patient pronounced at 0042. Family was called to be made aware of patient condition, decided not to come up to the hospital as he has .
--- NOTE | 2021-10-15 01:10 | PC.NURSE ---
Time of 004. Verified by Christa Crespo RN and Jenny Lambert RN.
--- NOTE | 2021-10-15 02:42 | PC.NURSE ---
Patient's glasses and dentures sent down to [facility] [place] with [place]. Patients ring remains on his left hand.
--- NOTE | 2021-10-15 07:29 | PM.DDS ---
Discharge Summary Date and Time Date of : 10/15/21 Time of : 00:42 Provider Pronounced By: Christa Crespo RN and Jenny Lambert RN Probable Cause of Probable Cause of : Perforated gastric ulcer Summary Hospital Course: Patient presents to the ED with complaints of abdominal pain. He has known peptic ulcer disease with EGD 09/04/21 showing reflux esophagitis, gastritis and gastric ulcer. CT Abd/pelvis on admission (10/06) showing free intraperitoneal air and fluid left upper abdomen, suspicious for bowel perforation, possibly perforated gastric ulcer. Surgery was consulted and felt patient was too high risk given that he is on Eliquis, multiple cardiac issues, sepsis. Patient was treated conservatively. He was started on protonix. CT Abd/Pelvis 10/10 showing no definitive extravasation of contrast but there is increased fat stranding and fluid surrounding the stomach with a small amount of free intraperitoneal air which has decreased. There was a new fluid collection left mid abdomen measuring 3.7 cm and drain placed 10/12. NGT clamped which he tolerated and was started on trickle TF. Sepsis was present on admission with leukocytosis, elevated CRP and lactic acid. Significant leukocytosis of 46K with lactic acid 4.9. Likely source felt related to acute gastric ulcer perforation +/- UTI. UCx growing Klebsiella oxytoca ESBL. BCx growing Lactobacillus felt to be a contaminant. Patient started on ertapenem. WBC dropped to 10K. Patient was vomiting red clots from what appears to be ulceration on tongue and having runs of ectopy. May be bleeding from his gastric ulcers. Patient is frail and he states he doesn't want to do this anymore per RN. Wifecalled and pt wishes explained. Code status changed to DNR and hospice consult. Nevaehetn was kept comfortable and at 0042 on 10/15/21. Family notified. Additional Data Confirmation of as documented by pronouncing clinician: Pupillary Reflex, Palpable Pulses, Response to Stimuli, Heart Tones and Breath Sounds Name of Provider Notified: Dr Washburn Time Provider Notified: 00:55 Provider Requests Autopsy: No Family Requests Autopsy: No Hand Meat Salter Notified: Yes Date [facility] Notified of : 10/15/21 Time [facility] Notified of : 00:58
== END 2021-10-15 01:42 | disposition expired | DRG 871 ==
LOC: ANHED 10:17 → ANHICU 13:23 → ANHIMU 10-09 11:26 → ANHICU 10-16 11:21 → ANHIMU 10-16 11:21
PROVIDERS: Internal Medicine; Nurse Practitioner Adult Health; Nurse Practitioner Family; Surgery; Admitting Provider Internal Medicine; Emergency Provider General Practice; PCP Family Medicine; Visit Provider Internal Medicine
DX: A41.9 Sepsis, unspecified organism (principal); K25.1 Acute gastric ulcer with perforation; K65.1 Peritoneal abscess; N39.0 Urinary tract infection, site not specified; K56.7 Ileus, unspecified; I42.9 Cardiomyopathy, unspecified; R64 Cachexia; Z68.1 Body mass index [BMI] 19.9 or less, adult; E87.2 Acidosis; E46 Unspecified protein-calorie malnutrition; B96.89 Other specified bacterial agents as the cause of diseases classified elsewhere; R65.20 Severe sepsis without septic shock; D63.8 Anemia in other chronic diseases classified elsewhere; E87.8 Other disorders of electrolyte and fluid balance, not elsewhere classified; E11.9 Type 2 diabetes mellitus without complications; E78.5 Hyperlipidemia, unspecified; E87.5 Hyperkalemia; E86.0 Dehydration; I10 Essential (primary) hypertension; E03.9 Hypothyroidism, unspecified; E11.51 Type 2 diabetes mellitus with diabetic peripheral angiopathy without gangrene; I73.9 Peripheral vascular disease, unspecified; M47.812 Spondylosis without myelopathy or radiculopathy, cervical region; L97.519 Non-pressure chronic ulcer of other part of right foot with unspecified severity; Z96.619 Presence of unspecified artificial shoulder joint; Z85.820 Personal history of malignant melanoma of skin; Z95.0 Presence of cardiac pacemaker; Z79.01 Long term (current) use of anticoagulants; Z90.49 Acquired absence of other specified parts of digestive tract; Z86.73 Personal history of transient ischemic attack (TIA), and cerebral infarction without residual deficits; Z87.891 Personal history of nicotine dependence
CPT/HCPCS: 36415; 36430; 36569; 36600; 51701; 70450; 71045; 74018; 74019; 74176; 74177; 74240; 75989; 80048; 80053; 81001; 82010; 82375; 82805; 82948; 83050; 83605; 83690; 83735; 84100; 84466; 84478; 84484; 85014; 85018; 85025; 85027; 85610; 85730; 86140; 86850; 86880; 86900; 86901; 86902; 86905; 86920; 86922; 86972; 87040; 87070; 87075; 87076; 87077; 87086; 87088; 87186; 87205; 92610; 93005; 93970; 97110; 97162; 97165; 97530; 97535; A9270; C1729; C1751; C1769; C9113; G0378; J0131; J0610; J1335; J1815; J1940; J2270; J2405; J2543; J3475; J3480; J7030; J7040; J7050; J7060; J7120; P9016; Q9967